=== PATIENT | female | born 1940 | race Caucasian/White ===

== ENCOUNTER 2016-07-12 10:31 | Inpatient (IN) | payer OTHER ==
[~2016-07-12] VITALS: Ht 162.6 cm; Wt 54.3 kg
[~2016-07-12 10:31] MED LIST: FSM70 PO
[2016-07-12] MEDS ORDERED: OXYB10TA13 PO (11:02)
[2016-07-12] MEDS ORDERED: PRED10TA PO (11:02)
--- NOTE | 2016-07-12 11:03 | EMERGENCY ROOM VISIT NOTE ---
History Report prepared by [place]: Brunilda Bush Under the Supervision of: Dr. Ace Barrera M.D. First contact with patient: 10:47 Chief Complaint: RESPIRATORY PROBLEMS Stated Complaint: CAN'T BREATHE, CONGESTION, PRESSURE IN HEAD Nursing Triage Summary: pt reports congestion and increased sob X 1 week, finished zpak 1 day ago cont on prednisone denies mucus production, reports pain under L rib History of Present Illness The patient is a 75 year old female who presents to the Emergency Room with complaints of persistent shortness of breath starting about 9 days ago. She reports severe cough and left lower chest pain. She has worsening symptoms with ambulation. She reports urinary incontinence with coughing but denies any other urinary symptoms. She has been taking Oxybutynin for urinary incontinence. She has a history of COPD. She has been using Spiriva and ProAir without relief. She was also prescribed Prednisone without relief. She does not wear oxygen at home. She quit smoking about 2 years ago. Previously, she had been smoking intermittently since high school. She denies any fevers, chills, pain/swelling in lower extremities, or any other complaints. She denies any blood thinners. Source of History: patient Onset: about 9 days ago Position: other (global) Quality: other (shortness of breath) Timing: other (persistent) Modifying Factors (Worsening): other (ambulation) Modifying Factors (Relieving): other (Spiriva and ProAir without relief; Prednisone without relief) Associated Symptoms: No chills, No fevers Review of Systems All systems have been listed, reviewed, and are negative other than those previously mentioned. Please see Additional Medical History Sheet. Past Medical & Surgical Surgical Problems: (1) Hx of cholecystectomy Family History Patient reports no known family medical history. Social History Smoking Status: Former Smoker Marital Status: Occupation Status: retired Current/Historical Medications Scheduled Oxybutynin Chloride Er (Ditropan Xl), 10 MG PO DAILY Prednisone (Prednisone), 10 MG PO UD Tiotropium [place] (Spiriva Handihaler), 1 CAP INH DAILY Allergies Coded Allergies: Cat Dander (Unverified Allergy, Intermediate, ., 07/12/16) Dog Dander (Unverified Allergy, Intermediate, ., 07/12/16) Grass (Unverified Allergy, Intermediate, ., 07/12/16) Molds & Smuts (Unverified Allergy, Intermediate, ., 07/12/16) Penicillins (Verified Allergy, Intermediate, HIVES, 07/12/16) Physical Exam Vital Signs Date Time Temp Pulse Resp B/P Pulse Ox O2 Delivery O2 Flow Rate FiO2 07/12/16 16:20 36.9 116 18 116/56 94 Nasal Cannula 3.0 07/12/16 16:19 110 18 132/64 98 3.0 07/12/16 14:38 107 22 128/66 92 Nasal Cannula 3.0 07/12/16 13:34 78 16 92 Nasal Cannula 3.0 07/12/16 12:40 78 16 107/65 93 Nasal Cannula 2.5 07/12/16 11:21 89 Room Air 07/12/16 11:06 96 07/12/16 11:05 94 Nasal Cannula 4.0 07/12/16 11:05 94 Room Air 07/12/16 10:36 36.9 110 20 117/72 89 Room Air Physical Exam GENERAL: Patient appears frail. SKIN: No erythema, pallor, cyanosis or rash HEENT: Normal head, pupils equal, reactive to light and accommodation. Ears normal. Oral cavity and posterior pharynx appear normal. Neck: Without adenopathy, no neck vein distention. LUNGS: Clear to auscultation. No wheezes, no rales, no rhonchi. HEART: No murmurs. No gallops. No rubs ABDOMEN: Soft, nontender. No masses, no rebound, no hepatomegaly or splenomegaly. EXTREMITIES: No signs of trauma. No pedal or pretibial edema. No calf or thigh tenderness. NEUROLOGIC: Cranial nerves II-XII within normal limits. No gross motor sensory function deficits. Medical Decision & Procedures ER Provider Diagnostic Interpretation: X ray results are stated below per my interpretation and the radiologist's interpretation. CHEST 2 VIEWS ROUTINE CLINICAL HISTORY: Shortness of breath. COMPARISON STUDY: No previous studies for comparison. FINDINGS: There is an old fracture of the left sixth rib. Lung volumes are normal. There is no pneumothorax or pleural effusion. No consolidation is identified. Cardiac size is normal. Mediastinal contours are normal. There may be emphysema. IMPRESSION: No acute cardiopulmonary findings. Electronically signed by: Alban Gonsalves M.D. 07/12/2016 12:47 PM Dictated Date/Time: 07/12/2016 12:46 PM Laboratory Results 07/12/16 11:37 Red Blood Count 5.03, Mean Corpuscular Volume 93.0, Mean Corpuscular Hemoglobin 31.2, Mean Corpuscular Hemoglobin Concent 33.5, Mean Platelet Volume 10.3, Neutrophils (%) (Auto) 79.3, Lymphocytes (%) (Auto) 14.4, Monocytes (%) (Auto) 6.1, Eosinophils (%) (Auto) 0.0, Basophils (%) (Auto) 0.1, Neutrophils # (Auto) 7.07, Lymphocytes # (Auto) 1.28, Monocytes # (Auto) 0.54, Eosinophils # (Auto) 0.00, Basophils # (Auto) 0.01 07/12/16 11:37 Test 07/12/16 11:37 07/12/16 12:00 White Blood Count 8.91 K/uL (4.8-10.8) Red Blood Count 5.03 M/uL (4.2-5.4) Hemoglobin 15.7 g/dL (12.0-16.0) Hematocrit 46.8 % (37-47) Mean Corpuscular Volume 93.0 fL (80-100) Mean Corpuscular Hemoglobin 31.2 pg (25-34) Mean Corpuscular Hemoglobin Concent 33.5 g/dl (32-36) Platelet Count 254 K/uL (130-400) Mean Platelet Volume 10.3 fL (7.4-10.4) Neutrophils (%) (Auto) 79.3 % Lymphocytes (%) (Auto) 14.4 % Monocytes (%) (Auto) 6.1 % Eosinophils (%) (Auto) 0.0 % Basophils (%) (Auto) 0.1 % Neutrophils # (Auto) 7.07 K/uL (1.4-6.5) Lymphocytes # (Auto) 1.28 K/uL (1.2-3.4) Monocytes # (Auto) 0.54 K/uL (0.11-0.59) Eosinophils # (Auto) 0.00 K/uL (0-0.5) Basophils # (Auto) 0.01 K/uL (0-0.2) RDW Standard Deviation 44.6 fL (36.4-46.3) RDW Coefficient of Variation 13.2 % (11.5-14.5) Immature Granulocyte % (Auto) 0.1 % Immature Granulocyte # (Auto) 0.01 K/uL (0.00-0.02) Prothrombin Time 10.6 SECONDS (9.0-12.0) Prothromb Time International Ratio 1.0 (0.9-1.1) Anion Gap 11.0 mmol/L (3-11) Est Creatinine Clear Calc Drug Dose 57.3 ml/min Estimated GFR () 91.7 Estimated GFR (Non- 79.1 BUN/Creatinine Ratio 28.9 (10-20) Calcium Level 9.3 mg/dl (8.5-10.1) Total Bilirubin 0.5 mg/dl (0.2-1) Aspartate Amino Transf (AST/SGOT) 24 U/L (15-37) Alanine Aminotransferase (ALT/SGPT) 30 U/L (12-78) Alkaline Phosphatase 68 U/L (45-117) Troponin I < 0.015 ng/ml (0-0.045) Total Protein 7.4 gm/dl (6.4-8.2) Albumin 3.8 gm/dl (3.4-5.0) Globulin 3.6 gm/dl (2.5-4.0) Albumin/Globulin Ratio 1.1 (0.9-2) Urine Color YELLOW Urine Appearance CLEAR (CLEAR) Urine pH 7.0 (4.5-7.5) Urine Specific [place] 1.016 (1.000-1.030) Urine Protein NEG (NEG) Urine Glucose (UA) NEG (NEG) Urine Ketones NEG (NEG) Urine Occult Blood NEG (NEG) Urine Nitrite NEG (NEG) Urine Bilirubin NEG (NEG) Urine Urobilinogen NEG (NEG) Urine Leukocyte Esterase NEG (NEG) Laboratory results as stated above per my review. Medications Administered Medications (Trade) Dose Ordered Sig/Bala Route Start Time Stop Time Status Last Admin Dose Admin Albuterol/ Ipratropium (Duoneb) 12 ml ONE ONCE INH 07/12/16 13:30 07/12/16 13:31 DC 07/12/16 13:34 12 ML Methylprednisolone Sodium Succinate (Solu-Medrol IV) 80 mg NOW STAT IV 07/12/16 14:17 07/12/16 14:18 DC 07/12/16 14:35 80 MG ECG Indication: SOB/dyspnea Rate (beats per minute): 95 Rhythm: normal sinus Findings: no acute ischemic change, no ectopy ED Course 1047: Past medical records reviewed. The patient was evaluated in room B05. A complete history and physical examination was performed. 1330: DuoNeb 12 ml INH 1339: I discussed the patient's case with son. 1417: Solu-Medrol IV 80 mg IV 1435: Upon reevaluation, the patient is resting comfortably. She is currently receiving breathing treatment. She does not have wheezing. I discussed today's findings with her. She verbalized agreement of the treatment plan. I spoke with Dr. Amador of the [facility] to evaluate the patient for further management. Medical Decision Differential diagnosis includes but is not limited to COPD with acute exacerbation, pneumonia, PE, acute cardiac decompensation. The patient is a long history of COPD. She does not have oxygen at home. The patient arrives here hypoxic and very short of breath. She has been extremely dyspneic with any exertion. Initial exam reveals decreased air movement but no significant wheezes. The patient was treated with IV Solu-Medrol and albuterol nebulizer. Chest x-ray does not reveal an acute infiltrate. The due to the hypoxemia and significant shortness of breath I believe the patient requires further evaluation and treatment in the hospital. I discussed care with the patient, her son and the hospitalist. Consults Time Called: 1430 Consulting Physician[facility] Returned Call: [address] Amador of the [facility] to evaluate the patient for further management. Impression Primary Impression: COPD with acute exacerbation Additional Impression: Hypoxemia Scribe Attestation The scribe's documentation has been prepared under my direction and personally reviewed by me in its entirety. I confirm that the note above accurately reflects all work, treatment, procedures, and medical decision making performed by me. Departure Information Dispostion Being Evaluated By Hospitalist Referrals Kieran Upton M.D. (PCP) Patient Instructions My [facility] Problem Qualifiers
[2016-07-12 11:52] LABS: BASO % 0.1 %; BASO ABS # 0.01 K/uL (0-0.2); COMPLETE YES; HEMATOCRIT 46.8 % (37-47); IG% 0.1 %; LYMPH % 14.4 %; LYMPH ABS # 1.28 K/uL (1.2-3.4); MEAN CORPUSCULAR HEMOGLOBIN 31.2 pg (25-34); MEAN CORPUSCULAR HGB CONC 33.5 g/dl (32-36); MEAN PLATELET VOLUME 10.3 fL (7.4-10.4); MONO % 6.1 %; NEUT % 79.3 %; PLATELET COUNT 254 K/uL (130-400); RED BLOOD COUNT 5.03 M/uL (4.2-5.4); WHITE BLOOD COUNT 8.91 K/uL (4.8-10.8)
[2016-07-12 12:06] LABS: PROTHROMBIN TIME (PATIENT) 10.6 SECONDS (9.0-12.0)
[2016-07-12 12:14] LABS: ALT/SGPT 30 U/L (12-78); BLOOD UREA NITROGEN 22 mg/dl (7-18); BUN/CREATININE RATIO 28.9 (10-20); CALCIUM 9.3 mg/dl (8.5-10.1); CARBON DIOXIDE 28 mmol/L (21-32); CHLORIDE 103 mmol/L (98-107); CREATININE 0.75 mg/dl (0.60-1.20); GLUCOSE 100 mg/dl (70-99); POTASSIUM 3.9 mmol/L (3.5-5.1); SODIUM 142 mmol/L (136-145)
[2016-07-12 12:19] LABS: ALB/GLOB RATIO 1.1 (0.9-2); ALKALINE PHOSPHATASE 68 U/L (45-117); AST/SGOT 24 U/L (15-37)
--- NOTE | 2016-07-12 12:48 | DIAGNOSTIC IMAGING REPORT ---
CHEST 2 VIEWS ROUTINE CLINICAL HISTORY: Shortness of breath. COMPARISON STUDY: No previous studies for comparison. FINDINGS: There is an old fracture of the left sixth rib. Lung volumes are normal. There is no pneumothorax or pleural effusion. No consolidation is identified. Cardiac size is normal. Mediastinal contours are normal. There may be emphysema. IMPRESSION: No acute cardiopulmonary findings. Electronically signed by: Alban Gonsalves M.D. 07/12/2016 12:47 PM Dictated Date/Time: 07/12/2016 12:46 PM
[2016-07-12] MEDS ORDERED: ALBUT/IPRATROP 3MG/0.5MG NEB 3 ML VIAL INH ONE (13:30)
[2016-07-12 13:34] VITALS: PULSE 78; O2SAT 92
[2016-07-12 14:16] LABS: URINE APPEARANCE CLEAR (CLEAR); URINE BILIRUBIN NEG (NEG); URINE COLOR YELLOW; URINE NITRITE NEG (NEG); URINE SPECIFIC GRAVITY 1.016 (1.000-1.030); UROBILINOGEN NEG (NEG); ZZUR CULT IF INDIC CLEAN CATCH NO
[2016-07-12] MEDS ORDERED: METHYLPREDNISOLONE 125 MG VIAL IV STA (14:17)
[2016-07-12 14:26] LABS: MANUAL MICROSCOPIC REQUIRED? NO; REVIEW REQ? NO
[2016-07-12] MEDS ORDERED: ONDANSETRON INJ 2 MG/ML 2 ML VIAL IV PRN (15:45)
[2016-07-12] MEDS ORDERED: ACETAMINOPHEN 325 MG TAB PO PRN (15:45)
[2016-07-12] MEDS ORDERED: MAGNESIUM HYDROXIDE SUSP 30 ML UDC PO PRN (15:45)
[2016-07-12] MEDS ORDERED: ALUMINUM/MAGNESIUM/SIMETH (MAALOX MAX) 30 ML UDC PO PRN (15:45)
[2016-07-12] MEDS ORDERED: SPRIN/30 INH (15:56)
[2016-07-12] MEDS: IPRATROPIUM BROMIDE NEB SOLN 0.02% 2.5 ML VIAL INH SCH ×2 (16:00→19:04)
[2016-07-12] MEDS ORDERED: LEVALBUTEROL 1.25MG/3ML NEB INH PRN (16:00)
[2016-07-12] MEDS ORDERED: IPRATROPIUM BROMIDE NEB SOLN 0.02% 2.5 ML VIAL INH PRN (16:00)
--- NOTE | 2016-07-12 16:12 | History and Physical ---
History & Physical Date & Time of Service: Jul 12, 2016 at 16:02 Chief Complaint: Can't Breathe, Congestion, Pressure In Head Primary Care Physician: Kieran Upton M.D. History of Present Illness Source: patient Ms. White is a 75 y/o female with PMHx of COPD who presents to the ED c/o SOB and Sinus Pressure x 9 days. She is a former smoker (quit 2 years ago) when she was diagnosed with COPD by a rehab nursing tech in [place], [place]. She states she does have a chronic cough that normally produces clear sputum. Approx. 9 days ago she began with developing sinus congestion and the feeling of water behind the ears. She noticed that she progressively developed SOB to the point that her cough became non-productive and her chest felt tight. She reports associated post-nasal drip. She does not recall having symptoms this severe before. She does not believe she has had any prior COPD exacerbations. She was seen by her PCP when this started and was given a Zpak and 6 day Prednisone taper without relief. She has also uses Spiriva for maintenance and ProAir without relief of symptoms. She reports she just recently received a nebulizer machine but was not given an Rx for medication for it. She does not utilize oxygen at home and reports she normally sats in mid-90s at doctor appointments. She does report frequent allergies to pets, grass, dust, and molds that triggers sinusitis. Denies current cigarette use or exposure to second-hand smoke. She does have incontinence that has been exacerbated due to coughing and takes Oxybutynin for. She denies fever/chills, N/V, abdominal pain, dysuria, constipation/ diarrhea. In the ED, she was given a Duoneb and Solu-Medrol 80 mg IV and reports that she feels that her chest is loosening up. She has intermittent hypoxic episodes in the high 80s that have improved with NC. She is afebrile without leukocytosis. CXR is negative for consolidation or infectious cause but reveals some emphysematous changes and an old L 6th rib fx. She will be admitted to Med/Surg with continuous pulse oximetry for COPD exacerbation. Past Medical/Surgical History PMHx: 1. COPD Surgical History 1. S/P Cholecystectomy 2. S/P Hysterectomy 3. S/P L Adrenal Cortical Adenoma Excision Family History Breast Cancer MOTHER Social History Smoking Status: Former Smoker Smokeless Tobacco Use: No Alcohol Use: none Drug Use: none Marital Status: Occupational Status: retired Immunizations History of Influenza Vaccine: Yes Influenza Vaccine Date: Mar 08, 2011 History of Tetanus Vaccine?: Unknown History of Pneumococcal: Yes Pneumococcal Date: Oct 29, 2008 History of Hepatitis B Vaccine: No Allergies Coded Allergies: Cat Dander (Unverified Allergy, Intermediate, ., 07/12/16) Dog Dander (Unverified Allergy, Intermediate, ., 07/12/16) Grass (Unverified Allergy, Intermediate, ., 07/12/16) Molds & Smuts (Unverified Allergy, Intermediate, ., 07/12/16) Penicillins (Verified Allergy, Intermediate, HIVES, 07/12/16) Home Medications Scheduled Oxybutynin Chloride Er (Ditropan Xl), 10 MG PO DAILY Prednisone (Prednisone), 10 MG PO UD Tiotropium [place] (Spiriva Handihaler), 1 CAP INH DAILY Review of Systems Constitutional: No chills, No fever Eyes: No worsening of vision ENT: + nasal symptoms, No sore throat Respiratory: + cough, + dyspnea on exertion, + shortness of breath, + wheezing , No sputum Cardiovascular: + chest pain (L rib pain) Abdomen: No constipation, No diarrhea, No nausea, No pain, No vomiting Musculoskeletal: No calf pain, No swelling Genitourinary - Female: + urinary incontinence (stress incontinence), No dysuria Neurologic: No weakness Endocrine: + fatigue Hematologic / Lymphatic: No abnormal bleeding/bruising, No clotting problems Integumentary: No rash Allergic / Immunologic: + environmental allergies, + food allergies, + pet sensitivities, + seasonal allergies Physical Exam Vital Signs Date Time Temp Pulse Resp B/P Pulse Ox O2 Delivery O2 Flow Rate FiO2 07/12/16 14:38 107 22 128/66 92 Nasal Cannula 3.0 07/12/16 13:34 78 16 92 Nasal Cannula 3.0 07/12/16 12:40 78 16 107/65 93 Nasal Cannula 2.5 07/12/16 11:21 89 Room Air 07/12/16 11:06 96 07/12/16 11:05 94 Nasal Cannula 4.0 07/12/16 11:05 94 Room Air 07/12/16 10:36 36.9 110 20 117/72 89 Room Air General Appearance: no apparent distress, + thin Head: normocephalic, atraumatic Eyes: sclerae normal ENT: hearing grossly normal, TMs normal, + nasal drainage, + pertinent finding (oral membranes dry) Neck: supple, no adenopathy, no JVD, trachea midline Respiratory/Chest: no respiratory distress, no accessory muscle use, + pertinent finding (poor airflow; prolonged expiration with wheeze) Cardiovascular: regular rate, rhythm, no gallop, no murmur Abdomen/GI: normal bowel sounds, non tender, soft Back: normal inspection, no CVA tenderness Extremities/Musculoskelatal: no calf tenderness, no pedal edema Neurologic/Psych: alert, oriented x 3 Skin: normal color, warm/dry Diagnostics Laboratory Results Results Past 24 Hours Test 07/12/16 11:37 07/12/16 12:00 Range/Units White Blood Count 8.91 4.8-10.8 K/uL Red Blood Count 5.03 4.2-5.4 M/uL Hemoglobin 15.7 12.0-16.0 g/dL Hematocrit 46.8 37-47 % Mean Corpuscular Volume 93.0 80-100 fL Mean Corpuscular Hemoglobin 31.2 25-34 pg Mean Corpuscular Hemoglobin Concent 33.5 32-36 g/dl Platelet Count 254 130-400 K/uL Mean Platelet Volume 10.3 7.4-10.4 fL Neutrophils (%) (Auto) 79.3 % Lymphocytes (%) (Auto) 14.4 % Monocytes (%) (Auto) 6.1 % Eosinophils (%) (Auto) 0.0 % Basophils (%) (Auto) 0.1 % Neutrophils # (Auto) 7.07 1.4-6.5 K/uL Lymphocytes # (Auto) 1.28 1.2-3.4 K/uL Monocytes # (Auto) 0.54 0.11-0.59 K/uL Eosinophils # (Auto) 0.00 0-0.5 K/uL Basophils # (Auto) 0.01 0-0.2 K/uL RDW Standard Deviation 44.6 36.4-46.3 fL RDW Coefficient of Variation 13.2 11.5-14.5 % Immature Granulocyte % (Auto) 0.1 % Immature Granulocyte # (Auto) 0.01 0.00-0.02 K/uL Prothrombin Time 10.6 9.0-12.0 SECONDS Prothromb Time International Ratio 1.0 0.9-1.1 Sodium Level 142 136-145 mmol/L Potassium Level 3.9 3.5-5.1 mmol/L Chloride Level 103 98-107 mmol/L Carbon Dioxide Level 28 21-32 mmol/L Anion Gap 11.0 3-11 mmol/L Blood Urea Nitrogen 22 7-18 mg/dl Creatinine 0.75 0.60-1.20 mg/dl Est Creatinine Clear Calc Drug Dose 57.3 ml/min Estimated GFR () 91.7 Estimated GFR (Non- 79.1 BUN/Creatinine Ratio 28.9 10-20 Random Glucose 100 70-99 mg/dl Calcium Level 9.3 8.5-10.1 mg/dl Total Bilirubin 0.5 0.2-1 mg/dl Aspartate Amino Transf (AST/SGOT) 24 15-37 U/L Alanine Aminotransferase (ALT/SGPT) 30 12-78 U/L Alkaline Phosphatase 68 45-117 U/L Troponin I < 0.015 0-0.045 ng/ml Total Protein 7.4 6.4-8.2 gm/dl Albumin 3.8 3.4-5.0 gm/dl Globulin 3.6 2.5-4.0 gm/dl Albumin/Globulin Ratio 1.1 0.9-2 Urine Color YELLOW Urine Appearance CLEAR CLEAR Urine pH 7.0 4.5-7.5 Urine Specific [place] 1.016 1.000-1.030 Urine Protein NEG NEG Urine Glucose (UA) NEG NEG Urine Ketones NEG NEG Urine Occult Blood NEG NEG Urine Nitrite NEG NEG Urine Bilirubin NEG NEG Urine Urobilinogen NEG NEG Urine Leukocyte Esterase NEG NEG Diagnostic Radiology CHEST 2 VIEWS ROUTINE CLINICAL HISTORY: Shortness of breath. COMPARISON STUDY: No previous studies for comparison. FINDINGS: There is an old fracture of the left sixth rib. Lung volumes are normal. There is no pneumothorax or pleural effusion. No consolidation is identified. Cardiac size is normal. Mediastinal contours are normal. There may be emphysema. IMPRESSION: No acute cardiopulmonary findings. EKG Normal sinus rhythm Possible Left atrial enlargement Right bundle branch block Abnormal ECG No previous ECGs available Impression Assessment and Plan Ms. White is a 75 y/o female with PMHx of COPD who presents to the ED c/o SOB and Sinus Pressure x 9 days. She will be admitted to Med/Surg with continuous pulse oximetry for COPD exacerbation. 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 Y/N: Yes Risk Level: Moderate Given or contraindicated: Enoxaparin (Lovenox)SQ Assessment and Plan Attending Addendum: I have physically seen and examined this patient, have directed their medical care, have supervised the PA's activity, and agree with the H&P as noted above, with the following changes: NONE. The patient is awake, well-developed and adequately nourished, alert and oriented 3, normocephalic and atraumatic, lying in bed and in no acute distress. HEENT--PERRL, EOMI, mucous membranes and oropharynx dry. Neck--supple, no JVD or bruits, thyroid normal, trachea midline, no adenopathy. Heart--normal S1 and S2, no extra beats, no murmurs, rubs or gallops. Lungs--long expiratory wheezes bilaterally with scattered rhonchi , no respiratory distress, no accessory muscle use. Abdomen--normal bowel sounds and soft, nontender and nondistended, no hernias or masses, no organomegaly. Extremities--no cyanosis, clubbing or edema. There are good distal pulses b/l. Dermatologic--normal skin turgor, normal color, warm and dry, no abnormal lymph nodes, no rash. Neurologic--cranial nerves II through XII grossly intact, motor and sensory examination normal. Rheumatologic--normal range of motion, nontender, muscles and joints. Psychiatric--normal affect. Assessment and Plan: COPD exacerbation --admitted to medical floor. Place on Solu-Medrol 40 mg IV every 6 hours, ceftriaxone 1 g IV daily, levofloxacin 5 mg IV every 24 hours, guaifenesin extended release 600 mg by mouth twice a day, Xopenex nebulizer to use every 6 hours while awake and every 2 hours when necessary.
[2016-07-12 16:20] VITALS: BP 116/56; PULSE 116; TEMP 36.9; O2SAT 94; Ht 162.6 cm; Wt 54.3 kg
[2016-07-12 17:58] VITALS: BP 104/69; PULSE 123; TEMP 36.9; O2SAT 90
[2016-07-12] MEDS ORDERED: POLYETHYLENE (MIRALAX) 17 GM PACK PO PRN (18:00)
[2016-07-12] MEDS ORDERED: LEVOFLOXACIN / D5W 750 MG in PREMIXED IN D5W 150 ML IV SCH (18:00)
[2016-07-12] MEDS: SODIUM CHLORIDE 0.9% 1000ML 1,000 ML IV SCH (18:34)
[2016-07-12] MEDS: LEVALBUTEROL 1.25MG/3ML NEB INH SCH (19:04)
[2016-07-12 19:05] VITALS: PULSE 109; O2SAT 91
[2016-07-12] MEDS ORDERED: CEFTRIAXONE SOD INJ 1 GM in DEXTROSE 5% ADD-VANTAGE 50ML 50 ML IV SCH (20:30)
[2016-07-12] MEDS: METHYLPREDNISOLONE IV 40 MG in SYRINGE 0 ML IV SCH (20:49)
[2016-07-12 23:48] VITALS: BP 103/68; PULSE 102; TEMP 36.7; O2SAT 90
[2016-07-13] VITALS: O2SAT 91
[2016-07-13 02:23] VITALS: PULSE 102; O2SAT 90
[2016-07-13] MEDS: LEVALBUTEROL 1.25MG/3ML NEB INH SCH (02:23)
[2016-07-13] MEDS: SODIUM CHLORIDE 0.9% 1000ML 1,000 ML IV SCH (04:53)
[2016-07-13] MEDS: METHYLPREDNISOLONE IV 40 MG in SYRINGE 0 ML IV SCH ×3 (06:09→21:02)
[2016-07-13 07:42] VITALS: BP 107/69; PULSE 91; TEMP 36.4; O2SAT 89
[2016-07-13 07:50] VITALS: O2SAT 90
[2016-07-13] MEDS: GUAIFENESIN 600 MG TABCR PO SCH ×2 (08:29→21:04)
[2016-07-13] MEDS: ENOXAPARIN 40 MG/0.4 ML SYR SQ SCH (08:30)
--- NOTE | 2016-07-13 10:51 | Progress Note ---
Subjective Date of Service: Jul 13, 2016. Subjective Pt evaluation today including: conversation w/ patient, physical exam, chart review, lab review, review of studies, review of inpatient medication list Still has sob but able to ambulate and tolerated is relatively well. No chest pain, no abd pain, no urinary symptoms. ROS as above, rest of ROS negative. Problem List Medical Problems: (1) COPD with acute exacerbation Status: Acute (2) Hypoxemia Status: Acute Review of Systems All Other Systems: Reviewed and Negative Medications Medications (Trade) Dose Ordered Sig/Bala Route Start Time Stop Time Status Last Admin Dose Admin Albuterol/ Ipratropium (Duoneb) 12 ml ONE ONCE INH 07/12/16 13:30 07/12/16 13:31 DC 07/12/16 13:34 12 ML Methylprednisolone Sodium Succinate 80 mg 80 mg NOW STAT IV 07/12/16 14:17 07/12/16 14:18 DC 07/12/16 14:35 80 MG Levofloxacin/Prmx (Levaquin / D5W/ Premixed D5W) 150 ml @ 100 mls/hr DAILY@1800 IV 07/12/16 18:00 07/19/16 17:59 07/12/16 18:33 100 MLS/HR Ipratropium [place] (Atrovent 0.02% 0.5MG/2.5ML Neb) 0.5 mg Q8R INH 07/12/16 16:00 07/13/16 08:27 DC 07/12/16 19:04 0.5 MG Levalbuterol (Xopenex 1.25MG/ 3ML Neb) 1.25 mg Q6R INH 07/12/16 21:00 07/13/16 08:28 DC 07/13/16 02:23 1.25 MG Ipratropium [place] 0.5 mg 0.5 mg Q2H PRN INH 07/12/16 16:00 07/13/16 08:28 DC 07/13/16 02:23 0.5 MG Sodium Chloride 1,000 ml @ 100 mls/hr Q10H IV 07/12/16 18:00 08/11/16 17:59 07/13/16 04:53 100 MLS/HR Methylprednisolone Sodium Succinate 40 mg/Syringe 0.64 ml @ 1.5 mls/min Q8@0600,1400,2200 IV 07/12/16 22:00 08/11/16 21:59 07/13/16 06:09 1.5 MLS/MIN Ceftriaxone Sodium/Dextrose (Rocephin Inj/ Dextrose Add-[place] 50ML) 50 ml @ 100 mls/hr DAILY@1999 IV 07/12/16 20:30 07/19/16 20:29 07/12/16 20:49 100 MLS/HR Guaifenesin (Mucinex Contr Rel Tab) 600 mg Q12 PO 07/13/16 09:00 08/12/16 08:59 07/13/16 08:29 600 MG Objective Vital Signs Date Time Temp Pulse Resp B/P Pulse Ox O2 Delivery O2 Flow Rate FiO2 07/13/16 07:50 90 Nasal Cannula 4.5 07/13/16 07:42 36.4 91 22 107/69 89 Nasal Cannula 4.0 07/13/16 02:23 102 16 90 Nasal Cannula 4.0 07/13/16 00:00 91 Nasal Cannula 4.0 07/12/16 23:48 36.7 102 22 103/68 90 Nasal Cannula 4.0 07/12/16 19:05 109 16 91 Nasal Cannula 4.0 07/12/16 17:58 36.9 123 22 104/69 90 Nasal Cannula 4.0 07/12/16 16:20 36.9 116 18 116/56 94 Nasal Cannula 3.0 07/12/16 16:19 110 18 132/64 98 3.0 07/12/16 14:38 107 22 128/66 92 Nasal Cannula 3.0 07/12/16 13:34 78 16 92 Nasal Cannula 3.0 07/12/16 12:40 78 16 107/65 93 Nasal Cannula 2.5 07/12/16 11:21 89 Room Air 07/12/16 11:06 96 07/12/16 11:05 94 Nasal Cannula 4.0 07/12/16 11:05 94 Room Air Physical Exam Comments: NAD, AOx3 thin female eomi, perrl, anicteric sclerae S1 S2 RRR, no murmurs appreciated decreased breath sounds diffusely, no wheezing appreciated abd soft,nt/nd +BS no cva tenderness no LE edema CN 2-12 grossly intact without any facial drooping Laboratory Results Last 24 Hours Test 07/12/16 11:37 07/12/16 12:00 White Blood Count 8.91 K/uL Red Blood Count 5.03 M/uL Hemoglobin 15.7 g/dL Hematocrit 46.8 % Mean Corpuscular Volume 93.0 fL Mean Corpuscular Hemoglobin 31.2 pg Mean Corpuscular Hemoglobin Concent 33.5 g/dl Platelet Count 254 K/uL Mean Platelet Volume 10.3 fL Neutrophils (%) (Auto) 79.3 % Lymphocytes (%) (Auto) 14.4 % Monocytes (%) (Auto) 6.1 % Eosinophils (%) (Auto) 0.0 % Basophils (%) (Auto) 0.1 % Neutrophils # (Auto) 7.07 K/uL Lymphocytes # (Auto) 1.28 K/uL Monocytes # (Auto) 0.54 K/uL Eosinophils # (Auto) 0.00 K/uL Basophils # (Auto) 0.01 K/uL RDW Standard Deviation 44.6 fL RDW Coefficient of Variation 13.2 % Immature Granulocyte % (Auto) 0.1 % Immature Granulocyte # (Auto) 0.01 K/uL Prothrombin Time 10.6 SECONDS Prothromb Time International Ratio 1.0 Sodium Level 142 mmol/L Potassium Level 3.9 mmol/L Chloride Level 103 mmol/L Carbon Dioxide Level 28 mmol/L Anion Gap 11.0 mmol/L Blood Urea Nitrogen 22 mg/dl Creatinine 0.75 mg/dl Est Creatinine Clear Calc Drug Dose 57.3 ml/min Estimated GFR () 91.7 Estimated GFR (Non- 79.1 BUN/Creatinine Ratio 28.9 Random Glucose 100 mg/dl Calcium Level 9.3 mg/dl Total Bilirubin 0.5 mg/dl Aspartate Amino Transf (AST/SGOT) 24 U/L Alanine Aminotransferase (ALT/SGPT) 30 U/L Alkaline Phosphatase 68 U/L Troponin I < 0.015 ng/ml Total Protein 7.4 gm/dl Albumin 3.8 gm/dl Globulin 3.6 gm/dl Albumin/Globulin Ratio 1.1 Urine Color YELLOW Urine Appearance CLEAR Urine pH 7.0 Urine Specific [place] 1.016 Urine Protein NEG Urine Glucose (UA) NEG Urine Ketones NEG Urine Occult Blood NEG Urine Nitrite NEG Urine Bilirubin NEG Urine Urobilinogen NEG Urine Leukocyte Esterase NEG Assessment and Plan 1. Acute COPD exacerbation -slightly improved -cont O2 supplementation - cont nebs - cont solumedrol - reviewed cxr: no infiltrate - will stop levo/rocephin and start azithromycin 2. h/o urinary incontinence - will stop IVF as patient now tolerating po intake well - appear euvolemic - hold off oxybutynin for now and should resume on discharge 3. dvt ppx with hsq
[2016-07-13] MEDS: LEValbuterol HFA 15GM INHALER INH SCH ×2 (12:30→21:03)
[2016-07-13] MEDS: IPRATROPIUM BROMIDE HFA INHALER INH SCH ×2 (12:30→21:03)
[2016-07-13 15:11] VITALS: BP 109/60; PULSE 98; TEMP 36.6; O2SAT 92
[2016-07-13 16:20] VITALS: O2SAT 92
[2016-07-14] VITALS (9 sets, daily range): BP systolic 99–124; BP diastolic 64–72; PULSE 88–96; TEMP 36.4–36.9; O2SAT 91–96
[2016-07-14] MEDS: LEValbuterol HFA 15GM INHALER INH SCH ×4 (05:42→17:50)
[2016-07-14] MEDS: IPRATROPIUM BROMIDE HFA INHALER INH SCH ×4 (05:42→17:49)
[2016-07-14] MEDS: METHYLPREDNISOLONE IV 40 MG in SYRINGE 0 ML IV SCH ×2 (05:43→21:10)
[2016-07-14] MEDS: ENOXAPARIN 40 MG/0.4 ML SYR SQ SCH (08:00)
[2016-07-14] MEDS: GUAIFENESIN 600 MG TABCR PO SCH ×2 (08:45→20:30)
--- NOTE | 2016-07-14 13:40 | Progress Note ---
Subjective Date of Service: Jul 14, 2016. Subjective Pt evaluation today including: conversation w/ patient, conversation w/ family (spoke with son Dr. Adam White), physical exam, review of inpatient medication list Breathing improved from yesterday. No chest pain. Remains on oxygen supplementation. WOuld like to avoid being on oxygen. Ambulating to/fro bathroom without much dyspnea but with oxygen on. Problem List Medical Problems: (1) COPD with acute exacerbation Status: Acute (2) Hypoxemia Status: Acute Review of Systems All Other Systems: Reviewed and Negative Medications Acetaminophen (Tylenol Tab) 650 mg Q4H PRN PO; Start 07/12/16 at 15:45; Stop 08/11/16 at 15:44 Al Hydrox/Mg Hydrox/Simethicone (Maalox Max Susp) 15 ml Q4H PRN PO; Start 07/12 at 15:45; Stop 08/11/16 at 15:44 Enoxaparin Sodium 40 mg 40 mg QAM SQ; Start 07/13/16 at 08:00; Stop 08/12/16 at 08:59 Guaifenesin (Mucinex Contr Rel Tab) 600 mg Q12 PO Last administered on 08:45; Admin Dose 600 MG; Start 07/13/16 at 09:00; Stop 08/12/16 at 08:59 Ipratropium [place] (Atrovent Hfa Inhaler) 2 puffs Q6 INH Last administered on 11:41; Admin Dose 2 PUFFS; Start 07/13/16 at 12:00; Stop 08/12/16 at 11 :59 Levalbuterol (Xopenex Hfa Inhaler) 2 puffs Q6 INH Last administered on 11:41; Admin Dose 2 PUFFS; Start 07/13/16 at 12:00; Stop 08/12/16 at 11:59 Magnesium Hydroxide (Milk Of Magnesia Susp) 30 ml Q6H PRN PO; Start 07/12/16 at 15:45; Stop 08/11/16 at 15:44 Methylprednisolone Sodium Succinate/ Syringe (Solu-Medrol IV/ Syringe) 0.64 ml @ 1.5 mls/min Q8@0600,1400,2200 IV Last administered on 07/14/16 05:43; Admin Dose 1.5 MLS/MIN; Start 07/12/16 at 22:00; Stop 08/11/16 at 21:59 Ondansetron HCl (Zofran Inj) 4 mg Q6H PRN IV; Start 07/12/16 at 15:45; Stop at 15:44 Polyethylene (Miralax Powder Packet) 17 gm DAILY PRN PO; Start 07/12/16 at 18: 00; Stop 08/11/16 at 17:59 Objective Vital Signs Date Time Temp Pulse Resp B/P Pulse Ox O2 Delivery O2 Flow Rate FiO2 07/14/16 09:21 92 Nasal Cannula 4.0 07/14/16 07:33 36.6 96 22 114/70 92 Nasal Cannula 4.0 07/14/16 00:37 36.4 88 18 124/72 93 4.0 07/14/16 00:30 Nasal Cannula 07/13/16 16:20 92 Nasal Cannula 4.0 07/13/16 15:11 36.6 98 18 109/60 92 Nasal Cannula 4.0 Physical Exam Comments: nad, aox3, coherent and fluent speech eomi, perrl, anicteric s1 s2 rrr, no m/r/g diminshed breath sounds diffusely without wheezing, rales, rhonchi abd soft,nt/nd +BS no cva tend no LE edema cn 2-12 grossly intact without focal deficits Assessment and Plan 1. Acute COPD exacerbation - taper off steroids to q12 and switch to oral by tomorrow if remains stable - improving without abx, will hold off and monitor for now - oxygenation improving but still requiring O2 nasal cannula - will monitor one more day to see if her oxygenation will improve and avoid sending her home on oxygen which is her preference 2. h/o urinary incontinence - will stop IVF as patient now tolerating po intake well - appear euvolemic - hold off oxybutynin for now and should resume on discharge 3. dvt ppx with hsq
[2016-07-15 00:01] VITALS: O2SAT 92
[2016-07-15] MEDS: IPRATROPIUM BROMIDE HFA INHALER INH SCH ×3 (00:01→11:47)
[2016-07-15] MEDS: LEValbuterol HFA 15GM INHALER INH SCH ×3 (00:01→11:47)
[2016-07-15 07:48] LABS: HEMATOCRIT 41.6 % (37-47); MEAN CELL VOLUME 93.3 fL (80-100); MEAN CORPUSCULAR HEMOGLOBIN 32.1 pg (25-34); MEAN CORPUSCULAR HGB CONC 34.4 g/dl (32-36); MEAN PLATELET VOLUME 10.1 fL (7.4-10.4); PLATELET COUNT 291 K/uL (130-400); RED BLOOD COUNT 4.46 M/uL (4.2-5.4); WHITE BLOOD COUNT 11.53 K/uL (4.8-10.8)
[2016-07-15] MEDS: GUAIFENESIN 600 MG TABCR PO SCH (07:53)
[2016-07-15] MEDS: ENOXAPARIN 40 MG/0.4 ML SYR SQ SCH (07:53)
[2016-07-15] MEDS: METHYLPREDNISOLONE IV 40 MG in SYRINGE 0 ML IV SCH (08:02)
[2016-07-15 08:18] VITALS: BP 113/71; PULSE 95; TEMP 36.7; O2SAT 90
[2016-07-15 08:30] VITALS: O2SAT 87
[2016-07-15 08:31] VITALS: O2SAT 94
[2016-07-15 08:37] LABS: CREATININE 0.62 mg/dl (0.60-1.20)
[2016-07-15] MEDS ORDERED: SODIUM CHLORIDE 0.65% NA SOLN 45 ML (OCEAN) ONE (10:39)
[2016-07-15] MEDS ORDERED: NURSING DECISION MEDICATION ORDER SCH (11:00)
[2016-07-15] MEDS ORDERED: SODIUM CHLORIDE 0.65% NA SOLN 45 ML (OCEAN) PRN (11:00)
[2016-07-15] MEDS ORDERED: ATRIN INH (13:16)
[2016-07-15] MEDS ORDERED: PRD20 PO (13:16)
--- NOTE | 2016-07-15 13:21 | Discharge Instructions ---
Discharge Instructions Admission Reason for Admission: Copd With Acute Exacerbation Discharge Discharge Diagnosis / Problem: Acute COPD Discharge Goals Goal(s): Decrease discomfort, Improve function, Increase independence Activity Recommendations Activity Limitations: resume your previous activity Use the atrovent inhaler every 6 hours while you are awake, even if you feel fine for the next 7 days. After that time, you can take it only if you need it. You should continue to use oxygen until you see your primary care doctor. You may need further testing to determine if you can stop using the oxygen at rest or with activity. Dr. Upton early next week. . Current Hospital Diet Patient's current hospital diet: Regular Diet Discharge Diet Recommended Diet: Regular Diet Pending Studies Studies pending at discharge: no Medical Emergencies . Who to Call and When: Medical Emergencies: If at any time you feel your situation is an emergency, please call 911 immediately. . Non-Emergent Contact Non-Emergency issues call your: Primary Care Provider . . "Provider Documentation" section prepared by Blanca Jesus. VTE Core Measure Inpt VTE Proph given/why not?: Enoxaparin (Lovenox)SQ
--- NOTE | 2016-07-15 13:23 | Discharge Summary ---
Discharge Summary Admission Date: Jul 12, 2016 at 15:50 Discharge Date: Jul 15, 2016 Discharge Disposition: Home Principal Diagnosis: COPD exacerbation Problems/Secondary Diagnoses: COPD Urinary incontinence Old L 6th rib fracture Immunizations: Have You Had Influenza Vaccine: Yes Influenza Vaccine Date: Mar 08, 2011 History of Tetanus Vaccine?: Unknown History of Pneumococcal: Yes Pneumococcal Date: Oct 29, 2008 History of Hepatitis B Vaccine: No Medication Reconciliation New Medications: Prednisone (Prednisone) 20 Mg Tab 40 MG PO DIRECTED for 6 Days, #9 Take 2 tabs QD x2 days, then 1 tab x2 days, then 1/2 tab x2 days Ipratropium [place] (Atrovent Hfa) 200 Puffs/3400 Mcg Aers 2 PUFFS INH Q6 for 30 Days, #1 INHALER Continued Medications: Oxybutynin Chloride Er (Ditropan Xl) 10 Mg Tab 10 MG PO DAILY, TAB Tiotropium [place] (Spiriva Handihaler) 30 Puff/540 Mcg Aerp 1 CAP INH DAILY, INHALER Discontinued Medications: Prednisone (Prednisone) 10 Mg Tab 10 MG PO UD, TAB Discharge Exam Pt is feeling much improved. Still SOB with ambulation. Feels fine at rest, but desats quickly without O2. Taking good PO. Pt denies fever, chest pain, abd pain, n/v/c/d, LE pain or swelling. ROS as noted above, otherwise neg. Physical Exam: General Appearance: no apparent distress, + thin Respiratory/Chest: no respiratory distress, + pertinent finding (moving good air volumes, scant wheeze at peak inspiration that is minimal) Cardiovascular: regular rate, rhythm, no edema Abdomen / GI: non tender, soft Extremities: no calf tenderness, no pedal edema Neurologic/Psychiatric: alert, oriented x 3 Skin: normal color, warm/dry Hospital Course 75 y/o F who was admitted on 07/12 with acute COPD exacerbation 1. Acute COPD exacerbation with hypoxia - continue steroid taper as outpt -continue atrovent inhaler Q6hrs x1 week - oxygenation improving but still requiring O2 nasal cannula for desats 2step revealed desats with ambulation and at rest, requires 2L at rest and 3L with ambulation Discussed with pt and she is willing to d/c home with O2, but is hoping this will be short term as no prior hx of home O2 Advised to see PCP prior to d/c of home O2 Will need PFTs as outpt once recovered from COPD exacerbation 2. h/o urinary incontinence - resume oxybutoin Total Time Spent: Greater than 30 minutes This includes examination of the patient, discharge planning, medication reconciliation, and communication with other providers. Discharge Instructions Please refer to the electronic Patient Visit Report (Discharge Instructions) for additional information. Follow-Up Dr. Upton early next week. . Additional Copies To Kieran Upton M.D.
[2016-07-15 14:35] VITALS: BP 113/71; PULSE 95; TEMP 36.7; O2SAT 94
== END 2016-07-15 15:14 | disposition home or self-care (01) | DRG 192 ==
LOC: ENRESERVTM → ENRESERVDT → C.EDB 10:35 → C.MS4W 15:50
PROVIDERS: ADMIT Hospitalist; ATTEND Family Medicine
DX: J44.1 Chronic obstructive pulmonary disease with (acute) exacerbation (principal); R32 Unspecified urinary incontinence; Z87.891 Personal history of nicotine dependence; Z79.52 Long term (current) use of systemic steroids; Z79.899 Other long term (current) drug therapy

== ENCOUNTER → 2016-08-16 | Outpatient (CLI) | payer OTHER ==
[~2016-08-16] MED LIST changes: +ATRIN INH; -FSM70 PO; +OXYB10TA13 PO; +PRD20 PO; +SPRIN/30 INH
[2016-08-16 13:35] LABS: CHOLESTEROL/HDL RATIO 2.9; THYROID STIMULATING HORMONE 2.34 uIu/ml (0.300-4.500)
== END | disposition home or self-care (01) ==
LOC: C.LABPBG 08:44
PROVIDERS: ATTEND Neuromusculoskeletal Medicine & OMM
DX: Z00.00 Encounter for general adult medical examination without abnormal findings (principal)

== ENCOUNTER → 2016-08-19 | Outpatient (CLI) | payer OTHER ==
--- NOTE | 2016-08-19 12:06 | DIAGNOSTIC IMAGING REPORT ---
ABDOMINAL AORTIC ULTRASOUND CLINICAL HISTORY: I71.4 Aneurysm of abdominal [id number] COMPARISON STUDY: Outside hospital abdomen and pelvis CT 02/25/2011. FINDINGS: Normal caliber abdominal aorta measuring up to 2.6 cm proximally. The common iliac arteries are also normal in caliber. Mild to moderate calcified plaque. IMPRESSION: No evidence for abdominal aortic aneurysm. Electronically signed by: Marcel Mcqueen M.D. 08/19/2016 12:05 PM Dictated Date/Time: 08/19/2016 12:03 PM
== END | disposition home or self-care (01) ==
LOC: C.ULTR 11:23
PROVIDERS: ATTEND Neuromusculoskeletal Medicine & OMM
DX: I71.4 Abdominal aortic aneurysm, without rupture (principal)

== ENCOUNTER → 2018-01-16 | Outpatient (CLI) | payer OTHER ==
[~2018-01-16] MED LIST changes: +ATRINS NEB; +CHOL1000 PO; +CLARITIN D PO; +FLUT0.15 INTNAS; -PRD20 PO
== END | disposition home or self-care (01) ==
LOC: C.MAMM 13:36
PROVIDERS: ATTEND Family Medicine
DX: M81.0 Age-related osteoporosis without current pathological fracture (principal)

== ENCOUNTER 2019-07-31 09:26 | Inpatient (IN) ==
[2019-07-31] MEDS ORDERED: methylPREDNISolone 125 MG/2 ML VIAL IV STA ×2 (10:11)
[2019-07-31] MEDS ORDERED: MAGNESIUM SULFATE / D5W 1 GM/100 ML BAG IV ONE (10:13)
[2019-07-31 10:26] LABS: Basophils # (auto) 0.01 K/uL (0-0.2); Basophils % (auto) 0.2 %; Hematocrit (blood only) 43.6 % (37-47); Hemoglobin 14.4 g/dL (12.0-16.0); Immature Granulocytes # (auto) 0.01 K/uL (0.00-0.02); Immature Granulocytes % (auto) 0.2 %; Lymphocytes # (auto) 0.71 K/uL (1.2-3.4); Lymphocytes % (auto) 10.8 %; Mean Corpuscular Hemoglobin 30.8 pg (25-34); Mean Corpuscular Volume 93.4 fL (80-100); Mean Platelet Volume 10.6 fL (7.4-10.4); Monocytes # (auto) 0.23 K/uL (0.11-0.59); Monocytes % (auto) 3.5 %; Neutrophils # (auto) 5.62 K/uL (1.4-6.5); Neutrophils % (auto) 85.3 %; Platelet Count 226 K/uL (130-400); RDW Coefficient of Variation 13.4 % (11.5-14.5); RDW Standard Deviation 46.1 fL (36.4-46.3); Red Blood Count 4.67 M/uL (4.2-5.4); White Blood Count 6.58 K/uL (4.8-10.8)
[2019-07-31 10:29] LABS: Alanine Aminotransferase 19 U/L (12-78); Aspartate Aminotransferase 18 U/L (15-37); BUN Creatinine Ratio 24.7 (10-20); Blood Urea Nitrogen 20 mg/dl (7-18); Calcium 9.5 mg/dl (8.5-10.1); Carbon Dioxide 28 mmol/L (21-32); Chloride 99 mmol/L (98-107); Creatinine Clr Calc Pharmacy 47.7 ml/min; Est GFR (African American) 79.4; Est GFR (Non-African American) 68.5; Glucose 129 mg/dl (70-99); Magnesium 1.8 mg/dl (1.8-2.4); Potassium 4.2 mmol/L (3.5-5.1); Sodium 134 mmol/L (136-145)
--- NOTE | 2019-07-31 10:30 | Emergency Department Note ---
Entered by Cony Florence acting as a scribe for Enid Howard MD History of Present Illness General Chief complaint: Shortness of Breath/Dyspnea Source: patient Mode of arrival: EMS History of Present Illness Onset (ago): day(s) 6 Location: left (lung) and right (lung) Severity: similar to prior episodes Pain Consistency: + other (worsening ) Maximum Pain Intensity: 1 Quality: + other (shortness of breath) Relieved By: not by other (Prednisone, Albuterol inhaler) Associated symptoms: + cough and + shortness of breath (wheezing); no chest pain Treatments prior to arrival: other (Duoneb) The patient is a 78 year old male presenting to the Emergency Department via EMS complaining of worsening shortness of breath starting 6 days ago. The patient reports that she is short of breath and is normally short of breath but that today is worse. She explains that she has a cough. She states that she often wheezes but that is not new. She explains that she has experienced these symptoms before as she has COPD and asthma. She notes that she has been taking her rescue Prednisone (40 mg) and has been using her Albuterol inhaler, neither of which have been improving her shortness of breath. She adds that she received 2 Duonebs [employer] from EMS. The patient denies difficulty swallowing, chest pain and recently smoking cigarettes. Home Medications Home Medications Medication Instructions Recorded Confirmed Type cholecalciferol (vitamin D3) 125 5,000 unit PO DAILY #30 tab 12/01/18 07/31/19 Rx mcg (5,000 unit) tablet tamsulosin 0.4 mg capsule 0.4 mg PO HS #30 cap 12/01/18 07/31/19 Rx albuterol sulfate 90 mcg/actuation 1 - 2 puff INHALATION Q4H PRN #18 12/20/18 07/31/19 Rx aerosol inhaler gm azelastine 137 mcg (0.1 %) nasal 2 spray INTRANASAL BID #30 ml 01/19/19 07/31/19 Rx spray aerosol mometasone 50 mcg/actuation nasal 2 sprays INTNAS DAILY #17 gm 06/05/19 07/31/19 Rx spray fexofenadine 60 mg-pseudoephedrine 1 tab PO Q12H PRN 06/07/19 07/31/19 History ER 120 mg tablet,ext.release,12 hr fluticasone fur. 100 mcg-umeclid 1 puffs INH DAILY #60 ea 06/07/19 07/31/19 Rx 62.5 mcg-vilant 25 mcg inhalat.powder oxybutynin chloride 15 mg 15 mg PO DAILY #90 tab 07/24/19 07/31/19 Rx tablet,extended release 24 hr azithromycin 250 mg PO MOWEFR 07/31/19 07/31/19 History ipratropium-albuterol 3 ml INHALATION Q4 PRN 07/31/19 07/31/19 History omeprazole 20 mg PO DAILY PRN 07/31/19 07/31/19 History prednisone 40 mg PO DAILY PRN 07/31/19 07/31/19 History Allergies Allergy/AdvReac Type Severity Reaction Status Date / Time cat dander Allergy Intermediate NASAL Verified 07/31/19 11:15 CONGESTION dog dander Allergy Intermediate NASAL Verified 07/31/19 11:15 CONGESTION grass pollen-perennial rye, Allergy Intermediate NASAL Verified 07/31/19 11:15 standar CONGESTION house dust Allergy Intermediate NASAL Verified 07/31/19 11:15 CONGESTION mold Allergy Intermediate NASAL Verified 07/31/19 11:15 CONGESTION Penicillins Allergy Intermediate HIVES Verified 07/31/19 11:15 Past Med/Surg History Medical History Chronic ischemic heart disease (Chronic) Chronic nasal congestion (Chronic) Constipation (Chronic) COPD (chronic obstructive pulmonary disease) (Chronic) Extrinsic asthma (Chronic) GERD (gastroesophageal reflux disease) (Chronic) History of ankle fracture (Resolved) Hypercholesterolemia (Chronic) Hyponatremia (Resolved) Hypoxia (Resolved) Non-allergic rhinitis Osteoporosis (Chronic) Sinus tachycardia (Inactive) Unspecified osteoarthritis, unspecified site (Chronic) Urge and stress incontinence (Chronic) Vitamin D deficiency (Chronic) Surgical History H/O: hysterectomy History of laparoscopic cholecystectomy History of rhinoplasty History of tonsillectomy Family History Aunt Alzheimer disease Coronary heart disease Cardiac disorder Mother Breast cancer Myocardial infarction Social History Preferred Language: [place] Communication Ability: Effective Visual Impairment: No Limitations Hearing Ability: Normal Caustic Liquor Maker Required: No Beliefs That Will Affect Care: None marital status: / Current Living Situation: Alone current occupational status: retired Feels Safe at Home: Yes Smoking Status: Former smoker Tobacco Type: cigarettes ; packs per day: 1 ; Hx Alcohol Use: Yes Alcohol type: hard liquor Alcohol Intake Frequency: Rarely Hx Substance Use: No Childhood Exposure to Second-Hand Smoke: No caffeine: Yes (coffee) during the past year weight has: remained stable Dental Care, Regularly: Yes Physical Activity Frequency: 1-2 Times per Week Seatbelt Use: always Sunscreen Use: No Review of Systems See HPI for pertinent positives & negatives. and A total of 10 systems reviewed and were otherwise negative Physical Exam Vital Signs Vital Signs - 24 hr 07/31/19 09:39 07/31/19 09:45 07/31/19 10:12 Temperature 37 C Temperature Source Oral Pulse Rate 119 H Pulse Rate [Left Finger] 120 H Respiratory Rate 26 H 22 Blood Pressure 126/68 Blood Pressure [Right Arm] 102/77 Blood Pressure Mean 87 Blood Pressure Mean [Right Arm] 85 Pulse Oximetry 96 96 88 L Oxygen Delivery Method Nebulizer Nebulizer Room Air Oxygen Flow Rate 7 3 Sepsis Recent Fever Within 48 Hours No Sepsis New/Unexplained Change in Mental Status No Sepsis Action Taken by Nursing No Action Required Oxygen Flow Rate - Titration 3 Pulse Oximetry Post Tiitration 96 07/31/19 11:11 07/31/19 12:48 Temperature Temperature Source Pulse Rate Pulse Rate [Left Finger] 120 H 126 H Respiratory Rate 24 28 H Blood Pressure Blood Pressure [Right Arm] 115/64 120/93 Blood Pressure Mean Blood Pressure Mean [Right Arm] 81 102 Pulse Oximetry 93 90 Oxygen Delivery Method Oxymask Oxymask Oxygen Flow Rate 3 3 Sepsis Recent Fever Within 48 Hours Sepsis New/Unexplained Change in Mental Status Sepsis Action Taken by Nursing Oxygen Flow Rate - Titration Pulse Oximetry Post Tiitration Vital signs reviewed. General: Chronically ill-appearing 78 year old female, in no significant distress. HEENT: No scleral icterus, PERRLA, neck supple. Atraumatic. Cardiovascular: Tachycardic rate and regular rhythm. Distant heart tones. Pulmonary: Respiratory discomfort. Tachypneic. Wearing oxygen mask. Distant breath sounds bilaterally. Abdomen: Soft, nontender, nondistended, positive bowel sounds. Musculoskeletal: Atraumatic, no peripheral edema. Neurologic: Patient awake alert and oriented x 3 Skin: Warm, dry, no rash Course Course 1007: The patient was evaluated in room B7, and a complete history and physical examination were performed. 1159: I reevaluated the patient at this time. 1236: I discussed the patient's case with Dr. Aaron Russell [facility] [place] hospitalist. She will evaluate the patient for further management. Administered Medications Azithromycin (Zithromax) 250 mg PO MoWeFr@0900 [facility] Stop: 08/31/19 08:59 Last Admin: 08/03/19 08:46 Dose: 250 mg Documented by: [id number] Admin: 08/01/19 08:32 Dose: 250 mg Documented by: [id number] Fluticasone Furoate (Arnuity Ellipta 100mcg) 1 puffs INH DAILY [facility] Stop: 08/31/19 08:59 Last Admin: 08/03/19 08:43 Dose: 1 puffs Documented by: [id number] Admin: 08/02/19 08:45 Dose: 1 puffs Documented by: [id number] Admin: 08/01/19 08:35 Dose: 1 puffs Documented by: [id number] Fluticasone Propionate (Flonase) 2 sprays NA DAILY [facility]; Protocol Stop: 08/31/19 08:59 Last Admin: 08/03/19 08:44 Dose: 2 sprays Documented by: [id number] Admin: 08/02/19 08:47 Dose: 2 sprays Documented by: [id number] Admin: 08/01/19 08:32 Dose: 2 sprays Documented by: [id number] Heparin Sodium (Porcine) (Heparin Sodium (Porcine)) 5,000 units SQ Q12 [facility] Stop: 08/30/19 20:59 Last Admin: 08/03/19 08:45 Dose: 5,000 units Documented by: [id number] Cosigned by: [id number] Admin: 08/02/19 20:11 Dose: 5,000 units Documented by: [id number] Cosigned by: [id number] Admin: 08/02/19 08:46 Dose: 5,000 units Documented by: [id number] Cosigned by: [id number] Admin: 08/01/19 20:51 Dose: 5,000 units Documented by: [id number] Cosigned by: [id number] Admin: 08/01/19 08:32 Dose: 5,000 units Documented by: [id number] Cosigned by: [id number] Admin: 07/31/19 20:21 Dose: 5,000 units Documented by: [id number] Cosigned by: [id number] Ceftriaxone Sodium 2,000 mg/ (Dextrose) 70 mls @ 100 mls/hr IV Q24H [facility]; Protocol Stop: 08/07/19 15:59 Last Infusion: 08/02/19 17:44 Dose: 0 mls/hr Documented by: [id number] Admin: 08/02/19 15:52 Dose: 100 mls/hr Documented by: [id number] Cosigned by: [id number] Infusion: 08/01/19 17:30 Dose: 0 mls/hr Documented by: [id number] Admin: 08/01/19 16:48 Dose: 100 mls/hr Documented by: [id number] Infusion: 07/31/19 17:08 Dose: 0 mls/hr Documented by: [id number] Admin: 07/31/19 16:26 Dose: 100 mls/hr Documented by: [id number] Ioversol (Optiray 320 125ml) 120 ml IV ONCE PRN PRN Reason: Interaction Checking Stop: 08/07/19 13:14 Last Admin: 08/03/19 13:17 Dose: 120 ml Documented by: [id number] Ipratropium [place] (Atrovent 0.02% 0.5mg/2.5ml) 0.5 mg INH Q6R [facility] Stop: 08/30/19 15:59 Last Admin: 08/03/19 13:16 Dose: Not Given Documented by: [id number] Admin: 08/03/19 06:55 Dose: 0.5 mg Documented by: [id number] Admin: 08/03/19 00:28 Dose: 0.5 mg Documented by: [id number] Admin: 08/02/19 18:52 Dose: 0.5 mg Documented by: [id number] Admin: 08/02/19 14:20 Dose: 0.5 mg Documented by: [id number] Admin: 08/02/19 07:15 Dose: 0.5 mg Documented by: [id number] Admin: 08/02/19 00:40 Dose: 0.5 mg Documented by: [id number] Admin: 08/01/19 19:30 Dose: 0.5 mg Documented by: [id number] Admin: 08/01/19 14:07 Dose: 0.5 mg Documented by: [id number] Admin: 08/01/19 07:32 Dose: 0.5 mg Documented by: [id number] Admin: 08/01/19 01:03 Dose: 0.5 mg Documented by: [id number] Admin: 07/31/19 19:26 Dose: 0.5 mg Documented by: [id number] Admin: 07/31/19 16:28 Dose: 0.5 mg Documented by: [id number] Levalbuterol HCl (Xopenex 0.63 Mg/3 Ml Neb) 0.63 mg NEB Q6R [facility] Stop: 08/30/19 15:59 Last Admin: 08/03/19 13:16 Dose: Not Given Documented by: [id number] Admin: 08/03/19 06:55 Dose: 0.63 mg Documented by: [id number] Admin: 08/03/19 00:28 Dose: 0.63 mg Documented by: [id number] Admin: 08/02/19 18:52 Dose: 0.63 mg Documented by: [id number] Admin: 08/02/19 14:20 Dose: 0.63 mg Documented by: [id number] Admin: 08/02/19 07:15 Dose: 0.63 mg Documented by: [id number] Admin: 08/02/19 00:40 Dose: 0.63 mg Documented by: [id number] Admin: 08/01/19 19:31 Dose: 0.63 mg Documented by: [id number] Admin: 08/01/19 14:07 Dose: 0.63 mg Documented by: [id number] Admin: 08/01/19 07:32 Dose: 0.63 mg Documented by: [id number] Admin: 08/01/19 01:03 Dose: 0.63 mg Documented by: [id number] Admin: 07/31/19 19:27 Dose: 0.63 mg Documented by: [id number] Admin: 07/31/19 16:28 Dose: 0.63 mg Documented by: [id number] Miscellaneous (Order Awaiting Action) 1 ea N/A QS [facility] Stop: 08/30/19 15:59 Last Admin: 08/03/19 08:47 Dose: Not Given Documented by: [id number] Admin: 08/03/19 01:16 Dose: Not Given Documented by: [id number] Admin: 08/02/19 17:43 Dose: Not Given Documented by: [id number] Admin: 08/02/19 07:31 Dose: Not Given Documented by: [id number] Admin: 08/02/19 00:00 Dose: Not Given Documented by: [id number] Admin: 08/01/19 16:48 Dose: Not Given Documented by: [id number] Admin: 08/01/19 08:28 Dose: Not Given Documented by: [id number] Admin: 07/31/19 23:16 Dose: Not Given Documented by: [id number] Admin: 07/31/19 16:30 Dose: Not Given Documented by: [id number] Miscellaneous (Remove Nicoderm Patch) 1 ea N/A DAILY@0859 [facility] Stop: 08/31/19 08:58 Last Admin: 08/03/19 08:47 Dose: Not Given Documented by: [id number] Admin: 08/02/19 08:49 Dose: Not Given Documented by: [id number] Admin: 08/01/19 08:28 Dose: Not Given Documented by: [id number] Nicotine (Nicoderm Cq) 14 mg TD QAM [facility] Stop: 08/30/19 15:59 Last Admin: 08/03/19 08:47 Dose: Not Given Documented by: [id number] Admin: 08/02/19 08:49 Dose: Not Given Documented by: [id number] Admin: 08/01/19 08:28 Dose: Not Given Documented by: [id number] Admin: 07/31/19 16:30 Dose: Not Given Documented by: [id number] Oxybutynin Chloride (Ditropan Xl) 15 mg PO DAILY [facility] Stop: 08/30/19 15:59 Last Admin: 08/03/19 08:45 Dose: 15 mg Documented by: [id number] Admin: 08/02/19 08:46 Dose: 15 mg Documented by: [id number] Admin: 08/01/19 08:32 Dose: 15 mg Documented by: [id number] Admin: 07/31/19 16:29 Dose: 15 mg Documented by: [id number] Polyethylene Glycol (Miralax Powder Packet) 17 gm PO DAILY [facility] Stop: 09/01/19 15:14 Last Admin: 08/03/19 08:46 Dose: 17 gm Documented by: [id number] Admin: 08/02/19 15:51 Dose: 17 gm Documented by: [id number] Cosigned by: [id number] Prednisone (Prednisone) 60 mg PO QAM [facility] Stop: 09/01/19 08:59 Last Admin: 08/03/19 08:44 Dose: 60 mg Documented by: [id number] Admin: 08/02/19 08:47 Dose: 60 mg Documented by: [id number] Tamsulosin HCl (Flomax) 0.4 mg PO HS [facility] Stop: 08/30/19 20:59 Last Admin: 08/02/19 20:11 Dose: 0.4 mg Documented by: [id number] Admin: 08/01/19 20:53 Dose: 0.4 mg Documented by: [id number] Admin: 07/31/19 20:21 Dose: 0.4 mg Documented by: [id number] Umeclidinium/Vilanterol (Anoro Ellipta 62.5/25 Mcg Inh) 1 puffs INH DAILY [facility] Stop: 08/31/19 08:59 Last Admin: 08/03/19 08:44 Dose: 1 puffs Documented by: [id number] Admin: 08/02/19 08:46 Dose: 1 puffs Documented by: [id number] Admin: 08/01/19 08:35 Dose: 1 puffs Documented by: [id number] Vitamin D (Vitamin D3) 5,000 units PO DAILY [facility] Stop: 08/31/19 08:59 Last Admin: 08/03/19 08:45 Dose: 5,000 units Documented by: [id number] Admin: 08/02/19 08:46 Dose: 5,000 units Documented by: [id number] Admin: 08/01/19 08:32 Dose: 5,000 units Documented by: [id number] Discontinued Medications Magnesium Sulfate/Dextrose (Magnesium Sulfate / D5w) 1 gm in 100 mls @ 100 mls/hr IV ONE ONE Stop: 07/31/19 11:12 Last Infusion: 07/31/19 11:31 Dose: 0 mls/hr Documented by: [id number] Admin: 07/31/19 10:26 Dose: 100 mls/hr Documented by: [id number] Sodium Chloride (Nss 1000ml) 1,000 mls @ 80 mls/hr IV .[id number] [facility] Stop: 08/01/19 03:59 Last Infusion: 08/01/19 04:38 Dose: 0 mls/hr Documented by: [id number] Admin: 07/31/19 16:27 Dose: 80 mls/hr Documented by: [id number] Methylprednisolone (Solumedrol) 125 mg IV NOW STA Stop: 07/31/19 10:12 Last Admin: 07/31/19 10:29 Dose: Not Given Documented by: [id number] Methylprednisolone (Solumedrol) 60 mg IV NOW STA Stop: 07/31/19 10:12 Last Admin: 07/31/19 10:27 Dose: 60 mg Documented by: [id number] Prednisone (Prednisone) 40 mg PO DAILY [facility] Stop: 08/04/19 09:01 Last Admin: 08/01/19 08:32 Dose: 40 mg Documented by: [id number] Admin: 07/31/19 16:29 Dose: 40 mg Documented by: [id number] Prednisone (Prednisone) 20 mg PO ONE ONE Stop: 08/01/19 10:16 Last Admin: 08/01/19 10:24 Dose: 20 mg Documented by: [id number] Medical Decision Making Differential Diagnosis Differential diagnoses includes but is not limited to pneumonia, bronchitis, COPD/Asthma exacerbation, pneumothorax, pulmonary embolism, congestive heart failure, acute coronary syndrome. Medical Records Attestation: I reviewed the patient's medical records. Home Medications Current Medication List: was personally reviewed by me Laboratory Data Attestation: I reviewed the patient's lab results. Result diagrams: 08/03/19 07:55 08/03/19 07:55 Lab Results 07/31/19 07/31/19 07/31/19 Range/Units 09:58 09:58 09:58 WBC 6.58 (4.8-10.8) K/uL RBC 4.67 (4.2-5.4) M/uL Hgb 14.4 (12.0-16.0) g/dL Hct 43.6 (37-47) % MCV 93.4 (80-100) fL MCH 30.8 (25-34) pg MCHC 33.0 (32-36) g/dL RDW Std Deviation 46.1 (36.4-46.3) fL RDW Coeff of Geri 13.4 (11.5-14.5) % Plt Count 226 (130-400) K/uL MPV 10.6 H (7.4-10.4) fL Immature Gran % (Auto) 0.2 % Neut % (Auto) 85.3 % Lymph % (Auto) 10.8 % [place] % (Auto) 3.5 % Eos % (Auto) 0.0 % Baso % (Auto) 0.2 % Immature Gran # (Auto) 0.01 (0.00-0.02) K/uL Neut # (Auto) 5.62 (1.4-6.5) K/uL Lymph # (Auto) 0.71 L (1.2-3.4) K/uL [place] # (Auto) 0.23 (0.11-0.59) K/uL Eos # (Auto) 0.00 (0-0.5) K/uL Baso # (Auto) 0.01 (0-0.2) K/uL PT Cancelled INR Cancelled APTT Cancelled PTT Ratio Cancelled Sodium 134 L (136-145) mmol/L Potassium 4.2 (3.5-5.1) mmol/L Chloride 99 (98-107) mmol/L Carbon Dioxide 28 (21-32) mmol/L Anion Gap 7.0 (3-11) BUN 20 H (7-18) mg/dl Creatinine 0.83 (0.6-1.2) mg/dl Est Cr Clr Drug Dosing 47.7 ml/min Est GFR ( Amer) 79.4 Est GFR (Non-Af Amer) 68.5 BUN/Creatinine Ratio 24.7 H (10-20) Glucose 129 H (70-99) mg/dl Calcium 9.5 (8.5-10.1) mg/dl Magnesium 1.8 (1.8-2.4) mg/dl Total Bilirubin 0.6 (0.2-1) mg/dl AST 18 (15-37) U/L ALT 19 (12-78) U/L Alkaline Phosphatase 77 (45-117) U/L Troponin I < 0.015 (0-0.045) ng/ml Total Protein 8.0 (6.4-8.2) gm/dl Albumin 4.0 (3.4-5.0) gm/dl Globulin 4.0 (2.5-4.0) gm/dl Albumin/Globulin Ratio 1.0 (0.9-2) Urine Color Urine Appearance (Clear) Urine pH (4.5-7.5) Ur Specific [place] (1.000-1.030) Urine Protein (Negative) Urine Glucose (UA) (Negative) Urine Ketones (Negative) Urine Blood (Negative) Urine Nitrite (Negative) Urine Bilirubin (Negative) Urine Urobilinogen (Negative) Ur Leukocyte Esterase (Negative) 07/31/19 Range/Units 10:30 WBC (4.8-10.8) K/uL RBC (4.2-5.4) M/uL Hgb (12.0-16.0) g/dL Hct (37-47) % MCV (80-100) fL MCH (25-34) pg MCHC (32-36) g/dL RDW Std Deviation (36.4-46.3) fL RDW Coeff of Geri (11.5-14.5) % Plt Count (130-400) K/uL MPV (7.4-10.4) fL Immature Gran % (Auto) % Neut % (Auto) % Lymph % (Auto) % [place] % (Auto) % Eos % (Auto) % Baso % (Auto) % Immature Gran # (Auto) (0.00-0.02) K/uL Neut # (Auto) (1.4-6.5) K/uL Lymph # (Auto) (1.2-3.4) K/uL [place] # (Auto) (0.11-0.59) K/uL Eos # (Auto) (0-0.5) K/uL Baso # (Auto) (0-0.2) K/uL PT INR APTT PTT Ratio Sodium (136-145) mmol/L Potassium (3.5-5.1) mmol/L Chloride (98-107) mmol/L Carbon Dioxide (21-32) mmol/L Anion Gap (3-11) BUN (7-18) mg/dl Creatinine (0.6-1.2) mg/dl Est Cr Clr Drug Dosing ml/min Est GFR ( Amer) Est GFR (Non-Af Amer) BUN/Creatinine Ratio (10-20) Glucose (70-99) mg/dl Calcium (8.5-10.1) mg/dl Magnesium (1.8-2.4) mg/dl Total Bilirubin (0.2-1) mg/dl AST (15-37) U/L ALT (12-78) U/L Alkaline Phosphatase (45-117) U/L Troponin I (0-0.045) ng/ml Total Protein (6.4-8.2) gm/dl Albumin (3.4-5.0) gm/dl Globulin (2.5-4.0) gm/dl Albumin/Globulin Ratio (0.9-2) Urine Color Yellow Urine Appearance Clear (Clear) Urine pH 5.0 (4.5-7.5) Ur Specific [place] 1.015 (1.000-1.030) Urine Protein Negative (Negative) Urine Glucose (UA) Negative (Negative) Urine Ketones Negative (Negative) Urine Blood Negative (Negative) Urine Nitrite Negative (Negative) Urine Bilirubin Negative (Negative) Urine Urobilinogen Negative (Negative) Ur Leukocyte Esterase Negative (Negative) Imaging Data Radiologist's Impression: Radiology results as stated below per my review and t he radiologist's interpretation: SINGLE VIEW CHEST CLINICAL HISTORY: Dyspnea. FINDINGS: An AP, portable, upright chest radiograph is compared to study dated 02/07/2019 and correlated with abdominal CT dated 10/31/2018. The examination is degraded by portable technique and apical lordotic positioning. The cardiomediastinal silhouette is unremarkable noting atherosclerotic calcification of the thoracic aorta. Advanced emphysema and chronic interstitial thickening is similar to previous. Scarring/atelectasis is noted at the lung bases. No pneumothorax is seen. The skeletal structures are osteopenic. There are healed left-sided rib fractures. IMPRESSION: Advanced emphysematous change with no acute cardiopulmonary abnormality. ACT 112: Negative or not required by law. Electronically signed by: Jesus Walker M.D. 07/31/2019 11:07 AM ECG Data Attestation: I personally reviewed and interpreted this ECG as follows: Indication: + SOB/dyspnea Rate (beats per minute): 120 Rhythm: + sinus tachycardia ECG Intervals/blocks: + Right Bundle branch block and + Prolonged QT ECG Findings: + Other (Non-specific ST changes. Previous inferior infarct. ); no PACs and no PVCs Blood Pressure Blood Pressure Findings: Elevated blood pressure Blood Pressure Disposition: further management by hospitalist AARON Narrative Cardiac Monitoring: An order was placed for continuous cardiac monitoring. The monitor shows a rate of 119 with sinus rhythm. This patient was evaluated and appeared to be in no significant distress. IV access was obtained and laboratory work was drawn. Patient was given 60 mg of IV Solu-Medrol as she had taken 40 mg of prednisone earlier today. She was given a DuoNeb treatment and was maintained on oxygen mask. Chest x-ray was performed and reveals advanced emphysema without evidence of acute abnormality. EKG reveals sinus tachycardia with a right bundle branch block, no PVCs no PACs no acute ischemic change. Patient became fairly hypoxic when maintained on room air or when ambulating to the restroom. Case was discussed with the hospitalist service who will evaluate the patient for admission and further management. Impression & Plan COPD exacerbation, Hypoxia Discharge Plan Visit Data *Final* Discharge Date/Time: 07/31/19 15:05 Chief Complaint: Shortness of Breath/Dyspnea ED Provider: Enid Howard Discharge Problem: COPD exacerbation, Hypoxia Patient Disposition: Admitted As Inpatient Discharge Instructions Interventions: ED Discharge Assessment Last Done: 07/31/19 15:05 The scribe's documentation has been prepared under my direction and personally reviewed by me in its entirety. I confirm that the note above accurately reflects all work, treatment, procedures, and medical decision making performed by me.
[2019-07-31 10:32] LABS: Alkaline Phosphatase 77 U/L (45-117); Bilirubin,Total 0.6 mg/dl (0.2-1); Troponin I < 0.015 ng/ml (0-0.045)
[2019-07-31 10:42] LABS: Appearance Urine Clear (Clear); Bilirubin Urine Negative (Negative); Blood Urine Negative (Negative); Color Urine Yellow; Glucose Urine UA Negative (Negative); Ketones Urine Negative (Negative); Leukocyte Esterase Urine Negative (Negative); Nitrite Urine Negative (Negative); Protein Urine Negative (Negative); Specific Gravity Urine 1.015 (1.000-1.030); Urobilinogen Urine Negative (Negative)
--- NOTE | 2019-07-31 11:08 | XRay Report ---
SINGLE VIEW CHEST CLINICAL HISTORY: Dyspnea. FINDINGS: An AP, portable, upright chest radiograph is compared to study dated 02/07/2019 and correlat ed with abdominal CT dated 10/31/2018. The examination is degraded by portable technique and apical jennifer dotic positioning. The cardiomediastinal silhouette is unremarkable noting atherosclerotic calcificat ion of the thoracic aorta. Advanced emphysema and chronic interstitial thickening is similar to previ ous. Scarring/atelectasis is noted at the lung bases. No pneumothorax is seen. The skeletal structure s are osteopenic. There are healed left-sided rib fractures. IMPRESSION: Advanced emphysematous change with no acute cardiopulmonary abnormality. ACT 112: Negative or not required by law. Electronically signed by: Jesus Walker M.D. 07/31/2019 11:07 AM
--- NOTE | 2019-07-31 11:10 | Electrocardiogram Report ---
Test Reason : Blood Pressure : / mmHG Vent. Rate : 120 BPM Atrial Rate : 120 BPM P-R Int : 156 ms QRS Dur : 132 ms QT Int : 342 ms P-R-T Axes : 082 251 060 degrees QTc Int : 483 ms Poor data quality, interpretation may be adversely affected Sinus tachycardia Right bundle branch block Inferior infarct , age undetermined Abnormal ECG When compared with ECG of 24-NOV-2018 12:15, No significant change was found Confirmed by Talib Lopez ([id number]) on 07/31/2019 11:10:38 AM Referred By: Confirmed By:Talib Lopez
--- NOTE | 2019-07-31 14:20 | History & Physical Report ---
Date of Service July 31, 2019 Assessment & Plan (1) Acute and chronic respiratory failure: Admit to PCU on telemetry for observation, Vital signs every 4 hours, Started ipratropium/Xopenex every 6 hours as needed and schedule per RT, Robitussin 10 mils every 6 hours as needed for cough, Continue supplemental oxygen to keep oxygenation above 92%-94%, Continue home inhalers albuterol sulfate 90 MCG's 2 puffs every 4 hours as needed, azelastine 137 MCG's nasal spray 2 sprays intranasal twice daily, azithromycin 250 mg p.o. daily for 5 days, fexofenadine 60 mg/pseudoephedrine ER 121 tablet p.o. every 12 as needed, fluticasone 100 MCG'smedically at 62.5 MCG's then will and 25 MCG's 1 puff inhalation daily, mometasone 50 MCG's 2 sprays intranasally. Procalcitonin pending. Possible pneumonia not seen on the chest x-rays. Will start empirically ceftriaxone 2 g IV daily. Blood cultures and sputum cultures pending. Prednisone 40 mg p.o. daily will need longer taper for 10 days. DVT prophylaxis Heparin 5000 units every 12 hours. Full code Present on Admission?: Yes (2) COPD exacerbation: As discussed above Present on Admission?: Yes (3) GERD (gastroesophageal reflux disease): Stable, continue omeprazole 20 mg p.o. daily as needed or equivalent. Present on Admission?: Yes (4) Extrinsic asthma: As discussed above continue home medicine Present on Admission?: Yes (5) Urge and stress incontinence: Stable, continue oxybutynin 15 mg p.o. daily and tamsulosin 0.4 mg p.o. nightly Present on Admission?: Yes History of Present Illness Chief Complaint: Shortness of breath Primary Care Provider: Camila Beth DO The patient is a 78 years old female with past medical history of emphysema, asthma, COPD, chronic ischemic heart disease ,GERD, hypercholesterolemia, unspecific osteoarthritis and osteoporosis, nicotine dependent who presents to the emergency room with worsening shortness of breath started 6 days ago. The patient reports that she is short of breath while at rest which was not the case before. Patient reports occasionally using oxygen at home but now she is in situation she has to use it 24/. Patient reports that she is wheezing and coughing. Patient reports that her cough is nonproductive. Patient is a chronic suppressive therapy with azithromycin and takes prednisone as needed for exacerbation. She also uses albuterol inhaler and neither of that helped her. Patient received 2 normal duo nebs by EMS. Patient denies fever, chills, hemoptysis, abdominal pain, frequency, urgency. The labs are reviewed: Sodium 134, potassium 4.2, chloride 99, carbon dioxide 28, anion gap 7, BUN 20, creatinine 0.83, GFR 68.5, BUN 24.7, glucose 129, calcium 9.5, magnesium 1.8, total bilirubin 0.6, AST 18, ALT 19, alkaline phosphatase 77, troponin 0.015, total protein 8, albumin 4, globulin 4. TSH, BNP, procalcitonin pending. Urine all negative. Influenza A and B pending. Chest x-ray: Shows advanced emphysematous changes with no acute cardiopulmonary abnormality. Decision was made to admit patient to [facility] on telemetry for observation of acute CHF exacerbation. Allergies Allergy/AdvReac Type Severity Reaction Status Date / Time cat dander Allergy Intermediate NASAL Verified 07/31/19 11:15 CONGESTION dog dander Allergy Intermediate NASAL Verified 07/31/19 11:15 CONGESTION grass pollen-perennial rye, Allergy Intermediate NASAL Verified 07/31/19 11:15 standar CONGESTION house dust Allergy Intermediate NASAL Verified 07/31/19 11:15 CONGESTION mold Allergy Intermediate NASAL Verified 07/31/19 11:15 CONGESTION Penicillins Allergy Intermediate HIVES Verified 07/31/19 11:15 Home Medications Home Medications Medication Instructions Recorded Confirmed Type cholecalciferol (vitamin D3) 125 5,000 unit PO DAILY #30 tab 12/01/18 07/31/19 Rx mcg (5,000 unit) tablet tamsulosin 0.4 mg capsule 0.4 mg PO HS #30 cap 12/01/18 07/31/19 Rx albuterol sulfate 90 mcg/actuation 1 - 2 puff INHALATION Q4H PRN #18 12/20/18 07/31/19 Rx aerosol inhaler gm azelastine 137 mcg (0.1 %) nasal 2 spray INTRANASAL BID #30 ml 01/19/19 07/31/19 Rx spray aerosol mometasone 50 mcg/actuation nasal 2 sprays INTNAS DAILY #17 gm 06/05/19 07/31/19 Rx spray fexofenadine 60 mg-pseudoephedrine 1 tab PO Q12H PRN 06/07/19 07/31/19 History ER 120 mg tablet,ext.release,12 hr fluticasone fur. 100 mcg-umeclid 1 puffs INH DAILY #60 ea 06/07/19 07/31/19 Rx 62.5 mcg-vilant 25 mcg inhalat.powder oxybutynin chloride 15 mg 15 mg PO DAILY #90 tab 07/24/19 07/31/19 Rx tablet,extended release 24 hr azithromycin 250 mg PO MOWEFR 07/31/19 07/31/19 History ipratropium-albuterol 3 ml INHALATION Q4 PRN 07/31/19 07/31/19 History omeprazole 20 mg PO DAILY PRN 07/31/19 07/31/19 History prednisone 40 mg PO DAILY PRN 07/31/19 07/31/19 History Past Med/Surg History Medical History Chronic ischemic heart disease (Chronic) Chronic nasal congestion (Chronic) Constipation (Chronic) COPD (chronic obstructive pulmonary disease) (Chronic) Extrinsic asthma (Chronic) GERD (gastroesophageal reflux disease) (Chronic) History of ankle fracture (Resolved) Hypercholesterolemia (Chronic) Hyponatremia (Resolved) Hypoxia (Resolved) Non-allergic rhinitis Osteoporosis (Chronic) Sinus tachycardia (Inactive) Unspecified osteoarthritis, unspecified site (Chronic) Urge and stress incontinence (Chronic) Vitamin D deficiency (Chronic) Surgical History H/O: hysterectomy History of laparoscopic cholecystectomy History of rhinoplasty History of tonsillectomy Family History Aunt Alzheimer disease Coronary heart disease Cardiac disorder Mother Breast cancer Myocardial infarction Social History Preferred Language: Beninese Communication Ability: Effective Visual Impairment: No Limitations Hearing Ability: Normal Cost Control Specialist Required: No Beliefs That Will Affect Care: None marital status: / Current Living Situation: Alone current occupational status: retired Feels Safe at Home: Yes Smoking Status: Former smoker Tobacco Type: cigarettes ; packs per day: 1 ; Hx Alcohol Use: Yes Alcohol type: hard liquor Alcohol Intake Frequency: Rarely Hx Substance Use: No Childhood Exposure to Second-Hand Smoke: No caffeine: Yes (coffee) during the past year weight has: remained stable Dental Care, Regularly: Yes Physical Activity Frequency: 1-2 Times per Week Seatbelt Use: always Sunscreen Use: No Review of Systems Review of Systems: All systems reviewed & are unremarkable except as noted in HPI & below Physical Exam Constitutional: WD/WN, vitals as above well developed and + ill appearing Eyes: PERRL ENMT: external ear and nose normal, oropharynx normal Neck: trachea midline, no thyromegaly Respiratory: + respiratory distress, + labored breathing and + uses accessory muscles Auscultation: + crackles and + wheezes Patient now requires 4 L of oxygen to be above 92%. Cardiovascular: Rate/Rhythm: regular rhythm and + tachycardic Heart Sounds: normal S1 and normal S2 Vessels: + JVD and dorsalis pedis pulses present Gastrointestinal (Abdomen): normal bowel sounds, soft, nontender, no hepatosplenomegaly Musculoskeletal: no cyanosis or clubbing, extremities motor strength 5/5 Skin: no rashes, warm and dry Neurologic: patellar DTR's 2+ bilat, sensation intact Psychiatric: A+Ox3, euthymic affect Lymphatic: no cervical or axillary lymphadenopathy Results & Data Vital Signs (Past 12 Hours) Vital Signs Temp Pulse Pulse Resp BP BP Pulse Ox 07/31/19 12:48 126 H 28 H 120/93 90 07/31/19 11:11 120 H 24 115/64 93 07/31/19 10:12 120 H 22 102/77 88 L 07/31/19 09:45 96 07/31/19 09:39 37 C 119 H 26 H 126/68 96 Code Status & VTE Plan Code Status Full code VTE Prophylaxis Plan VTE Prophylaxis will be ordered: Yes PG Care Time/CCT Total # of Minutes Spent Total Time Spent with Patient: Total time spent is greater than 50% in coordination of care (as documented) at patient's floor/unit and/or counseling patient: Coding Level of Care Code 68078 Initial Inpt Care Lvl 3 Diagnoses Acute and chronic respiratory failure J96.20 COPD exacerbation J44.1 GERD (gastroesophageal reflux disease) K21.9 Extrinsic asthma J45.909 Urge and stress incontinence N39.46
[2019-07-31] MEDS ORDERED: POLYETHYLENE (MIRALAX) 17 GM PACK PO PRN (15:30)
[2019-07-31] MEDS ORDERED: FEXOFENADINE 60MG/PSEUDOEPHEDRINE 120MG TAB PO PRN (15:30)
[2019-07-31] MEDS ORDERED: ACETAMINOPHEN 325 MG TAB PO PRN (15:30)
[2019-07-31] MEDS ORDERED: ALUMINUM/MAGNESIUM SUSP 30 ML UDC PO PRN (15:30)
[2019-07-31] MEDS ORDERED: ALBUT/IPRATROP 3MG/0.5MG NEB 3 ML VIAL INH PRN (15:30)
[2019-07-31] MEDS ORDERED: MAGNESIUM HYDROXIDE SUSP 30 ML UDC PO PRN (15:30)
[2019-07-31] MEDS ORDERED: ALBUTEROL HFA 8 GM INHALER INH PRN (15:30)
[2019-07-31] MEDS ORDERED: SODIUM CHLORIDE 0.9% 1000ML 1,000 ML IV SCH (15:30)
[2019-07-31] MEDS ORDERED: ONDANSETRON INJ 2 MG/ML 2 ML VIAL IV PRN (15:30)
[2019-07-31] MEDS ORDERED: GUAIFENESIN/CODEINE 200MG/20MG 10ML UDC PO PRN (15:30)
[2019-07-31] MEDS ORDERED: PANTOprazole 40 MG TAB PO PRN (15:36)
[2019-07-31] MEDS: cefTRIAXone SODIUM 2,000 MG in DEXTROSE 5% 50 ML IV SCH (16:26)
[2019-07-31] MEDS: IPRATROPIUM BROMIDE NEB SOLN 0.02% 2.5 ML VIAL INH SCH ×2 (16:28→19:26)
[2019-07-31] MEDS: LEVALBUTEROL HCL 0.63 MG/3 ML NEB NEB SCH ×2 (16:28→19:27)
[2019-07-31] MEDS: predniSONE 20 MG TAB PO SCH (16:29)
[2019-07-31] MEDS: OXYBUTYNIN CHLORIDE XL 5 MG TABCR PO SCH (16:29)
[2019-07-31] MEDS: NICOTINE 14 MG/24 HR PATCH TD SCH (16:30)
[2019-07-31 16:54] LABS: Thyroid Stimulating Hormone 0.526 uIu/ml (0.300-4.500)
[2019-07-31 18:33] LABS: Appearance Urine Clear (Clear); Bilirubin Urine Negative (Negative); Blood Urine Negative (Negative); Color Urine Yellow; Glucose Urine UA Negative (Negative); Ketones Urine Negative (Negative); Leukocyte Esterase Urine Negative (Negative); Nitrite Urine Negative (Negative); Protein Urine Negative (Negative); Specific Gravity Urine 1.014 (1.000-1.030); Urobilinogen Urine Negative (Negative)
[2019-07-31] MEDS ORDERED: XOPENEX/ATROVENT 0.63mg/0.5MG NEB COMBO NEB SCH (19:00)
[2019-07-31] MEDS: HEPARIN SOD 5,000 UNIT/0.5 ML VIAL SQ SCH (20:21)
[2019-07-31] MEDS: TAMSULOSIN HCL 0.4 MG CAP PO SCH (20:21)
[2019-08-01] MEDS: IPRATROPIUM BROMIDE NEB SOLN 0.02% 2.5 ML VIAL INH SCH ×4 (01:03→19:30)
[2019-08-01] MEDS: LEVALBUTEROL HCL 0.63 MG/3 ML NEB NEB SCH ×4 (01:03→19:31)
[2019-08-01 07:00] LABS: Basophils # (auto) 0.01 K/uL (0-0.2); Basophils % (auto) 0.1 %; Hematocrit (blood only) 40.7 % (37-47); Hemoglobin 13.3 g/dL (12.0-16.0); Immature Granulocytes # (auto) 0.02 K/uL (0.00-0.02); Immature Granulocytes % (auto) 0.2 %; Lymphocytes # (auto) 1.73 K/uL (1.2-3.4); Lymphocytes % (auto) 18.8 %; Mean Corpuscular Hemoglobin 31.1 pg (25-34); Mean Corpuscular Hgb Conc 32.7 g/dL (32-36); Mean Corpuscular Volume 95.1 fL (80-100); Mean Platelet Volume 10.1 fL (7.4-10.4); Monocytes # (auto) 1.11 K/uL (0.11-0.59); Monocytes % (auto) 12.1 %; Neutrophils # (auto) 6.32 K/uL (1.4-6.5); Neutrophils % (auto) 68.8 %; Platelet Count 216 K/uL (130-400); RDW Coefficient of Variation 13.7 % (11.5-14.5); RDW Standard Deviation 47.1 fL (36.4-46.3); Red Blood Count 4.28 M/uL (4.2-5.4); White Blood Count 9.19 K/uL (4.8-10.8)
[2019-08-01 07:42] LABS: Albumin Level 3.7 gm/dl (3.4-5.0); BUN Creatinine Ratio 22.1 (10-20); Creatinine Clr Calc Pharmacy 50.8 ml/min; Est GFR (African American) 85.6; Est GFR (Non-African American) 73.8; Potassium 4.3 mmol/L (3.5-5.1)
[2019-08-01 07:45] LABS: Bilirubin,Total 0.6 mg/dl (0.2-1); Globulin 3.8 gm/dl (2.5-4.0); Total Protein 7.5 gm/dl (6.4-8.2)
[2019-08-01] MEDS: NICOTINE 14 MG/24 HR PATCH TD SCH (08:28)
[2019-08-01] MEDS: CHOLECALCIFEROL 1,000 UNITS 25 MCG TAB PO SCH (08:32)
[2019-08-01] MEDS: FLUTICASONE PROPIONATE NA SPR 16 GM BTL SCH (08:32)
[2019-08-01] MEDS: OXYBUTYNIN CHLORIDE XL 5 MG TABCR PO SCH (08:32)
[2019-08-01] MEDS: HEPARIN SOD 5,000 UNIT/0.5 ML VIAL SQ SCH ×2 (08:32→20:51)
[2019-08-01] MEDS: AZITHROMYCIN 250 MG TAB PO SCH (08:32)
[2019-08-01] MEDS: predniSONE 20 MG TAB PO SCH (08:32)
[2019-08-01] MEDS: UMECLIDINIUM/VILANTEROL 62.5/25MCG 7 PUFFS/INHALER INH SCH (08:35)
[2019-08-01] MEDS: FLUTICASONE FUROATE 100MCG 14 PUFFS/INHALER INH SCH (08:35)
[2019-08-01] MEDS ORDERED: predniSONE 20 MG TAB PO ONE (10:15)
--- NOTE | 2019-08-01 15:01 | Hospitalist Progress Note ---
Date of Service August 01, 2019 Assessment & Plan (1) Acute and chronic respiratory failure: change to full admission as she will be here a few days due to COPD exacerbation continues to have tachypnea, dyspnea, labored breathing at rest will increase Prednisone to 60mg daily (no improvement on 40mg daily) continue nebulizers continue Rocephin and Zithromax Robitussin as needed continue home regimen referral placed to COPD clinic on 4L [place], saturation goal is 90% may need a two step prior to d/c as she tells me she normally only uses the oxygen PRN (2) COPD exacerbation: as above increase Prednisone to 60mg daily continue Rocephin as she has productive cough that is unusual for her continue nebulizers, home inhalers if she does not improve tomorrow then consider pulmonary consultation (3) GERD (gastroesophageal reflux disease): Stable, continue omeprazole 20 mg p.o. daily as needed or equivalent. no symptoms today (4) Extrinsic asthma: As discussed above continue home medicine (5) Urge and stress incontinence: Stable, continue oxybutynin 15 mg p.o. daily and tamsulosin 0.4 mg p.o. nightly Admission and Anticipated Discharge Date Admission Date: July 31, 2019 Anticipated date of discharge: 08/03/19 Subjective patient says she feels slightly better but not much coughing up some clear/white and frothy phlegm but not constantly says that she was on Prednisone, took 40mg for two days prior to admission she also takes Zithromax 250mg MWF per Dr. Marinelli she says she does not wear oxygen every day but she has it PRN, she has been wearing it for past 4 days due to dyspnea her appetite is a little decreased she denies chest pain/pressure, denies nausea, denies constipation reviewed her chart reviewed labs, WBC is 9k, Hb stable, BMP normal, procalcitonin was < 0.05 discussed with Elina Daniels with COPD clinic, placed referral for outpatient follow up Review of Systems Review of Systems: All systems reviewed & are unremarkable except as noted in HPI & below Constitutional: + fatigue and + weakness; no fever and no sweats Respiratory: + cough, + dyspnea, + dyspnea on exertion, + sputum production (white, clear) and + wheezing Cardiovascular: no chest pain and no edema Gastrointestinal: no abdominal pain, no nausea, no vomiting, no constipation and no diarrhea/loose stools Physical Exam Constitutional: well developed, + thin and + frail appearing; no acute distress Eyes: PERRL, conjunctivae normal, anicteric sclerae ENMT: external ear and nose normal, oropharynx normal Neck: trachea midline, no thyromegaly Respiratory: + labored breathing, + uses accessory muscles, + cough and + tachypneic Auscultation: + diminished lung sounds; no rhonchi and no wheezes Cardiovascular: Rate/Rhythm: regular rhythm and + tachycardic Heart Sounds: normal S1 and normal S2; no murmur Extremities: normal capillary refill; no edema Gastrointestinal (Abdomen): normal bowel sounds, soft, nontender, no hepatosplenomegaly Musculoskeletal: no cyanosis or clubbing, extremities motor strength 5/5 Skin: no rashes, warm and dry Neurologic: patellar DTR's 2+ bilat, sensation intact and PERRL, EOMI, accommodation nl, no face palsy, no dysarthria Psychiatric: A+Ox3, euthymic affect Lymphatic: no cervical or axillary lymphadenopathy Results & Data ([facility]) Vital Signs (Past 12 Hours) Vital Signs Temp Pulse Resp BP Pulse Ox 08/01/19 14:07 106 H 16 92 08/01/19 11:45 36.8 C 111 H 20 128/66 92 08/01/19 07:59 36.8 C 116 H 18 110/64 08/01/19 07:32 110 H 20 97 08/01/19 03:50 36.6 C 129 H 24 128/74 93 Laboratory Results Laboratory Results - last 24 hr 07/31/19 07/31/19 07/31/19 15:42 15:42 18:15 WBC RBC Hgb Hct MCV MCH MCHC RDW Std Deviation RDW Coeff of Geri Plt Count MPV Immature Gran % (Auto) Neut % (Auto) Lymph % (Auto) [place] % (Auto) Eos % (Auto) Baso % (Auto) Immature Gran # (Auto) Neut # (Auto) Lymph # (Auto) [place] # (Auto) Eos # (Auto) Baso # (Auto) Sodium Potassium Chloride Carbon Dioxide Anion Gap BUN Creatinine Est Cr Clr Drug Dosing Est GFR ( Amer) Est GFR (Non-Af Amer) BUN/Creatinine Ratio Glucose Calcium Total Bilirubin AST ALT Alkaline Phosphatase NT-Pro-B Natriuret Pep 167 Total Protein Albumin Globulin Albumin/Globulin Ratio Procalcitonin < 0.05 TSH 0.526 Urine Color Yellow Urine Appearance Clear Urine pH 6.0 Ur Specific [place] 1.014 Urine Protein Negative Urine Glucose (UA) Negative Urine Ketones Negative Urine Blood Negative Urine Nitrite Negative Urine Bilirubin Negative Urine Urobilinogen Negative Ur Leukocyte Esterase Negative 08/01/19 08/01/19 06:36 06:36 WBC 9.19 RBC 4.28 Hgb 13.3 Hct 40.7 MCV 95.1 MCH 31.1 MCHC 32.7 RDW Std Deviation 47.1 H RDW Coeff of Geri 13.7 Plt Count 216 MPV 10.1 Immature Gran % (Auto) 0.2 Neut % (Auto) 68.8 Lymph % (Auto) 18.8 [place] % (Auto) 12.1 Eos % (Auto) 0.0 Baso % (Auto) 0.1 Immature Gran # (Auto) 0.02 Neut # (Auto) 6.32 Lymph # (Auto) 1.73 [place] # (Auto) 1.11 H Eos # (Auto) 0.00 Baso # (Auto) 0.01 Sodium 139 Potassium 4.3 Chloride 106 Carbon Dioxide 30 Anion Gap 3.0 BUN 17 Creatinine 0.78 Est Cr Clr Drug Dosing 50.8 Est GFR ( Amer) 85.6 Est GFR (Non-Af Amer) 73.8 BUN/Creatinine Ratio 22.1 H Glucose 87 Calcium 9.0 Total Bilirubin 0.6 AST 30 ALT 21 Alkaline Phosphatase 68 NT-Pro-B Natriuret Pep Total Protein 7.5 Albumin 3.7 Globulin 3.8 Albumin/Globulin Ratio 1.0 Procalcitonin TSH Urine Color Urine Appearance Urine pH Ur Specific [place] Urine Protein Urine Glucose (UA) Urine Ketones Urine Blood Urine Nitrite Urine Bilirubin Urine Urobilinogen Ur Leukocyte Esterase Medications Administered Current Inpatient Medications Acetaminophen (Tylenol) 650 mg PO Q4H PRN PRN Reason: Pain or Fever Stop: 08/30/19 15:29 Al Hydrox/Mg Hydrox/Simethicone (Maalox) 15 ml PO Q4H PRN PRN Reason: Dyspepsia Stop: 08/30/19 15:29 Albuterol (Ventolin Hfa) 1 - 2 puffs INH Q4H PRN PRN Reason: shortness of breath Stop: 08/30/19 15:29 Albuterol (Duoneb) 3 ml INH Q4R PRN PRN Reason: Shortness Of Breath Or Wheezing Stop: 08/30/19 15:29 Azithromycin (Zithromax) 250 mg PO MoWeFr@0900 NANI Stop: 08/31/19 08:59 Last Admin: 08/01/19 08:32 Dose: 250 mg Documented by: Fexofenadine HCl/Pseudoephedrine (Imelda-D 12 Hr) 1 tab PO Q12H PRN PRN Reason: Allergy Symptoms Stop: 08/30/19 15:29 Fluticasone Furoate (Arnuity Ellipta 100mcg) 1 puffs INH DAILY NANI Stop: 08/31/19 08:59 Last Admin: 08/01/19 08:35 Dose: 1 puffs Documented by: Fluticasone Propionate (Flonase) 2 sprays NA DAILY [facility]; Protocol Stop: 08/31/19 08:59 Last Admin: 08/01/19 08:32 Dose: 2 sprays Documented by: Guaifenesin/Codeine Phosphate (Robitussin-Ac Sugar Free) 10 ml PO Q6H PRN PRN Reason: Cough Stop: 08/30/19 15:29 Heparin Sodium (Porcine) (Heparin Sodium (Porcine)) 5,000 units SQ Q12 NANI Stop: 08/30/19 20:59 Last Admin: 08/01/19 08:32 Dose: 5,000 units Documented by: Ceftriaxone Sodium 2,000 mg/ (Dextrose) 70 mls @ 100 mls/hr IV Q24H NANI; Protocol Stop: 08/07/19 15:59 Last Infusion: 07/31/19 17:08 Dose: Infused Documented by: Ipratropium [place] (Atrovent 0.02% 0.5mg/2.5ml) 0.5 mg INH Q6R NANI Stop: 08/30/19 15:59 Last Admin: 08/01/19 14:07 Dose: 0.5 mg Documented by: Levalbuterol HCl (Xopenex 0.63 Mg/3 Ml Neb) 0.63 mg NEB Q6R NANI Stop: 08/30/19 15:59 Last Admin: 08/01/19 14:07 Dose: 0.63 mg Documented by: Magnesium Hydroxide (Milk Of Magnesia) 30 ml PO Q12H PRN PRN Reason: Constipation Stop: 08/30/19 15:29 Miscellaneous (Order Awaiting Action) 1 ea N/A QS [facility] Stop: 08/30/19 15:59 Last Admin: 08/01/19 08:28 Dose: Not Given Documented by: Miscellaneous (Remove Nicoderm Patch) 1 ea N/A DAILY@0859 [facility] Stop: 08/31/19 08:58 Last Admin: 08/01/19 08:28 Dose: Not Given Documented by: Nicotine (Nicoderm Cq) 14 mg TD QAM [facility] Stop: 08/30/19 15:59 Last Admin: 08/01/19 08:28 Dose: Not Given Documented by: Ondansetron HCl (Zofran) 4 mg IV Q6H PRN PRN Reason: Nausea Stop: 08/30/19 15:29 Oxybutynin Chloride (Ditropan Xl) 15 mg PO DAILY [facility] Stop: 08/30/19 15:59 Last Admin: 08/01/19 08:32 Dose: 15 mg Documented by: Pantoprazole Sodium (Protonix) 40 mg PO DAILY PRN PRN Reason: Heartburn Stop: 08/30/19 15:35 Polyethylene Glycol (Miralax Powder Packet) 17 gm PO DAILY PRN PRN Reason: Constipation Stop: 08/30/19 15:29 Prednisone (Prednisone) 60 mg PO QAM [facility] Stop: 09/01/19 08:59 Tamsulosin HCl (Flomax) 0.4 mg PO HS [facility] Stop: 08/30/19 20:59 Last Admin: 07/31/19 20:21 Dose: 0.4 mg Documented by: Umeclidinium/Vilanterol (Anoro Ellipta 62.5/25 Mcg Inh) 1 puffs INH DAILY [facility] Stop: 08/31/19 08:59 Last Admin: 08/01/19 08:35 Dose: 1 puffs Documented by: Vitamin D (Vitamin D3) 5,000 units PO DAILY [facility] Stop: 08/31/19 08:59 Last Admin: 08/01/19 08:32 Dose: 5,000 units Documented by: PG Care Time/CCT Total # of Minutes Spent Total Time Spent: 38 Total Time Spent with Patient: Total time spent is greater than 50% in coordination of care (as documented) at patient's floor/unit and/or counseling patient: Coding Level of Care Code 74595 Subseq Hosp Care Lvl 3 Diagnoses Acute and chronic respiratory failure J96.20 COPD exacerbation J44.1 GERD (gastroesophageal reflux disease) K21.9 Extrinsic asthma J45.909 Urge and stress incontinence N39.46
[2019-08-01] MEDS: cefTRIAXone SODIUM 2,000 MG in DEXTROSE 5% 50 ML IV SCH (16:48)
[2019-08-01] MEDS: TAMSULOSIN HCL 0.4 MG CAP PO SCH (20:53)
[2019-08-02] MEDS: LEVALBUTEROL HCL 0.63 MG/3 ML NEB NEB SCH ×4 (00:40→18:52)
[2019-08-02] MEDS: IPRATROPIUM BROMIDE NEB SOLN 0.02% 2.5 ML VIAL INH SCH ×4 (00:40→18:52)
[2019-08-02] MEDS: FLUTICASONE FUROATE 100MCG 14 PUFFS/INHALER INH SCH (08:45)
[2019-08-02] MEDS: OXYBUTYNIN CHLORIDE XL 5 MG TABCR PO SCH (08:46)
[2019-08-02] MEDS: CHOLECALCIFEROL 1,000 UNITS 25 MCG TAB PO SCH (08:46)
[2019-08-02] MEDS: HEPARIN SOD 5,000 UNIT/0.5 ML VIAL SQ SCH ×2 (08:46→20:11)
[2019-08-02] MEDS: UMECLIDINIUM/VILANTEROL 62.5/25MCG 7 PUFFS/INHALER INH SCH (08:46)
[2019-08-02] MEDS: predniSONE 20 MG TAB PO SCH (08:47)
[2019-08-02] MEDS: FLUTICASONE PROPIONATE NA SPR 16 GM BTL SCH (08:47)
[2019-08-02] MEDS: NICOTINE 14 MG/24 HR PATCH TD SCH (08:49)
[2019-08-02] MEDS: POLYETHYLENE (MIRALAX) 17 GM PACK PO SCH (15:51)
[2019-08-02] MEDS: cefTRIAXone SODIUM 2,000 MG in DEXTROSE 5% 50 ML IV SCH (15:52)
--- NOTE | 2019-08-02 16:29 | Hospitalist Progress Note ---
Date of Service August 02, 2019 Assessment & Plan (1) Acute and chronic respiratory failure: due to COPD exacerbation breathing appears to be slightly less labored, able to talk in more complete sentences today less accessory muscle use will continue Prednisone 60mg daily (no improvement on 40mg daily at home prior to admission) continue nebulizers continue Rocephin and Zithromax for 5-7 day course Robitussin as needed continue home regimen of inhalers referral placed to COPD clinic on 4L NC, saturation goal is 90% may need a two step prior to d/c as she tells me she normally only uses the oxygen PRN will consult pulmonary to see tomorrow since she is slow to recover this is not unexpected given her severe disease (2) COPD exacerbation: as above increased Prednisone to 60mg daily on 08/01 continue Rocephin as she has productive cough that is unusual for her continue nebulizers, home inhalers consult pulmonary, she has severe disease, follows with Dr. Marinelli in clinic (3) GERD (gastroesophageal reflux disease): Stable, continue omeprazole 20 mg p.o. daily as needed or equivalent. no symptoms today (4) Extrinsic asthma: As discussed above continue home medicine (5) Urge and stress incontinence: Stable, continue oxybutynin 15 mg p.o. daily and tamsulosin 0.4 mg p.o. nightly (6) Constipation: add Miralax daily starting today, will stop once she has a BM Admission and Anticipated Discharge Date Admission Date: July 31, 2019 Anticipated date of discharge: 08/05/19 Subjective patient feels about the same as yesterday, little improvement still feels tight in her chest, difficult time taking a deep breath cough is non-productive, no fever/chills eating okay, per she and her son she is eating as much as she eats at home not drinking enough no labs today as they were stable yesterday will get pulmonary involved tomorrow since she is slow to improve and will need clinic follow up updated her son at the bedside today still with tachycardia on the monitor, likely driven by albuterol Review of Systems Review of Systems: All systems reviewed & are unremarkable except as noted in HPI & below Constitutional: no fever, no chills, no sweats, no fatigue and no weakness Respiratory: + cough, + dyspnea, + dyspnea on exertion and + problem reported (tightness, difficult time getting a deep breath); no pain with cough and no sputum production Cardiovascular: no chest pain, no palpitations and no edema Gastrointestinal: + constipation; no abdominal pain, no nausea, no vomiting and no diarrhea/loose stools Physical Exam Constitutional: well developed, + thin and + frail appearing; no acute distress Eyes: PERRL, conjunctivae normal, anicteric sclerae ENMT: external ear and nose normal, oropharynx normal Neck: trachea midline, no thyromegaly Respiratory: + labored breathing (slight, less than yesterday) and + cough Auscultation: + diminished lung sounds; no rhonchi and no wheezes Cardiovascular: Rate/Rhythm: regular rhythm and + tachycardic Heart Sounds: normal S1 and normal S2; no murmur Extremities: normal capillary refill; no edema Gastrointestinal (Abdomen): normal bowel sounds, soft, nontender, no hepatosplenomegaly Musculoskeletal: no cyanosis or clubbing, extremities motor strength 5/5 Skin: no rashes, warm and dry Neurologic: patellar DTR's 2+ bilat, sensation intact and PERRL, EOMI, accommodation nl, no face palsy, no dysarthria Psychiatric: A+Ox3, euthymic affect Lymphatic: no cervical or axillary lymphadenopathy Results & Data ([facility]) Vital Signs (Past 12 Hours) Vital Signs Temp Pulse Pulse Pulse Resp BP Pulse Ox 08/02/19 15:17 114 H 23 94/74 L 93 08/02/19 14:59 103 H 08/02/19 14:23 60 20 98 08/02/19 11:34 36.8 C 96 H 16 129/64 97 08/02/19 08:01 36.8 C 97 H 18 115/68 96 08/02/19 07:36 90 08/02/19 07:17 101 H 20 94 08/02/19 04:34 36.8 C 106 H 18 112/70 97 Medications Administered Current Inpatient Medications Acetaminophen (Tylenol) 650 mg PO Q4H PRN PRN Reason: Pain or Fever Stop: 08/30/19 15:29 Al Hydrox/Mg Hydrox/Simethicone (Maalox) 15 ml PO Q4H PRN PRN Reason: Dyspepsia Stop: 08/30/19 15:29 Albuterol (Ventolin Hfa) 1 - 2 puffs INH Q4H PRN PRN Reason: shortness of breath Stop: 08/30/19 15:29 Albuterol (Duoneb) 3 ml INH Q4R PRN PRN Reason: Shortness Of Breath Or Wheezing Stop: 08/30/19 15:29 Azithromycin (Zithromax) 250 mg PO MoWeFr@0900 NANI Stop: 08/31/19 08:59 Last Admin: 08/01/19 08:32 Dose: 250 mg Documented by: Fexofenadine HCl/Pseudoephedrine (Imelda-D 12 Hr) 1 tab PO Q12H PRN PRN Reason: Allergy Symptoms Stop: 08/30/19 15:29 Fluticasone Furoate (Arnuity Ellipta 100mcg) 1 puffs INH DAILY [facility] Stop: 08/31/19 08:59 Last Admin: 08/02/19 08:45 Dose: 1 puffs Documented by: Fluticasone Propionate (Flonase) 2 sprays NA DAILY [facility]; Protocol Stop: 08/31/19 08:59 Last Admin: 08/02/19 08:47 Dose: 2 sprays Documented by: Guaifenesin/Codeine Phosphate (Robitussin-Ac Sugar Free) 10 ml PO Q6H PRN PRN Reason: Cough Stop: 08/30/19 15:29 Heparin Sodium (Porcine) (Heparin Sodium (Porcine)) 5,000 units SQ Q12 NANI Stop: 08/30/19 20:59 Last Admin: 08/02/19 08:46 Dose: 5,000 units Documented by: Ceftriaxone Sodium 2,000 mg/ (Dextrose) 70 mls @ 100 mls/hr IV Q24H NANI; Protocol Stop: 08/07/19 15:59 Last Admin: 08/02/19 15:52 Dose: 100 mls/hr Documented by: Ipratropium [place] (Atrovent 0.02% 0.5mg/2.5ml) 0.5 mg INH Q6R NANI Stop: 08/30/19 15:59 Last Admin: 08/02/19 14:20 Dose: 0.5 mg Documented by: Levalbuterol HCl (Xopenex 0.63 Mg/3 Ml Neb) 0.63 mg NEB Q6R NANI Stop: 08/30/19 15:59 Last Admin: 08/02/19 14:20 Dose: 0.63 mg Documented by: Magnesium Hydroxide (Milk Of Magnesia) 30 ml PO Q12H PRN PRN Reason: Constipation Stop: 08/30/19 15:29 Miscellaneous (Order Awaiting Action) 1 ea N/A QS [facility] Stop: 08/30/19 15:59 Last Admin: 08/02/19 07:31 Dose: Not Given Documented by: Miscellaneous (Remove Nicoderm Patch) 1 ea N/A DAILY@0859 [facility] Stop: 08/31/19 08:58 Last Admin: 08/02/19 08:49 Dose: Not Given Documented by: Nicotine (Nicoderm Cq) [facility] Stop: 08/30/19 15:59 Last Admin: 08/02/19 08:49 Dose: Not Given Documented by: Ondansetron HCl (Zofran) 4 mg IV Q6H PRN PRN Reason: Nausea Stop: 08/30/19 15:29 Oxybutynin Chloride (Ditropan Xl) 15 mg PO DAILY [facility] Stop: 08/30/19 15:59 Last Admin: 08/02/19 08:46 Dose: 15 mg Documented by: Pantoprazole Sodium (Protonix) 40 mg PO DAILY PRN PRN Reason: Heartburn Stop: 08/30/19 15:35 Polyethylene Glycol (Miralax Powder Packet) 17 gm PO DAILY PRN PRN Reason: Constipation Stop: 08/30/19 15:29 Polyethylene Glycol (Miralax Powder Packet) 17 gm PO DAILY [facility] Stop: 09/01/19 15:14 Last Admin: 08/02/19 15:51 Dose: 17 gm Documented by: Prednisone (Prednisone) 60 mg PO QAM [facility] Stop: 09/01/19 08:59 Last Admin: 08/02/19 08:47 Dose: 60 mg Documented by: Tamsulosin HCl (Flomax) 0.4 mg PO HS [facility] Stop: 08/30/19 20:59 Last Admin: 08/01/19 20:53 Dose: 0.4 mg Documented by: Umeclidinium/Vilanterol (Anoro Ellipta 62.5/25 Mcg Inh) 1 puffs INH DAILY [facility] Stop: 08/31/19 08:59 Last Admin: 08/02/19 08:46 Dose: 1 puffs Documented by: Vitamin D (Vitamin D3) 5,000 units PO DAILY [facility] Stop: 08/31/19 08:59 Last Admin: 08/02/19 08:46 Dose: 5,000 units Documented by: PG Care Time/CCT Total # of Minutes Spent Total Time Spent with Patient: Total time spent is greater than 50% in coordination of care (as documented) at patient's floor/unit and/or counseling patient: Coding Level of Care Code 52964 Subseq Hosp Care Lvl 3 Diagnoses Acute and chronic respiratory failure J96.20 COPD exacerbation J44.1 GERD (gastroesophageal reflux disease) K21.9 Extrinsic asthma J45.909 Urge and stress incontinence N39.46 Constipation K59.00
--- NOTE | 2019-08-02 17:40 | Electrocardiogram Report ---
Test Reason : Blood Pressure : / mmHG Vent. Rate : 116 BPM Atrial Rate : 116 BPM P-R Int : 152 ms QRS Dur : 130 ms QT Int : 354 ms P-R-T Axes : 081 261 055 degrees QTc Int : 492 ms Poor data quality, interpretation may be adversely affected Sinus tachycardia Possible Left atrial enlargement Right bundle branch block Inferior infarct (cited on or before 31-JUL-2019) Abnormal ECG When compared with ECG of 31-JUL-2019 10:07, No significant change Confirmed by Major Diaz ([id number] on 08/02/2019 5:39:56 PM Referred By: REFERRED SELF Confirmed By:Major Diaz
[2019-08-02] MEDS: TAMSULOSIN HCL 0.4 MG CAP PO SCH (20:11)
[2019-08-03] MEDS: LEVALBUTEROL HCL 0.63 MG/3 ML NEB NEB SCH ×4 (00:28→19:14)
[2019-08-03] MEDS: IPRATROPIUM BROMIDE NEB SOLN 0.02% 2.5 ML VIAL INH SCH ×4 (00:28→19:15)
[2019-08-03 08:11] LABS: Hematocrit (blood only) 42.1 % (37-47); Hemoglobin 13.7 g/dL (12.0-16.0); Mean Corpuscular Hemoglobin 30.9 pg (25-34); Mean Corpuscular Hgb Conc 32.5 g/dL (32-36); Mean Platelet Volume 9.8 fL (7.4-10.4); Platelet Count 239 K/uL (130-400); RDW Coefficient of Variation 13.3 % (11.5-14.5); RDW Standard Deviation 46.2 fL (36.4-46.3); Red Blood Count 4.43 M/uL (4.2-5.4); White Blood Count 8.41 K/uL (4.8-10.8)
[2019-08-03 08:39] LABS: BUN Creatinine Ratio 21.9 (10-20); Calcium 9.5 mg/dl (8.5-10.1); Creatinine Clr Calc Pharmacy 57.2 ml/min; Est GFR (Non-African American) 84.6
[2019-08-03] MEDS: FLUTICASONE FUROATE 100MCG 14 PUFFS/INHALER INH SCH (08:43)
[2019-08-03] MEDS: FLUTICASONE PROPIONATE NA SPR 16 GM BTL SCH (08:44)
[2019-08-03] MEDS: UMECLIDINIUM/VILANTEROL 62.5/25MCG 7 PUFFS/INHALER INH SCH (08:44)
[2019-08-03] MEDS: predniSONE 20 MG TAB PO SCH (08:44)
[2019-08-03] MEDS: CHOLECALCIFEROL 1,000 UNITS 25 MCG TAB PO SCH (08:45)
[2019-08-03] MEDS: OXYBUTYNIN CHLORIDE XL 5 MG TABCR PO SCH (08:45)
[2019-08-03] MEDS: HEPARIN SOD 5,000 UNIT/0.5 ML VIAL SQ SCH ×2 (08:45→20:26)
[2019-08-03] MEDS: POLYETHYLENE (MIRALAX) 17 GM PACK PO SCH (08:46)
[2019-08-03] MEDS: AZITHROMYCIN 250 MG TAB PO SCH (08:46)
[2019-08-03] MEDS: NICOTINE 14 MG/24 HR PATCH TD SCH (08:47)
[2019-08-03 10:04] LABS: Base Excess ABG 7.3 mEq/L (-9-1.8); HCO3 ABG 33 mmol/L (19-24); Oxygen Saturation ABG 93.5 % (90-95); PCO2 ABG 52 mmHg (35-46); PO2 ABG 64 mmHg (80-95); pH ABG 7.43 (7.35-7.45)
[2019-08-03 10:05] LABS: Allen Test Pos (Pos)
[2019-08-03] MEDS ORDERED: OPTIRAY 320 125ml IV PRN (13:15)
--- NOTE | 2019-08-03 13:39 | CT Scan Report ---
CT ANGIOGRAPHY OF THE CHEST, PULMONARY EMBOLUS PROTOCOL CLINICAL HISTORY: Shortness of breath. Evaluate for pulmonary embolus. COMPARISON STUDY: Chest radiograph July 31, 2019. TECHNIQUE: Following IV administration of 120 mL of Optiray-320, helical axial images of the chest we re obtained utilizing the pulmonary embolus protocol. Maximal intensity projections and sagittal and coronal reformats were viewed on an independent 3D workstation. IV contrast was administered withou t complication. Automated exposure control was utilized for the study. A dose lowering technique wa s utilized adhering to the principles of ALARA. CT DOSE: 264.85 mGy.cm FINDINGS: No pulmonary emboli are present. There is no thoracic aortic dissection. The size of the h eart is normal. No pericardial effusion is noted. No enlarged axillary, mediastinal or hilar lymph no yesenia are present. There are severe emphysema. A few irregular subpleural left upper lobe opacities silvia sure up to 1.2 cm. This is shown on image 240 of 318. There is mild volume loss. There are secretions within the right mainstem bronchus and right lower lobe segmental bronchi. There is no pneumothorax or pleural effusion. Bony thorax is unremarkable. Gallbladder is surgically absent. A 7 mm lateral se gment hepatic cyst is unchanged. IMPRESSION: 1. No pulmonary emboli identified. 2. Severe emphysema. 3. A few small irregular subpleural left upper lobe opacities with mild volume loss. This favors scar ring or a mild infectious process. A neoplastic process is considered much less likely however a foll ow-up chest CT in 3 months is recommended. 4. Secretions within the right lower lobe segmental bronchi. ACT 112: Negative or not required by law. Electronically signed by: Alban Gonsalves M.D. 08/03/2019 1:38 PM
--- NOTE | 2019-08-03 13:47 | Hospitalist Progress Note ---
Date of Service August 03, 2019 Assessment & Plan (1) Acute and chronic respiratory failure: due to COPD exacerbation breathing a little better today, but progress is very slow less accessory muscle use will continue Prednisone 60mg daily (no improvement on 40mg daily at home prior to admission) continue nebulizers continue Rocephin and Zithromax for 5-7 day course Robitussin as needed continue home regimen of inhalers referral placed to COPD clinic weaned down to 2L with saturations 90% may need a two step prior to d/c as she tells me she normally only uses the oxygen PRN discussed with pulmonary today, recommend ABG pH 7.43, CO2 52 CTA chest negative for PE on 08/02, only showed emphysema changes, no pneumonia or edema (2) COPD exacerbation: as above continue Prednisone 60mg daily, will need prolonged taper continue Rocephin as she has productive cough that is unusual for her continue nebulizers, home inhalers per last PFT in July 2018, has moderate/severe disease (3) GERD (gastroesophageal reflux disease): Stable, continue omeprazole 20 mg p.o. daily as needed or equivalent. no symptoms today (4) Extrinsic asthma: As discussed above continue home medicine (5) Urge and stress incontinence: Stable, continue oxybutynin 15 mg p.o. daily and tamsulosin 0.4 mg p.o. nightly (6) Constipation: add Miralax daily starting today, will stop once she has a BM (7) Sinus tachycardia: tachycardia on monitor since admission sinus tach on EKG with RBBB, no ischemia CTA chest negative for PE as the cause using Levalbuterol not drinking much, will give one liter at 125cc/hr, look for HR improvement Admission and Anticipated Discharge Date Admission Date: July 31, 2019 Anticipated date of discharge: 08/05/19 Subjective patient seen this morning, she admitted to feeling only slightly better still breathing much more heavily than normal titrated down to 2L NC with saturations at 90% minimal cough still with sinus tachycardia on the monitor, rates in the 110's but with coughing rates up to 130's no chest pain but admitted to chest heaviness checked ABG, pH is 7.43 and CO2 elevated at 52, given the pH > 7.4 despite elevated CO2 and hyperventilation, concern for PE CTA chest negative for PE EKG with sinus tach and RBBB, no ischemic changes she is eating okay but little water intake, will give IV fluids discussed with pulmonary, she is on appropriate treatment at this time reviewed outpatient records, last two visits with Dr Marinelli last PFT were in July 2018, showed moderate to severe COPD with little response to bronchodilators extensively updated both of her sons, both in person and over the phone Review of Systems Review of Systems: All systems reviewed & are unremarkable except as noted in HPI & below Constitutional: + fatigue and + weakness; no fever, no chills and no sweats Respiratory: + cough, + dyspnea and + dyspnea on exertion (severe, just standing up and walking to toilet); no pain with cough, no sputum production and no wheezing Cardiovascular: no chest pain and no edema Gastrointestinal: + constipation; no abdominal pain, no nausea, no vomiting and no diarrhea/loose stools Genitourinary: no dysuria Physical Exam Constitutional: well developed, + thin and + frail appearing; no acute distress Eyes: PERRL, conjunctivae normal, anicteric sclerae ENMT: external ear and nose normal, oropharynx normal Neck: trachea midline, no thyromegaly Respiratory: + labored breathing (less) and + cough Auscultation: + diminished lung sounds; no rhonchi and no wheezes Cardiovascular: Rate/Rhythm: regular rhythm and + tachycardic Heart Sounds: normal S1 and normal S2; no murmur Extremities: normal capillary refill; no edema Gastrointestinal (Abdomen): normal bowel sounds, soft, nontender, no hepatosplenomegaly Musculoskeletal: no cyanosis or clubbing, extremities motor strength 5/5 Skin: no rashes, warm and dry Neurologic: patellar DTR's 2+ bilat, sensation intact and PERRL, EOMI, accommodation nl, no face palsy, no dysarthria Psychiatric: A+Ox3, euthymic affect Lymphatic: no cervical or axillary lymphadenopathy Results & Data ([facility]) Vital Signs (Past 12 Hours) Vital Signs Temp Pulse Pulse Pulse Resp BP Pulse Ox 08/03/19 10:58 36.8 C 113 H 18 108/75 91 08/03/19 07:35 104 H 08/03/19 07:02 36.7 C 99 H 19 103/64 95 08/03/19 06:56 103 H 16 97 08/03/19 04:47 36.5 C 103 H 20 100/68 96 Laboratory Results Laboratory Results - last 24 hr 08/03/19 08/03/19 08/03/19 07:55 07:55 09:52 WBC 8.41 RBC 4.43 Hgb 13.7 Hct 42.1 MCV 95.0 MCH 30.9 MCHC 32.5 RDW Std Deviation 46.2 RDW Coeff of Geri 13.3 Plt Count 239 MPV 9.8 ABG pH 7.43 ABG pCO2 52 H ABG pO2 64 L ABG HCO3 33 H ABG O2 Saturation 93.5 ABG Base Excess 7.3 H Christian Test Pos Barometric Pressure 728.3 Oxygen Given 3L Sodium 137 Potassium 4.0 Chloride 100 Carbon Dioxide 35 H Anion Gap 2.0 L BUN 15 Creatinine 0.69 Est Cr Clr Drug Dosing 57.2 Est GFR ( Amer) 98.0 Est GFR (Non-Af Amer) 84.6 BUN/Creatinine Ratio 21.9 H Glucose 87 Calcium 9.5 Diagnostic Findings CTA chest, PE protocol IMPRESSION: 1. No pulmonary emboli identified. 2. Severe emphysema. 3. A few small irregular subpleural left upper lobe opacities with mild volume loss. This favors scarring or a mild infectious process. A neoplastic process is considered much less likely however a follow-up chest CT in 3 months is recommended. 4. Secretions within the right lower lobe segmental bronchi. Medications Administered Current Inpatient Medications Acetaminophen (Tylenol) 650 mg PO Q4H PRN PRN Reason: Pain or Fever Stop: 08/30/19 15:29 Al Hydrox/Mg Hydrox/Simethicone (Maalox) 15 ml PO Q4H PRN PRN Reason: Dyspepsia Stop: 08/30/19 15:29 Albuterol (Ventolin Hfa) 1 - 2 puffs INH Q4H PRN PRN Reason: shortness of breath Stop: 08/30/19 15:29 Albuterol (Duoneb) 3 ml INH Q4R PRN PRN Reason: Shortness Of Breath Or Wheezing Stop: 08/30/19 15:29 Azithromycin (Zithromax) 250 mg PO MoWeFr@0900 NANI Stop: 08/31/19 08:59 Last Admin: 08/03/19 08:46 Dose: 250 mg Documented by: Fexofenadine HCl/Pseudoephedrine (Imelda-D 12 Hr) 1 tab PO Q12H PRN PRN Reason: Allergy Symptoms Stop: 08/30/19 15:29 Fluticasone Furoate (Arnuity Ellipta 100mcg) 1 puffs INH DAILY [facility] Stop: 08/31/19 08:59 Last Admin: 08/03/19 08:43 Dose: 1 puffs Documented by: Fluticasone Propionate (Flonase) [address] [facility]; Protocol Stop: 08/31/19 08:59 Last Admin: 08/03/19 08:44 Dose: 2 sprays Documented by: Guaifenesin/Codeine Phosphate (Robitussin-Ac Sugar Free) 10 ml PO Q6H PRN PRN Reason: Cough Stop: 08/30/19 15:29 Heparin Sodium (Porcine) (Heparin Sodium (Porcine)) 5,000 units SQ Q12 [facility] Stop: 08/30/19 20:59 Last Admin: 08/03/19 08:45 Dose: 5,000 units Documented by: Ceftriaxone Sodium 2,000 mg/ (Dextrose) 70 mls @ 100 mls/hr IV Q24H NANI; Protocol Stop: 08/07/19 15:59 Last Infusion: 08/02/19 17:44 Dose: Infused Documented by: Ioversol (Optiray 320 125ml) 120 ml IV ONCE PRN PRN Reason: Interaction Checking Stop: 08/07/19 13:14 Last Admin: 08/03/19 13:17 Dose: 120 ml Documented by: Ipratropium [place] (Atrovent 0.02% 0.5mg/2.5ml) 0.5 mg INH Q6R NANI Stop: 08/30/19 15:59 Last Admin: 08/03/19 13:16 Dose: Not Given Documented by: Levalbuterol HCl (Xopenex 0.63 Mg/3 Ml Neb) 0.63 mg NEB Q6R NANI Stop: 08/30/19 15:59 Last Admin: 08/03/19 13:16 Dose: Not Given Documented by: Magnesium Hydroxide (Milk Of Magnesia) 30 ml PO Q12H PRN PRN Reason: Constipation Stop: 08/30/19 15:29 Miscellaneous (Order Awaiting Action) 1 ea N/A QS [facility] Stop: 08/30/19 15:59 Last Admin: 08/03/19 08:47 Dose: Not Given Documented by: Miscellaneous (Remove Nicoderm Patch) 1 ea N/A DAILY@0859 [facility] Stop: 08/31/19 08:58 Last Admin: 08/03/19 08:47 Dose: Not Given Documented by: Nicotine (Nicoderm Cq) [address] [facility] Stop: 08/30/19 15:59 Last Admin: 08/03/19 08:47 Dose: Not Given Documented by: Ondansetron HCl (Zofran) 4 mg IV Q6H PRN PRN Reason: Nausea Stop: 08/30/19 15:29 Oxybutynin Chloride (Ditropan Xl) [address] [facility] Stop: 08/30/19 15:59 Last Admin: 08/03/19 08:45 Dose: 15 mg Documented by: Pantoprazole Sodium (Protonix) 40 mg PO DAILY PRN PRN Reason: Heartburn Stop: 08/30/19 15:35 Polyethylene Glycol (Miralax Powder Packet) 17 gm PO DAILY PRN PRN Reason: Constipation Stop: 08/30/19 15:29 Polyethylene Glycol (Miralax Powder Packet) [address] [facility] Stop: 09/01/19 15:14 Last Admin: 08/03/19 08:46 Dose: 17 gm Documented by: Prednisone (Pred[facility]one) [facility] Stop: 09/01/19 08:59 Last Admin: 08/03/19 08:44 Dose: 60 mg Documented by: Tamsulosin HCl (Flomax) 0.[address] [facility] Stop: 08/30/19 20:59 Last Admin: 08/02/19 20:11 Dose: 0.4 mg Documented by: Umeclidinium/Vilanterol (Anoro Ellipta 62.5/25 Mcg Inh) [address] [facility] Stop: 08/31/19 08:59 Last Admin: 08/03/19 08:44 Dose: 1 puffs Documented by: Vitamin D (Vitamin D3) 5,[address] [facility] Stop: 08/31/19 08:59 Last Admin: 08/03/19 08:45 Dose: 5,000 units Documented by: PG Care Time/CCT Total # of Minutes Spent Total Time Spent with Patient: Total time spent is greater than 50% in coordination of care (as documented) at patient's floor/unit and/or counseling patient: Coding Level of Care Code 88511 Subseq Hosp Care Lvl 3 Diagnoses Acute and chronic respiratory failure J96.20 COPD exacerbation J44.1 GERD (gastroesophageal reflux disease) K21.9 Extrinsic asthma J45.909 Urge and stress incontinence N39.46 Constipation K59.00 Sinus tachycardia R00.0
[2019-08-03] MEDS ORDERED: SODIUM CHLORIDE 0.9% 1000ML 1,000 ML IV SCH (14:30)
--- NOTE | 2019-08-03 16:05 | Electrocardiogram Report ---
Test Reason : Blood Pressure : / mmHG Vent. Rate : 114 BPM Atrial Rate : 114 BPM P-R Int : 150 ms QRS Dur : 122 ms QT Int : 340 ms P-R-T Axes : 084 257 065 degrees QTc Int : 468 ms Sinus tachycardia Right atrial enlargement Right bundle branch block Inferior infarct (cited on or before 31-JUL-2019) Abnormal ECG When compared with ECG of 01-AUG-2019 20:14, No significant change was found Confirmed by Talib Lopez ([id number]) on 08/03/2019 4:05:12 PM Referred By: REFERRED SELF Confirmed By:Talib Lopez
[2019-08-03] MEDS: cefTRIAXone SODIUM 2,000 MG in DEXTROSE 5% 50 ML IV SCH (16:27)
[2019-08-03] MEDS: TAMSULOSIN HCL 0.4 MG CAP PO SCH (20:26)
[2019-08-04] MEDS: LEVALBUTEROL HCL 0.63 MG/3 ML NEB NEB SCH ×4 (00:36→19:09)
[2019-08-04] MEDS: IPRATROPIUM BROMIDE NEB SOLN 0.02% 2.5 ML VIAL INH SCH ×4 (00:36→19:09)
[2019-08-04] MEDS: FLUTICASONE FUROATE 100MCG 14 PUFFS/INHALER INH SCH (09:35)
[2019-08-04] MEDS: UMECLIDINIUM/VILANTEROL 62.5/25MCG 7 PUFFS/INHALER INH SCH (09:36)
[2019-08-04] MEDS: FLUTICASONE PROPIONATE NA SPR 16 GM BTL SCH (09:36)
[2019-08-04] MEDS: predniSONE 20 MG TAB PO SCH (09:37)
[2019-08-04] MEDS: OXYBUTYNIN CHLORIDE XL 5 MG TABCR PO SCH (09:37)
[2019-08-04] MEDS: CHOLECALCIFEROL 1,000 UNITS 25 MCG TAB PO SCH (09:38)
[2019-08-04] MEDS: NICOTINE 14 MG/24 HR PATCH TD SCH (09:38)
[2019-08-04] MEDS: HEPARIN SOD 5,000 UNIT/0.5 ML VIAL SQ SCH ×2 (09:39→20:55)
[2019-08-04] MEDS: POLYETHYLENE (MIRALAX) 17 GM PACK PO SCH (09:49)
--- NOTE | 2019-08-04 12:00 | Pulmonary Consultation ---
Date of Consultation August 04, 2019 Assessment & Plan (1) COPD exacerbation: Impression: 78-year-old female with moderate obstructive lung disease admitted with exacerbation and concomitant sinus congestion and headache. Recommendations: 1. Acute exacerbation of COPD. Continue inhalers, steroids, and azithromycin. Increase azithromycin to daily. Stop rocephin, Add hypertonic saline and Mucinex to see if we can help with mucus lysis. 2. Acute on chronic sinus complaints: Recommend scheudled decongestant and antihistamine. 3. Hypoxemic respiratory failure, acute on chronic: Continue oxygen titrated to keep saturations at or above 88%. We will continue to follow with you. Feel free to contact us with questions or concerns. (2) Chronic sinusitis: (3) Cough: History of Present Illness Attending Physician: Ayden Hogan DO Allergies Allergy/AdvReac Type Severity Reaction Status Date / Time cat dander Allergy Intermediate NASAL Verified 07/31/19 11:15 CONGESTION dog dander Allergy Intermediate NASAL Verified 07/31/19 11:15 CONGESTION grass pollen-perennial rye, Allergy Intermediate NASAL Verified 07/31/19 11:15 standar CONGESTION house dust Allergy Intermediate NASAL Verified 07/31/19 11:15 CONGESTION mold Allergy Intermediate NASAL Verified 07/31/19 11:15 CONGESTION Penicillins Allergy Intermediate HIVES Verified 07/31/19 11:15 Home Medications Home Medications Medication Instructions Recorded Confirmed Type cholecalciferol (vitamin D3) 125 5,000 unit PO DAILY #30 tab 12/01/18 07/31/19 Rx mcg (5,000 unit) tablet tamsulosin 0.4 mg capsule 0.4 mg PO HS #30 cap 12/01/18 07/31/19 Rx albuterol sulfate 90 mcg/actuation 1 - 2 puff INHALATION Q4H PRN #18 12/20/18 07/31/19 Rx aerosol inhaler gm azelastine 137 mcg (0.1 %) nasal 2 spray INTRANASAL BID #30 ml 01/19/19 07/31/19 Rx spray aerosol mometasone 50 mcg/actuation nasal 2 sprays INTNAS DAILY #17 gm 06/05/19 07/31/19 Rx spray fexofenadine 60 mg-pseudoephedrine 1 tab PO Q12H PRN 06/07/19 07/31/19 History ER 120 mg tablet,ext.release,12 hr fluticasone fur. 100 mcg-umeclid 1 puffs INH DAILY #60 ea 06/07/19 07/31/19 Rx 62.5 mcg-vilant 25 mcg inhalat.powder oxybutynin chloride 15 mg 15 mg PO DAILY #90 tab 07/24/19 07/31/19 Rx tablet,extended release 24 hr azithromycin 250 mg PO MOWEFR 07/31/19 07/31/19 History ipratropium-albuterol 3 ml INHALATION Q4 PRN 07/31/19 07/31/19 History omeprazole 20 mg PO DAILY PRN 07/31/19 07/31/19 History prednisone 40 mg PO DAILY PRN 07/31/19 07/31/19 History Patient History Medical History Chronic ischemic heart disease (Chronic) Chronic nasal congestion (Chronic) Constipation (Chronic) COPD (chronic obstructive pulmonary disease) (Chronic) Extrinsic asthma (Chronic) GERD (gastroesophageal reflux disease) (Chronic) History of ankle fracture (Resolved) Hypercholesterolemia (Chronic) Hyponatremia (Resolved) Hypoxia (Resolved) Non-allergic rhinitis Osteoporosis (Chronic) Sinus tachycardia (Inactive) Unspecified osteoarthritis, unspecified site (Chronic) Urge and stress incontinence (Chronic) Vitamin D deficiency (Chronic) Surgical History H/O: hysterectomy History of laparoscopic cholecystectomy History of rhinoplasty History of tonsillectomy Family History Aunt Alzheimer disease Coronary heart disease Cardiac disorder Mother Breast cancer Myocardial infarction Social History Preferred Language: Greenlandic Communication Ability: Effective Visual Impairment: No Limitations Hearing Ability: Normal 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 Beliefs That Will Affect Care: None marital status: / Current Living Situation: Alone current occupational status: retired Feels Safe at Home: Yes Smoking Status: Former smoker Tobacco Type: cigarettes ; packs per day: 1 ; Hx Alcohol Use: Yes Alcohol type: hard liquor Alcohol Intake Frequency: Rarely Hx Substance Use: No Childhood Exposure to Second-Hand Smoke: No caffeine: Yes (coffee) during the past year weight has: remained stable Dental Care, Regularly: Yes Physical Activity Frequency: 1-2 Times per Week Seatbelt Use: always Sunscreen Use: No Results & Data ([facility]) Vital Signs (Past 12 Hours) Vital Signs Temp Pulse Pulse Pulse Resp BP Pulse Ox 08/04/19 11:10 36.7 C 99 H 26 H 116/65 94 08/04/19 07:27 106 H 08/04/19 07:07 96 H 16 93 08/04/19 07:02 36.6 C 98 H 15 117/71 93 08/04/19 04:22 36.8 C 120 H 24 101/73 91 08/04/19 00:37 100 H 22 95 08/04/19 00:25 36.5 C 84 19 94/60 L 95 08/04/19 00:00 97 H Laboratory Results 08/03/19 07:55 08/03/19 07:[address] of the chest independently reviewed. CT ANGIOGRAPHY OF THE CHEST, PULMONARY EMBOLUS PROTOCOL CLINICAL HISTORY: Shortness of breath. Evaluate for pulmonary embolus. COMPARISON STUDY: Chest radiograph July 31, 2019. TECHNIQUE: Following IV administration of 120 mL of Optiray-320, helical axial images of the chest were obtained utilizing the pulmonary embolus protocol. Maximal intensity projections and sagittal and coronal reformats were viewed on an independent 3D workstation. IV contrast was administered without complication. Automated exposure control was utilized for the study. A dose lowering technique was utilized adhering to the principles of ALARA. CT DOSE: 264.85 mGy.cm FINDINGS: No pulmonary emboli are present. There is no thoracic aortic dissection. The size of the heart is normal. No pericardial effusion is noted. No enlarged axillary, mediastinal or hilar lymph nodes are present. There are severe emphysema. A few irregular subpleural left upper lobe opacities measure up to 1.2 cm. This is shown on image 240 of 318. There is mild volume loss. There are secretions within the right mainstem bronchus and right lower lobe segmental bronchi. There is no pneumothorax or pleural effusion. Bony thorax is unremarkable. Gallbladder is surgically absent. A 7 mm lateral segment hepatic cyst is unchanged. IMPRESSION: 1. No pulmonary emboli identified. 2. Severe emphysema. 3. A few small irregular subpleural left upper lobe opacities with mild volume loss. This favors scarring or a mild infectious process. A neoplastic process is considered much less likely however a follow-up chest CT in 3 months is recommended. 4. Secretions within the right lower lobe segmental bronchi. PG Care Time/CCT Total # of Minutes Spent Total Time Spent with Patient: Total time spent is greater than 50% in coordination of care (as documented) at patient's floor/unit and/or counseling patient: Coding Level of Care Code 13024 Initial Inpt Care Lvl 2 Diagnoses COPD exacerbation J44.1 Chronic sinusitis J32.9 Cough R05 Time Spent (min) 40
[2019-08-04] MEDS: AZITHROMYCIN 250 MG TAB PO SCH (12:34)
--- NOTE | 2019-08-04 12:50 | Hospitalist Progress Note ---
Date of Service August 04, 2019 Assessment & Plan (1) Acute and chronic respiratory failure: due to COPD exacerbation breathing a little better each day, but progress is very slow less accessory muscle use today, hardly at all will continue Prednisone 60mg daily continue nebulizers stop Rocephin, change Zithromax to daily Robitussin as needed hypertonic saline nebulizer to loosen mucous appreciate recommendations from Dr. Marinelli referral placed to COPD clinic weaned down to 2L with saturations 90% may need a two step prior to d/c as she tells me she normally only uses the oxygen PRN ABG on 08/02 pH 7.43, CO2 52 CTA chest negative for PE on 08/02, only showed emphysema changes, no pneumonia or edema (2) COPD exacerbation: as above continue Prednisone 60mg daily, will need prolonged taper continue Zithromax continue nebulizers, add hypertonic saline nebulizers per last PFT in July 2018, has moderate/severe disease (3) GERD (gastroesophageal reflux disease): Stable, continue omeprazole 20 mg p.o. daily as needed or equivalent. no symptoms today (4) Extrinsic asthma: As discussed above continue home medicine (5) Urge and stress incontinence: Stable, continue oxybutynin 15 mg p.o. daily and tamsulosin 0.4 mg p.o. nightly (6) Constipation: resolved with Miralax (7) Sinus tachycardia: tachycardia on monitor since admission sinus tach on EKG with RBBB, no ischemia CTA chest negative for PE as the cause using Levalbuterol not drinking much, gave her one liter of saline on 08/02 HR improved today, 90-100 resting Admission and Anticipated Discharge Date Admission Date: July 31, 2019 Anticipated date of discharge: 08/05/19 Subjective patient feeling a little better, breathing just a little easier still, any activity increases her dyspnea and HR resting HR is better today, in the high 90's to low 100's discussed with Dr. Marinelli, appreciate his input no labs today as they were normal yesterday continue to work with PT/OT, patient says she is weak, she is motivated to get stronger eating fairly well, moved her bowels, urinating well no chest pain or pressure, no fever/chills Review of Systems Review of Systems: All systems reviewed & are unremarkable except as noted in HPI & below Ear, Nose, Mouth, Throat: + nasal congestion and + sinus pain/pressure Respiratory: + cough, + dyspnea and + dyspnea on exertion; no sputum production Cardiovascular: no chest pain, no palpitations and no edema Gastrointestinal: no abdominal pain, no nausea, no vomiting, no constipation and no diarrhea/loose stools Physical Exam Constitutional: well developed, + thin and + frail appearing; no acute distress Eyes: PERRL, conjunctivae normal, anicteric sclerae ENMT: external ear and nose normal, oropharynx normal Neck: trachea midline, no thyromegaly Respiratory: + cough; no respiratory distress and no labored breathing Auscultation: + diminished lung sounds; no rhonchi and no wheezes Cardiovascular: Rate/Rhythm: regular rhythm and + tachycardic Heart Sounds: normal S1 and normal S2; no murmur Extremities: normal capillary refill; no edema Gastrointestinal (Abdomen): normal bowel sounds, soft, nontender, no hepatosplenomegaly Musculoskeletal: no cyanosis or clubbing, extremities motor strength 5/5 Skin: no rashes, warm and dry Neurologic: patellar DTR's 2+ bilat, sensation intact and PERRL, EOMI, accommodation nl, no face palsy, no dysarthria Psychiatric: A+Ox3, euthymic affect Lymphatic: no cervical or axillary lymphadenopathy Results & Data ([facility]) Vital Signs (Past 12 Hours) Vital Signs Temp Pulse Pulse Pulse Resp BP Pulse Ox 08/04/19 11:10 36.7 C 99 H 26 H 116/65 94 08/04/19 07:27 106 H 08/04/19 07:07 96 H 16 93 08/04/19 07:02 36.6 C 98 H 15 117/71 93 08/04/19 04:22 36.8 C 120 H 24 101/73 91 Medications Administered Current Inpatient Medications Acetaminophen (Tylenol) 650 mg PO Q4H PRN PRN Reason: Pain or Fever Stop: 08/30/19 15:29 Al Hydrox/Mg Hydrox/Simethicone (Maalox) 15 ml PO Q4H PRN PRN Reason: Dyspepsia Stop: 08/30/19 15:29 Albuterol (Ventolin Hfa) 1 - 2 puffs INH Q4H PRN PRN Reason: shortness of breath Stop: 08/30/19 15:29 Albuterol (Duoneb) 3 ml INH Q4R PRN PRN Reason: Shortness Of Breath Or Wheezing Stop: 08/30/19 15:29 Azithromycin (Zithromax) 250 mg PO DAILY [facility] Stop: 09/03/19 11:59 Last Admin: 08/04/19 12:34 Dose: 250 mg Documented by: Fexofenadine HCl/Pseudoephedrine (Imelda-D 12 Hr) 1 tab PO Q12 [facility] Stop: 09/03/19 11:59 Fluticasone Furoate (Arnuity Ellipta 100mcg) 1 puffs INH DAILY [facility] Stop: 08/31/19 08:59 Last Admin: 08/04/19 09:35 Dose: 1 puffs Documented by: Fluticasone Propionate (Flonase) 2 sprays NA DAILY [facility]; Protocol Stop: 08/31/19 08:59 Last Admin: 08/04/19 09:36 Dose: 2 sprays Documented by: Guaifenesin (Mucinex) 1,200 mg PO Q12 [facility] Stop: 09/03/19 20:59 Guaifenesin/Codeine Phosphate (Robitussin-Ac Sugar Free) 10 ml PO Q6H PRN PRN Reason: Cough Stop: 08/30/19 15:29 Heparin Sodium (Porcine) (Heparin Sodium (Porcine)) 5,000 units SQ Q12 [facility] Stop: 08/30/19 20:59 Last Admin: 08/04/19 09:39 Dose: 5,000 units Documented by: Ioversol (Optiray 320 125ml) 120 ml IV ONCE PRN PRN Reason: Interaction Checking Stop: 08/07/19 13:14 Last Admin: 08/03/19 13:17 Dose: 120 ml Documented by: Ipratropium [place] (Atrovent 0.02% 0.5mg/2.5ml) 0.5 mg INH Q6R [facility] Stop: 08/30/19 15:59 Last Admin: 08/04/19 07:06 Dose: 0.5 mg Documented by: Levalbuterol HCl (Xopenex 0.63 Mg/3 Ml Neb) 0.63 mg NEB Q6R [facility] Stop: 08/30/19 15:59 Last Admin: 08/04/19 07:07 Dose: 0.63 mg Documented by: Magnesium Hydroxide (Milk Of Magnesia) 30 ml PO Q12H PRN PRN Reason: Constipation Stop: 08/30/19 15:29 Miscellaneous (Order Awaiting Action) 1 ea N/A QS [facility] Stop: 08/30/19 15:59 Last Admin: 08/04/19 09:35 Dose: Not Given Documented by: Miscellaneous (Remove Nicoderm Patch) 1 ea N/A DAILY@0859 [facility] Stop: 08/31/19 08:58 Last Admin: 08/04/19 09:35 Dose: Not Given Documented by: Nicotine (Nicoderm Cq) 14 mg TD QAM [facility] Stop: 08/30/19 15:59 Last Admin: 08/04/19 09:38 Dose: Not Given Documented by: Oxybutynin Chloride (Ditropan Xl) 15 mg PO DAILY [facility] Stop: 08/30/19 15:59 Last Admin: 08/04/19 09:37 Dose: 15 mg Documented by: Pantoprazole Sodium (Protonix) 40 mg PO DAILY PRN PRN Reason: Heartburn Stop: 08/30/19 15:35 Polyethylene Glycol (Miralax Powder Packet) 17 gm PO DAILY PRN PRN Reason: Constipation Stop: 08/30/19 15:29 Prednisone (Prednisone) 60 mg PO QAM [facility] Stop: 09/01/19 08:59 Last Admin: 08/04/19 09:37 Dose: 60 mg Documented by: Sodium Chloride (Sodium Chlor 7% Neb Solution) 4 ml NEB BIDR [facility] Stop: 09/03/19 18:59 Tamsulosin HCl (Flomax) 0.4 mg PO HS [facility] Stop: 08/30/19 20:59 Last Admin: 08/03/19 20:26 Dose: 0.4 mg Documented by: Umeclidinium/Vilanterol (Anoro Ellipta 62.5/25 Mcg Inh) 1 puffs INH DAILY [facility] Stop: 08/31/19 08:59 Last Admin: 08/04/19 09:36 Dose: 1 puffs Documented by: Vitamin D (Vitamin D3) 5,000 units PO DAILY [facility] Stop: 08/31/19 08:59 Last Admin: 08/04/19 09:38 Dose: 5,000 units Documented by: PG Care Time/CCT Total # of Minutes Spent Total Time Spent: 40 Total Time Spent with Patient: Total time spent is greater than 50% in coordination of care (as documented) at patient's floor/unit and/or counseling patient: Coding Level of Care Code 86761 Subseq Hosp Care Lvl 3 Diagnoses Acute and chronic respiratory failure J96.20 COPD exacerbation J44.1 GERD (gastroesophageal reflux disease) K21.9 Extrinsic asthma J45.909 Urge and stress incontinence N39.46 Constipation K59.00 Sinus tachycardia R00.0
[2019-08-04] MEDS: FEXOFENADINE 60MG/PSEUDOEPHEDRINE 120MG TAB PO SCH ×2 (13:03→20:55)
[2019-08-04] MEDS: SODIUM CHLOR 7% 4 ML NEB NEB SCH (19:09)
[2019-08-04] MEDS: guaiFENesin 600 MG TABCR PO SCH (20:55)
[2019-08-04] MEDS: TAMSULOSIN HCL 0.4 MG CAP PO SCH (20:55)
[2019-08-05] MEDS: IPRATROPIUM BROMIDE NEB SOLN 0.02% 2.5 ML VIAL INH SCH ×4 (00:53→19:06)
[2019-08-05] MEDS: LEVALBUTEROL HCL 0.63 MG/3 ML NEB NEB SCH ×4 (00:53→19:06)
[2019-08-05] MEDS: SODIUM CHLOR 7% 4 ML NEB NEB SCH (07:03)
[2019-08-05] MEDS ORDERED: SODIUM CHLORIDE 0.9% 500 ML IV SCH (08:00)
[2019-08-05] MEDS: NICOTINE 14 MG/24 HR PATCH TD SCH (08:05)
[2019-08-05] MEDS: CHOLECALCIFEROL 1,000 UNITS 25 MCG TAB PO SCH (08:06)
[2019-08-05] MEDS: predniSONE 20 MG TAB PO SCH (08:06)
[2019-08-05] MEDS: OXYBUTYNIN CHLORIDE XL 5 MG TABCR PO SCH (08:06)
[2019-08-05] MEDS: FEXOFENADINE 60MG/PSEUDOEPHEDRINE 120MG TAB PO SCH ×2 (08:06→21:14)
[2019-08-05] MEDS: AZITHROMYCIN 250 MG TAB PO SCH (08:06)
[2019-08-05] MEDS: FLUTICASONE PROPIONATE NA SPR 16 GM BTL SCH (08:07)
[2019-08-05] MEDS: guaiFENesin 600 MG TABCR PO SCH ×2 (08:07→21:16)
[2019-08-05] MEDS: UMECLIDINIUM/VILANTEROL 62.5/25MCG 7 PUFFS/INHALER INH SCH (08:07)
[2019-08-05] MEDS: FLUTICASONE FUROATE 100MCG 14 PUFFS/INHALER INH SCH (08:08)
[2019-08-05] MEDS: HEPARIN SOD 5,000 UNIT/0.5 ML VIAL SQ SCH ×2 (08:13→21:16)
--- NOTE | 2019-08-05 09:53 | Hospitalist Progress Note ---
Date of Service August 05, 2019 Assessment & Plan (1) Acute and chronic respiratory failure: due to COPD exacerbation breathing a little better each day, but progress is very, very slow less accessory muscle use today, hardly at all will continue Prednisone 60mg daily until pulmonary feels we can decrease more wheezing today triggered by hypertonic saline per patient, she felt a lot worse afterwards continue nebulizers stop Rocephin, change Zithromax to daily Robitussin as needed hypertonic saline nebulizer to loosen mucous - WILL HOLD as she was worse appreciate recommendations from Dr. Marinelli referral placed to COPD clinic weaned down to 2L with saturations 90% may need a two step prior to d/c as she tells me she normally only uses the oxygen PRN ABG on 08/02 pH 7.43, CO2 52 CTA chest negative for PE on 08/02, only showed emphysema changes, no pneumonia or edema unsure of discharge at this point as she is slow to progress hopeful that she will start to improve more over the next 2-3 days (2) COPD exacerbation: as above continue Prednisone 60mg daily, will need prolonged taper continue Zithromax continue nebulizers per last PFT in July 2018, has moderate/severe disease (3) GERD (gastroesophageal reflux disease): Stable, continue omeprazole 20 mg p.o. daily as needed or equivalent. no symptoms today (4) Extrinsic asthma: As discussed above continue home medicine (5) Urge and stress incontinence: Stable, continue oxybutynin 15 mg p.o. daily and tamsulosin 0.4 mg p.o. nightly (6) Constipation: resolved with Miralax (7) Sinus tachycardia: tachycardia on monitor since admission sinus tach on EKG with RBBB, no ischemia CTA chest negative for PE as the cause using Levalbuterol not drinking much, gave her one liter of saline on 08/02 HR improved but back up in 120's this morning will give 500cc of NSS this morning Admission and Anticipated Discharge Date Admission Date: July 31, 2019 Anticipated date of discharge: 08/08/19 Subjective patient said that the hypertonic saline nebulizer made her cough, wheeze, breathing got worse she refused it this morning, told her I would place on hold for now she slept okay this morning she feels about the same, cough is non-productive she is eating well, she is trying to drink more, got down 250mL of water thus fa r no labs today she did OT yesterday, said she could go home once medically stable PT did not work with her due to her resting tachycardia and hypoxia her oxygen levels are stable on 2L discussed with her that she will be here a few more days, still too frail, breathing needs to improve more she understands Review of Systems Review of Systems: All systems reviewed & are unremarkable except as noted in HPI & below Constitutional: + fatigue and + weakness; no fever and no chills Respiratory: + cough, + dyspnea, + dyspnea on exertion and + wheezing; no sputum production Cardiovascular: no chest pain, no palpitations and no edema Gastrointestinal: no abdominal pain, no nausea, no vomiting, no constipation and no diarrhea/loose stools Physical Exam Constitutional: well developed, + thin and + frail appearing; no acute distress Eyes: PERRL, conjunctivae normal, anicteric sclerae ENMT: external ear and nose normal, oropharynx normal Neck: trachea midline, no thyromegaly Respiratory: + cough; no respiratory distress and no labored breathing Auscultation: + diminished lung sounds and + wheezes (Bilateral, end expiratory ); no rhonchi Cardiovascular: Rate/Rhythm: regular rhythm and + tachycardic Heart Sounds: normal S1 and normal S2; no murmur Extremities: normal capillary refill; no edema Gastrointestinal (Abdomen): normal bowel sounds, soft, nontender, no hepatosplenomegaly Musculoskeletal: no cyanosis or clubbing, extremities motor strength 5/5 Skin: no rashes, warm and dry Neurologic: patellar DTR's 2+ bilat, sensation intact and PERRL, EOMI, accommodation nl, no face palsy, no dysarthria Psychiatric: A+Ox3, euthymic affect Lymphatic: no cervical or axillary lymphadenopathy Results & Data ([facility]) Vital Signs (Past 12 Hours) Vital Signs Temp Pulse Pulse Pulse Resp BP Pulse Ox 08/05/19 07:42 36.6 C 116 H 15 99/59 L 90 08/05/19 07:05 118 H 22 94 08/05/19 03:53 36.5 C 115 H 24 122/81 96 08/05/19 01:18 117 H 08/05/19 00:53 99 H 16 95 08/05/19 00:08 36.6 C 99 H 22 111/75 94 Medications Administered Current Inpatient Medications Acetaminophen (Tylenol) 650 mg PO Q4H PRN PRN Reason: Pain or Fever Stop: 08/30/19 15:29 Al Hydrox/Mg Hydrox/Simethicone (Maalox) 15 ml PO Q4H PRN PRN Reason: Dyspepsia Stop: 08/30/19 15:29 Albuterol (Ventolin Hfa) 1 - 2 puffs INH Q4H PRN PRN Reason: shortness of breath Stop: 08/30/19 15:29 Albuterol (Duoneb) 3 ml INH Q4R PRN PRN Reason: Shortness Of Breath Or Wheezing Stop: 08/30/19 15:29 Azithromycin (Zithromax) 250 mg PO DAILY [facility] Stop: 09/03/19 11:59 Last Admin: 08/05/19 08:06 Dose: 250 mg Documented by: Fexofenadine HCl/Pseudoephedrine (Imelda-D 12 Hr) 1 tab PO Q12 [facility] Stop: 09/03/19 11:59 Last Admin: 08/05/19 08:06 Dose: 1 tab Documented by: Fluticasone Furoate (Arnuity Ellipta 100mcg) 1 puffs INH DAILY [facility] Stop: 08/31/19 08:59 Last Admin: 08/05/19 08:08 Dose: 1 puffs Documented by: Fluticasone Propionate (Flonase) 2 sprays NA DAILY [facility]; Protocol Stop: 08/31/19 08:59 Last Admin: 08/05/19 08:07 Dose: 2 sprays Documented by: Guaifenesin (Mucinex) 1,200 mg PO Q12 [facility] Stop: 09/03/19 20:59 Last Admin: 08/05/19 08:07 Dose: 1,200 mg Documented by: Guaifenesin/Codeine Phosphate (Robitussin-Ac Sugar Free) 10 ml PO Q6H PRN PRN Reason: Cough Stop: 08/30/19 15:29 Heparin Sodium (Porcine) (Heparin Sodium (Porcine)) 5,000 units SQ Q12 [facility] Stop: 08/30/19 20:59 Last Admin: 08/05/19 08:13 Dose: 5,000 units Documented by: Sodium Chloride (Nss) 500 mls @ 125 mls/hr IV .Q4H [facility] Stop: 08/05/19 11:59 Last Admin: 08/05/19 09:36 Dose: 125 mls/hr Documented by: Ioversol (Optiray 320 125ml) 120 ml IV ONCE PRN PRN Reason: Interaction Checking Stop: 08/07/19 13:14 Last Admin: 08/03/19 13:17 Dose: 120 ml Documented by: Ipratropium [place] (Atrovent 0.02% 0.5mg/2.5ml) 0.5 mg INH Q6R [facility] Stop: 08/30/19 15:59 Last Admin: 08/05/19 07:03 Dose: 0.5 mg Documented by: Levalbuterol HCl (Xopenex 0.63 Mg/3 Ml Neb) 0.63 mg NEB Q6R [facility] Stop: 08/30/19 15:59 Last Admin: 08/05/19 07:03 Dose: 0.63 mg Documented by: Magnesium Hydroxide (Milk Of Magnesia) 30 ml PO Q12H PRN PRN Reason: Constipation Stop: 08/30/19 15:29 Miscellaneous (Order Awaiting Action) 1 ea N/A QS [facility] Stop: 08/30/19 15:59 Last Admin: 08/05/19 08:04 Dose: Not Given Documented by: Miscellaneous (Remove Nicoderm Patch) 1 ea N/A DAILY@0859 [facility] Stop: 08/31/19 08:58 Last Admin: 08/05/19 08:04 Dose: Not Given Documented by: Nicotine (Nicoderm Cq) 14 mg TD QAM [facility] Stop: 08/30/19 15:59 Last Admin: 08/05/19 08:05 Dose: Not Given Documented by: Oxybutynin Chloride (Ditropan Xl) 15 mg PO DAILY [facility] Stop: 08/30/19 15:59 Last Admin: 08/05/19 08:06 Dose: 15 mg Documented by: Pantoprazole Sodium (Protonix) 40 mg PO DAILY PRN PRN Reason: Heartburn Stop: 08/30/19 15:35 Polyethylene Glycol (Miralax Powder Packet) 17 gm PO DAILY PRN PRN Reason: Constipation Stop: 08/30/19 15:29 Prednisone (Prednisone) 60 mg PO QAM [facility] Stop: 09/01/19 08:59 Last Admin: 08/05/19 08:06 Dose: 60 mg Documented by: Sodium Chloride (Sodium Chlor 7% Neb Solution) 4 ml NEB BIDR [facility] Stop: 09/03/19 18:59 Last Admin: 08/05/19 07:03 Dose: Not Given Documented by: Tamsulosin HCl (Flomax) 0.4 mg PO HS [facility] Stop: 08/30/19 20:59 Last Admin: 08/04/19 20:55 Dose: 0.4 mg Documented by: Umeclidinium/Vilanterol (Anoro Ellipta 62.5/25 Mcg Inh) 1 puffs INH DAILY [facility] Stop: 08/31/19 08:59 Last Admin: 08/05/19 08:07 Dose: 1 puffs Documented by: Vitamin D (Vitamin D3) 5,000 units PO DAILY [facility] Stop: 08/31/19 08:59 Last Admin: 08/05/19 08:06 Dose: 5,000 units Documented by: PG Care Time/CCT Total # of Minutes Spent Total Time Spent with Patient: Total time spent is greater than 50% in coordination of care (as documented) at patient's floor/unit and/or counseling patient: Coding Level of Care Code 37065 Subseq Hosp Care Lvl 3 Diagnoses Acute and chronic respiratory failure J96.20 COPD exacerbation J44.1 GERD (gastroesophageal reflux disease) K21.9 Extrinsic asthma J45.909 Urge and stress incontinence N39.46 Constipation K59.00 Sinus tachycardia R00.0
--- NOTE | 2019-08-05 11:09 | Pulmonology Progress Note ---
Date of Service August 05, 2019 Assessment & Plan (1) COPD exacerbation: Impression: 78-year-old female with moderate obstructive lung disease admitted with exacerbation and concomitant sinus congestion and headache. Recommendations: 1. Acute exacerbation of COPD. Continue inhalers, steroids, and azithromycin. Continue hypertonic saline and Mucinex to see if we can help with mucus lysis, although if this is problematic with making her breathing worse these can be discontinued. Increase activity level and ambulate patient on a daily basis. 2. Acute on chronic sinus complaints: Continue decongestant and antihistamine. 3. Hypoxemic respiratory failure, acute on chronic: Continue oxygen titrated to keep saturations at or above 88%. We will continue to follow with you. Feel free to contact us with questions or concerns. (2) Chronic sinusitis: (3) Cough: Subjective Patient seen and examined. EMR reviewed. The patient states that she is feeling about the same. On further questioning she does feel that her sinus pressure and ear fullness are better. She notes the breathing treatments made her breathing somewhat cough and expectorate phlegm but is having difficulty clearing it completely. She would like to be more ambulatory. Review of Systems Review of Systems: Unchanged from prior Physical Exam Constitutional: well developed, + thin and + frail appearing; no acute distress Eyes: PERRL, conjunctivae normal, anicteric sclerae ENMT: external ear and nose normal, oropharynx normal Neck: trachea midline, no thyromegaly Respiratory: + cough; no respiratory distress and no labored breathing Auscultation: + diminished lung sounds and + wheezes (Bilateral, end expiratory ); no rhonchi Cardiovascular: Rate/Rhythm: regular rhythm and + tachycardic Heart Sounds: normal S1 and normal S2; no murmur Extremities: normal capillary refill; no edema Gastrointestinal (Abdomen): normal bowel sounds, soft, nontender, no hepatosplenomegaly Musculoskeletal: no cyanosis or clubbing, extremities motor strength 5/5 Skin: no rashes, warm and dry Neurologic: patellar DTR's 2+ bilat, sensation intact and PERRL, EOMI, accommodation nl, no face palsy, no dysarthria Psychiatric: A+Ox3, euthymic affect Lymphatic: no cervical or axillary lymphadenopathy Results & Data ([facility]) Vital Signs (Past 12 Hours) Vital Signs Temp Pulse Pulse Pulse Pulse Resp BP 08/05/19 10:40 36.7 C 107 H 13 108/61 08/05/19 07:42 36.6 C 116 H 15 99/59 L 08/05/19 07:05 118 H 22 08/05/19 03:53 36.5 C 115 H 24 122/81 08/05/19 01:18 117 H 08/05/19 00:53 99 H 16 08/05/19 00:08 36.6 C 99 H 22 111/75 Pulse Ox 08/05/19 10:40 90 08/05/19 07:42 90 08/05/19 07:05 94 08/05/19 03:53 96 08/05/19 01:18 08/05/19 00:53 95 08/05/19 00:08 94 Laboratory Results 08/03/19 07:55 08/03/19 07:55 Diagnostic Findings No new films PG Care Time/CCT Total # of Minutes Spent Total Time Spent with Patient: Total time spent is greater than 50% in coordination of care (as documented) at patient's floor/unit and/or counseling patient: Coding Level of Care Code 72710 Subseq Hosp Care Lvl 2 Diagnoses COPD exacerbation J44.1 Chronic sinusitis J32.9 Cough R05
[2019-08-05] MEDS: TAMSULOSIN HCL 0.4 MG CAP PO SCH (21:15)
[2019-08-06] MEDS: LEVALBUTEROL HCL 0.63 MG/3 ML NEB NEB SCH ×4 (00:36→19:45)
[2019-08-06] MEDS: IPRATROPIUM BROMIDE NEB SOLN 0.02% 2.5 ML VIAL INH SCH ×4 (00:36→19:45)
[2019-08-06] MEDS: HEPARIN SOD 5,000 UNIT/0.5 ML VIAL SQ SCH ×2 (07:41→20:44)
[2019-08-06] MEDS: UMECLIDINIUM/VILANTEROL 62.5/25MCG 7 PUFFS/INHALER INH SCH (07:41)
[2019-08-06] MEDS: FLUTICASONE FUROATE 100MCG 14 PUFFS/INHALER INH SCH (07:41)
[2019-08-06] MEDS: CHOLECALCIFEROL 1,000 UNITS 25 MCG TAB PO SCH (07:41)
[2019-08-06] MEDS: guaiFENesin 600 MG TABCR PO SCH ×2 (07:42→20:44)
[2019-08-06] MEDS: FEXOFENADINE 60MG/PSEUDOEPHEDRINE 120MG TAB PO SCH (07:42)
[2019-08-06] MEDS: NICOTINE 14 MG/24 HR PATCH TD SCH (07:42)
[2019-08-06] MEDS: predniSONE 20 MG TAB PO SCH (07:43)
[2019-08-06] MEDS: OXYBUTYNIN CHLORIDE XL 5 MG TABCR PO SCH (07:43)
[2019-08-06] MEDS: FLUTICASONE PROPIONATE NA SPR 16 GM BTL SCH (07:43)
[2019-08-06] MEDS: AZITHROMYCIN 250 MG TAB PO SCH (07:43)
[2019-08-06] MEDS: NYSTATIN SUSP 500,000 U/5 ML UDC PO SCH ×3 (12:37→20:45)
--- NOTE | 2019-08-06 13:21 | Pulmonology Progress Note ---
Date of Service August 06, 2019 Assessment & Plan (1) COPD exacerbation: Impression: 78-year-old female with moderate obstructive lung disease admitted with exacerbation and concomitant sinus congestion and headache. Recommendations: 1. Acute exacerbation of COPD with acute on chronic hypercapnic respiratory failure: Continue inhalers, steroids, and azithromycin. I would recommend discontinuing the HyperSal saline and Mucomyst. Would recommend outpatient pulmonary rehab and consideration of noninvasive ventilation at night such as a trilogy ventilator. Would not do longer than 7 days of steroids. Increase activity level and ambulate patient on a daily basis. 2. Acute on chronic sinus complaints: Continue decongestant and antihistamine. 3. Hypoxemic respiratory failure, acute on chronic: Continue oxygen titrated to keep saturations at or above 88%. We will continue to follow with you. Feel free to contact us with questions or concerns. (2) Chronic sinusitis: (3) Cough: Subjective Patient endorses severe dyspnea at baseline. She is standing up with a nasal cannula in place and having a very hard time. She is breathing shallow and rapidly. Tachycardic to a rate of 140 while standing. Denies any chest pain. Son at bedside. Physical Exam Constitutional: well developed, + thin and + frail appearing; no acute distress Eyes: PERRL, conjunctivae normal, anicteric sclerae ENMT: external ear and nose normal, oropharynx normal Neck: trachea midline, no thyromegaly Respiratory: + cough; no respiratory distress and no labored breathing Auscultation: + diminished lung sounds and + wheezes (Bilateral, end expiratory ); no rhonchi Cardiovascular: Rate/Rhythm: regular rhythm and + tachycardic Heart Sounds: normal S1 and normal S2; no murmur Extremities: normal capillary refill; no edema Gastrointestinal (Abdomen): normal bowel sounds, soft, nontender, no hepatosplenomegaly Musculoskeletal: no cyanosis or clubbing, extremities motor strength 5/5 Skin: no rashes, warm and dry Neurologic: patellar DTR's 2+ bilat, sensation intact and PERRL, EOMI, accommodation nl, no face palsy, no dysarthria Psychiatric: A+Ox3, euthymic affect Lymphatic: no cervical or axillary lymphadenopathy Results & Data ([facility]) Vital Signs (Past 12 Hours) Vital Signs Temp Pulse Pulse Pulse Pulse Resp BP 08/06/19 12:42 113 H 18 08/06/19 11:41 97.9 F 109 H 18 115/69 08/06/19 10:12 98 H 08/06/19 08:00 98.6 F 106 H 16 105/74 08/06/19 07:11 107 H 20 08/06/19 04:27 98.2 F 99 H 19 114/72 Pulse Ox 08/06/19 12:42 90 08/06/19 11:41 90 08/06/19 10:12 08/06/19 08:00 96 08/06/19 07:11 95 08/06/19 04:27 97 PG Care Time/CCT Total # of Minutes Spent Total Time Spent with Patient: Total time spent is greater than 50% in coordination of care (as documented) at patient's floor/unit and/or counseling patient: Coding Level of Care Code 85087 Subseq Hosp Care Lvl 3 Diagnoses COPD exacerbation J44.1 Chronic sinusitis J32.9 Cough R05
--- NOTE | 2019-08-06 18:27 | Hospitalist Progress Note ---
Date of Service August 06, 2019 Assessment & Plan (1) Acute respiratory failure with hypoxia: 2nd to severe COPD exacerbation. Slowly resolving but still requiring O2. Suspect she will need O2 at d/c. Appreciate pulmonary recommendations. (2) COPD exacerbation: as above continue Prednisone 60mg daily - no wean today continue Zithromax M/W/F (has received 5+ doses since admission thus revert to her chronic dose of M/W/F) continue nebulizers and inhalers (Fluticasone furoate, umeclidinium/vilanterol) last PFTs - July 2018 - moderate/severe obstruction 2-step O2 test at d/c spoke with Dr Cage - Trilogy machine for HS use recommended in jb of such while inpatient - BiPAP trial tonight (3) GERD (gastroesophageal reflux disease): had symptoms overnight SCHEDULE the PPI daily (4) Urge and stress incontinence: continue oxybutynin 15 mg p.o. daily and tamsulosin 0.4 mg p.o. nightly (5) Constipation: cont Miralax prn (6) Sinus tachycardia: likely reflective of increased cardiac output in the setting of severe COPD/hypoxia nebs may be contributing as well follow (7) Chronic kidney disease, stage 3a: Cr stable last few days repeat BMP am (8) DVT prophylaxis: heparin 5000 BID (9) Candidiasis of mouth and esophagus: thrush nystatin ted - 5cc swish & swallow son extensively updated at bedside cleared by PT/OT for home d/c tomorrow on ? Admission and Anticipated Discharge Date Admission Date: July 31, 2019 Anticipated date of discharge: 08/07/19 Subjective patient feels 50-75% of baseline today still coughing but no mucous production again confirmed today that mucomyst "made me worse" (it was discontinued by Dr Hogan yesterday) tele with sinus tach only no dyspnea at rest but has ODOM with minimal activity son at bedside with numerous questions Review of Systems Constitutional: no fever Respiratory: + cough, + dyspnea on exertion and + wheezing; no hemoptysis Cardiovascular: no chest pain and no dyspnea at rest Gastrointestinal: + belching and + heartburn Physical Exam Constitutional: + ill appearing and + frail appearing; no acute distress and no altered mental status ENMT: Mouth: + oral mucosal abnormality (thrush plaquest buccal mucosa ) Respiratory: + prolonged expiratory phase; no respiratory distress Auscultation: + wheezes (extensive all lung segments); no crackles Cardiovascular: Rate/Rhythm: regular rhythm and + tachycardic Heart Sounds: normal S1 and normal S2; no murmur Vessels: posterior tibial pulses present and dorsalis pedis pulses present; no JVD Extremities: no edema Gastrointestinal (Abdomen): normal bowel sounds, soft, nontender, no hepatosplenomegaly Psychiatric: Orientation: alert, oriented to person and oriented to place Results & Data ([facility]) Vital Signs (Past 12 Hours) Vital Signs Temp Pulse Pulse Pulse Resp BP Pulse Ox 08/06/19 16:09 36.6 C 113 H 17 114/69 96 08/06/19 16:00 122 H 24 94 08/06/19 12:42 113 H 18 90 08/06/19 11:41 36.6 C 109 H 18 115/69 90 08/06/19 10:12 98 H 08/06/19 08:00 37 C 106 H 16 105/74 96 08/06/19 07:11 107 H 20 95 PG Care Time/CCT Total # of Minutes Spent Total Time Spent with Patient: Total time spent is greater than 50% in coordination of care (as documented) at patient's floor/unit and/or counseling patient: Coding Level of Care Code 79021 Subseq Hosp Care Lvl 3 Diagnoses Acute respiratory failure with hypoxia J96.01 COPD exacerbation J44.1 GERD (gastroesophageal reflux disease) K21.9 Urge and stress incontinence N39.46 Constipation K59.00 Sinus tachycardia R00.0 Chronic kidney disease, stage 3a N18.3 DVT prophylaxis Z29.9 Candidiasis of mouth and esophagus B37.81; B37.0
[2019-08-06] MEDS: PANTOprazole 40 MG TAB PO SCH (20:43)
[2019-08-06] MEDS: TAMSULOSIN HCL 0.4 MG CAP PO SCH (20:45)
[2019-08-07] MEDS: IPRATROPIUM BROMIDE NEB SOLN 0.02% 2.5 ML VIAL INH SCH ×4 (01:03→19:32)
[2019-08-07] MEDS: LEVALBUTEROL HCL 0.63 MG/3 ML NEB NEB SCH ×4 (01:03→19:32)
[2019-08-07 07:56] LABS: BUN Creatinine Ratio 26.4 (10-20); Calcium 9.5 mg/dl (8.5-10.1); Creatinine Clr Calc Pharmacy 53.5 ml/min; Est GFR (African American) 91.2; Est GFR (Non-African American) 78.7; Potassium 3.9 mmol/L (3.5-5.1)
[2019-08-07] MEDS: UMECLIDINIUM/VILANTEROL 62.5/25MCG 7 PUFFS/INHALER INH SCH (08:26)
[2019-08-07] MEDS: FLUTICASONE PROPIONATE NA SPR 16 GM BTL SCH (08:26)
[2019-08-07] MEDS: FLUTICASONE FUROATE 100MCG 14 PUFFS/INHALER INH SCH (08:26)
[2019-08-07] MEDS: OXYBUTYNIN CHLORIDE XL 5 MG TABCR PO SCH (08:27)
[2019-08-07] MEDS: guaiFENesin 600 MG TABCR PO SCH ×2 (08:27→20:22)
[2019-08-07] MEDS: PANTOprazole 40 MG TAB PO SCH (08:27)
[2019-08-07] MEDS: CHOLECALCIFEROL 1,000 UNITS 25 MCG TAB PO SCH (08:27)
[2019-08-07] MEDS: predniSONE 20 MG TAB PO SCH (08:27)
[2019-08-07] MEDS: NYSTATIN SUSP 500,000 U/5 ML UDC PO SCH ×4 (08:27→20:25)
[2019-08-07] MEDS: NICOTINE 14 MG/24 HR PATCH TD SCH (08:30)
[2019-08-07] MEDS: HEPARIN SOD 5,000 UNIT/0.5 ML VIAL SQ SCH ×2 (08:30→20:24)
[2019-08-07] MEDS ORDERED: SODIUM CHLORIDE 0.65% NA SOLN 45 ML (OCEAN) ONE (13:21)
--- NOTE | 2019-08-07 14:54 | XRay Report ---
XR chest 2V PA/lateral CLINICAL HISTORY: COPD, worsening hypoxia COMPARISON STUDY: 07/31/2019 FINDINGS: There is radiographic evidence of emphysema. The heart is normal in size. There is no failu re. There is no focal pulmonary consolidation. There are no pleural effusions. There is no pneumothor ax.[There is left upper lobe parenchymal scarring. There are old left-sided rib fractures. IMPRESSION: Pulmonary emphysema. No acute findings. ACT 112: Negative or not required by law. Electronically signed by: Mahad Lazaro M.D. 08/07/2019 2:52 PM
[2019-08-07] MEDS: methylPREDNISolone 40 MG in SYRINGE 0 ML IV SCH (16:07)
--- NOTE | 2019-08-07 19:58 | Pulmonology Progress Note ---
Date of Service August 07, 2019 Assessment & Plan (1) COPD exacerbation: Patient with COPD with emphysema. Continue inhalers, steroids, azithromycin. Patient with no significant sputum production or chest congestion on imaging. Discontinue hyperSAL saline and Mucomyst We will stop steroids after a total of 7 days Titrate supplemental O2 between 88 and 92%. Continue supportive care (2) Acute on chronic respiratory failure with hypercapnia: Patient with supplemental O2 use at home at night and with exertion. * Patient will need to step before discharge Patient also presented with a ABG with PCO2 of 52 * Patient will need nocturnal pulse oximetry * Patient will need repeat ABG first thing in the morning Patient may benefit from trilogy noninvasive ventilator. Will await results from nocturnal pulse oximetry and repeat ABG (3) Chronic nasal congestion: Patient chronically takes Imelda-D This is been discontinued secondary to tachycardia Continue BiPAP with warm humidified air Continue to follow Thank you for including us in the care of this patient. We will continue to follow along with you. Subjective Attending: Dr. Cage Is a 78-year-old female admitted for COPD exacerbation with hypercapnia. ABG on admission showed a PCO2 of 52. Patient has been started on BiPAP therapy throughout this hospitalization seems to show some improvement. Patient has not had nocturnal pulse oximetry or repeat ABG. Patient states that she continues to feel short of breath and anxious. She is tolerating the BiPAP moderately and is irritated by the high flow. Her ultimate goal is to get back home and she is willing to use a CPAP/BiPAP/trilogy noninvasive ventilator as needed. Patient states that she is a former smoker and quit smoking 8 or 9 years ago. She continues to have some shortness of breath and requires oxygen. She has some difficulty with BiPAP mask and wore for 1 hour last night she then took a break and then wore for 3 hours and then took it off for the remainder of the night. Patient is having difficulty sleeping. She denies any fever chills. She has no specific chest pain or tightness. Review of Systems Review of Systems: All systems reviewed & are unremarkable except as noted in HPI & below Physical Exam Physical Exam: GENERAL : No acute distress. Patient seems somewhat cachectic. EYES: No icterus, gaze conjugate NOSE: No evidence of epistaxis MOUTH: No lesions or candidiasis NECK: Supple LUNGS: Patient does have scattered wheezes. She has some crackles at the bases. No rhonchi appreciated. HEART: Regular, rate controlled ABDOMEN: Soft, NT, ND, BS Present EXTREMITIES: No LE edema, pedal pulses intact NEURO: A&OX3 Results & Data ([facility]) Vital Signs (Past 12 Hours) Vital Signs Temp Pulse Pulse Pulse Pulse Resp BP 08/07/19 19:32 109 H 18 08/07/19 19:24 36.6 C 117 H 12 116/73 08/07/19 16:00 123 H 08/07/19 15:19 36.8 C 124 H 25 H 123/66 08/07/19 11:01 36.4 C L 111 H 22 130/88 08/07/19 08:00 65 Pulse Ox 08/07/19 19:32 93 08/07/19 19:24 92 08/07/19 16:00 08/07/19 15:19 83 L 08/07/19 11:01 91 08/07/19 08:00 Laboratory Results 08/03/19 07:55 08/07/19 06:22 Diagnostic Findings XR chest 2V PA/lateral CLINICAL HISTORY: COPD, worsening hypoxia COMPARISON STUDY: 07/31/2019 FINDINGS: There is radiographic evidence of emphysema. The heart is normal in size. There is no failure. There is no focal pulmonary consolidation. There are no pleural effusions. There is no pneumothorax.[There is left upper lobe parenchymal scarring. There are old left-sided rib fractures. IMPRESSION: Pulmonary emphysema. No acute findings. ACT 112: Negative or not required by law. Electronically signed by: Mahad Lazaro M.D. 08/07/2019 2:52 PM PG Care Time/CCT Total # of Minutes Spent Total Time Spent with Patient: Total time spent is greater than 50% in coordination of care (as documented) at patient's floor/unit and/or counseling patient: 40 minutes including discussion with patient and son, Dr. Zamudio, Dr. Cage, case management, and chart review. Coding Level of Care Code 76156 Subseq Hosp Care Lvl 3 Diagnoses COPD exacerbation J44.1 Acute on chronic respiratory failure with hypercapnia J96.22 Chronic nasal congestion R09.81
[2019-08-07] MEDS: TAMSULOSIN HCL 0.4 MG CAP PO SCH (20:22)
--- NOTE | 2019-08-07 20:46 | Hospitalist Progress Note ---
Date of Service August 07, 2019 Assessment & Plan (1) Acute respiratory failure with hypoxia: 2nd to severe COPD exacerbation. Worse today. O2 requirement is more than yesterday. Will repeat 2-view cxr - r/o pneumonia, edema, etc. Hold prednisone; change to solumedrol IV. Cont nebs. Add back brennen-D for nasal symptoms (only takes PRN at home). Appreciate pulmonary recommendations. (2) COPD exacerbation: worse today. HOLD prednisone - change to solumedrol 40mg IV q12h. continue Zithromax M/W/F (had received 5+ doses since admission thus revert to her chronic dose of M/W/F) continue nebulizers and inhalers (Fluticasone furoate, umeclidinium/vilanterol) brennen-D for nasal symptoms. flutter valve ordered. repeat cxr today to exclude complications (pneumonia, etc). treat anxiety. last PFTs - July 2018 - moderate/severe obstruction 2-step O2 test at d/c spoke with Dr Cage - Trilogy machine for HS use recommended overnight oximetry study tonight and ABG in am to try & qualify her for Trilogy (3) GERD (gastroesophageal reflux disease): cont PPI daily (4) Urge and stress incontinence: continue oxybutynin 15 mg p.o. daily and tamsulosin 0.4 mg p.o. nightly (5) Constipation: cont Miralax prn (6) Sinus tachycardia: likely reflective of increased cardiac output in the setting of severe COPD/hypoxia nebs may be contributing as well check CBC in am, r/o anemia TSH previously was normal leave on tele (7) Chronic kidney disease, stage 3a: Cr remains stable (8) Candidiasis of mouth and esophagus: thrush improved nystatin ted - 5cc swish & swallow (9) Anxiety: likely contributes to dyspnea buspar 5mg q8h prn (10) DVT prophylaxis: heparin 5000 BID patient is not ready for d/c son updated at bedside Admission and Anticipated Discharge Date Admission Date: July 31, 2019 Anticipated date of discharge: 08/07/19 Subjective patient states she feels worse today. she is congested in her nose and sinuses. she finds it difficult to breath through her nose because of this. this, in turn, is causing more chest tightness and wheezing. O2 was increased overnight due to lower O2 sats. cough is the same. does feel anxious today -admits to such. son at bedside - questions answered. patient with ongoing sinus tach - patient states "I'm always like this" (fast HR). BIPAP - wore for 1 hour during the day yesterday, and about 3 hours at night- time. Doesn't like the mask. Review of Systems Constitutional: no fever and no chills Ear, Nose, Mouth, Throat: + nasal congestion Respiratory: + cough, + chest congestion, + dyspnea, + dyspnea on exertion and + wheezing Cardiovascular: as per Subjective / HPI; no paroxysmal nocturnal dyspnea Gastrointestinal: no abdominal pain, no nausea and no vomiting Physical Exam Constitutional: + ill appearing and + frail appearing; no acute distress and no altered mental status (very anxious) ENMT: Nose: + septum abnormality (deviated to the right ), + nasal discharge and + dry nasal mucous membranes Mouth: + oral mucosal abnormality (thrush plaques improved today) Respiratory: + prolonged expiratory phase; no respiratory distress Auscultation: + wheezes (extensive all lung segments); no crackles Cardiovascular: Rate/Rhythm: regular rhythm and + tachycardic Heart Sounds: normal S1 and normal S2; no murmur Vessels: posterior tibial pulses present and dorsalis pedis pulses present; no JVD Extremities: no edema Gastrointestinal (Abdomen): normal bowel sounds, soft, nontender, no hepatosplenomegaly Psychiatric: Orientation: alert, oriented to person, oriented to place and oriented to time Mood: + anxious mood Results & Data ([facility]) Vital Signs (Past 12 Hours) Vital Signs Temp Pulse Pulse Pulse Pulse Resp BP 08/07/19 19:32 109 H 18 08/07/19 19:24 36.6 C 117 H 12 116/73 08/07/19 16:00 123 H 08/07/19 15:19 36.8 C 124 H 25 H 123/66 08/07/19 11:01 36.4 C L 111 H 22 130/88 Pulse Ox 08/07/19 19:32 93 08/07/19 19:24 92 08/07/19 16:00 08/07/19 15:19 83 L 08/07/19 11:01 91 Laboratory Results Laboratory Results - last 24 hr 08/07/19 06:22 Sodium 139 Potassium 3.9 Chloride 101 Carbon Dioxide 34 H Anion Gap 3.0 BUN 20 H Creatinine 0.74 Est Cr Clr Drug Dosing 53.5 Est GFR ( Amer) 91.2 Est GFR (Non-Af Amer) 78.7 BUN/Creatinine Ratio 26.4 H Glucose 87 Calcium 9.5 PG Care Time/CCT Total # of Minutes Spent Total Time Spent with Patient: Total time spent is greater than 50% in coordination of care (as documented) at patient's floor/unit and/or counseling patient: Coding Level of Care Code 39041 Subseq Hosp Care Lvl 3 Diagnoses Acute respiratory failure with hypoxia J96.01 COPD exacerbation J44.1 GERD (gastroesophageal reflux disease) K21.9 Urge and stress incontinence N39.46 Constipation K59.00 Sinus tachycardia R00.0 Chronic kidney disease, stage 3a N18.3 Candidiasis of mouth and esophagus B37.81; B37.0 Anxiety F41.9 DVT prophylaxis Z29.9
[2019-08-07] MEDS ORDERED: FEXOFENADINE 60MG/PSEUDOEPHEDRINE 120MG TAB PO PRN (21:00)
[2019-08-08] MEDS: IPRATROPIUM BROMIDE NEB SOLN 0.02% 2.5 ML VIAL INH SCH ×3 (02:16→13:25)
[2019-08-08] MEDS: LEVALBUTEROL HCL 0.63 MG/3 ML NEB NEB SCH ×3 (02:16→13:25)
[2019-08-08] MEDS: methylPREDNISolone 40 MG in SYRINGE 0 ML IV SCH ×2 (03:14→14:12)
[2019-08-08 07:03] LABS: Hemoglobin 14.1 g/dL (12.0-16.0); Mean Corpuscular Hemoglobin 31.4 pg (25-34); Mean Corpuscular Hgb Conc 33.6 g/dL (32-36); Mean Corpuscular Volume 93.5 fL (80-100); Mean Platelet Volume 9.9 fL (7.4-10.4); Platelet Count 290 K/uL (130-400); RDW Coefficient of Variation 13.3 % (11.5-14.5); RDW Standard Deviation 45.9 fL (36.4-46.3); Red Blood Count 4.49 M/uL (4.2-5.4); White Blood Count 10.62 K/uL (4.8-10.8)
[2019-08-08 07:06] LABS: Base Excess ABG 6.1 mEq/L (-9-1.8); HCO3 ABG 31 mmol/L (19-24); Oxygen Saturation ABG 88.5 % (90-95); PCO2 ABG 43 mmHg (35-46); PO2 ABG 54 mmHg (80-95); pH ABG 7.47 (7.35-7.45)
[2019-08-08] MEDS: FLUTICASONE PROPIONATE NA SPR 16 GM BTL SCH (07:43)
[2019-08-08] MEDS: NICOTINE 14 MG/24 HR PATCH TD SCH (07:43)
[2019-08-08] MEDS: UMECLIDINIUM/VILANTEROL 62.5/25MCG 7 PUFFS/INHALER INH SCH (07:44)
[2019-08-08] MEDS: PANTOprazole 40 MG TAB PO SCH (07:44)
[2019-08-08] MEDS: FLUTICASONE FUROATE 100MCG 14 PUFFS/INHALER INH SCH (07:44)
[2019-08-08] MEDS: CHOLECALCIFEROL 1,000 UNITS 25 MCG TAB PO SCH (07:45)
[2019-08-08] MEDS: OXYBUTYNIN CHLORIDE XL 5 MG TABCR PO SCH (07:45)
[2019-08-08] MEDS: NYSTATIN SUSP 500,000 U/5 ML UDC PO SCH ×2 (07:45→14:12)
[2019-08-08] MEDS: guaiFENesin 600 MG TABCR PO SCH (07:46)
[2019-08-08] MEDS: HEPARIN SOD 5,000 UNIT/0.5 ML VIAL SQ SCH (07:46)
[2019-08-08 08:07] LABS: Allen Test Pos (Pos)
[2019-08-08] MEDS ORDERED: AZITHROMYCIN 250 MG TAB PO SCH (09:00)
--- NOTE | 2019-08-08 14:41 | Pulmonology Progress Note ---
Date of Service August 08, 2019 Assessment & Plan (1) COPD exacerbation: Patient with COPD with emphysema. Continue inhalers, steroids, azithromycin. Patient with no significant sputum production or chest congestion on imaging. Discontinue hyperSAL saline and Mucomyst We will stop steroids after a total of 7 days Titrate supplemental O2 between 88 and 92%. Due to chronic respiratory failure consequent to COPD, patient now requires a noninvasive home ventilator. Bilevel therapy with and without a rate would be ineffective as patient requires a volume targeted mode. Ventilation is required to decrease work of breathing and improve pulmonary status. Interruption of ventilator support would lead to decline of health status. NIMV settings should be AVAPS-AE; Breath rate: auto; Inspiratory time:auto; Sigh: off; PS min: 5; PS max 15; EPAP min: 5; EPAP max: 10; AVAPS rate: 12 During sleep and as needed (2) Acute on chronic respiratory failure with hypercapnia: Patient with supplemental O2 use at home at night and with exertion. * Patient will need to step before discharge Patient also presented with a ABG with PCO2 of 52 * Nocturnal respiratory failure as listed above * ABG this morning showed correction of PCO2 with BiPAP at bedtime overnight Patient may benefit from trilogy noninvasive ventilator. Will place order. Patient uses [facility] from [facility] to provide the trilogy (3) Chronic nasal congestion: Patient chronically takes Imelda-D This is been discontinued secondary to tachycardia Continue BiPAP with warm humidified air Continue to follow Thank you for including us in the care of this patient. Patient to follow-up in pulmonary clinic. Subjective Attending: Dr. Cage Patient feels much better today. Her breathing is easier. She continues to desaturate but does not have distress like she had yesterday. She has less coug h with deep inspiration. She is coughing up some white sputum and very very small amounts. She denies any fever or chills. She feels as though she is ready for discharge home. Review of Systems Review of Systems: All systems reviewed & are unremarkable except as noted in HPI & below Physical Exam Physical Exam: GENERAL : No acute distress EYES: No icterus, gaze conjugate NOSE: No evidence of epistaxis MOUTH: No lesions or candidiasis NECK: Supple LUNGS: Breath sounds are distant but are not labored today. There is no use of accessory muscles today. Patient does have some very faint expiratory wheezes in the bases. No rhonchi or overt bronchospasm. Good inspiratory effort. HEART: Regular, rate controlled ABDOMEN: Soft, NT, ND, BS Present EXTREMITIES: No LE edema, pedal pulses intact NEURO: A&OX3 Results & Data ([facility]) Vital Signs (Past 12 Hours) Vital Signs Temp Pulse Pulse Pulse Pulse Pulse Pulse 08/08/19 13:46 107 H 114 H 129 H 121 H 08/08/19 13:27 119 H 08/08/19 11:31 36.6 C 08/08/19 08:12 36.6 C 08/08/19 08:00 120 H 08/08/19 07:09 107 H 08/08/19 04:52 36.5 C 08/08/19 03:39 99 H Pulse Pulse Resp Resp Resp Resp Resp 08/08/19 13:46 123 H 20 22 22 20 08/08/19 13:27 18 08/08/19 11:31 115 H 18 08/08/19 08:12 113 H 20 08/08/19 08:00 08/08/19 07:09 22 08/08/19 04:52 103 H 22 08/08/19 03:39 Resp BP Pulse Ox Pulse Ox Pulse Ox Pulse Ox Pulse Ox 08/08/19 13:46 20 91 91 87 L 89 L 08/08/19 13:27 97 08/08/19 11:31 116/61 94 08/08/19 08:12 110/67 91 08/08/19 08:00 08/08/19 07:09 90 08/08/19 04:52 120/77 94 08/08/19 03:39 92 Pulse Ox 08/08/19 13:46 84 L 08/08/19 13:27 08/08/19 11:31 08/08/19 08:12 08/08/19 08:00 08/08/19 07:09 08/08/19 04:52 08/08/19 03:39 Laboratory Results 08/08/19 06:50 08/07/19 06:22 Diagnostic Findings Nocturnal pulse oximetry exam last night resulting in hypoxia as low as 74% on 2 L/min via nasal cannula. Aggregate desaturation below 88% was 25 minutes 18 seconds. There were 21 total desaturation events. PG Care Time/CCT Total # of Minutes Spent Total Time Spent with Patient: Total time spent is greater than 50% in coordination of care (as documented) at patient's floor/unit and/or counseling patient: 40 minutes including coordination of trilogy, discussion with DME qual research manager, and leather case finisher. Coding Level of Care Code 52699 Subseq Hosp Care Lvl 3 Diagnoses COPD exacerbation J44.1 Acute on chronic respiratory failure with hypercapnia J96.22 Chronic nasal congestion R09.81
--- NOTE | 2019-08-08 16:20 | Discharge Summary ---
Date of Service date of admission - July 31, 2019 date of discharge - August 08, 2019 Admission HPI Per Admitting Provider The patient is a 78 year old female with past medical history of COPD, chronic ischemic heart disease, GERD, hypercholesterolemia, osteoarthritis and osteoporosis, nicotine dependent who presents to the emergency room with worsening shortness of breath started 6 days ago. The patient reports that she is short of breath while at rest which was not the case before. Patient reports occasionally using oxygen at home but now she is in situation she has to use it 24/. Patient reports that she is wheezing and coughing. Patient reports that her cough is nonproductive. Patient is a chronic suppressive therapy with azithromycin and takes prednisone as needed for exacerbation. She also uses albuterol inhaler and neither of that helped her. Patient received 2 normal duo nebs by EMS. Patient denies fever, chills, hemoptysis, abdominal pain, frequency, urgency. The labs are reviewed: Sodium 134, potassium 4.2, chloride 99, carbon dioxide 28, anion gap 7, BUN 20, creatinine 0.83, GFR 68.5, BUN 24.7, glucose 129, calcium 9.5, magnesium 1.8, total bilirubin 0.6, AST 18, ALT 19, alkaline phosphatase 77, troponin 0.015, total protein 8, albumin 4, globulin 4. TSH, BNP, procalcitonin pending. Urine all negative. Influenza A and B pending. Chest x-ray: Shows advanced emphysematous changes with no acute cardiopulmonary abnormality. Principal Diagnosis acute hypercarbic/hypoxic respiratory failure 2nd to COPD exacerbation Discharge Exam Constitutional + ill appearing and + frail appearing; no acute distress and no altered mental status (very anxious) ENAK Nose: + septum abnormality (deviated to the right ), + nasal discharge and + dry nasal mucous membranes Mouth: + oral mucosal abnormality (thrush plaques improved today) Respiratory + prolonged expiratory phase; no respiratory distress Auscultation: + wheezes (b/l); no crackles Cardiovascular Rate/Rhythm: regular rhythm and + tachycardic Heart Sounds: normal S1 and normal S2; no murmur Vessels: posterior tibial pulses present and dorsalis pedis pulses present; no JVD Extremities: no edema Gastrointestinal (Abdomen) normal bowel sounds, soft, nontender, no hepatosplenomegaly Psychiatric Orientation: alert, oriented to person, oriented to place and oriented to time Mood: + anxious mood Discharge Data Allergies Allergy/AdvReac Type Severity Reaction Status Date / Time cat dander Allergy Intermediate NASAL Verified 08/13/19 15:02 CONGESTION dog dander Allergy Intermediate NASAL Verified 08/13/19 15:02 CONGESTION grass pollen-perennial rye, Allergy Intermediate NASAL Verified 08/13/19 15:02 standar CONGESTION house dust Allergy Intermediate NASAL Verified 08/13/19 15:02 CONGESTION mold Allergy Intermediate NASAL Verified 08/13/19 15:02 CONGESTION Penicillins Allergy Intermediate HIVES Verified 08/13/19 15:02 Consultations [facility] COPD/Pnx Program Referral [facility] Pulmonology PT, OT Ordered Studies CT angio chest PE protocol - IMPRESSION: 1. No pulmonary emboli identified. 2. Severe emphysema. 3. A few small irregular subpleural left upper lobe opacities with mild volume loss. This favors scarring or a mild infectious process. A neoplastic process is considered much less likely however a follow-up chest CT in 3 months is recommended. 4. Secretions within the right lower lobe segmental bronchi. overnight oximetry study Hospital Course (1) Acute respiratory failure with hypoxia: Acute resp failure with hypoxia and hypercarbia -- 2nd to severe COPD exacerbation. Imaging throughout her stay never showed complicating pneumonia. Treated with IV/PO steroids, antibiotics, nebs, cough meds, pulmonary toilet, etc. [facility] Pulmonary provided bales recommendations during her care. Made slow, gradual improvement over her lengthy stay. Overnight oximetry study was performed with AM ABG to qualify her for Trilogy. Also had 2-step oxygen testing prior to discharge showing need for 2 liters of NC O2 at rest/sleep and 3 liters with activity. (2) COPD exacerbation: See "acute resp failure above". Gradually improved with measures below. Again treated with IV/PO steroids and antibiotics (initially zithromax x 5 days, then will resume zithromax M/W/F as prophylaxis). Will continue nebulizers and inhalers (Fluticasone furoate, umeclidinium/vilanterol). Imelda-D for nasal symptoms. Last PFTs - July 2018 - moderate/severe obstruction. 2-step O2 test at d/c showed need for 2 L NC at rest and 3 L NC with activity. Trilogy machine for HS use recommended by pulmonary. Overnight oximetry study and AM ABG were performed to qualify her for Trilogy. She will follow-up with the [facility] COPD clinic within 1 week of discharge. Counseled extensively about preventive measures against Coronavirus Infection, staying indoors as much as possible, etc. (3) GERD (gastroesophageal reflux disease): cont PPI daily (4) Urge and stress incontinence: continue oxybutynin 15 mg p.o. daily and tamsulosin 0.4 mg p.o. nightly (5) Constipation: cont Miralax prn (6) Sinus tachycardia: likely reflective of increased cardiac output in the setting of severe COPD/hypoxia nebs may be contributing as well TSH previously was normal CBC w/o anemia (7) Chronic kidney disease, stage 3a: Cr remained stable during the stay (8) Candidiasis of mouth and esophagus: thrush improved with nystatin ted - 5cc swish & swallow will complete a course of such post-discharge (9) Anxiety: likely contributes to dyspnea buspar 5mg q8h prn prescription given for such at discharge Total Time Total Time Spent Total Time Spent (In Minutes): 60 Total Time Includes: Examination of the Patient, Discharge Planning, Medication Reconciliation and Communication With Other Providers Discharge Plan Discharge Items Patient Disposition: Home - Self-Care Reason For Visit: COPD EXACERBATION Discharge Diagnosis: 1. COPD exacerbation - slowly improving 2. yeast infection (thrush) of mouth - improved Activity: As commented below Activity Comment: please gradually increase activities over next 1-2 weeks Non-emergency contact: Primary Care Provider and Cardiology Physician Assistant Call non-emergency contact if: you have any medication questions, your symptoms worsen and you have a fever Follow-up/Referrals: Camila Beth DO [Primary Care Provider] - (see Dr Beth in 1-2 weeks) Elina Daniels CRNP [Nurse Practitioner] - 08/13/19 3:00 pm (Please, follow up at [facility] Pulmon[facility] Office with Elina CHAPMAN on TuesdayAugust 12 at 3:00 pm. *The office is located in [address] of [facility], next to this [facility]. If you need to change this appointment, call the office at [phone].) Diet: Heart Healthy Addtl Attending Provider Instructions: You were treated for a severe COPD exacerbation. Most COPD exacerbations are caused by respiratory viruses; a smaller amount are caused by bacterial infections. You made slow improvement in your lung symptoms over the course of your stay with steroids, antibiotics, nebulizer treatments, and time. You were seen by the lung specialists (audiovisual technician) and they are recommending a "Trilogy" machine. This should be used at night-time while you sleep. Your oxygen levels were low the entire stay due to your COPD and you need continuous oxygen at all times. You will need to use 2 liters of oxygen at rest / with sleep and 3 liters with activity. Be sure to bring your oxygen with you when you leave your home for doctor appointments, etc. Recommendations - 1. Take prednisone taper per the bottle instructions (starts with 6 tabs each on days 1 and 2, then tapers down ultimately to 10mg on the last day). Start the prednisone TOMORROW on 08/09/19. Take with food. 2. Nystatin swish/swallow - 5ml before meals and at bedtime. Take for 7 days. 3. Take pantoprazole 40mg once daily for heartburn. In a month or so try coming off of this. If you continue with heartburn after stopping the medication please speak to Dr Beth about ongoing use of the medication. 4. Take buspar 5mg every 8 hours as needed for anxiety. 5. Coronavirus precautions - AT LEAST for the next 3-4 weeks I would strongly advise against unnecessary travel, attending large events (family gatherings, mosque, etc), etc. Wear a mask when going to the doctor's office. Wash your hands regularly with soap/water for 20 seconds or use alcohol-based hand support group manager. If someone is ill - especially someone with a cough and fever - have them avoid visiting you at your home. Please keep up with the latest recommendations for seniors on the CDC website. 6. use your ipratropium-albuterol nebs 4 times a day scheduled for another week, then try going to as needed. Follow-up - see separate section Return to [facility] if - * if you have fever over 100.5 degrees * you have worsening shortness of breath * if you find yourself increasing your oxygen on your oxygen tank due to worsening respiratory symptoms * if you check your oxygen level on your finger at home and it is less than 88% consistently (oxygen levels of 88 to 92% are very acceptable for you) * any other concerns Pending Studies at Discharge: No Stand-Alone Forms: My [facility], Smoking Cessation Medications and DC Order Prescriptions: New buspirone 5 mg Tablet 5 mg PO TID PRN (Reason: Anxiety) Qty: 30 RF: 0 nystatin 100,000 unit/mL Suspension 5 ml PO QID 7 Days Qty: 150 RF: 0 pantoprazole 40 mg Tablet,Delayed Release (Dr/Ec) 40 mg PO QAM Qty: 30 RF: 1 prednisone 10 mg tablet 10 mg PO DIRECTED Qty: 42 RF: 0 Continued albuterol sulfate 90 mcg/actuation HFA aerosol inhaler 1 - 2 puff inhalation Q4H PRN (Reason: shortness of breath) Qty: 18 RF: 5 mometasone [Nasonex] 50 mcg/actuation spray,non-aerosol 2 sprays INTNAS DAILY Qty: 17 RF: 5 oxybutynin chloride 15 mg tablet extended release 24hr 15 mg PO DAILY Qty: 90 RF: 1 cholecalciferol (vitamin D3) [Vitamin D3] 5,000 unit tablet 5,000 unit PO DAILY Qty: 30 RF: 5 tamsulosin 0.4 mg capsule 0.4 mg PO HS Qty: 30 RF: 5 fexofenadine-pseudoephedrine [Imelda-D 12 Hour] 60-120 mg tablet extended release 12 hr 1 tab PO Q12H PRN (Reason: Allergy Symptoms) RF: 0 Trelegy Ellipta 100-62.5-25 mcg blister with device 1 puffs INH DAILY Qty: 60 RF: 2 azelastine 137 mcg (0.1 %) aerosol,spray 2 spray intranasal BID Qty: 30 RF: 5 ipratropium-albuterol 0.5 mg-3 mg(2.5 mg base)/3 mL solution for nebulization 3 ml inhalation Q4 PRN (Reason: Shortness Of Breath Or Wheezing) RF: 0 azithromycin 250 mg tablet 250 mg PO MOWEFR RF: 0 Discontinued omeprazole 20 mg capsule,delayed release(DR/EC) 20 mg PO DAILY PRN (Reason: Heartburn) RF: 0 No Action (DME) Oxygen Home Liters Per Minute See Rx Instructions .ROUTE .MEDSUPPLY Qty: 1 RF: 0 (DME) CPAP Supplies Misc See Rx Instructions .ROUTE .MEDSUPPLY Qty: 1 RF: 0 Discharge Orders: Discharge Order (Routine); Ordered 08/08/19 Ordered By: Compa Zamudio Admission Data Admit Date/Time: 07/31/19 14:16 Attending Provider: Compa Zamudio Admit Provider: Wang Walker Primary Care Provider: Camila Beth Other Providers: Wang Walker ; Elina Daniels ; Agustin Marinelli Other Interventions: Discharge Summary Assessment (RN) Last Done: 08/08/19 16:37 DC Date/Time DO NOT enter until pt leaves facility: 08/08/19 17:47 Coding Level of Care Code D/C Day Management >30 mins Diagnoses Acute respiratory failure with hypoxia J96.01 COPD exacerbation J44.1 GERD (gastroesophageal reflux disease) K21.9 Urge and stress incontinence N39.46 Constipation K59.00 Sinus tachycardia R00.0 Chronic kidney disease, stage 3a N18.3 Candidiasis of mouth and esophagus B37.81; B37.0 Anxiety F41.9
== END 2019-08-08 17:47 | disposition home or self-care (01) | DRG 190 ==
LOC: ED 09:26 → SUATTDRO 14:16 → 2E 14:16

== ENCOUNTER 2020-08-18 12:16 | Inpatient (IN) ==
[2020-08-18] MEDS ORDERED: ALBUT/IPRATROP 3MG/0.5MG NEB 3 ML VIAL INH STA (12:35)
[2020-08-18 13:06] LABS: Basophils # (auto) 0.02 K/uL (0-0.2); Basophils % (auto) 0.1 %; Eosinophils # (auto) 0.09 K/uL (0-0.5); Eosinophils % (auto) 0.5 %; Hematocrit (blood only) 42.7 % (37-47); Hemoglobin 14.1 g/dL (12.0-16.0); Immature Granulocytes # (auto) 0.08 K/uL (0.00-0.02); Immature Granulocytes % (auto) 0.5 %; Lymphocytes # (auto) 4.51 K/uL (1.2-3.4); Lymphocytes % (auto) 25.5 %; Mean Corpuscular Hemoglobin 31.2 pg (25-34); Mean Corpuscular Volume 94.5 fL (80-100); Mean Platelet Volume 9.2 fL (7.4-10.4); Monocytes # (auto) 2.09 K/uL (0.11-0.59); Monocytes % (auto) 11.8 %; Neutrophils # (auto) 10.89 K/uL (1.4-6.5); Neutrophils % (auto) 61.6 %; Platelet Count 340 K/uL (130-400); RDW Coefficient of Variation 13.5 % (11.5-14.5); RDW Standard Deviation 46.8 fL (36.4-46.3); Red Blood Count 4.52 M/uL (4.2-5.4); White Blood Count 17.68 K/uL (4.8-10.8)
--- NOTE | 2020-08-18 13:17 | XRay Report ---
XR chest 1V portable CLINICAL HISTORY: Shortness of breath COMPARISON STUDY: 08/07/2019 FINDINGS: The cardiac and mediastinal contours are normal. There is no evidence of focal pulmonary co nsolidation. There is no evidence of failure. No pleural effusions are visualized.[The patient remain s hyperinflated. There are minor left basilar atelectatic changes. IMPRESSION: Emphysema. No acute findings. ACT 112: Negative or not required by law. Electronically signed by: Mahad Lazaro M.D. 08/18/2020 1:16 PM
[2020-08-18 13:18] LABS: Partial Thromboplastin Ratio 0.8; Partial Thromboplastin Time 20.5 Seconds (21.0-31.0)
[2020-08-18 13:28] LABS: Alanine Aminotransferase 26 U/L (12-78); Albumin Level 3.8 gm/dl (3.4-5.0); Aspartate Aminotransferase 11 U/L (15-37); BUN Creatinine Ratio 14.4 (10-20); Blood Urea Nitrogen 14 mg/dl (7-18); Calcium 9.4 mg/dl (8.5-10.1); Carbon Dioxide 31 mmol/L (21-32); Chloride 106 mmol/L (98-107); Est GFR (Non-African American) 57.8; Glucose 79 mg/dl (70-99); Magnesium 2.1 mg/dl (1.8-2.4); Potassium 3.4 mmol/L (3.5-5.1); Sodium 141 mmol/L (136-145)
[2020-08-18 13:33] LABS: Albumin Globulin Ratio 1.1 (0.9-2); Alkaline Phosphatase 72 U/L (45-117); Bilirubin,Total 0.7 mg/dl (0.2-1); Globulin 3.6 gm/dl (2.5-4.0); Total Protein 7.4 gm/dl (6.4-8.2); Troponin I < 0.015 ng/ml (0-0.045)
[2020-08-18] MEDS ORDERED: ALBUTEROL 0.083% NEBU SOLN 3 ML VIAL NEB STA (13:39)
--- NOTE | 2020-08-18 13:39 | Emergency Department Note ---
Impression & Plan COPD (chronic obstructive pulmonary disease), Breath shortness ED Provider Note NAME: AMY DIALLO AGE: 79 SEX: F : 1940 ARRIVES VIA: Walk-In INFORMANT: Patient ED PROVIDER(S): Nima Willis DO CHIEF COMPLAINT: Shortness of breath HPI: Patient is a 79-year-old female who presents the ER for shortness of breath. She has a history of COPD, chronic hypercapnia and ischemic heart disease who presents the ER for shortness of breath which has been present since the . She notes she has been having off-and-on wheezing. She has been on steroids and doxycycline without improvement. She followed up with her vegetable vendor who placed her on another 20 mg of steroids twice daily with no improvement. Denies any fevers. No belly pain, nausea, vomiting, or diarrhea. No dysuria, urgency, or frequency. No other exacerbating or remitting factors. No swelling of the cast. No recent trips or travel. No coughing up blood or history of blood clots. ROS: See above HPI for pertinent positives & negatives. A total of 10 systems reviewed and were otherwise negative. PAST MEDICAL HISTORY:See Below PAST SURGICAL HISTORY:See Below FAMILY HISTORY:See Below SOCIAL HISTORY:See Below HOME MEDICATIONS:See Below ALLERGIES:See Below VITALS:See Below PHYSICAL EXAMINATION: GENERAL: Sitting up in bed, alert, chronically ill-appearing, disheveled, nontoxic EYE EXAM: normal conjunctiva. OROPHARYNX: no exudate, no erythema, lips, buccal mucosa, and tongue normal and mucous membranes are moist NECK: supple, no nuchal rigidity, no adenopathy, non-tender LUNGS: Poor air movement with diffuse wheezing. Normal chest wall mechanics HEART: no murmurs, S1 normal and S2 normal ABDOMEN: abdomen soft, non-tender, normo-active bowel sounds, no masses, no rebound or guarding. BACK: Back is symmetrical on inspection and there is no deformity, no midline tenderness, no CVA tenderness. SKIN: no rashes and no bruising UPPER EXTREMITIES: upper extremities are grossly normal. LOWER EXTREMITIES: No pitting edema. Calves are equal bilateral NEURO EXAM: Normal sensorium, cranial nerves II-XII grossly intact, normal speech, no gross weakness of arms, no gross weakness of legs. MEDICAL DECISION MAKING: Patient is a 79-year-old female who presents ER for shortness of breath. This been getting worse. She is followed up with pulmonology referred in. IV was established blood work was [place]. [place] [address]. No significant anemia. D-dimer was mildly elevated at 500. BMP shows mild hypokalemia. LFTs bilirubin and magnesium was on remarkable. Covid was negative. Patient ambulated and pulse ox dropped to 84%. She was given steroids. She given neb treatments. She was discussed with hospitalist. CT angio of the chest was unremarkable. He was admitted for further work-up. Triage Nursing notes reviewed. Limited review of prior medical records performed Vital Signs: reviewed and remarkable for tachy Differential diagnosis: Differential diagnoses includes but is not limited to pneumonia, bronchitis, COPD/Asthma exacerbation, pneumothorax, pulmonary embolism, congestive heart failure, acute coronary syndrome ER treatment provided: See below Diagnostics interpreted by me: ECG: Sinus tachycardia rate of 115 Left axis Right bundle branch block Nonspecific ST wave changes QTC 470 Cardiac Monitoring: An order was placed for continuous cardiac monitoring. The monitor shows a rate of 90 with sinus rhythm. Laboratory studies: As stated above and show below. Imaging studies: CT angio of the chest was unremarkable Consultation(s): Discussed with Dr. Leandro Vazquez for further evaluation Procedures: none Critical Care: None Past Med/Surg History Medical History (Updated 08/18/20 @ 18:15 by ARI Fu) Anxiety Chronic ischemic heart disease Chronic nasal congestion Chronic respiratory failure with hypoxia and hypercapnia Constipation COPD (chronic obstructive pulmonary disease) GERD (gastroesophageal reflux disease) History of ankle fracture Hypercholesterolemia Non-allergic rhinitis Osteoporosis Sinus tachycardia Unspecified osteoarthritis, unspecified site Urge and stress incontinence Vitamin D deficiency Surgical History H/O: hysterectomy History of laparoscopic cholecystectomy History of rhinoplasty History of surgery excision of intra abdominal mass - 2010 History of tonsillectomy Hx of excision of mass excision of intra abdominal mass Family History Mother Breast cancer Sister Heart disease Pacemaker Other No family history of adverse response to anesthesia No family history of bleeding disorder Denies family history of Ovarian cancer Prostate cancer Colorectal cancer Social History Smoking Status: Former smoker Tobacco Type: Cigarettes Age Quit Using Tobacco: 73; packs per day: 1; Years Smoked: 50; Second Hand Exposure: No; Hx Alcohol Use: No Hx Substance Use: No Preferred Language: [place] Communication Ability: Effective Visual Impairment: No Limitations Hearing Ability: Normal Metal Fitter Required: No Beliefs That Will Affect Care: None marital status: / Current Living Situation: Alone current occupational status: retired Feels Safe at Home: Yes Childhood Exposure to Second-Hand Smoke: Yes (Father smoked, pt doesn't know if father smoked in the house or not. ) caffeine: Yes (coffee) during the past year weight has: remained stable Dental Care, Regularly: Yes Physical Activity Frequency: 3-4 Times per Week Seatbelt Use: always Sunscreen Use: No Assistive Devices: Glasses and Oxygen - Continuous Allergies Allergies Allergy/AdvReac Type Severity Reaction Status Date / Time cat dander Allergy Intermediate NASAL Verified 08/08/20 11:06 CONGESTION dog dander Allergy Intermediate NASAL Verified 08/08/20 11:06 CONGESTION grass pollen-perennial rye, Allergy Intermediate NASAL Verified 08/08/20 11:06 standar CONGESTION house dust Allergy Intermediate NASAL Verified 08/08/20 11:06 CONGESTION mold Allergy Intermediate NASAL Verified 08/08/20 11:06 CONGESTION Penicillins Allergy Intermediate HIVES Verified 08/08/20 11:06 Milk Containing Products AdvReac Mild Gastrointestinal Unverified 08/18/20 14:08 Upset Home Meds Home Medications Medication Instructions Recorded Confirmed loratadine-pseudoephedrine ER 10 1 tab PO DAILY PRN 07/01/20 08/18/20 mg-240 mg tablet,extended [id number] Previous Rx's Medication Instructions Recorded azelastine 137 mcg (0.1 %) nasal 2 spray INTRANASAL BID #30 ml 01/19/19 spray aerosol mometasone 50 mcg/actuation nasal 2 sprays INTNAS DAILY #17 gm 06/05/19 spray miscellaneous medical supply #1 ea 08/13/19 Shower Chair #1 ea 08/15/19 azithromycin 250 mg tablet 250 mg PO MOWEFR #36 tab 01/17/20 nebulizer accessories #1 ea 02/21/20 fluticasone fur. 100 mcg-umeclid 1 inh INH DAILY 90 Days #60 ea 02/28/20 62.5 mcg-vilant 25 mcg inhalat.powder cholecalciferol (vitamin D3) 125 5,000 unit PO DAILY #90 tab 04/09/20 mcg (5,000 unit) tablet oxybutynin chloride 15 mg 15 mg PO DAILY #90 tab 07/07/20 tablet,extended release 24 hr albuterol sulfate 90 mcg/actuation 1 - 2 puff INHALATION Q4H PRN #18 07/24/20 aerosol inhaler gm ipratropium 0.5 mg-albuterol 3 mg 3 ml INHALATION Q4 PRN #180 ml 08/15/20 (2.5 mg base)/3 mL nebulization soln tamsulosin 0.4 mg capsule 0.4 mg PO HS #90 cap 08/18/20 Results & Data (ED) Vital Signs Vital Signs - 24 hr 08/18/20 12:31 08/18/20 13:17 08/18/20 13:18 Temperature 36.6 C Temperature Source Skin Pulse Rate 130 H 117 H Pulse Rate [Apical] Pulse Rate [Exercises] Pulse Rate from SpO2 Sensor 117 H Respiratory Rate 24 20 Respiratory Rate [Exercises] Respiratory Effort / Characteristics Non-Labored Non-Labored Respiratory Depth Normal Respiratory Pattern Regular Blood Pressure 123/67 120/77 Blood Pressure Mean 85 91 Pulse Oximetry 94 96 95 Pulse Oximetry [Exercises] Oxygen Delivery Method Room Air Room Air Oxygen Flow Rate Sepsis Recent Fever Within 48 Hours No Sepsis New/Unexplained Change in Mental Status N/A Sepsis Action Taken by Nursing No Action Required 08/18/20 13:30 08/18/20 13:54 08/18/20 14:00 Temperature Temperature Source Pulse Rate 107 H 98 H Pulse Rate [Apical] 110 H Pulse Rate [Exercises] Pulse Rate from SpO2 Sensor 108 H 99 H Respiratory Rate 19 23 16 Respiratory Rate [Exercises] Respiratory Effort / Characteristics Non-Labored Spontaneous Respiratory Depth Respiratory Pattern Blood Pressure 102/64 120/78 Blood Pressure Mean 76 92 Pulse Oximetry 96 95 100 Pulse Oximetry [Exercises] Oxygen Delivery Method Room Air Oxygen Flow Rate Sepsis Recent Fever Within 48 Hours Sepsis New/Unexplained Change in Mental Status Sepsis Action Taken by Nursing 08/18/20 14:30 08/18/20 15:07 08/18/20 15:30 Temperature Temperature Source Pulse Rate 108 H 109 H 105 H Pulse Rate [Apical] Pulse Rate [Exercises] Pulse Rate from SpO2 Sensor 110 H 109 H 106 H Respiratory Rate 20 20 20 Respiratory Rate [Exercises] Respiratory Effort / Characteristics Respiratory Depth Respiratory Pattern Blood Pressure 107/67 103/68 110/64 Blood Pressure Mean 80 79 79 Pulse Oximetry 96 88 L 93 Pulse Oximetry [Exercises] Oxygen Delivery Method Oxygen Flow Rate Sepsis Recent Fever Within 48 Hours Sepsis New/Unexplained Change in Mental Status Sepsis Action Taken by Nursing 08/18/20 16:00 08/18/20 16:30 08/18/20 16:54 Temperature Temperature Source Pulse Rate 116 H 96 H Pulse Rate [Apical] Pulse Rate [Exercises] 130 H Pulse Rate from SpO2 Sensor 114 H 98 H Respiratory Rate 19 16 Respiratory Rate [Exercises] 24 Respiratory Effort / Characteristics Respiratory Depth Respiratory Pattern Blood Pressure 112/67 103/65 Blood Pressure Mean 82 77 Pulse Oximetry 89 L 99 Pulse Oximetry [Exercises] 84 L Oxygen Delivery Method Nasal Cannula Oxygen Flow Rate 2 Sepsis Recent Fever Within 48 Hours Sepsis New/Unexplained Change in Mental Status Sepsis Action Taken by Nursing 08/18/20 17:30 08/18/20 18:00 Temperature Temperature Source Pulse Rate 97 H 95 H Pulse Rate [Apical] Pulse Rate [Exercises] Pulse Rate from SpO2 Sensor 95 H 95 H Respiratory Rate 17 21 Respiratory Rate [Exercises] Respiratory Effort / Characteristics Respiratory Depth Respiratory Pattern Blood Pressure 114/71 109/69 Blood Pressure Mean 85 82 Pulse Oximetry 96 96 Pulse Oximetry [Exercises] Oxygen Delivery Method Nasal Cannula Oxygen Flow Rate 2 Sepsis Recent Fever Within 48 Hours Sepsis New/Unexplained Change in Mental Status Sepsis Action Taken by Nursing Laboratory Data Result diagrams: 08/18/20 12:54 08/18/20 12:54 Lab Results 08/18/20 08/18/20 08/18/20 Range/Units 12:54 12:54 12:54 WBC 17.68 H (4.8-10.8) K/uL RBC 4.52 (4.2-5.4) M/uL Hgb 14.1 (12.0-16.0) g/dL Hct 42.7 (37-47) % MCV 94.5 (80-100) fL MCH 31.2 (25-34) pg MCHC 33.0 (32-36) g/dL RDW Std Deviation 46.8 H (36.4-46.3) fL RDW Coeff of Geri 13.5 (11.5-14.5) % Plt Count 340 (130-400) K/uL MPV 9.2 (7.4-10.4) fL Immature Gran % (Auto) 0.5 % Neut % (Auto) 61.6 % Lymph % (Auto) 25.5 % [place] % (Auto) 11.8 % Eos % (Auto) 0.5 % Baso % (Auto) 0.1 % Neut # (Auto) 10.89 H (1.4-6.5) K/uL Lymph # (Auto) 4.51 H (1.2-3.4) K/uL [place] # (Auto) 2.09 H (0.11-0.59) K/uL Eos # (Auto) 0.09 (0-0.5) K/uL Baso # (Auto) 0.02 (0-0.2) K/uL Immature Gran # (Auto) 0.08 H (0.00-0.02) K/uL PT 10.0 (9.0-12.0) Seconds INR 1.0 (0.9-1.1) APTT 20.5 L (21.0-31.0) Seconds PTT Ratio 0.8 D-Dimer (0-500) ug/L FEU Sodium 141 (136-145) mmol/L Potassium 3.4 L (3.5-5.1) mmol/L Chloride 106 (98-107) mmol/L Carbon Dioxide 31 (21-32) mmol/L Anion Gap 4.0 (3-11) BUN 14 (7-18) mg/dl Creatinine 0.95 (0.6-1.2) mg/dl Est Cr Clr Drug Dosing 41.0 ml/min Est GFR ( Amer) 67.0 Est GFR (Non-Af Amer) 57.8 BUN/Creatinine Ratio 14.4 (10-20) Glucose 79 (70-99) mg/dl Calcium 9.4 (8.5-10.1) mg/dl Magnesium 2.1 (1.8-2.4) mg/dl Total Bilirubin 0.7 (0.2-1) mg/dl AST 11 L (15-37) U/L ALT 26 (12-78) U/L Alkaline Phosphatase 72 (45-117) U/L Troponin I < 0.015 (0-0.045) ng/ml Total Protein 7.4 (6.4-8.2) gm/dl Albumin 3.8 (3.4-5.0) gm/dl Globulin 3.6 (2.5-4.0) gm/dl Albumin/Globulin Ratio 1.1 (0.9-2) COVID-19 Eval Order SARS-CoV-2 (PCR) (Negative) Influenza Type A (PCR) (Neg) Influenza Type B (PCR) (Neg) RSV (RT-PCR) (Neg) 08/18/20 08/18/20 08/18/20 Range/Units 12:54 13:51 13:51 WBC (4.8-10.8) K/uL RBC (4.2-5.4) M/uL Hgb (12.0-16.0) g/dL Hct (37-47) % MCV (80-100) fL MCH (25-34) pg MCHC (32-36) g/dL RDW Std Deviation (36.4-46.3) fL RDW Coeff of Geri (11.5-14.5) % Plt Count (130-400) K/uL MPV (7.4-10.4) fL Immature Gran % (Auto) % Neut % (Auto) % Lymph % (Auto) % [place] % (Auto) % Eos % (Auto) % Baso % (Auto) % Neut # (Auto) (1.4-6.5) K/uL Lymph # (Auto) (1.2-3.4) K/uL [place] # (Auto) (0.11-0.59) K/uL Eos # (Auto) (0-0.5) K/uL Baso # (Auto) (0-0.2) K/uL Immature Gran # (Auto) (0.00-0.02) K/uL PT (9.0-12.0) Seconds INR (0.9-1.1) APTT (21.0-31.0) Seconds PTT Ratio D-Dimer 540 H* (0-500) ug/L FEU Sodium (136-145) mmol/L Potassium (3.5-5.1) mmol/L Chloride (98-107) mmol/L Carbon Dioxide (21-32) mmol/L Anion Gap (3-11) BUN (7-18) mg/dl Creatinine (0.6-1.2) mg/dl Est Cr Clr Drug Dosing ml/min Est GFR ( Amer) Est GFR (Non-Af Amer) BUN/Creatinine Ratio (10-20) Glucose (70-99) mg/dl Calcium (8.5-10.1) mg/dl Magnesium (1.8-2.4) mg/dl Total Bilirubin (0.2-1) mg/dl AST (15-37) U/L ALT (12-78) U/L Alkaline Phosphatase (45-117) U/L Troponin I (0-0.045) ng/ml Total Protein (6.4-8.2) gm/dl Albumin (3.4-5.0) gm/dl Globulin (2.5-4.0) gm/dl Albumin/Globulin Ratio (0.9-2) COVID-19 Eval Order CovFluRsv at [facility] SARS-CoV-2 (PCR) NEGATIVE (Negative) Influenza Type A (PCR) Negative (Neg) Influenza Type B (PCR) Negative (Neg) RSV (RT-PCR) Negative (Neg) Administered Medications Discontinued Medications Albuterol (Albut/Ipratrop 3mg/0.5mg Neb 3 Ml Vial) 3 ml INH NOW STA Stop: 08/18/20 12:36 Last Admin: 08/18/20 13:59 Dose: Not Given Documented by: [id number] Albuterol (Albuterol 0.083% Nebu Soln 3 Ml Vial) 5 mg NEB NOW STA Stop: 08/18/20 13:40 Last Admin: 08/18/20 13:54 Dose: 5 mg Documented by: [id number] Ioversol (Optiray 320 125ml) 120 ml IV ONCE ONE Stop: 08/18/20 15:05 Last Admin: 08/18/20 15:04 Dose: 120 ml Documented by: [id number] Methylprednisolone (Methylprednisolone 125 Mg/2 Ml Vial) 60 mg IV NOW STA Stop: 08/18/20 16:56 Last Admin: 08/18/20 17:20 Dose: 60 mg Documented by: [id number] Discharge Plan Visit Data Chief Complaint: Respiratory Problems Stated Complaint: WHEEZING AND SOB ED Provider: Nima Willis Discharge Problem: COPD (chronic obstructive pulmonary disease), Breath shortness Forms Stand Alone Forms: [facility] Prescriptions Prescriptions: No Action mometasone [Nasonex] 50 mcg/actuation spray,non-aerosol 2 sprays INTNAS DAILY Qty: 17 RF: 5 azithromycin 250 mg tablet 250 mg PO MOWEFR Qty: 36 RF: 3 (DME) nebulizer accessories Misc See Rx Instructions .ROUTE .MEDSUPPLY Qty: 1 RF: 0 cholecalciferol (vitamin D3) [Vitamin D3] 125 mcg (5,000 unit) tablet 5,000 unit PO DAILY Qty: 90 RF: 1 oxybutynin chloride 15 mg tablet extended release 24 hr 15 mg PO DAILY Qty: 90 RF: 1 albuterol sulfate 90 mcg/actuation HFA aerosol inhaler 1 - 2 puff inhalation Q4H PRN (Reason: shortness of breath) Qty: 18 RF: 5 ipratropium-albuterol 0.5 mg-3 mg(2.5 mg base)/3 mL solution for nebulization 3 ml inhalation Q4 PRN (Reason: Shortness Of Breath Or Wheezing) Qty: 180 RF: 1 tamsulosin 0.4 mg capsule 0.4 mg PO HS Qty: 90 RF: 1 (DME) CPAP Supplies Misc See Rx Instructions .ROUTE .MEDSUPPLY Qty: 1 RF: 0 loratadine-pseudoephedrine [Claritin-D 24 Hour] 10-240 mg tablet extended release 24 hr 1 tab PO DAILY PRN (Reason: Allergy Symptoms) RF: 0 (DME) Shower Chair Misc See Rx Instructions .ROUTE .MEDSUPPLY Qty: 1 RF: 0 azelastine 137 mcg (0.1 %) aerosol,spray 2 spray intranasal BID Qty: 30 RF: 5 Trelegy Ellipta 100-62.5-25 mcg blister with device 1 inh INH DAILY 90 Days Qty: 60 RF: 3
[2020-08-18 14:27] LABS: D Dimer 540 ug/L FEU (0-500)
[2020-08-18 14:51] LABS: Influenza A virus by PCR Negative (Neg); Influenza B virus by PCR Negative (Neg); RSV by PCR Negative (Neg); SARS CoV2 RNA(COVID-19) InHosp NEGATIVE (Negative)
[2020-08-18] MEDS ORDERED: OPTIRAY 320 125ml IV ONE (15:04)
--- NOTE | 2020-08-18 15:23 | CT Scan Report ---
CT ANGIOGRAM OF THE CHEST CLINICAL HISTORY: Difficulty breathing COMPARISON STUDY: Noncontrast chest CT dated October 29, 2019 TECHNIQUE: Following the IV administration of 120 mL of Optiray-320, CT angiogram of the thorax was p erformed from the thoracic inlet to the lung bases utilizing the pulmonary embolus protocol. Images a re reviewed in the axial, sagittal, and coronal planes. IV contrast was administered without complica tion. MIP imaging was performed. A dose lowering technique was utilized adhering to the principles o f ALARA. CT DOSE: 247.10 mGycm FINDINGS: There is a stable 8 mm hypodensity within the left lobe the liver possibly representing a cyst No pathologically enlarged axillary mediastinal or hilar lymph nodes were visualized. There was no evidence of thoracic aortic dilatation. There were no pulmonary artery filling defects to indicate acute pulmonary embolism. No pleural effusions are visualized. There is pulmonary emphysema. There is no focal pulmonary consolidation. There is stable left apical scarring IMPRESSION: 1. No acute intrathoracic findings 2. No evidence of acute pulmonary embolism 3. No evidence of acute parenchymal consolidation 4. Pulmonary emphysema ACT 112: Negative or not required by law. Electronically signed by: Mahad Lazaro M.D. 08/18/2020 3:22 PM
--- NOTE | 2020-08-18 16:19 | Electrocardiogram Report ---
Test Reason : Blood Pressure : / mmHG Vent. 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
[2020-08-18] MEDS ORDERED: methylPREDNISolone 125 MG/2 ML VIAL IV STA (16:55)
--- NOTE | 2020-08-18 17:58 | History & Physical Report ---
Date of Service August 18, 2020 Assessment & Plan (1) COPD (chronic obstructive pulmonary disease): Patient with increased dyspnea/wheezing, no sputum production, cough at baseline, increase oxygen delivery, elevated WBC in the setting of steroid use. - CT scan and CXR negative for acute process - Symptoms more consistent with seasonal allergic response - With her increase in oxygen and symptoms will add on Azithro daily for 5-7 days, and continue methlypred IV at 40mg. - Continue her home inhaler therapy and nebulizers - Overnight respiratory support with BIPAP - Consult pulmonary for continuity and assistance with symptom control. - Thrush appears to be improved from last weeks ENT visit- states she completed her fluconazole Appreciate pulmonary assistance. (2) Nasal septal deviation: History of rhinoplasty with no acute needs, continue with saline rinses as she needs - with chronic nasal congestion- follwed by ENT that feels this is functional in nature - Supportive care (3) Chronic nasal congestion: As above - saline rinse - Patient follows Dr. Wiseman with triggers as temperature changes and pollen - Continue intranasal steroid, and loratadine - Consider intranasal antihistamine trial as outpatient if not already trialed. (4) Rhinitis: As above History of Present Illness Primary Care Provider: Camila Beth, DO 79 YOF with significant history of emphysema, asthma, allergic rhinitis, COPD, ischemic heart disease, GERD, HLD, ostarthritis, home oxygen use, and nighttime Trilogy use with back up rate. The patient comes to the emergency room today for increased dyspnea and wheezing. The patient feels that since last week she has been unable to get her symptoms under control and since "awakening on Tuesday have felt more wheezy". The patient reports that her she is still able to get around her house and up and down her 13 steps without taking a rest but feels more out of breath doing so. 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 The patient is followed by multiple specialist with Pulmonology, ENT, for her COPD and rhinitis with nasal washings, inhalers, and antihistamines. She is not conversantly dyspneic and oxygenation in the ER is >95%, but reportedly decreased to 84% when ambulating, she has a very similar episode last year at this time. Patient will be brought into the hospital for observation to get her symptoms under control. Allergies Allergy/AdvReac Type Severity Reaction Status Date / Time cat dander Allergy Intermediate NASAL Verified 08/08/20 11:06 CONGESTION dog dander Allergy Intermediate NASAL Verified 08/08/20 11:06 CONGESTION grass pollen-perennial rye, Allergy Intermediate NASAL Verified 08/08/20 11:06 standar CONGESTION house dust Allergy Intermediate NASAL Verified 08/08/20 11:06 CONGESTION mold Allergy Intermediate NASAL Verified 08/08/20 11:06 CONGESTION Penicillins Allergy Intermediate HIVES Verified 08/08/20 11:06 Milk Containing Products AdvReac Mild Gastrointestinal Unverified 08/18/20 14:08 Upset Home Medications Medication Instructions Recorded Confirmed Type azelastine 137 mcg (0.1 %) nasal 2 spray INTRANASAL BID #30 ml 01/19/19 08/18/20 Rx spray aerosol mometasone 50 mcg/actuation nasal 2 sprays INTNAS DAILY #17 gm 06/05/19 08/18/20 Rx spray miscellaneous medical supply #1 ea 08/13/19 08/08/20 Rx Shower Chair #1 ea 08/15/19 08/08/20 Rx azithromycin 250 mg tablet 250 mg PO MOWEFR #36 tab 01/17/20 08/18/20 Rx nebulizer accessories #1 ea 02/21/20 08/08/20 Rx fluticasone fur. 100 mcg-umeclid 1 inh INH DAILY 90 Days #60 ea 02/28/20 08/18/20 Rx 62.5 mcg-vilant 25 mcg inhalat.powder cholecalciferol (vitamin D3) 125 5,000 unit PO DAILY #90 tab 04/09/20 08/18/20 Rx mcg (5,000 unit) tablet loratadine-pseudoephedrine ER 10 1 tab PO DAILY PRN 07/01/20 08/18/20 History mg-240 mg tablet,extended [id number] oxybutynin chloride 15 mg 15 mg PO DAILY #90 tab 07/07/20 08/18/20 Rx tablet,extended release 24 hr albuterol sulfate 90 mcg/actuation 1 - 2 puff INHALATION Q4H PRN #18 07/24/20 08/18/20 Rx aerosol inhaler gm ipratropium 0.5 mg-albuterol 3 mg 3 ml INHALATION Q4 PRN #180 ml 08/15/20 08/18/20 Rx (2.5 mg base)/3 mL nebulization soln tamsulosin 0.4 mg capsule 0.4 mg PO HS #90 cap 08/18/20 08/18/20 Rx Past Med/Surg History Medical History (Updated 08/18/20 @ 18:15 by ARI Fu) Anxiety Chronic ischemic heart disease Chronic nasal congestion Chronic respiratory failure with hypoxia and hypercapnia Constipation COPD (chronic obstructive pulmonary disease) GERD (gastroesophageal reflux disease) History of ankle fracture Hypercholesterolemia Non-allergic rhinitis Osteoporosis Sinus tachycardia Unspecified osteoarthritis, unspecified site Urge and stress incontinence Vitamin D deficiency Surgical History H/O: hysterectomy History of laparoscopic cholecystectomy History of rhinoplasty History of surgery excision of intra abdominal mass - 2010 History of tonsillectomy Hx of excision of mass excision of intra abdominal mass Family History Mother Breast cancer Sister Heart disease Pacemaker Other No family history of adverse response to anesthesia No family history of bleeding disorder Denies family history of Ovarian cancer Prostate cancer Colorectal cancer Social History Smoking Status: Former smoker Tobacco Type: Cigarettes Age Quit Using Tobacco: 73; packs per day: 1; Years Smoked: 50; Second Hand Exposure: No; Hx Alcohol Use: No Hx Substance Use: No Preferred Language: Algerian Communication Ability: Effective Visual Impairment: No Limitations Hearing Ability: Normal 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 ) caffeine: Yes (coffee) during the past year weight has: remained stable Dental Care, Regularly: Yes Physical Activity Frequency: 3-4 Times per Week Seatbelt Use: always Sunscreen Use: No Assistive Devices: BiPap, Glasses and Oxygen - at Night Review of Systems Review of Systems: REVIEW OF SYSTEMS: Constitutional: No fever, sweats or chills Eyes: No diplopia, no worsening or blurred vision ENT: (+) head congestion, normal hearing, no trouble swallowing Respiratory: (+)wheeze, dyspnea, (-) increase in cough, sputum, no dyspnea at rest Cardiovascular: No chest pain, tightness or palpitations Abdomen: No pain, nausea, vomiting, diarrhea or constipation Musculoskeletal: No joint pain, calf pain, swelling Neurologic: No weakness, numbness/tingling, or balance problems Psychiatric: No anxiety or depression Skin: No rash or itch Physical Exam Physical Exam: PHYSICAL EXAM: General: awake, alert, no apparent distress Head: Normocephalic, atraumatic ENT: PERRL, EOMI, no pharyngeal exudate, mucous membranes moist Neuro: AAO x 3, speech clear and appropriate, strength intact bilaterally 5/5, sensation intact and equal all extremities and dermatomes, no pronator drift Chest: equal rise and fall of the chest, no accessory muscle use, no heaves or thrills, decreased in bases, scattered expiratory wheeze auscultation, on 2lNC, Cardiac: Regular rate and rhythm, telemetry reviewed, skin warm dry, cap refill <3 seconds, peripheral pules, +2 no JVD, no murmur, no JVD, no edema GI: NABS x 4 quadrants, soft, nontender to palpation, no rebound, guarding or tenderness : Spontaneously voiding, no pain, no CVA tenderness, Extremities: Normal inspection, no peripheral edema or erythema, calfs nontender to palpation Psych: Normal mood and affect Skin: no rash or erythema Results & Data Results & Data ([facility]) Vital Signs (Past 12 Hours) Vital Signs Temp Pulse Pulse Pulse Resp Resp BP 08/18/20 17:30 97 H 17 114/71 08/18/20 16:54 130 H 24 08/18/20 16:30 96 H 16 103/65 08/18/20 16:00 116 H 19 112/67 08/18/20 15:30 105 H 20 110/64 08/18/20 15:07 109 H 20 103/68 08/18/20 14:30 108 H 20 107/67 08/18/20 14:00 98 H 16 120/78 08/18/20 13:54 110 H 23 08/18/20 13:30 107 H 19 102/64 08/18/20 13:18 08/18/20 13:17 117 H 20 120/77 08/18/20 12:31 36.6 C 130 H 24 123/67 Pulse Ox Pulse Ox 08/18/20 17:30 96 08/18/20 16:54 84 L 08/18/20 16:30 99 08/18/20 16:00 89 L 08/18/20 15:30 93 08/18/20 15:07 88 L 08/18/20 14:30 96 08/18/20 14:00 100 08/18/20 13:54 95 08/18/20 13:30 96 08/18/20 13:18 95 08/18/20 13:17 96 08/18/20 12:31 94 Laboratory Results Abnormal lab results 08/18/20 08/18/20 08/18/20 Range/Units 12:54 12:54 12:54 WBC 17.68 H (4.8-10.8) K/uL RDW Std Deviation 46.8 H (36.4-46.3) fL Neut # (Auto) 10.89 H (1.4-6.5) K/uL Lymph # (Auto) 4.51 H (1.2-3.4) K/uL [place] # (Auto) 2.09 H (0.11-0.59) K/uL Immature Gran # (Auto) 0.08 H (0.00-0.02) K/uL APTT 20.5 L (21.0-31.0) Seconds D-Dimer (0-500) ug/L FEU Potassium 3.4 L (3.5-5.1) mmol/L AST 11 L (15-37) U/L 08/18/20 Range/Units 12:54 WBC (4.8-10.8) K/uL RDW Std Deviation (36.4-46.3) fL Neut # (Auto) (1.4-6.5) K/uL Lymph # (Auto) (1.2-3.4) K/uL [place] # (Auto) (0.11-0.59) K/uL Immature Gran # (Auto) (0.00-0.02) K/uL APTT (21.0-31.0) Seconds D-Dimer 540 H* (0-500) ug/L FEU Potassium (3.5-5.1) mmol/L AST (15-37) U/L Diagnostic Findings XR chest 1V portable CLINICAL HISTORY: Shortness of breath COMPARISON STUDY: 08/07/2019 FINDINGS: The cardiac and mediastinal contours are normal. There is no evidence of focal pulmonary consolidation. There is no evidence of failure. No pleural effusions are visualized.[The patient remains hyperinflated. There are minor left basilar atelectatic changes. IMPRESSION: Emphysema. No acute findings. [facility], [id number] CT Scan Report Patient: AMY DIALLO CAdmit Date: 08/18/20#: [id number]: [address] [place] [address] ID:[id number]: Date: 1940[facility] Zip: [place], [place] [address]Hmm: [id number]: EDSex: FRoom/Bed:Att Phy:Diagnosis: WHEEZING AND SOBPri Phy: Camila Beth, DOService Date: 08/18/20Fam Phy:Interpreting Phy: Mahad Lazaro MDAdmit Phy: Ordering Phy: Nima Willis, DO CT ANGIOGRAM OF THE CHEST CLINICAL HISTORY: Difficulty breathing COMPARISON STUDY: Noncontrast chest CT dated October 29, 2019 TECHNIQUE: Following the IV administration of 120 mL of Optiray-320, CT angiogram of the thorax was performed from the thoracic inlet to the lung bases utilizing the pulmonary embolus protocol. Images are reviewed in the axial, sagittal, and coronal planes. IV contrast was administered without complication. MIP imaging was performed. A dose lowering technique was utilized adhering to the principles of ALARA. CT DOSE: 247.10 mGycm FINDINGS: There is a stable 8 mm hypodensity within the left lobe the liver possibly representing a cyst No pathologically enlarged axillary mediastinal or hilar lymph nodes were visualized. There was no evidence of thoracic aortic dilatation. There were no pulmonary artery filling defects to indicate acute pulmonary embolism. No pleural effusions are visualized. There is pulmonary emphysema. There is no focal pulmonary consolidation. There is stable left apical scarring IMPRESSION: 1. No acute intrathoracic findings 2. No evidence of acute pulmonary embolism 3. No evidence of acute parenchymal consolidation 4. Pulmonary emphysema Medications Administered Discontinued Medications Albuterol (Albut/Ipratrop 3mg/0.5mg Neb 3 Ml Vial) 3 ml INH NOW STA Stop: 08/18/20 12:36 Last Admin: 08/18/20 13:59 Dose: Not Given Documented by: [id number] Albuterol (Albuterol 0.083% Nebu Soln 3 Ml Vial) 5 mg NEB NOW STA Stop: 08/18/20 13:40 Last Admin: 08/18/20 13:54 Dose: 5 mg Documented by: [id number] Ioversol (Optiray 320 125ml) 120 ml IV ONCE ONE Stop: 08/18/20 15:05 Last Admin: 08/18/20 15:04 Dose: 120 ml Documented by: [id number] Methylprednisolone (Methylprednisolone 125 Mg/2 Ml Vial) 60 mg IV NOW STA Stop: 08/18/20 16:56 Last Admin: 08/18/20 17:20 Dose: 60 mg Documented by: [id number] Home Medications azelastine 137 mcg (0.1 %) nasal spray aerosol 2 spray INTRANASAL BID #30 ml [Rx Confirmed 08/18/20] mometasone 50 mcg/actuation nasal spray 2 sprays INTNAS DAILY #17 gm 06/05/19 [Rx Confirmed 08/18/20] miscellaneous medical supply #1 ea 08/13/19 [Rx Confirmed 08/08/20] Shower Chair #1 ea 08/15/19 [Rx Confirmed 08/08/20] azithromycin 250 mg tablet 250 mg PO MOWEFR #36 tab 01/17/20 [Rx Confirmed 08/18/20] nebulizer accessories #1 ea 02/21/20 [Rx Confirmed 08/08/20] fluticasone fur. 100 mcg-umeclid 62.5 mcg-vilant 25 mcg inhalat.powder 1 inh INH DAILY 90 Days #60 ea 02/28/20 [Rx Confirmed 08/18/20] cholecalciferol (vitamin D3) 125 mcg (5,000 unit) tablet 5,000 unit PO DAILY #90 tab 04/09/20 [Rx Confirmed 08/18/20] loratadine-pseudoephedrine ER 10 mg-240 mg tablet,extended [id number] 1 tab PO DAILY PRN 07/01/20 [History Confirmed 08/18/20] oxybutynin chloride 15 mg tablet,extended release 24 hr 15 mg PO DAILY #90 tab 07/07/20 [Rx Confirmed 08/18/20] albuterol sulfate 90 mcg/actuation aerosol inhaler 1 - 2 puff INHALATION Q4H PRN #18 gm 07/24/20 [Rx Confirmed 08/18/20] ipratropium 0.5 mg-albuterol 3 mg (2.5 mg base)/3 mL nebulization soln 3 ml INHALATION Q4 PRN #180 ml 08/15/20 [Rx Confirmed 08/18/20] tamsulosin 0.4 mg capsule 0.4 mg PO HS #90 cap 08/18/20 [Rx Confirmed 08/18/20] ECG Additional Comments: Sinus tachycardia Possible Left atrial enlargement Right bundle branch block no changes from previous Code Status & VTE Plan Code Status CODE: FULL VTE: SCD's/ Lovenox 40 SQ QD Supervising Physician Co-Signing Physician Notes Patient was seen and examined independently I discussed the case with Keegan CHAPMAN I reviewed pertinent past medical social family history and also the plan of care and agree with the plan of care. Patient feels symptomatically worsen despite attempts at outpatient treatment mostly concerned with allergic component to her symptom exacerbation agree with observation overnight transfer approved for subjective sense of her disease and continued toward against persistent hypoxia Lung exam have reasonable air movement prolonged expiratory phase no overt loss of breath sounds or wheezes. Use of azithromycin continued inhaled bronchodilators and methylprednisolone Any exceptions will be noted below PG Care Time/CCT Total # of Minutes Spent Total Time Spent with Patient: Total time spent is greater than 50% in coordination of care (as documented) at patient's floor/unit and/or counseling patient: Coding Level of Care Code 66785 OBS Care - Level 3 Diagnoses COPD (chronic obstructive pulmonary disease) J43.9 COPD type: emphysema Emphysema type: unspecified Nasal septal deviation J34.2 Chronic nasal congestion R09.81 Rhinitis J31.0 Rhinitis type: other (1) Rhinitis Rhinitis type: other Qualified Code(s): J31.0 - Chronic rhinitis (2) COPD (chronic obstructive pulmonary disease) COPD type: emphysema Emphysema type: unspecified Qualified Code(s): J43.9 - Emphysema, unspecified
[2020-08-18 18:26] LABS: Base Excess ABG 3.3 mEq/L (-9-1.8); HCO3 ABG 28 mmol/L (19-24); Oxygen Saturation ABG 96.9 % (90-95); PCO2 ABG 41 mmHg (35-46); PO2 ABG 86 mmHg (80-95); pH ABG 7.44 (7.35-7.45)
[2020-08-18 18:27] LABS: Allen Test POS (Pos)
[2020-08-18] MEDS ORDERED: LORATADINE/PSEUDOEPHEDRINE 1 TABCR PO PRN (20:07)
[2020-08-18] MEDS ORDERED: ACETAMINOPHEN 325 MG TAB PO PRN (20:07)
[2020-08-18] MEDS ORDERED: ONDANSETRON INJ 2 MG/ML 2 ML VIAL IV PRN (20:07)
[2020-08-18] MEDS ORDERED: AZITHROMYCIN 250 MG TAB PO ONE (20:07)
[2020-08-18] MEDS ORDERED: ALBUT/IPRATROP 3MG/0.5MG NEB 3 ML VIAL INH PRN (20:07)
[2020-08-18] MEDS ORDERED: ALBUTEROL HFA 8 GM INHALER INH PRN (20:07)
[2020-08-18] MEDS: ENOXAPARIN INJ 40 MG/0.4 ML SYR SQ SCH (21:38)
[2020-08-18] MEDS: TAMSULOSIN HCL 0.4 MG CAP PO SCH (21:38)
[2020-08-19] MEDS: methylPREDNISolone 40 MG in SYRINGE 0 ML IV SCH ×4 (00:02→20:48)
[2020-08-19 07:12] LABS: Hematocrit (blood only) 40.4 % (37-47); Hemoglobin 13.3 g/dL (12.0-16.0); Immature Granulocytes # (auto) 0.04 K/uL (0.00-0.02); Immature Granulocytes % (auto) 0.4 %; Lymphocytes # (auto) 1.56 K/uL (1.2-3.4); Lymphocytes % (auto) 14.4 %; Mean Corpuscular Hgb Conc 32.9 g/dL (32-36); Mean Corpuscular Volume 94.2 fL (80-100); Mean Platelet Volume 9.7 fL (7.4-10.4); Monocytes # (auto) 0.28 K/uL (0.11-0.59); Monocytes % (auto) 2.6 %; Neutrophils # (auto) 8.93 K/uL (1.4-6.5); Neutrophils % (auto) 82.6 %; Platelet Count 316 K/uL (130-400); RDW Coefficient of Variation 13.5 % (11.5-14.5); RDW Standard Deviation 46.6 fL (36.4-46.3); Red Blood Count 4.29 M/uL (4.2-5.4); White Blood Count 10.81 K/uL (4.8-10.8)
[2020-08-19 07:51] LABS: BUN Creatinine Ratio 26.4 (10-20); Calcium 9.1 mg/dl (8.5-10.1); Creatinine Clr Calc Pharmacy 48.7 ml/min; Est GFR (African American) 82.4; Est GFR (Non-African American) 71.1
[2020-08-19] MEDS: FLUTICASONE FUROATE 100MCG 14 PUFFS/INHALER INH SCH (08:07)
[2020-08-19] MEDS: OXYBUTYNIN CHLORIDE XL 5 MG TABCR PO SCH (08:07)
[2020-08-19] MEDS: UMECLIDINIUM/VILANTEROL 62.5/25MCG 7 PUFFS/INHALER INH SCH (08:07)
[2020-08-19] MEDS: FLUTICASONE PROPIONATE NA SPR 16 GM BTL NAE SCH (08:07)
[2020-08-19] MEDS ORDERED: AZITHROMYCIN 250 MG TAB PO SCH (09:00)
--- NOTE | 2020-08-19 12:58 | Pulmonary Consultation ---
Date of Consultation August 19, 2020 Assessment & Plan (1) COPD (chronic obstructive pulmonary disease): CT chest 08/18/2020 personally reviewed: Centrilobular and paraseptal emphysema appreciated bilaterally, no mediastinal lymphadenopathy. No clear lung infiltrate appreciated. --Acute on chronic hypercapnic hypoxic respiratory failure Likely secondary to COPD exacerbation Patient is supposed to be on Trelegy inhaler at home along with AVAPS machine She is also taking azithromycin 250 mg Tuesday Continue with inhaled bronchodilators nebulized, continue with Solu-Medrol Continue with Anoro while the patient is getting IV Solu-Medrol. On discharge would recommend Trelegy to be used Add Roflumilast on discharge Pulmonary rehab as an outpatient Treat 08/10/2018 showed FEV1 of 57% predicted. Representing severe COPD --Severe COPD with emphysema Plan as above Plan: Give azithromycin 500 mg daily for 5 days then go back to the home regimen up to 250mg Tuesday Continue with Solu-Medrol. I am going to decrease the dose to 40 mg every 12 Guaifenesin with flutter valve for chest congestion which is complaining of Patient's feeling of heaviness I do not think is related to her pulmonary symptoms Add Roflumilast prior to discharge Patient will benefit from pulmonary rehab as an outpatient. Please note the above document was generated using voice recognition software. It may contain grammatical, syntax or spelling errors.Any formal questions or concerns about the content, text or information contained within the body of this dictation should be directly addressed to the provider for clarification. COPD type: emphysema Emphysema type: unspecified Qualified Code(s): J43.9 - Emphysema, unspecified (2) Chronic respiratory failure with hypoxia and hypercapnia: History of Present Illness Attending Physician: Noam Lambert MD History of Present Illness 79-year-old female with past medical history of severe COPD on home O2 2 L at rest and 3 L on exertion, GERD, ischemic heart disease, chronic allergic rhinitis presented to the hospital with complaints of chest tightness and congestion which has been going on since last 2 weeks. Patient was given prednisone and doxycycline on 08/11/2019. She called her primary care that she is still not where she is supposed to be normally. And she was asked to go to ER. At the time of examination patient states that she has this feeling of chest tightness and unable to bring up phlegm. The phlegm is usually darling in color. Denies any hemoptysis. She was able to talk in full sentences. He was not gasping for air. She was not using any accessory muscles. Patient has been using Trelegy inhaler on a daily basis. She is also using azithromycin 250 MG Tuesday. Her chief complaint was heaviness that she wakes up with early in the morning. She has been using her BiPAP at night denies any dry eyes or dry mouth when she wakes up. Denies any significant leak. Since April 2020 she has had total of 3 exacerbations of COPD requiring prednisone. Social history: Quit smoking approximately 8 years ago I did review Dr. Marinelli's note from 05/02/2020. Allergies Allergy/AdvReac Type Severity Reaction Status Date / Time cat dander Allergy Intermediate NASAL Verified 08/08/20 11:06 CONGESTION dog dander Allergy Intermediate NASAL Verified 08/08/20 11:06 CONGESTION grass pollen-perennial rye, Allergy Intermediate NASAL Verified 08/08/20 11:06 standar CONGESTION house dust Allergy Intermediate NASAL Verified 08/08/20 11:06 CONGESTION mold Allergy Intermediate NASAL Verified 08/08/20 11:06 CONGESTION Penicillins Allergy Intermediate HIVES Verified 08/08/20 11:06 Milk Containing Products AdvReac Mild Gastrointestinal Unverified 08/18/20 14:08 Upset Home Medications Medication Instructions Recorded Confirmed Type azelastine 137 mcg (0.1 %) nasal 2 spray INTRANASAL BID #30 ml 01/19/19 08/18/20 Rx spray aerosol mometasone 50 mcg/actuation nasal 2 sprays INTNAS DAILY #17 gm 06/05/19 08/18/20 Rx spray miscellaneous medical supply #1 ea 08/13/19 08/08/20 Rx Shower Chair #1 ea 08/15/19 08/08/20 Rx azithromycin 250 mg tablet 250 mg PO MOWEFR #36 tab 01/17/20 08/18/20 Rx nebulizer accessories #1 ea 02/21/20 08/08/20 Rx fluticasone fur. 100 mcg-umeclid 1 inh INH DAILY 90 Days #60 ea 02/28/20 08/18/20 Rx 62.5 mcg-vilant 25 mcg inhalat.powder cholecalciferol (vitamin D3) 125 5,000 unit PO DAILY #90 tab 04/09/20 08/18/20 Rx mcg (5,000 unit) tablet loratadine-pseudoephedrine ER 10 1 tab PO DAILY PRN 07/01/20 08/18/20 History mg-240 mg tablet,extended [id number] oxybutynin chloride 15 mg 15 mg PO DAILY #90 tab 07/07/20 08/18/20 Rx tablet,extended release 24 hr albuterol sulfate 90 mcg/actuation 1 - 2 puff INHALATION Q4H PRN #18 07/24/20 08/18/20 Rx aerosol inhaler gm ipratropium 0.5 mg-albuterol 3 mg 3 ml INHALATION Q4 PRN #180 ml 08/15/20 08/18/20 Rx (2.5 mg base)/3 mL nebulization soln tamsulosin 0.4 mg capsule 0.4 mg PO HS #90 cap 08/18/20 08/18/20 Rx Patient History Medical History (Updated 08/18/20 @ 18:15 by ARI Fu) Anxiety Chronic ischemic heart disease Chronic nasal congestion Chronic respiratory failure with hypoxia and hypercapnia Constipation COPD (chronic obstructive pulmonary disease) GERD (gastroesophageal reflux disease) History of ankle fracture Hypercholesterolemia Non-allergic rhinitis Osteoporosis Sinus tachycardia Unspecified osteoarthritis, unspecified site Urge and stress incontinence Vitamin D deficiency Surgical History H/O: hysterectomy History of laparoscopic cholecystectomy History of rhinoplasty History of surgery excision of intra abdominal mass - 2010 History of tonsillectomy Hx of excision of mass excision of intra abdominal mass Family History Mother Breast cancer Sister Heart disease Pacemaker Other No family history of adverse response to anesthesia No family history of bleeding disorder Denies family history of Ovarian cancer Prostate cancer Colorectal cancer Social History Smoking Status: Former smoker Tobacco Type: Cigarettes Age Quit Using Tobacco: 73; packs per day: 1; Years Smoked: 50; Second Hand Exposure: No; Hx Alcohol Use: No Hx Substance Use: No Preferred Language: Japanese Communication Ability: Effective Visual Impairment: No Limitations 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 ) caffeine: Yes (coffee) during the past year weight has: remained stable Dental Care, Regularly: Yes Physical Activity Frequency: 3-4 Times per Week Seatbelt Use: always Sunscreen Use: No Assistive Devices: BiPap, Glasses and Oxygen - at Night Review of Systems Review of Systems: All systems reviewed & are unremarkable except as noted in HPI & below Physical Exam Physical Exam: Constitutional: No acute distress, frail-appearing HEENT: EOMI, PERRLA, no stridor Respiratory system: Decreased air entry bilaterally, no rhonchi, no crackles, patient does have upper airway wheezing but none audible posteriorly or anteriorly CVS: S1-S2 positive, no murmurs or gallops Abdomen: Soft, nontender, nondistended, positive bowel sounds x4 Extremities: +2 pulses bilaterally radialis/ dorsalis pedis, no cyanosis, no edema, no clubbing Neuro: Awake alert oriented x3 Psych: Normal mood and affect G/U: No Ferguson Skin: no rashes, warm and dry Lymphatic: no cervical or axillary lymphadenopathy Results & Data Results & Data ([facility]) Vital Signs (Past 12 Hours) Vital Signs Temp Pulse Resp BP Pulse Ox 08/19/20 07:37 36.6 C 100 H 16 108/68 94 08/19/20 06:36 08/19/20 06:36 PG Care Time/CCT Total # of Minutes Spent Total Time Spent with Patient: Total time spent is greater than 50% in coordination of care (as documented) at patient's floor/unit and/or counseling patient: Coding Level of Care Code 06686 Initial Inpt Care Lvl 3 Diagnoses COPD (chronic obstructive pulmonary disease) J43.9 COPD type: emphysema Emphysema type: unspecified Chronic respiratory failure with hypoxia and hypercapnia J96.11; J96.12
--- NOTE | 2020-08-19 16:02 | Hospitalist Progress Note ---
Date of Service August 19, 2020 Assessment & Plan (1) COPD (chronic obstructive pulmonary disease): Patient with increased dyspnea/wheezing, no sputum production, cough at baseline, increase oxygen delivery, & elevated WBC in the setting of steroid use. - CT scan and CXR negative for acute process. - Symptoms more consistent with seasonal allergic response. - With her increase in oxygen and symptoms will add on azithromycin daily for 5- 7 days. - Continue methlypred 40mg IV daily - Continue her home inhaler therapy and nebulizers - Overnight respiratory support with BIPAP - Consulted pulmonary -> Appreciate recs - Will add roflumilast prior to discharge. (2) Nasal septal deviation: History of rhinoplasty with no acute needs, continue with saline rinses as she needs. - With chronic nasal congestion - followed by ENT that feels this is functional in nature. - Supportive care (3) Chronic nasal congestion: As above. Patient follows Dr. Wiseman with triggers as temperature changes and pollen. - Saline rinse - Continue intranasal steroid and loratadine - Consider intranasal antihistamine trial as outpatient if not already trialed. (4) Rhinitis: As above (5) DVT prophylaxis: Lovenox 40 mg SQ daily Admission and Anticipated Discharge Date Admission Date: August 18, 2020 Subjective Very tearful today about her sinus congestion. She feels it is no better than a year go. Still with some shortness of breath. Reports no fevers/chills, chest pain, abdominal pain, nausea, or vomiting. Physical Exam Constitutional: WD/WN, vitals as above Eyes: EOM intact bilaterally; no conjunctival abnormality ENMT: external ear and nose normal, oropharynx normal Neck: trachea midline, no thyromegaly normal visual inspection Respiratory: no respiratory distress and no labored breathing Auscultation: + wheezes (Mild; mostly upper airway sounds.); no crackles and no rales Cardiovascular: RRR, no murmur, no edema Gastrointestinal (Abdomen): Inspection/Auscultation: abdomen normal to inspection; abdomen not distended Musculoskeletal: no cyanosis or clubbing, extremities motor strength 5/5 Skin: no rashes, warm and dry Neurologic: moves all extremities and awake Psychiatric: Orientation: alert, oriented to person and cooperative Affect: + tearful affect Results & Data Results & Data ([facility]) Vital Signs (Past 12 Hours) Vital Signs Temp Pulse Resp BP Pulse Ox 08/19/20 15:27 36.6 C 111 H 16 103/68 95 08/19/20 07:37 36.6 C 100 H 16 108/68 94 PG Care Time/CCT Total # of Minutes Spent Total Time Spent with Patient: Total time spent is greater than 50% in coordination of care (as documented) at patient's floor/unit and/or counseling patient: Coding Level of Care Code 68772 Subseq Hosp Care Lvl 3 Diagnoses COPD (chronic obstructive pulmonary disease) 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
[2020-08-19] MEDS: guaiFENesin 600 MG TABCR PO SCH (20:47)
[2020-08-19] MEDS: TAMSULOSIN HCL 0.4 MG CAP PO SCH (20:47)
[2020-08-19] MEDS: ENOXAPARIN INJ 40 MG/0.4 ML SYR SQ SCH (20:48)
[2020-08-19] MEDS: POLYETHYLENE (MIRALAX) 17 GM PACK PO PRN (20:58)
[2020-08-20 07:41] LABS: Hematocrit (blood only) 38.5 % (37-47); Hemoglobin 13.1 g/dL (12.0-16.0); Immature Granulocytes # (auto) 0.04 K/uL (0.00-0.02); Immature Granulocytes % (auto) 0.2 %; Lymphocytes # (auto) 1.86 K/uL (1.2-3.4); Lymphocytes % (auto) 11.6 %; Mean Corpuscular Hemoglobin 31.1 pg (25-34); Mean Corpuscular Volume 91.4 fL (80-100); Mean Platelet Volume 9.3 fL (7.4-10.4); Monocytes % (auto) 7.5 %; Neutrophils # (auto) 12.91 K/uL (1.4-6.5); Neutrophils % (auto) 80.7 %; Platelet Count 347 K/uL (130-400); RDW Coefficient of Variation 13.4 % (11.5-14.5); RDW Standard Deviation 44.7 fL (36.4-46.3); Red Blood Count 4.21 M/uL (4.2-5.4); White Blood Count 16.01 K/uL (4.8-10.8)
[2020-08-20] MEDS: guaiFENesin 600 MG TABCR PO SCH ×2 (08:10→20:18)
[2020-08-20] MEDS: OXYBUTYNIN CHLORIDE XL 5 MG TABCR PO SCH (08:11)
[2020-08-20] MEDS: methylPREDNISolone 40 MG in SYRINGE 0 ML IV SCH (08:12)
[2020-08-20] MEDS: FLUTICASONE PROPIONATE NA SPR 16 GM BTL NAE SCH (08:12)
[2020-08-20] MEDS: UMECLIDINIUM/VILANTEROL 62.5/25MCG 7 PUFFS/INHALER INH SCH (08:12)
[2020-08-20] MEDS: FLUTICASONE FUROATE 100MCG 14 PUFFS/INHALER INH SCH (08:12)
[2020-08-20 08:15] LABS: BUN Creatinine Ratio 33.3 (10-20); Calcium 9.4 mg/dl (8.5-10.1); Creatinine Clr Calc Pharmacy 49.3 ml/min; Est GFR (African American) 83.7; Est GFR (Non-African American) 72.2; Magnesium 2.2 mg/dl (1.8-2.4); Potassium 4.3 mmol/L (3.5-5.1)
[2020-08-20] MEDS: AZITHROMYCIN 500 MG in DEXTROSE 5% 250 ML IV SCH (09:34)
[2020-08-20] MEDS: POLYETHYLENE (MIRALAX) 17 GM PACK PO PRN (12:25)
--- NOTE | 2020-08-20 12:29 | Hospitalist Progress Note ---
Date of Service August 20, 2020 Assessment & Plan (1) COPD (chronic obstructive pulmonary disease): Patient with increased dyspnea/wheezing, no sputum production, cough at baseline, increase oxygen delivery, & elevated WBC in the setting of steroid use. - CT scan and CXR negative for acute process. - Symptoms more consistent with seasonal allergic response. - With her increase in oxygen and symptoms will add on azithromycin 500 mg IV daily for 5 days. - Continue methlypred 40mg IV Q12h - Continue her home inhaler therapy and nebulizers - Overnight respiratory support with BIPAP - Consulted pulmonary -> Appreciate recs - Will add roflumilast prior to discharge. - Will also add montelukast for her allergy symptoms (2) Nasal septal deviation: History of rhinoplasty with no acute needs, continue with saline rinses as she needs. - With chronic nasal congestion - followed by ENT that feels this is functional in nature. - Supportive care (3) Chronic nasal congestion: As above. Patient follows Dr. Wiseman with triggers as temperature changes and pollen. - Saline rinse - Continue intranasal steroid and loratadine - Consider intranasal antihistamine trial as outpatient if not already trialed. - Will stop tamsulosin as 15% of patients have nasal congestion as side effect of alpha-blockade (4) Rhinitis: As above (5) DVT prophylaxis: Lovenox 40 mg SQ daily Admission and Anticipated Discharge Date Admission Date: August 18, 2020 Subjective Feels no better than yesterday. Still feels she is wheezing on exhalation. Notes continued swelling sensation on her upper lip which comes and goes and sometimes involves the lower lip as well. Reports dry mouth. Reports no fevers/chills, chest pain, abdominal pain, nausea, or vomiting. Physical Exam Constitutional: WD/WN, vitals as above Eyes: EOM intact bilaterally; no conjunctival abnormality ENMT: external ear and nose normal, oropharynx normal Neck: trachea midline, no thyromegaly normal visual inspection Respiratory: no respiratory distress and no labored breathing Auscultation: + wheezes (Upper airway sounds.); no crackles and no rales Cardiovascular: RRR, no murmur, no edema Gastrointestinal (Abdomen): Inspection/Auscultation: abdomen normal to inspection; abdomen not distended Musculoskeletal: no cyanosis or clubbing, extremities motor strength 5/5 Skin: no rashes, warm and dry Neurologic: moves all extremities and awake Psychiatric: Orientation: alert, oriented to person and cooperative Affect: + tearful affect Results & Data Results & Data ([facility]) Vital Signs (Past 12 Hours) Vital Signs Temp Pulse Resp BP Pulse Ox 08/20/20 07:48 36.8 C 94 H 16 108/69 98 08/20/20 05:56 96 08/20/20 01:42 94 PG Care Time/CCT Total # of Minutes Spent Total Time Spent with Patient: Total time spent is greater than 50% in coordination of care (as documented) at patient's floor/unit and/or counseling patient: Coding Level of Care Code 05302 Subseq Hosp Care Lvl 3 Diagnoses COPD (chronic obstructive pulmonary disease) 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
--- NOTE | 2020-08-20 12:52 | Electrocardiogram Report ---
Test Reason : Blood Pressure : / mmHG Vent. Rate : 099 BPM Atrial Rate : 099 BPM P-R Int : 136 ms QRS Dur : 122 ms QT Int : 362 ms P-R-T Axes : 085 263 061 degrees QTc Int : 464 ms Poor data quality, interpretation may be adversely affected Normal sinus rhythm Right bundle branch block Abnormal ECG When compared with ECG of 18-AUG-2020 12:49, No significant change was found Confirmed by Cabrera Weaver ([id number]) on 08/20/2020 12:52:29 PM Referred By: REFERRED SELF Confirmed By:Christiano Weaver
[2020-08-20] MEDS: CETIRIZINE HCL 10 MG TABLET PO SCH (14:05)
--- NOTE | 2020-08-20 14:50 | Pulmonology Progress Note ---
Date of Service August 20, 2020 Assessment & Plan (1) COPD (chronic obstructive pulmonary disease): CT chest 08/18/2020 personally reviewed: Centrilobular and paraseptal emphysema appreciated bilaterally, no mediastinal lymphadenopathy. No clear lung infiltrate appreciated. --Acute on chronic hypercapnic hypoxic respiratory failure Likely secondary to COPD exacerbation Patient is supposed to be on Trelegy inhaler at home along with AVAPS machine She is also taking azithromycin 250 mg Tuesday Continue with inhaled bronchodilators nebulized, continue with Solu-Medrol Continue with Anoro while the patient is getting IV Solu-Medrol. On discharge would recommend Trelegy to be used Add Roflumilast on discharge Pulmonary rehab as an outpatient Treat 08/10/2018 showed FEV1 of 57% predicted. Representing severe COPD --Severe COPD with emphysema Plan as above Plan: Continue azithromycin 500 mg daily for 4 days then go back to the home regimen up to 250mg Tuesday Start tapering Solu-Medrol to prednisone tomorrow, 40 mg for 4 days followed by 20 mg for 5 days and then stop. Add Roflumilast prior to discharge Patient will benefit from pulmonary rehab as an outpatient. Please note the above document was generated using voice recognition software. It may contain grammatical, syntax or spelling errors.Any formal questions or concerns about the content, text or information contained within the body of this dictation should be directly addressed to the provider for clarification. COPD type: emphysema Emphysema type: unspecified Qualified Code(s): J43.9 - Emphysema, unspecified (2) Chronic respiratory failure with hypoxia and hypercapnia: Admission and Anticipated Discharge Date Admission Date: August 20, 2020 Subjective Patient seen and examined at bedside. No acute distress, no adverse events overnight. Patient has been using flutter valve. She is able to bring up phlegm now. Does complain of weight feeling that she is not able to take deep breath in. Yesterday she had the feeling that she is not able to breathe out. Denies any headache. No chest pain. No hemoptysis. No dysuria or diarrhea. Review of Systems Review of Systems: All systems reviewed & are unremarkable except as noted in Subjective Physical Exam Physical Exam: Constitutional: No acute distress, frail-appearing HEENT: EOMI, PERRLA, no stridor Respiratory system: Decreased air entry bilaterally, no rhonchi, no crackles, patient does have upper airway wheezing but none audible posteriorly or anteriorly CVS: S1-S2 positive, no murmurs or gallops Abdomen: Soft, nontender, nondistended, positive bowel sounds x4 Extremities: +2 pulses bilaterally radialis/ dorsalis pedis, no cyanosis, no edema, no clubbing Neuro: Awake alert oriented x3 Psych: Normal mood and affect G/U: No Ferguson Skin: no rashes, warm and dry Lymphatic: no cervical or axillary lymphadenopathy Results & Data Results & Data ([facility]) Vital Signs (Past 12 Hours) Vital Signs Temp Pulse Resp BP Pulse Ox 08/20/20 07:48 36.8 C 94 H 16 108/69 98 08/20/20 05:56 96 08/20/20 07:23 08/20/20 07:23 PG Care Time/CCT Total # of Minutes Spent Total Time Spent with Patient: Total time spent is greater than 50% in coordination of care (as documented) at patient's floor/unit and/or counseling patient: Coding Level of Care Code 13747 Subseq Hosp Care Lvl 3 Diagnoses COPD (chronic obstructive pulmonary disease) J43.9 COPD type: emphysema Emphysema type: unspecified Chronic respiratory failure with hypoxia and hypercapnia J96.11; J96.12
[2020-08-20] MEDS: ENOXAPARIN INJ 40 MG/0.4 ML SYR SQ SCH (20:18)
[2020-08-20] MEDS ORDERED: MONTELUKAST SODIUM 10 MG TABLET PO SCH (21:00)
[2020-08-21] MEDS: POLYETHYLENE (MIRALAX) 17 GM PACK PO PRN (07:47)
[2020-08-21 07:49] LABS: Basophils # (auto) 0.01 K/uL (0-0.2); Basophils % (auto) 0.1 %; Eosinophils # (auto) 0.06 K/uL (0-0.5); Eosinophils % (auto) 0.5 %; Hematocrit (blood only) 44.6 % (37-47); Immature Granulocytes # (auto) 0.05 K/uL (0.00-0.02); Immature Granulocytes % (auto) 0.4 %; Lymphocytes # (auto) 4.79 K/uL (1.2-3.4); Lymphocytes % (auto) 37.1 %; Mean Corpuscular Hemoglobin 31.3 pg (25-34); Mean Corpuscular Hgb Conc 33.6 g/dL (32-36); Mean Corpuscular Volume 92.9 fL (80-100); Mean Platelet Volume 9.7 fL (7.4-10.4); Monocytes % (auto) 11.6 %; Neutrophils # (auto) 6.49 K/uL (1.4-6.5); Neutrophils % (auto) 50.3 %; Platelet Count 380 K/uL (130-400); RDW Coefficient of Variation 13.4 % (11.5-14.5)
[2020-08-21 08:27] LABS: BUN Creatinine Ratio 25.2 (10-20); Calcium 9.5 mg/dl (8.5-10.1); Creatinine Clr Calc Pharmacy 41.5 ml/min; Est GFR (African American) 67.8; Est GFR (Non-African American) 58.5; Magnesium 2.3 mg/dl (1.8-2.4); Potassium 3.9 mmol/L (3.5-5.1)
[2020-08-21] MEDS: UMECLIDINIUM/VILANTEROL 62.5/25MCG 7 PUFFS/INHALER INH SCH (08:35)
[2020-08-21] MEDS: OXYBUTYNIN CHLORIDE XL 5 MG TABCR PO SCH (08:35)
[2020-08-21] MEDS: CETIRIZINE HCL 10 MG TABLET PO SCH (08:35)
[2020-08-21] MEDS: FLUTICASONE PROPIONATE NA SPR 16 GM BTL NAE SCH (08:35)
[2020-08-21] MEDS: FLUTICASONE FUROATE 100MCG 14 PUFFS/INHALER INH SCH (08:35)
[2020-08-21] MEDS: AZITHROMYCIN 500 MG in DEXTROSE 5% 250 ML IV SCH (08:36)
[2020-08-21] MEDS ORDERED: methylPREDNISolone 40 MG in SYRINGE 0 ML IV SCH (09:00)
[2020-08-21] MEDS: guaiFENesin 600 MG TABCR PO SCH (10:35)
--- NOTE | 2020-08-21 14:02 | Pulmonology Progress Note ---
Date of Service August 21, 2020 Assessment & Plan (1) COPD (chronic obstructive pulmonary disease): CT chest 08/18/2020 with centrilobular and paraseptal emphysema appreciated bilaterally, no mediastinal lymphadenopathy. No clear lung infiltrate appreciated. 1. Acute on chronic hypercapnic hypoxic respiratory failure: Likely secondary to COPD exacerbation Continue Trelegy inhaler at home along with AVAPS machine. Discussed importance of compliance with patient. Resume prophylactic azithromycin 250 mg Tuesday Discharge on 7-day prednisone taper Follow-up with Dr. Marinelli in the outpatient clinic Add Roflumilast on discharge Consider pulmonary rehab as an outpatient. 2. Severe COPD with emphysema: Continue as above Continue prophylactic azithromycin 250 mg Tuesday 7-day steroid taper and stop Follow-up with Dr. Marinelli in 3 weeks Continue with compliance discussed with patient prior to discharge 3. COVID-19 vaccination: Patient was scheduled for her second vaccination of [employer] for COVID-19 tomorrow at 8 AM. Canceled that appointment and rescheduled for 09/11/2020 Appointment card given to patient Discussed delay and second vaccination with Dr. Lambert prior to discharging. Case discussed with Dr. Napoles prior to discharge. Also discussed with Dr. Lambert of the hospitalist team. The pulmonary team will sign off at this time. Please feel free to reconsult as needed. Patient will be followed with Dr. Marinelli in the outpatient clinic in 3 weeks. Discussed this with the office staff. They will contact the patient with appointment time. COPD type: emphysema Emphysema type: unspecified Qualified Code(s): J43.9 - Emphysema, unspecified (2) Chronic respiratory failure with hypoxia and hypercapnia: Admission and Anticipated Discharge Date Admission Date: August 20, 2020 Supervising Physician Co-Signing Physician Notes I discussed the patient with Jesus alvarez, and agree with findings and plan as documented in the note. I personally discuss patient's case and plan of care going forward with Jesus. I did not personally see the patient today. Patient is to be discharged with tapering dose of steroids over 10 days. Continue with Trelegy inhaler, continue with AVAPS at night. Albuterol as needed Add Roflumilast. Follow-up with air breaker operator as an outpatient Please note the above document was generated using voice recognition software. It may contain grammatical, syntax or spelling errors.Any formal questions or concerns about the content, text or information contained within the body of this dictation should be directly addressed to the provider for clarification. Subjective Attending: Dr. Napoles Patient seen and examined at bedside. She feels as though she is back at baseline. She is still on steroids but not have any adverse effects. She denies any wheezes today. She does have some feelings of shortness of breath wi th increased activity. She does have an occasional cough with whitish/clear sputum production. She denies any fever or chills. She has no acute complaints. Review of Systems Review of Systems: All systems reviewed & are unremarkable except as noted in Subjective Physical Exam Physical Exam: GENERAL : No acute distress. Pleasant. Talkative EYES: No icterus, gaze conjugate NOSE: No evidence of epistaxis MOUTH: No lesions or candidiasis NECK: Supple LUNGS: CTA B/L, no wheezes, rales or rhonchi. Good inspirational effort. No induced cough. HEART: Regular, rate controlled ABDOMEN: Soft, NT, ND, BS Present EXTREMITIES: No LE edema, pedal pulses intact. NEURO: A&OX3 Results & Data Results & Data ([facility]) Vital Signs (Past 12 Hours) Vital Signs Temp Pulse Resp BP Pulse Ox 08/21/20 06:10 36.9 C 88 16 122/76 94 Laboratory Results 08/21/20 07:18 08/21/20 07:18 08/18/20 18:12 ABG pH 7.44 ABG pCO2 41 ABG pO2 86 ABG HCO3 28 H ABG O2 Saturation 96.9 H ABG Base Excess 3.3 H PG Care Time/CCT Total # of Minutes Spent Total Time Spent with Patient: Total time spent is greater than 50% in coordination of care (as documented) at patient's floor/unit and/or counseling patient: 40 minutes including arrangement of outpatient Covid vaccination as well as outpatient pulmonary visit. 3 visits to the patient with updates. Coding Level of Care Code 12066 Subseq Hosp Care Lvl 2 Diagnoses COPD (chronic obstructive pulmonary disease) J43.9 COPD type: emphysema Emphysema type: unspecified Chronic respiratory failure with hypoxia and hypercapnia J96.11; J96.12 Time Spent (min) 40
--- NOTE | 2020-08-21 14:52 | Discharge Summary ---
Date of Service August 21, 2020 Admission HPI Per Admitting Provider 79 YOF with significant history of emphysema, asthma, allergic rhinitis, COPD, ischemic heart disease, GERD, HLD, ostarthritis, home oxygen use, and nighttime Trilogy use with back up rate. The patient comes to the emergency room today for increased dyspnea and wheezing. The patient feels that since last week she has been unable to get her symptoms under control and since "awakening on Tuesday have felt more wheezy". The patient reports that her she is still able to get around her house and up and down her 13 steps without taking a rest but feels more out of breath doing so. She reports over the past 2 weeks going to urgent care and getting oral steroids and doxycycline and also just completing an oral prednisone taper from her relief mate that is to finish tomorrow. The patient is followed by multiple specialist with Pulmonology, ENT, for her COPD and rhinitis with nasal washings, inhalers, and antihistamines. She is not conversantly dyspneic and oxygenation in the ER is >95%, but reportedly de creased to 84% when ambulating, she has a very similar episode last year at this time. Patient will be brought into the hospital for observation to get her symptoms under control. Principal Diagnosis COPD exacerbation Rhinitis Discharge Exam Constitutional WD/WN, vitals as above Eyes EOM intact bilaterally; no conjunctival abnormality ENMT external ear and nose normal, oropharynx normal Neck trachea midline, no thyromegaly normal visual inspection Respiratory no respiratory distress and no labored breathing Auscultation: + wheezes (Upper airway sounds.); no crackles and no rales Cardiovascular RRR, no murmur, no edema Gastrointestinal (Abdomen) Inspection/Auscultation: abdomen normal to inspection; abdomen not distended Musculoskeletal no cyanosis or clubbing, extremities motor strength 5/5 Skin no rashes, warm and dry Neurologic moves all extremities and awake Psychiatric Orientation: alert, oriented to person and cooperative Affect: + tearful affect Discharge Data Allergies Allergy/AdvReac Type Severity Reaction Status Date / Time cat dander Allergy Intermediate NASAL Verified 08/08/20 11:06 CONGESTION dog dander Allergy Intermediate NASAL Verified 08/08/20 11:06 CONGESTION grass pollen-perennial rye, Allergy Intermediate NASAL Verified 08/08/20 11:06 standar CONGESTION house dust Allergy Intermediate NASAL Verified 08/08/20 11:06 CONGESTION mold Allergy Intermediate NASAL Verified 08/08/20 11:06 CONGESTION Penicillins Allergy Intermediate HIVES Verified 08/08/20 11:06 Milk Containing Products AdvReac Mild Gastrointestinal Unverified 08/18/20 14:08 Upset Consultations 08/18/20 16:58 ED Decision to Admit Stat 08/18/20 20:07 Consult Pulmonology Routine Ordered Studies 08/18/20 14:35 CT angio chest PE protocol Stat Hospital Course (1) COPD (chronic obstructive pulmonary disease): Patient with increased dyspnea/wheezing, no sputum production, cough at baseline, increase oxygen delivery, & elevated WBC in the setting of steroid use. - CT scan and CXR negative for acute process. - Symptoms more consistent with seasonal allergic response. - With her increase in oxygen and symptoms will add on azithromycin 500 mg IV daily for 5 days. - Continued methlypred 40mg IV Q12h while inpatient. - Continue her home inhaler therapy and nebulizers - Overnight respiratory support with BIPAP - Consulted pulmonary -> Appreciate recs - Will also add montelukast for her allergy symptoms - On discharge, she was near baseline per the patient. Given the majority of her symptoms stem (per her report) from nasal congestion, I did a few changes: 1) Started her on montelukast for rhinitis. 2) Switched loratadine to cetirizine for better allergy coverage 3) Stopped tamsulosin which can cause nasal congestion/rhinitis in ~15% of patients. She does have lots of urinary symptoms, but this seems more like urge incontinence. She will follow up with Dr. Marinelli in 3 weeks and see how this is all working for her. (2) Nasal septal deviation: History of rhinoplasty with no acute needs, continue with saline rinses as she needs. - With chronic nasal congestion - followed by ENT that feels this is functional in nature. - Supportive care -> As above. Encouraged continued saline rinses of her nose. (3) Chronic nasal congestion: As above. Patient follows Dr. Wiseman with triggers as temperature changes and pollen. - Saline rinses - Continue intranasal steroid - Will stop tamsulosin as 15% of patients have nasal congestion as side effect of alpha-blockade (4) Rhinitis: As above (5) DVT prophylaxis: Lovenox 40 mg SQ daily Total Time Total Time Spent Total Time Spent (In Minutes): 35 Discharge Plan Discharge Items Patient Disposition: Home - Home Health Services Reason For Visit: COPD EXACERBATION Discharge Diagnosis: COPD exacerbation Activity: Resume your previous activity Non-emergency contact: Primary Care Provider and Aircraft Seat Upholsterer Call non-emergency contact if: your symptoms worsen Follow-up/Referrals: Camila Beth DO [Primary Care Provider] - 09/01/20 9:20 am Agustin Marinelli MD [Physician] - 09/04/20 11:15 am (See Pulmonogolist in 2 weeks) Diet: Regular Addtl Attending Provider Instructions: Ms. White, You were admitted to the hospital for a COPD exacerbation. We have tried to adjust your medication regimen to improve your breathing as best as possible. Please take the steroids for 3 more days, then you are finished with the course. To help with your nasal congestion, we have done a few things: 1) Added Zyrtec which is a bit better than the usual Claritin you were using. 2) Added Singulair which can help with breathing and also with allergies. 3) Stopped tamsulosin (Flomax) as a side effect of this can be nasal congestion. I hope that you are able to get more relief for your nasal congestion and allergy issues. Please follow up with your schedule maker and pulmonary doctor in the next few weeks. Pending Studies at Discharge: No Stand-Alone Forms: My [facility] [place], Smoking Cessation Medications and DC Order Prescriptions: New cetirizine 10 mg Tablet 10 mg PO QAM Qty: 30 RF: 0 montelukast [Singulair] 10 mg Tablet 10 mg PO HS Qty: 30 RF: 0 prednisone 20 mg tablet 40 mg PO DAILY Qty: 8 RF: 0 Continued mometasone [Nasonex] 50 mcg/actuation spray,non-aerosol 2 sprays INTNAS DAILY Qty: 17 RF: 5 azithromycin 250 mg tablet 250 mg PO MOWEFR Qty: 36 RF: 3 (DME) nebulizer accessories Misc See Rx Instructions .ROUTE .MEDSUPPLY Qty: 1 RF: 0 cholecalciferol (vitamin D3) [Vitamin D3] 125 mcg (5,000 unit) tablet 5,000 unit PO DAILY Qty: 90 RF: 1 oxybutynin chloride 15 mg tablet extended release 24 hr 15 mg PO DAILY Qty: 90 RF: 1 albuterol sulfate 90 mcg/actuation HFA aerosol inhaler 1 - 2 puff inhalation Q4H PRN (Reason: shortness of breath) Qty: 18 RF: 5 ipratropium-albuterol 0.5 mg-3 mg(2.5 mg base)/3 mL solution for nebulization 3 ml inhalation Q4 PRN (Reason: Shortness Of Breath Or Wheezing) Qty: 180 RF: 1 (DME) CPAP Supplies Misc See Rx Instructions .ROUTE .MEDSUPPLY Qty: 1 RF: 0 (DME) Shower Chair Misc See Rx Instructions .ROUTE .MEDSUPPLY Qty: 1 RF: 0 azelastine 137 mcg (0.1 %) aerosol,spray 2 spray intranasal BID Qty: 30 RF: 5 Trelegy Ellipta 100-62.5-25 mcg blister with device 1 inh INH DAILY 90 Days Qty: 60 RF: 3 Discontinued tamsulosin 0.4 mg capsule 0.4 mg PO HS Qty: 90 RF: 1 loratadine-pseudoephedrine [Claritin-D 24 Hour] 10-240 mg tablet extended release 24 hr 1 tab PO DAILY PRN (Reason: Allergy Symptoms) RF: 0 Discharge Orders: Discharge Order (Routine); Ordered 08/21/20 Ordered By: Noam Torres/Other Patient Handouts: COPD: Coping with Mucus, COPD: Wheezing and Chest Tightness Admission Data Admit Date/Time: 08/20/20 12:29 Attending Provider: Noam Lambert Admit Provider: Edison Hickman Primary Care Provider: Camila Beth Other Providers: Bennett Napoles ; Noam Lambert Other Interventions: Discharge Summary Assessment (RN) Last Done: 08/21/20 11:16 Coding Level of Care Code D/C Day Management >30 mins Diagnoses COPD (chronic obstructive pulmonary disease) 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
== END 2020-08-21 13:02 | disposition home or self-care (01) | DRG 189 ==
LOC: 3N 12:16 → ED 12:16 → SUATTDRO 18:13 → 3N 19:20

== ENCOUNTER 2021-12-09 17:28 | Inpatient (IN) ==
--- NOTE | 2021-12-09 17:36 | ED Triage Note ---
Date of Service December 09, 2021 History of Present Illness This patient was briefly evaluated while in triage. An abbreviated physical exam was performed. This patient is a 81-year-old Female with past medical history of COPD who presents to the ED for evaluation of shortness of breath. Normally on 2L NC but now on 5L NC. Respiratory therapist eval today and increased o2. No chest pain. Cough noted. Physical Exam GENERAL: 81 year old female. In no acute distress. Nasal canula o2 in place, on 2L normally but on 5L now. SKIN: No lesions or rashes. HEART: Regular rate and rhythm. LUNGS: Mild decreased breath sounds. Otherwise CTA. NEURO: Alert and oriented. No deficits. MUSCULOSKELETAL: No deformities to inspection of the extremities. PSYCH: Patient is pleasant and answers all questions appropriately. Initial orders for labs and / or imaging were placed and patient was placed in the waiting area until a bed is available. Please see further documentation for the full ED course.
[2021-12-09 18:09] LABS: Basophils # (auto) 0.06 K/uL (0-0.2); Basophils % (auto) 0.8 %; Eosinophils # (auto) 0.07 K/uL (0-0.50); Eosinophils % (auto) 0.9 %; Hematocrit (blood only) 41.7 % (34.1-44.9); Hemoglobin 13.4 g/dl (12.0-16.0); Immature Granulocytes # (auto) 0.02 K/uL (0.00-0.02); Immature Granulocytes % (auto) 0.3 %; Lymphocytes # (auto) 2.01 K/uL (1.2-3.4); Mean Corpuscular Hemoglobin 29.5 pg (25.0-34.0); Mean Corpuscular Hgb Conc 32.1 g/dL (32.0-36.0); Mean Corpuscular Volume 91.9 fL (80.0-100.0); Mean Platelet Volume 9.9 fL (9.4-12.3); Monocytes # (auto) 0.82 K/uL (0.24-0.82); Monocytes % (auto) 10.6 %; Neutrophils # (auto) 4.74 K/uL (1.4-6.5); Neutrophils % (auto) 61.4 %; Platelet Count 265 K/uL (130-400); RDW Standard Deviation 47.3 fL (36.4-46.3); Red Blood Count 4.54 M/uL (3.93-5.22); White Blood Count 7.72 K/ul (4.8-10.8)
[2021-12-09 18:18] LABS: Partial Thromboplastin Ratio 0.9; Partial Thromboplastin Time 25.3 Seconds (21.0-31.0); Prothrombin Time 10.9 Seconds (9.0-12.0)
--- NOTE | 2021-12-09 18:43 | XRay Report ---
XR chest 1V portable HISTORY: Dyspnea COMPARISON: Chest 08/18/2020. FINDINGS: The lungs are hyperexpanded with apical predominant emphysematous changes. No pneumothorax. No pleural effusions. Mild chronic interstitial thickening again noted at the lung bases. The heart is normal in size. Mild S-shaped scoliosis of the thoracolumbar spine. Old, healed left-sided rib fra ctures. No new focal lung consolidations to suggest pneumonia. No evidence for pulmonary edema. IMPRESSION: No significant change compared to the prior study. No acute process. Emphysema again noted. ACT 112: Negative or not required by law. Electronically signed by: Marcel Mcqueen M.D. 12/09/2021 6:40 PM
[2021-12-09 18:44] LABS: Troponin I High Sensitivity 5.3 pg/ml (0-14)
[2021-12-09 18:48] LABS: Albumin Globulin Ratio 1.5 (0.9-2); Albumin Level 4.2 gm/dl (3.4-5.0); BUN Creatinine Ratio 20.5 (10-20); Bilirubin,Total 0.7 mg/dl (0.2-1.0); Calcium 9.7 mg/dl (8.5-10.1); Creatinine Clr Calc Pharmacy 51.7 ml/min; Est GFR (African American) 90.8 ml/min; Est GFR (Non-African American) 78.3 ml/min; Globulin 2.8 gm/dl (2.5-4.0); Magnesium 1.7 mg/dl (1.7-2.4); Potassium 4.2 mmol/L (3.5-5.1)
[2021-12-09] MEDS ORDERED: ALBUTEROL 0.083% NEBU SOLN 3 ML VIAL NEB STA (19:23)
--- NOTE | 2021-12-09 19:35 | Emergency Department Note ---
Impression & Plan Hypoxia, Breath shortness ED Provider Note NAME: AMY DIALLO AGE: 81 SEX: F : 1940 ARRIVES VIA: Walk-In INFORMANT: Patient ED PROVIDER(S): Nima Willis DO CHIEF COMPLAINT: Shortness of breath HPI: Patient is a 81-year-old female who presents to the ER with past medical history of sleep apnea, diabetes, GERD, COPD, chronic ischemic heart disease and osteoporosis for shortness of breath. She notes dyspnea getting worse for the past 2 weeks. No new cough or productive sputum. She denies any headache or change in vision. No chest pain. No belly pain, nausea, vomiting, or diarrhea. No dysuria, urgency, or frequency. No other exacerbating or remitting factors. She notes this normally happens once a year generally about a month or 2 prior to November and it feels very similar to her COPD exacerbations. She normally wears oxygen at night with her CPAP. She normally does not have to wear oxygen with the exception at night with her noninvasive she wears 2 L. ROS: See above HPI for pertinent positives & negatives. A total of 10 systems reviewed and were otherwise negative. PAST MEDICAL HISTORY:See Below PAST SURGICAL HISTORY:See Below FAMILY HISTORY:See Below SOCIAL HISTORY:See Below HOME MEDICATIONS:See Below ALLERGIES:See Below VITALS:See Below PHYSICAL EXAMINATION: GENERAL: Sitting up in bed, alert, cachectic, slightly ill-appearing, on 4 L nasal cannula EYE EXAM: normal conjunctiva. OROPHARYNX: no exudate, no erythema, lips, buccal mucosa, and tongue normal and mucous membranes are moist NECK: supple, no nuchal rigidity, no adenopathy, non-tender LUNGS: Mild wheezing bilaterally. Normal ch with poor air movementest wall mec hanics HEART: no murmurs, S1 normal and S2 normal ABDOMEN: abdomen soft, non-tender, normo-active bowel sounds, no masses, no rebound or guarding. UPPER EXTREMITIES: upper extremities are grossly normal. LOWER EXTREMITIES: No pitting edema. NEURO EXAM: Normal sensorium, cranial nerves II-XII grossly intact, normal speech, no gross weakness of arms, no gross weakness of legs. MEDICAL DECISION MAKING: Patient is a 81-year-old female who presents ER for above-stated complaint. IV was established blood work was obtained. Labs show no significant leukocytosis or anemia. D-dimer was slightly elevated at 530 age-adjusted is negative. BMP along with LFTs TSH and troponin were negative. COVID was negative. Chest x- ray was unremarkable. She was given neb treatments in combination with steroids. She denies any fevers. Do favor that this is primarily respiratory in her COPD with her poor air movement and wheezing on exam. She remained on nasal cannula throughout her stay in the ER. With it off for several minutes she dropped to 80. She was discussed with the hospitalist and admitted for further work-up. Triage Nursing notes reviewed. Limited review of prior medical records performed Vital Signs: reviewed and remarkable for tachy Differential diagnosis: Differential diagnoses includes but is not limited to pneumonia, bronchitis, COPD/Asthma exacerbation, pneumothorax, pulmonary embolism, congestive heart failure, acute coronary syndrome ER treatment provided: See below Diagnostics interpreted by me: ECG: Sinus tachycardia rate of 106 Left axis Right bundle branch block T wave inversions in septal leads QTC 478 No significant change from previous Cardiac Monitoring: An order was placed for continuous cardiac monitoring. The monitor shows a rate of 105 with sinus rhythm. Laboratory studies: As stated above and show below. Imaging studies: Portable AP upright 1 view chest unremarkable Consultation(s): Discussed with hospitalist for further evaluation Procedures: none Critical Care: I have personally spent 32 minutes of critical care time in the direct management of this patient. This includes bedside care, interpretation of diagnostic studies, and testing, discussion with consultants, patient, and family members, and other required patient management activities. This 32 minutes is in excess of all separately billable procedures. Past Med/Surg History Medical History Anxiety Chronic ischemic heart disease Chronic nasal congestion COPD (chronic obstructive pulmonary disease) GERD (gastroesophageal reflux disease) History of ankle fracture Hypercholesterolemia On home oxygen therapy Osteoporosis Prediabetes Sinus tachycardia Sleep apnea Urge and stress incontinence Vitamin D deficiency Surgical History History of colonoscopy History of laparoscopic cholecystectomy History of rhinoplasty History of right cataract surgery History of tonsillectomy Hx of excision of mass S/P HANNA (total abdominal hysterectomy) Family History Mother Breast cancer Sister Heart disease Pacemaker Other No family history of adverse response to anesthesia No family history of bleeding disorder Denies family history of Ovarian cancer Prostate cancer Colorectal cancer Social History Smoking Status: Unknown if ever smoked Tobacco Type: Cigarettes Age Quit Using Tobacco: 73; packs per day: 1; Years Smoked: 52; Second Hand Exposure: No; Hx Alcohol Use: No Hx Substance Use: No Preferred Language: Czech Communication Ability: Effective Visual Impairment: No Limitations Hearing Ability: Normal Booking Officer Required: No Beliefs That Will Affect Care: None marital status: / Current Living Situation: Alone current occupational status: retired Feels Safe at Home: Yes Childhood Exposure to Second-Hand Smoke: Yes (Father smoked, pt doesn't know if father smoked in the house or not. ) Diet Comment: regular caffeine: Yes (coffee) during the past year weight has: remained stable Dental Care, Regularly: Yes Physical Activity Frequency: 3-4 Times per Week Seatbelt Use: always Sunscreen Use: No Assistive Devices: Oxygen - Continuous Allergies Allergies Allergy/AdvReac Type Severity Reaction Status Date / Time Penicillins Allergy Intermediate HIVES Verified 12/09/21 22:12 Milk Containing Products AdvReac Mild Gastrointestinal Verified 12/09/21 22:12 Upset Home Meds Home Medications Medication Instructions Recorded Confirmed denosumab 60 mg/mL subcutaneous 60 mg subcut .every 6mos 11/23/21 12/09/21 syringe (Prolia) azithromycin 250 mg tablet 250 mg PO 3XWK COPD maintenance 12/09/21 12/09/21 Previous Rx's Medication Instructions Recorded CPAP Supplies #1 ea 08/13/19 nebulizer accessories #1 ea 02/21/20 fluticasone fur. 100 mcg-umeclid 1 inh inhalation QAM #60 ea 04/29/21 62.5 mcg-vilant 25 mcg inhalat.powder (Trelegy Ellipta) oxybutynin chloride 15 mg 15 mg PO QAM #90 tabs 06/12/21 tablet,extended release 24 hr CPAP Machine #1 ea 06/17/21 sertraline 25 mg tablet 25 mg PO QAM #90 tabs 08/10/21 albuterol sulfate 90 mcg/actuation 1 - 2 puff inhalation Q4H PRN 09/15/21 aerosol inhaler shortness of breath #18 grams cholecalciferol (vitamin D3) 125 5,000 unit PO QAM #90 tabs 09/15/21 mcg (5,000 unit) tablet (Vitamin D3) cetirizine 10 mg tablet 10 mg PO QAM #90 tabs 10/29/21 montelukast 10 mg tablet 10 mg PO HS #90 tabs 10/29/21 (Singulair) ipratropium 0.5 mg-albuterol 3 mg 3 ml inhalation Q4 PRN Shortness 12/09/21 (2.5 mg base)/3 mL nebulization Of Breath Or Wheezing #180 mL soln Results & Data (ED) Vital Signs Vital Signs - 24 hr 12/09/21 17:34 12/09/21 19:29 12/09/21 19:29 Temperature 36.9 C Temperature Source Temporal Artery Scan Pulse Rate 113 H Pulse Rate [Apical] 100 H Pulse Rhythm [Apical] Regular Respiratory Rate 22 24 Respiratory Effort / Characteristics Non-Labored Spontaneous Respiratory Depth Normal Respiratory Pattern Regular Blood Pressure 118/67 Blood Pressure [Right Arm] 113/67 Blood Pressure Mean 84 Blood Pressure Mean [Right Arm] 82 Pulse Oximetry 96 88 L 88 L Oxygen Delivery Method Nasal Cannula Room Air Oxygen Flow Rate 5 Sepsis Recent Fever Within 48 Hours No Sepsis New/Unexplained Change in Mental Status N/A Sepsis Action Taken by Nursing No Action Required 12/09/21 19:29 12/09/21 19:37 12/09/21 21:00 Temperature Temperature Source Pulse Rate 99 H Pulse Rate [Apical] 98 H Pulse Rhythm [Apical] Respiratory Rate 18 Respiratory Effort / Characteristics Labored Respiratory Depth Normal Respiratory Pattern Blood Pressure Blood Pressure [Right Arm] 120/67 Blood Pressure Mean Blood Pressure Mean [Right Arm] 84 Pulse Oximetry 88 L 88 L 95 Oxygen Delivery Method Room Air Room Air Nasal Cannula Oxygen Flow Rate 2 Sepsis Recent Fever Within 48 Hours Sepsis New/Unexplained Change in Mental Status Sepsis Action Taken by Nursing Laboratory Data Result diagrams: 12/09/21 17:48 12/09/21 17:48 Lab Results 12/09/21 12/09/21 12/09/21 Range/Units 17:43 17:48 17:48 WBC 7.72 (4.8-10.8) K/ul RBC 4.54 (3.93-5.22) M/uL Hgb 13.4 (12.0-16.0) g/dl Hct 41.7 (34.1-44.9) % MCV 91.9 (80.0-100.0) fL MCH 29.5 (25.0-34.0) pg MCHC 32.1 (32.0-36.0) g/dL RDW Std Deviation 47.3 H (36.4-46.3) fL RDW Coeff of Geri 14.0 (11.5-14.5) % Plt Count 265 (130-400) K/uL MPV 9.9 (9.4-12.3) fL Immature Gran % (Auto) 0.3 % Neut % (Auto) 61.4 % Lymph % (Auto) 26.0 % [place] % (Auto) 10.6 % Eos % (Auto) 0.9 % Baso % (Auto) 0.8 % Neut # (Auto) 4.74 (1.4-6.5) K/uL Lymph # (Auto) 2.01 (1.2-3.4) K/uL [place] # (Auto) 0.82 (0.24-0.82) K/uL Eos # (Auto) 0.07 (0-0.50) K/uL Baso # (Auto) 0.06 (0-0.2) K/uL Immature Gran # (Auto) 0.02 (0.00-0.02) K/uL PT 10.9 (9.0-12.0) Seconds INR 1.0 (0.9-1.1) APTT 25.3 (21.0-31.0) Seconds PTT Ratio 0.9 D-Dimer 530 H* (0-500) ug/L FEU Sodium (136-145) mmol/L Potassium (3.5-5.1) mmol/L Chloride (98-107) mmol/L Carbon Dioxide (21-32) mmol/L Anion Gap (3-11) BUN (6-23) mg/dl Creatinine (0.6-1.2) mg/dl Est Cr Clr Drug Dosing ml/min Est GFR ( Amer) ml/min Est GFR (Non-Af Amer) ml/min BUN/Creatinine Ratio (10-20) Glucose (70-99(Fasting)) mg/dl Calcium (8.5-10.1) mg/dl Magnesium (1.7-2.4) mg/dl Total Bilirubin (0.2-1.0) mg/dl AST (13-39) U/L ALT (7-52) U/L Alkaline Phosphatase (34-104) U/L Troponin I High Sens (0-14) pg/ml Total Protein (6.0-8.3) gm/dl Albumin (3.4-5.0) gm/dl Globulin (2.5-4.0) gm/dl Albumin/Globulin Ratio (0.9-2) TSH (0.300-4.500) uIu/ml SARS-CoV-2 (PCR) (Negative) 12/09/21 12/09/21 12/09/21 Range/Units 17:48 17:48 17:48 WBC (4.8-10.8) K/ul RBC (3.93-5.22) M/uL Hgb (12.0-16.0) g/dl Hct (34.1-44.9) % MCV (80.0-100.0) fL MCH (25.0-34.0) pg MCHC (32.0-36.0) g/dL RDW Std Deviation (36.4-46.3) fL RDW Coeff of Geri (11.5-14.5) % Plt Count (130-400) K/uL MPV (9.4-12.3) fL Immature Gran % (Auto) % Neut % (Auto) % Lymph % (Auto) % [place] % (Auto) % Eos % (Auto) % Baso % (Auto) % Neut # (Auto) (1.4-6.5) K/uL Lymph # (Auto) (1.2-3.4) K/uL [place] # (Auto) (0.24-0.82) K/uL Eos # (Auto) (0-0.50) K/uL Baso # (Auto) (0-0.2) K/uL Immature Gran # (Auto) (0.00-0.02) K/uL PT (9.0-12.0) Seconds INR (0.9-1.1) APTT (21.0-31.0) Seconds PTT Ratio D-Dimer (0-500) ug/L FEU Sodium 141 (136-145) mmol/L Potassium 4.2 (3.5-5.1) mmol/L Chloride 105 (98-107) mmol/L Carbon Dioxide 31 (21-32) mmol/L Anion Gap 5 (3-11) BUN 15 (6-23) mg/dl Creatinine 0.73 (0.6-1.2) mg/dl Est Cr Clr Drug Dosing 51.7 ml/min Est GFR ( Amer) 90.8 ml/min Est GFR (Non-Af Amer) 78.3 ml/min BUN/Creatinine Ratio 20.5 H (10-20) Glucose 88 (70-99(Fasting)) mg/dl Calcium 9.7 (8.5-10.1) mg/dl Magnesium 1.7 (1.7-2.4) mg/dl Total Bilirubin 0.7 (0.2-1.0) mg/dl AST 35 (13-39) U/L ALT 17 (7-52) U/L Alkaline Phosphatase 68 (34-104) U/L Troponin I High Sens 5.3 (0-14) pg/ml Total Protein 7.0 (6.0-8.3) gm/dl Albumin 4.2 (3.4-5.0) gm/dl Globulin 2.8 (2.5-4.0) gm/dl Albumin/Globulin Ratio 1.5 (0.9-2) TSH 1.402 (0.300-4.500) uIu/ml SARS-CoV-2 (PCR) NEGATIVE (Negative) Administered Medications Discontinued Medications Albuterol (Albuterol 0.083% Nebu Soln 3 Ml Vial) 5 mg NEB NOW STA; Protocol Stop: 12/09/21 19:24 Last Admin: 12/09/21 20:27 Dose: 5 mg Documented By: YANG Methylprednisolone (Methylprednisolone 40 Mg/Ml Vial) 40 mg IV NOW STA Stop: 12/09/21 19:25 Last Admin: 12/09/21 20:27 Dose: 40 mg Documented By: YANG Imaging Data Radiologist's Impression: Chest X-Ray 12/09/21 17:37 XR chest 1V portable HISTORY: Dyspnea COMPARISON: Chest 08/18/2020. FINDINGS: The lungs are hyperexpanded with apical predominant emphysematous changes. No pneumothorax. No pleural effusions. Mild chronic interstitial thickening again noted at the lung bases. The heart is normal in size. Mild S- shaped scoliosis of the thoracolumbar spine. Old, healed left-sided rib fractures. No new focal lung consolidations to suggest pneumonia. No evidence for pulmonary edema. IMPRESSION: No significant change compared to the prior study. No acute process. Emphysema again noted. ACT 112: Negative or not required by law. Electronically signed by: Marcel Mcqueen M.D. 12/09/2021 6:40 PM Discharge Plan Visit Data Chief Complaint: Shortness of Breath/Dyspnea Stated Complaint: SOB, COPD ED Provider: Nima Willis Discharge Problem: Hypoxia, Breath shortness Forms Stand Alone Forms: [facility] [employer] Prescriptions Prescriptions: No Action (DME) nebulizer accessories Misc See Rx Instructions .ROUTE .MEDSUPPLY Qty: 1 0RF Rx Instructions: Filters for nebulizer Trelegy Ellipta 100-62.5-25 mcg blister with device 1 inh INH QAM Qty: 60 5RF oxybutynin chloride 15 mg tablet extended release 24 hr 15 mg PO QAM Qty: 90 1RF sertraline 25 mg tablet 25 mg PO QAM Qty: 90 1RF albuterol sulfate 90 mcg/actuation HFA aerosol inhaler 1 - 2 puff inhalation Q4H PRN (Reason: shortness of breath) Qty: 18 5RF cholecalciferol (vitamin D3) [Vitamin D3] 125 mcg (5,000 unit) tablet 5,000 unit PO QAM Qty: 90 1RF cetirizine 10 mg tablet 10 mg PO QAM Qty: 90 1RF montelukast [Singulair] 10 mg tablet 10 mg PO HS Qty: 90 1RF ipratropium-albuterol 0.5 mg-3 mg(2.5 mg base)/3 mL solution for nebulization 3 ml inhalation Q4 PRN (Reason: Shortness Of Breath Or Wheezing) Qty: 180 1RF Rx Instructions: 1 VIAL VIA NEB EVERY FOUR HOURS NEEDED FOR WHEEZING. DX. J44.9; J96.11 (DME) CPAP Supplies Misc See Rx Instructions .ROUTE .MEDSUPPLY Qty: 1 0RF Rx Instructions: NIV mask fit and teaching regarding use and oxygen; DME=JOB SERVICE SPECIALIST Prolia 60 mg/mL syringe 60 mg subcut .every 6mos (DME) CPAP Machine Misc See Rx Instructions .MEDSUPPLY Qty: 1 0RF Rx Instructions: Please provide a humidifier for her CPAP. Lifetime need. azithromycin 250 mg tablet 250 mg PO 3XWK Rx Instructions: Take 1 tablet orally every Tuesday, Tuesday, and Tuesday Referrals Referrals: Camila Beth DO [Primary Care Provider] -
[2021-12-09 19:54] LABS: D Dimer 530 ug/L FEU (0-500)
--- NOTE | 2021-12-09 21:33 | History & Physical Report ---
Date of Service December 09, 2021 Assessment & Plan (1) COPD exacerbation: Plan: Solu-Medrol 40mg IV BID DuoNebs every 4 hourly + every 2 hourly as needed Guaifenesin 600 mg p.o. twice daily Switch her chronic azithromycin to doxycycline 100 mg p.o. twice daily for 7 days Continue Trelegy Ellipta or hospital formulary equivalent Recommend following up with pulmonology to discuss rescue pack for when she gets sick in the future to avoid hospitalization Incentive spirometer, flutter valve Sputum culture (2) COPD (chronic obstructive pulmonary disease): (3) Hypoxia: Plan: Aim O2 sats 88 - 92% BiPAP HS (4) Sleep apnea: Plan: BiPAP at bedtime (5) Urge and stress incontinence: Plan: Continue oxybutynin 15 mg p.o. daily (6) GERD (gastroesophageal reflux disease): Plan: Given steroid use and history of GERD, starts pantoprazole 40 mg p.o. daily (7) Anxiety: Plan: Continue sertraline 25 mg p.o. every morning Plan VTE prophylaxis - Lovenox 40 mg subcu daily Diet - regular Disposition - admit to [facility] Admission and Anticipated Discharge Date Admission Date: December 09, 2021 History of Present Illness Chief Complaint: Shortness of breath Primary Care Provider: DO Judie Marsh is a 81 year old female with COPD who presents to the ER with shortness of breath. She reports getting progressively getting worse for the last 3 weeks. Associated mild productive cough and tightness in chest. Despite having known COPD she did not call her plate gauger and is yet to take any steroids during this course of illness. In the ER she was hypoxic on room air with O2 sats 84%. She was therefore referred to medicine for admission and ongoing management of COPD exacerbation and hypoxia. Allergies Allergy/AdvReac Type Severity Reaction Status Date / Time Penicillins Allergy Intermediate HIVES Verified 12/09/21 22:12 Milk Containing Products AdvReac Mild Gastrointestinal Verified 12/09/21 22:12 Upset Home Medications Medication Instructions Recorded Confirmed Type CPAP Supplies #1 ea 08/13/19 11/23/21 Rx nebulizer accessories #1 ea 02/21/20 11/23/21 Rx fluticasone fur. 100 mcg-umeclid 1 inh inhalation QAM #60 ea 04/29/21 12/09/21 Rx 62.5 mcg-vilant 25 mcg inhalat.powder (Trelegy Ellipta) oxybutynin chloride 15 mg 15 mg PO QAM #90 tabs 06/12/21 12/09/21 Rx tablet,extended release 24 hr CPAP Machine #1 ea 06/17/21 11/23/21 Rx sertraline 25 mg tablet 25 mg PO QAM #90 tabs 08/10/21 12/09/21 Rx albuterol sulfate 90 mcg/actuation 1 - 2 puff inhalation Q4H PRN 09/15/21 12/09/21 Rx aerosol inhaler shortness of breath #18 grams cholecalciferol (vitamin D3) 125 5,000 unit PO QAM #90 tabs 09/15/21 12/09/21 Rx mcg (5,000 unit) tablet (Vitamin D3) cetirizine 10 mg tablet 10 mg PO QAM #90 tabs 10/29/21 12/09/21 Rx montelukast 10 mg tablet 10 mg PO HS #90 tabs 10/29/21 12/09/21 Rx (Singulair) denosumab 60 mg/mL subcutaneous 60 mg subcut .every 6mos 11/23/21 12/09/21 History syringe (Prolia) azithromycin 250 mg tablet 250 mg PO 3XWK COPD maintenance 12/09/21 12/09/21 History ipratropium 0.5 mg-albuterol 3 mg 3 ml inhalation Q4 PRN Shortness 12/09/21 12/09/21 Rx (2.5 mg base)/3 mL nebulization Of Breath Or Wheezing #180 mL soln Past Med/Surg History Medical History Anxiety Chronic ischemic heart disease Chronic nasal congestion COPD (chronic obstructive pulmonary disease) GERD (gastroesophageal reflux disease) History of ankle fracture Hypercholesterolemia On home oxygen therapy Osteoporosis Prediabetes Sinus tachycardia Sleep apnea Urge and stress incontinence Vitamin D deficiency Surgical History History of colonoscopy History of laparoscopic cholecystectomy History of rhinoplasty History of right cataract surgery History of tonsillectomy Hx of excision of mass S/P HANNA (total abdominal hysterectomy) Family History Mother Breast cancer Sister Heart disease Pacemaker Other No family history of adverse response to anesthesia No family history of bleeding disorder Denies family history of Ovarian cancer Prostate cancer Colorectal cancer Social History Smoking Status: Former smoker Tobacco Type: Cigarettes Age Quit Using Tobacco: 73; packs per day: 1; Years Smoked: 50; Smoking End Date: 8 yrs ago; Second Hand Exposure: No; Do You Dip or Chew Tobacco: No; Tobacco Cessation Education Requested by Patient: No Hx Alcohol Use: No Hx Substance Use: No Preferred Language: Bengali Communication Ability: Effective Visual Impairment: No Limitations Hearing Ability: Normal Urology Teacher Required: No Beliefs That Will Affect Care: None marital status: / Current Living Situation: Alone current occupational status: retired Other Information That Helps Us Care for You: No Feels Safe at Home: Yes Safety Concerns: Feels Safe At This Time Childhood Exposure to Second-Hand Smoke: Yes (Father smoked, pt doesn't know if father smoked in the house or not. ) Diet Comment: regular caffeine: Yes (coffee) during the past year weight has: remained stable Dental Care, Regularly: Yes Physical Activity Frequency: 3-4 Times per Week Seatbelt Use: always Sunscreen Use: No Assistive Devices: BiPap and Glasses Review of Systems Review of Systems: All systems reviewed & are unremarkable except as noted in HPI & below Results & Data Results & Data ([facility]) Vital Signs (Past 12 Hours) Vital Signs Temp Pulse Pulse Resp BP BP Pulse Ox 12/09/21 21:00 98 H 18 120/67 95 12/09/21 19:37 99 H 88 L 12/09/21 19:29 88 L 12/09/21 19:29 100 H 24 113/67 88 L 12/09/21 19:29 88 L 12/09/21 17:34 36.9 C 113 H 22 118/67 96 O2 Del Method O2 Flow Rate 12/09/21 21:00 Nasal Cannula 2 12/09/21 19:37 Room Air 12/09/21 19:29 Room Air 12/09/21 19:29 12/09/21 19:29 Room Air 12/09/21 17:34 Nasal Cannula 5 Laboratory Results Abnormal lab results 12/09/21 12/09/21 12/09/21 Range/Units 17:43 17:48 17:48 RDW Std Deviation 47.3 H (36.4-46.3) fL D-Dimer 530 H* (0-500) ug/L FEU BUN/Creatinine Ratio 20.5 H (10-20) Diagnostic Findings XR chest 1V portable HISTORY: Dyspnea COMPARISON: Chest 08/18/2020. FINDINGS: The lungs are hyperexpanded with apical predominant emphysematous changes. No pneumothorax. No pleural effusions. Mild chronic interstitial thickening again noted at the lung bases. The heart is normal in size. Mild S- shaped scoliosis of the thoracolumbar spine. Old, healed left-sided rib fractures. No new focal lung consolidations to suggest pneumonia. No evidence for pulmonary edema. IMPRESSION: No significant change compared to the prior study. No acute process. Emphysema again noted. Medications Administered ER medications given: DuoNeb 5 mg Solu-Medrol 40 mg IV ECG Indication: SOB/dyspnea Rate (beats per minute): 106 Rhythm: sinus tachycardia Findings: + RBBB; no acute ischemic change Comparison ECG Date: from (August 19, 2020) Change: no significant change Code Status & VTE Plan Code Status Full VTE Prophylaxis Plan VTE Prophylaxis will be ordered: Yes PG Care Time/CCT Total # of Minutes Spent Total Time Spent with Patient: Total time spent is greater than 50% in coordination of care (as documented) at patient's floor/unit and/or counseling patient: Coding Level of Care Code 91013 Initial Inpt Care Lvl 2 Diagnoses COPD exacerbation J44.1 COPD (chronic obstructive pulmonary disease) J43.9 COPD type: emphysema Emphysema type: unspecified Hypoxia R09.02 Sleep apnea G47.30 Urge and stress incontinence N39.46 GERD (gastroesophageal reflux disease) K21.9 Esophagitis presence: without esophagitis Anxiety F41.9 (1) COPD (chronic obstructive pulmonary disease) COPD type: emphysema Emphysema type: unspecified Qualified Code(s): J43.9 - Emphysema, unspecified (2) GERD (gastroesophageal reflux disease) Esophagitis presence: without esophagitis Qualified Code(s): K21.9 - Gastro-esophageal reflux disease without esophagitis
[2021-12-09] MEDS ORDERED: guaiFENesin 600 MG TABCR PO STA (21:46)
[2021-12-09] MEDS ORDERED: MONTELUKAST SODIUM 10 MG TABLET PO ONE (21:46)
[2021-12-09] MEDS: DOXYCYCLINE HYCLATE 100 MG CAP PO STA ×2 (22:23→22:24)
[2021-12-09] MEDS ORDERED: ACETAMINOPHEN 325 MG TAB PO PRN (23:46)
[2021-12-10] MEDS: ALBUT/IPRATROP 3MG/0.5MG NEB 3 ML VIAL NEB SCH ×7 (00:30→22:32)
[2021-12-10] MEDS ORDERED: LACTATED RINGER'S 500 ML IV ONE (04:41)
[2021-12-10] MEDS ORDERED: LACTATED RINGER'S 1,000 ML IV SCH (05:12)
[2021-12-10] MEDS: CETIRIZINE HCL 10 MG TABLET PO SCH (07:50)
[2021-12-10] MEDS: CHOLECALCIFEROL 5,000 UNITS 125 MCG TAB PO SCH (07:50)
[2021-12-10] MEDS: DOXYCYCLINE HYCLATE 100 MG CAP PO SCH ×2 (07:50→21:40)
[2021-12-10] MEDS: FLUTICASONE FUROATE 100MCG 14 PUFFS/INHALER INH SCH (07:51)
[2021-12-10] MEDS: guaiFENesin 600 MG TABCR PO SCH ×2 (07:51→21:40)
[2021-12-10] MEDS: ENOXAPARIN INJ 40 MG/0.4 ML SYR SQ SCH (07:52)
[2021-12-10] MEDS: PANTOprazole 40 MG TAB PO SCH (07:53)
[2021-12-10] MEDS: OXYBUTYNIN CHLORIDE XL 5 MG TABCR PO SCH (07:53)
[2021-12-10] MEDS: SERTRALINE HCL 50 MG TABLET PO SCH (07:54)
[2021-12-10] MEDS: methylPREDNISolone 40 MG in SYRINGE 0 ML IV SCH ×2 (07:54→21:40)
[2021-12-10] MEDS: UMECLIDINIUM/VILANTEROL 62.5/25MCG 7 PUFFS/INHALER INH SCH (07:55)
--- NOTE | 2021-12-10 08:15 | Hospitalist Progress Note ---
Date of Service December 10, 2021 Assessment & Plan (1) COPD exacerbation: Plan: x2-3 weeks shortness of breath, not responsive to nebulizers at home but didn't see pulmonary, found to have hypoxia to 84% on RA on admission. Improved with 4L NC, continued improvement and on 2L currently CXR without evidence for PNA * Of note, ddimer elevated but corrected for age negative. Less elevation earlier this year and had CT chest negative for PE Placed on solumedrol 40mg IV BID -- continue Continue duonebs Q4h scheduled, q2h prn Continue mucinex 600mg BID -- consider increasing dose if needed but rec continuing daily use at discharge Continue montelukast 10mg daily, cetirizine 10mg daily, trelegy/hospital equivalent Continue Doxycycline 100mg BID x 7 days (on chronic azithromycin MWF) Will need f/u pulm to discuss rescue pack when she gets sick Sputum cx -- prelim few wbc, few gram positive cocci, few epi --> monitor. Continue incentive spirometer, flutter valve Titrate O2 to maintain saturation ~88-90% 96% on 2L ?2 step at d/c as appears patient already with portable tank in room. CM to call company to see about rx as patient states "uses occasionally" (2) COPD (chronic obstructive pulmonary disease): Plan: as outlined above rec f/u pulm outpatient at discharge (3) Hypoxia: Plan: Acute respiratory failure with hypoxia Aim O2 sats 88 - 92% BiPAP HS (4) Sleep apnea: Plan: BiPAP at bedtime (5) Urge and stress incontinence: Plan: Continue oxybutynin XL 15 mg p.o. daily (6) GERD (gastroesophageal reflux disease): Plan: Given steroid use and history of GERD, start pantoprazole 40 mg p.o. daily (7) Anxiety: Plan: Continue sertraline 25 mg p.o. every morning TSH wnl 1.402 Plan VTE prophylaxis - Lovenox 40 mg subcu daily Continued inpatient stay, possible discharge tomorrow ?2step vs already arranged and could do ambulatory study to see if any increased needs will need f/u pulm Admission and Anticipated Discharge Date Admission Date: December 09, 2021 Supervising Physician Co-Signing Physician Notes PA Supervision Note: I did not personally see or examine the patient today, but I verified all bales points of ZELDA Tsai's assessment and plan with the following exceptions/additions: None Subjective Evaluated around 1030. Patient stated she is feeling better than when she came in. Still with some tightness/no wheezing. + cough. Didn't get much sleep but didn't get up from the ER until late. She states she had not been feeling well at home for 2-3 weeks. Episode of emesis x 2 during that period of time but denied any abdominal pain or nauseated feeling. No blood reported or further episodes. No nausea or emesis during inpatient stay. She notes she had not been coughing as much prior to coming in but also endorses taking deep breaths causes cough to be worse. She states she does not take mucinex at home but did discuss taking daily to help with thinning of secretions as she does endorse feeling like mucus stuck in the back of her throat at times. Has nebulizers and using every ~4 hours at home without much improvement. Discussed f/u pulmonary regarding rescue pack in the future. Not on O2 at home but uses with BiPAP at night -- of note does have portable take on window sill -- she states uses on occasion but is heavy.CM to follow No fever/chills, chest pain, lightheadedness, nausea, vomiting, Physical Exam Physical Exam: General: WD frail elderly female sitting up at side of bed, NAD HEENT: head normocephalic, atraumatic, mmm, trachea midline without deviation Resp: diminished throughout, no wheezing/rales, on 2L NC SpO2 98% CV: bradycardic, regular, no m/r/g, no calf edema, pulses palpable GI: +BS, soft, nontender : no east MSK/Neuro: moves all extremities, no focal deficits Psych: AOx3 , pleasant and cooperative Results & Data Results & Data ([facility]) Vital Signs (Past 12 Hours) Vital Signs Temp Pulse Pulse Pulse Resp BP Pulse Ox 12/10/21 07:38 12/10/21 07:28 36.5 C 56 L 18 98/57 L 96 12/10/21 03:40 104 H 18 94 12/10/21 00:32 99 H 21 98 12/10/21 00:31 101 H 20 96 12/09/21 23:20 12/09/21 23:20 36.5 C 97 H 18 102/64 96 12/09/21 21:00 98 H 18 120/67 95 O2 Del Method O2 Flow Rate 12/10/21 07:38 Nasal Cannula 2 12/10/21 07:28 Nasal Cannula 2 12/10/21 03:40 Nasal Cannula 2 12/10/21 00:32 3 12/10/21 00:31 Nasal Cannula 2 12/09/21 23:20 Nasal Cannula 4 12/09/21 23:20 Nasal Cannula 2 12/09/21 21:00 Nasal Cannula 2 Laboratory Results 12/09/21 12/09/21 12/09/21 Range/Units 17:48 17:48 17:48 WBC (4.8-10.8) K/ul RBC (3.93-5.22) M/uL Hgb (12.0-16.0) g/dl Hct (34.1-44.9) % MCV (80.0-100.0) fL MCH (25.0-34.0) pg MCHC (32.0-36.0) g/dL RDW Std Deviation (36.4-46.3) fL RDW Coeff of Geri (11.5-14.5) % Plt Count (130-400) K/uL MPV (9.4-12.3) fL Immature Gran % (Auto) % Neut % (Auto) % Lymph % (Auto) % [place] % (Auto) % Eos % (Auto) % Baso % (Auto) % Neut # (Auto) (1.4-6.5) K/uL Lymph # (Auto) (1.2-3.4) K/uL [place] # (Auto) (0.24-0.82) K/uL Eos # (Auto) (0-0.50) K/uL Baso # (Auto) (0-0.2) K/uL Immature Gran # (Auto) (0.00-0.02) K/uL PT (9.0-12.0) Seconds INR (0.9-1.1) APTT (21.0-31.0) Seconds PTT Ratio D-Dimer (0-500) ug/L FEU Sodium 141 (136-145) mmol/L Potassium 4.2 (3.5-5.1) mmol/L Chloride 105 (98-107) mmol/L Carbon Dioxide 31 (21-32) mmol/L Anion Gap 5 (3-11) BUN 15 (6-23) mg/dl Creatinine 0.73 (0.6-1.2) mg/dl Est Cr Clr Drug Dosing 51.7 ml/min Est GFR ( Amer) 90.8 ml/min Est GFR (Non-Af Amer) 78.3 ml/min BUN/Creatinine Ratio 20.5 H (10-20) Glucose 88 (70-99(Fasting)) mg/dl Calcium 9.7 (8.5-10.1) mg/dl Magnesium 1.7 (1.7-2.4) mg/dl Total Bilirubin 0.7 (0.2-1.0) mg/dl AST 35 (13-39) U/L ALT 17 (7-52) U/L Alkaline Phosphatase 68 (34-104) U/L Troponin I High Sens 5.3 (0-14) pg/ml Total Protein 7.0 (6.0-8.3) gm/dl Albumin 4.2 (3.4-5.0) gm/dl Globulin 2.8 (2.5-4.0) gm/dl Albumin/Globulin Ratio 1.5 (0.9-2) TSH 1.402 (0.300-4.500) uIu/ml SARS-CoV-2 (PCR) NEGATIVE (Negative) 12/09/21 12/09/21 12/09/21 Range/Units 17:48 17:48 17:43 WBC 7.72 (4.8-10.8) K/ul RBC 4.54 (3.93-5.22) M/uL Hgb 13.4 (12.0-16.0) g/dl Hct 41.7 (34.1-44.9) % MCV 91.9 (80.0-100.0) fL MCH 29.5 (25.0-34.0) pg MCHC 32.1 (32.0-36.0) g/dL RDW Std Deviation 47.3 H (36.4-46.3) fL RDW Coeff of Geri 14.0 (11.5-14.5) % Plt Count 265 (130-400) K/uL MPV 9.9 (9.4-12.3) fL Immature Gran % (Auto) 0.3 % Neut % (Auto) 61.4 % Lymph % (Auto) 26.0 % [place] % (Auto) 10.6 % Eos % (Auto) 0.9 % Baso % (Auto) 0.8 % Neut # (Auto) 4.74 (1.4-6.5) K/uL Lymph # (Auto) 2.01 (1.2-3.4) K/uL [place] # (Auto) 0.82 (0.24-0.82) K/uL Eos # (Auto) 0.07 (0-0.50) K/uL Baso # (Auto) 0.06 (0-0.2) K/uL Immature Gran # (Auto) 0.02 (0.00-0.02) K/uL PT 10.9 (9.0-12.0) Seconds INR 1.0 (0.9-1.1) APTT 25.3 (21.0-31.0) Seconds PTT Ratio 0.9 D-Dimer 530 H* (0-500) ug/L FEU Sodium (136-145) mmol/L Potassium (3.5-5.1) mmol/L Chloride (98-107) mmol/L Carbon Dioxide (21-32) mmol/L Anion Gap (3-11) BUN (6-23) mg/dl Creatinine (0.6-1.2) mg/dl Est Cr Clr Drug Dosing ml/min Est GFR ( Amer) ml/min Est GFR (Non-Af Amer) ml/min BUN/Creatinine Ratio (10-20) Glucose (70-99(Fasting)) mg/dl Calcium (8.5-10.1) mg/dl Magnesium (1.7-2.4) mg/dl Total Bilirubin (0.2-1.0) mg/dl AST (13-39) U/L ALT (7-52) U/L Alkaline Phosphatase (34-104) U/L Troponin I High Sens (0-14) pg/ml Total Protein (6.0-8.3) gm/dl Albumin (3.4-5.0) gm/dl Globulin (2.5-4.0) gm/dl Albumin/Globulin Ratio (0.9-2) TSH (0.300-4.500) uIu/ml SARS-CoV-2 (PCR) (Negative) Diagnostic Findings Chest X-Ray 12/09/21 17:37 XR chest 1V portable HISTORY: Dyspnea COMPARISON: Chest 08/18/2020. FINDINGS: The lungs are hyperexpanded with apical predominant emphysematous changes. No pneumothorax. No pleural effusions. Mild chronic interstitial thickening again noted at the lung bases. The heart is normal in size. Mild S- shaped scoliosis of the thoracolumbar spine. Old, healed left-sided rib f ractures. No new focal lung consolidations to suggest pneumonia. No evidence for pulmonary edema. IMPRESSION: No significant change compared to the prior study. No acute process. Emphysema again noted. ACT 112: Negative or not required by law. Electronically signed by: Marcel Mcqueen M.D. 12/09/2021 6:40 PM PG Care Time/CCT Total # of Minutes Spent Total Time Spent with Patient: Total time spent is greater than 50% in coordination of care (as documented) at patient's floor/unit and/or counseling patient: Coding Level of Care Code 49431 Subseq Hosp Care Lvl 2 Diagnoses COPD exacerbation J44.1 COPD (chronic obstructive pulmonary disease) J43.9 COPD type: emphysema Emphysema type: unspecified Hypoxia R09.02 Sleep apnea G47.30 Urge and stress incontinence N39.46 GERD (gastroesophageal reflux disease) K21.9 Esophagitis presence: without esophagitis Anxiety F41.9 (1) COPD (chronic obstructive pulmonary disease) COPD type: emphysema Emphysema type: unspecified Qualified Code(s): J43.9 - Emphysema, unspecified (2) GERD (gastroesophageal reflux disease) Esophagitis presence: without esophagitis Qualified Code(s): K21.9 - Gastro- esophageal reflux disease without esophagitis
[2021-12-10] MEDS ORDERED: NON-FORMULARY MEDICATION (Fluticasone-Umeclidin-Vilanter [Trelegy Ellipta] 100-62.5-25 mcg INH SCH (09:00)
[2021-12-10] MEDS ORDERED: MAGNESIUM SULFATE / D5W 1 GM/100 ML BAG IV ONE (10:57)
--- NOTE | 2021-12-10 12:27 | Electrocardiogram Report ---
Test Reason : Blood Pressure : / mmHG Vent. Rate : 106 BPM Atrial Rate : 106 BPM P-R Int : 178 ms QRS Dur : 118 ms QT Int : 360 ms P-R-T Axes : 081 261 056 degrees QTc Int : 478 ms Poor data quality, interpretation may be adversely affected Sinus tachycardia Possible Left atrial enlargement Right bundle branch block Inferior infarct , age undetermined Abnormal ECG When compared with ECG of 19-AUG-2020 15:55, Inferior infarct is now Present Confirmed by Cabrera Weaver ([id number]) on 12/10/2021 12:26:40 PM Referred By: REFERRED SELF Confirmed By:Christiano Weaver
[2021-12-10] MEDS: MONTELUKAST SODIUM 10 MG TABLET PO SCH (21:39)
[2021-12-11] MEDS: ALBUT/IPRATROP 3MG/0.5MG NEB 3 ML VIAL NEB SCH ×6 (02:52→22:21)
[2021-12-11] MEDS: UMECLIDINIUM/VILANTEROL 62.5/25MCG 7 PUFFS/INHALER INH SCH (07:55)
[2021-12-11] MEDS: CHOLECALCIFEROL 5,000 UNITS 125 MCG TAB PO SCH (07:56)
[2021-12-11] MEDS: DOXYCYCLINE HYCLATE 100 MG CAP PO SCH ×2 (07:56→21:12)
[2021-12-11] MEDS: CETIRIZINE HCL 10 MG TABLET PO SCH (07:56)
[2021-12-11] MEDS: guaiFENesin 600 MG TABCR PO SCH ×2 (07:56→21:12)
--- NOTE | 2021-12-11 07:56 | Hospitalist Progress Note ---
Date of Service December 11, 2021 Assessment & Plan (1) COPD exacerbation: Plan: x2-3 weeks shortness of breath, not responsive to nebulizers at home but didn't see pulmonary, found to have hypoxia to 84% on RA on admission. Improved with 4L NC, continued improvement and on 2L (of note, patient with portable tanks at home but doesn't use. Has been instructed in past as rx for 2L at rest, 3L with ambulation however patient states this was many years ago) CXR without evidence for PNA -> ddimer elevated but corrected for age negative. Less elevation earlier this year and had CT chest negative for PE Doxycycline 100mg BID x 7 days (on chronic azithromycin MWF)-- f/u pulm appt Feb 12 w/ Dr Marinelli Sputum cx prelim heavy normal jonas, final report to follow Solumedrol 40mg IV BID changed to PO prednisone daily Duonebs Q4h scheduled, q2h prn -- consider switching to atrovent nebs alone to prevent worsening tachycardia -- Also added hypertonic saline to nebulizers to assist with sputum production Mucinex 600mg BID -- consider increasing dose if needed but rec continuing daily use at discharge Montelukast 10mg daily, cetirizine 10mg daily, Trelegy/hospital equivalent Cough syrup prn added Afrin x 1. Added fluticasone nasal spray for congestion.Uses nasal saline at home/rinses. ENT f/u prior as well as allergy/immunology -- gets allergy shots (missed dose today) but rescheduled for next week Humidification added to O2 Titrate O2 to maintain saturation ~88-90% -- stable on 2L Continue incentive spirometer, flutter valve Will check ambulatory pulse ox in meantime to ensure continued 2-3L required. Does have portable tank. Discussed vermin exterminator use at discharge Check echo given murmur/JVD (although likely pulm HTN from severe emphysema) reports of SOB. Q wave on EKG inferior leads, no prior ECHO in system. (?if event at home in weeks prior w/ reports of vomiting. trop neg on admit). Not on statin/asa and no CAD hx Will also ask speech therapy for consult given esophageal dysphagia to solid foods at times, ?mariza GUERRERO following (2) COPD (chronic obstructive pulmonary disease): Plan: as outlined above rec f/u pulm outpatient at discharge-- appt already scheduled for January (3) Hypoxia: Plan: Acute respiratory failure with hypoxia Aim O2 sats 88 - 92% BiPAP HS as tolerated (4) Sleep apnea: Plan: BiPAP at bedtime (5) Urge and stress incontinence: Plan: Continue oxybutynin XL 15 mg p.o. daily (6) GERD (gastroesophageal reflux disease): Plan: Given steroid use and history of GERD, start pantoprazole 40 mg p.o. daily Mag 1.8 -- additional 1gm IV ordered to keep closer to 2 (7) Anxiety: Plan: Continue sertraline 25 mg p.o. every morning TSH wnl 1.402 Plan VTE prophylaxis - Lovenox 40 mg subcu daily PT/OT consulted Likely discharge over the weekend Admission and Anticipated Discharge Date Admission Date: December 09, 2021 Supervising Physician Co-Signing Physician Notes PA Supervision Note: I did not personally see or examine the patient today, but I verified all bales points of ZELDA Tsai's assessment and plan with the following exceptions/additions: None Subjective Seen this morning. Had a rough time last evening with coughing spell. Unable to tolerate BiPAP mask for long due to mask fit. Has some redness under her eyes. Feels some sinus congestion. Hx deviated septum and uses nasal rinses at home - has seen ENT/allergy in past but not much help she thinks. She states was using nasal spray up until couple weeks ago when she ran out and was doing yard work a week ago from tuesday, but does note environmental allergies. Will give afrin x 1, monitor. Also added fluticasone. Coughing but not bringing up sputum today -- will add hypertonic saline to nebulizers. Seen by Dr Perry in past but retired/ref'd to Dr Wiseman. Was getting allergy shots many years ago then stopped, again on last summer through January and then stopped due to "being dropped" and then was restarted in April with Dr Wiseman and getting q2 weeks, due today but rescheduled for next week. Added humidification to oxygen -- discussed home rx for 2L at rest, 3L w/ ambulation. She notes this was from 3 years ago when sick and typically does not need. She does endorse having a portable tank smaller than one in room. She endorses having follow up appt Feb [address] Marinelli. Discussed may need lifelong O2 but will repeat 2step to see about needs currently. Does also endorse coughing fit last evening after supper. Thinks she has many food trigggers. She does state in past issues with pork and meats and sensation getting stuck in her throat. Will consult speech for eval. Review of Systems Review of Systems: All systems reviewed & are unremarkable except as noted in HPI & below Physical Exam Physical Exam: General: WD, elderly frail female sitting up in chair, NAD but anxious appearing HEENT: slightly dry mm, trachea midline, +nasal septal deviation and moderate bogginess to L nares, mod-severe congestion/bogginess to R turbinates, post- nasal drip, +JVD Resp: able to talk in complete sentences at times (outside of when coughing) scattered wheezing/crackles (improved with cough, but having coughing spell after), pursed lip breathing, 94% on 2L. CV: tachycardic (rate 102bpm), +murmur, no calf edema/tenderness, trace b/l dependent edema, pulses palpable GI:+BS, soft, non-tender MSK/Neuro: moves all extremities, no focal deficit Psych: AOx3, anxious appearing Results & Data Results & Data ([facility]) Vital Signs (Past 12 Hours) Vital Signs Temp Pulse Resp BP Pulse Ox O2 Del Method O2 Flow Rate 12/11/21 07:13 100 H 20 90 Nasal Cannula 3 12/11/21 02:55 50 L 18 87 L BiPAP 2 12/10/21 23:15 36.6 C 100 H 20 113/63 92 Nasal Cannula 2 12/10/21 22:33 99 H 20 92 Nasal Cannula 5 Laboratory Results 12/11/21 Range/Units 08:10 Sodium 138 (136-145) mmol/L Potassium 4.2 (3.5-5.1) mmol/L Chloride 105 (98-107) mmol/L Carbon Dioxide 25 (21-32) mmol/L Anion Gap 8 (3-11) BUN 16 (6-23) mg/dl Creatinine 0.69 (0.6-1.2) mg/dl Est Cr Clr Drug Dosing 54.7 ml/min Est GFR ( Amer) 96.0 ml/min Est GFR (Non-Af Amer) 82.8 ml/min BUN/Creatinine Ratio 23.2 H (10-20) Glucose 106 H (70-99(Fasting)) mg/dl Calcium 8.7 (8.5-10.1) mg/dl Magnesium 1.8 (1.7-2.4) mg/dl PG Care Time/CCT Total # of Minutes Spent Total Time Spent with Patient: Total time spent is greater than 50% in coordination of care (as documented) at patient's floor/unit and/or counseling patient: Coding Level of Care Code 66823 Subseq Hosp Care Lvl 3 Diagnoses COPD exacerbation J44.1 COPD (chronic obstructive pulmonary disease) J43.9 COPD type: emphysema Emphysema type: unspecified Hypoxia R09.02 Sleep apnea G47.30 Urge and stress incontinence N39.46 GERD (gastroesophageal reflux disease) K21.9 Esophagitis presence: without esophagitis Anxiety F41.9 (1) COPD (chronic obstructive pulmonary disease) COPD type: emphysema Emphysema type: unspecified Qualified Code(s): J43.9 - Emphysema, unspecified (2) GERD (gastroesophageal reflux disease) Esophagitis presence: without esophagitis Qualified Code(s): K21.9 - Gastro- esophageal reflux disease without esophagitis
[2021-12-11] MEDS: FLUTICASONE FUROATE 100MCG 14 PUFFS/INHALER INH SCH (07:57)
[2021-12-11] MEDS: ENOXAPARIN INJ 40 MG/0.4 ML SYR SQ SCH (07:58)
[2021-12-11] MEDS: OXYBUTYNIN CHLORIDE XL 5 MG TABCR PO SCH (07:59)
[2021-12-11] MEDS: PANTOprazole 40 MG TAB PO SCH (08:00)
[2021-12-11] MEDS: SERTRALINE HCL 50 MG TABLET PO SCH (08:00)
[2021-12-11 09:08] LABS: BUN Creatinine Ratio 23.2 (10-20); Calcium 8.7 mg/dl (8.5-10.1); Creatinine Clr Calc Pharmacy 54.7 ml/min; Est GFR (Non-African American) 82.8 ml/min; Magnesium 1.8 mg/dl (1.7-2.4); Potassium 4.2 mmol/L (3.5-5.1)
[2021-12-11] MEDS ORDERED: MAGNESIUM SULFATE / D5W 1 GM/100 ML BAG IV ONE (09:46)
[2021-12-11] MEDS ORDERED: OXYMETAZOLINE 0.05% 30 ML BTL NAE ONE (10:25)
[2021-12-11] MEDS: FLUTICASONE PROPIONATE NA SPR 16 GM BTL SCH (10:52)
[2021-12-11] MEDS ORDERED: HYDROcodone/HOMATROPINE SYRUP 5MG/1.5MG 5ML UDP PO PRN (10:55)
[2021-12-11] MEDS: predniSONE 20 MG TAB PO SCH (11:28)
--- NOTE | 2021-12-11 17:31 | XCELERA ---
[id number]
[2021-12-11] MEDS ORDERED: SODIUM CHLOR 7% 4 ML NEB NEB SCH (19:00)
[2021-12-11] MEDS: MONTELUKAST SODIUM 10 MG TABLET PO SCH (21:12)
[2021-12-12] MEDS: ALBUT/IPRATROP 3MG/0.5MG NEB 3 ML VIAL NEB SCH ×4 (02:20→14:27)
[2021-12-12 07:26] LABS: BUN Creatinine Ratio 29.9 (10-20); Calcium 8.9 mg/dl (8.5-10.1); Est GFR (African American) 85.1 ml/min; Est GFR (Non-African American) 73.4 ml/min
--- NOTE | 2021-12-12 08:24 | Hospitalist Progress Note ---
Date of Service December 12, 2021 Assessment & Plan (1) COPD exacerbation: Plan: x2-3 weeks shortness of breath, not responsive to nebulizers at home but didn't see pulmonary, found to have hypoxia to 84% on RA on admission. Improved with 4L NC, continued improvement and on 2L (of note, patient with portable tanks at home but doesn't use. Has been instructed in past as rx for 2L at rest, 3L with ambulation however patient states this was many years ago) CXR without evidence for PNA -> ddimer elevated but corrected for age negative. Less elevation earlier this year and had CT chest negative for PE Doxycycline 100mg BID x 7 days (on chronic azithromycin MWF)-- f/u pulm appt Feb 12 w/ Dr Marinelli. Will change to PO to prevent PO esophagitis issue Increased protonix to BID, added carafate Got 6 doses PO doxy, to complete 5-7 day course but will use IV for now GI cocktail x 1, EKG and trop for completeness (negative) Also component of anxiety (prob component of steroids as well)-- given ativan 0.5mg SL x 1. monitor/additional prn if effective --> was able to sleep some Solumedrol --> prednisone 40mg daily to complete 5 days Sputum cx heavy normal jonas Duoneb switched to atrovent given tachycardia/anxiety, patient agreeable to adding back hypertonic saline Mucinex 600mg BID -- consider increasing dose if needed but rec continuing daily use at discharge Montelukast 10mg daily, cetirizine 10mg daily Trelegy/hospital equivalent Cough syrup prn Afrin x 2 doses, continue daily flonase. rec f/u ENT/allergy at d/c as missed allergy shot on Tuesday Need repeat 2step v ambulatory pulse ox at d/c to demonstrate needs as patient with O2 at home but does not use frequently at all Titrate O2 as tolerated to maintain sats 88-90% in patient with severe emphysema (2) GERD (gastroesophageal reflux disease): Plan: Given steroid use and history of GERD, start pantoprazole 40 mg p.o. daily Now possibly with esophagitis, ?from doxycycline use in patient who doesn't drink much in the way of fluids Increased PPI to BID, added carafate -- continue Mag 1.8 but will monitor in AM given increased protonix to BID (3) COPD (chronic obstructive pulmonary disease): Plan: as outlined above, on doxy rec f/u pulm outpatient at discharge-- appt already scheduled for January (4) Hypoxia: Plan: Acute respiratory failure with hypoxia Aim O2 sats 88 - 92% BiPAP HS as tolerated (5) Sleep apnea: Plan: BiPAP at bedtime ECHO w/ normal systolic function, mild LVH, RV moderately dilated. RVSP elevated 50-60mmHg. IVC mod dilated highly encouraged continued use of Bipap hs (6) Urge and stress incontinence: Plan: Continue oxybutynin XL 15 mg p.o. daily (7) Anxiety: Plan: Continue sertraline 25 mg p.o. every morning TSH wnl 1.402 Plan VTE prophylaxis - Lovenox 40 mg subcu daily PT/OT consulted continued inpatient stay Admission and Anticipated Discharge Date Admission Date: December 09, 2021 Subjective Evaluation this afternoon episode of coughing last evening after hypertonic saline neb but did discuss cough to increase ability to clear/loosen secretions. son at bedside. did discuss component of anxiety -- she denies having anxiety but on prozac and discussed cycle of anxiety/breathing. She states chest discomfort down the middle of her chest but denies any na usea/abdominal pain. States has been drinking more water and discussed doxycycline possibly causing a pill esophagitis and will give GI cocktail x1 and increase Protonix to BID and consider adding carafate pending response given episode of emesis this morning after toast/coffee and piece of fruit. Emesis brownish in color but no blood. Similar to episodes at home. Denies having episode of coughing prior to and actually with less cough reported with use of flutter valve today and lungs sound improved. Discussed titrating O2 given emphysema. +BM this morning "thank god". Nasal congestion about the same but she did state some improvement w/ afrin but would like to avoid rebound congestion. Review of Systems Review of Systems: All systems reviewed & are unremarkable except as noted in HPI & below Physical Exam Physical Exam: General: WD, elderly frail female sitting up in bed, anxious appearing and reporting just had episode of emesis, NAD HEENT: slightly dry mm, trachea midline, +nasal septal deviation and moderate bogginess to L nares, mod-severe congestion/bogginess to R turbinates, post- nasal drip, +JVD Resp: able to talk in complete sentences at times, no cough during encounter today, diminished breath sounds throughout but faint bibasilar crackles but no further wheezing/rales, on NC CV: rate 106bpm, regular, no calf edema/tenderness, trace b/l dependent edema, pulses palpable GI:+BS, soft, non-tender MSK/Neuro: moves all extremities, no focal deficit Psych: AOx3, anxious, son at bedside Results & Data Results & Data ([facility]) Vital Signs (Past 12 Hours) Vital Signs Temp Pulse Pulse Resp BP Pulse Ox O2 Del Method 12/12/21 07:35 36.8 C 105 H 22 99/57 L 93 Nasal Cannula 12/12/21 07:25 112 H 20 92 Nasal Cannula 12/12/21 02:21 105 H 89 L Ambu-Bag, BiPAP 12/12/21 02:21 18 12/11/21 22:56 36.9 C 107 H 20 92/52 L 93 BiPAP 12/11/21 22:22 102 H 20 89 L Nasal Cannula O2 Flow Rate 12/12/21 07:35 6 12/12/21 07:25 6 12/12/21 02:21 6 12/12/21 02:21 6 12/11/21 22:56 4 12/11/21 22:22 3 Laboratory Results 12/12/21 12/12/21 12/11/21 Range/Units 06:29 06:29 08:10 Sodium 140 138 (136-145) mmol/L Potassium 4.0 4.2 (3.5-5.1) mmol/L Chloride 105 105 (98-107) mmol/L Carbon Dioxide 30 25 (21-32) mmol/L Anion Gap 5 8 (3-11) BUN 23 16 (6-23) mg/dl Creatinine 0.77 0.69 (0.6-1.2) mg/dl Est Cr Clr Drug Dosing 49.0 54.7 ml/min Est GFR ( Amer) 85.1 96.0 ml/min Est GFR (Non-Af Amer) 73.4 82.8 ml/min BUN/Creatinine Ratio 29.9 H 23.2 H (10-20) Glucose 85 106 H (70-99(Fasting)) mg/dl Calcium 8.9 8.7 (8.5-10.1) mg/dl Magnesium 1.8 (1.7-2.4) mg/dl 25-OH Vitamin D Total 65.6 (30-100) ng/ml Diagnostic Findings Chest X-Ray 12/12/21 12:39 XR chest 1V portable HISTORY: hypoxia COMPARISON: Chest 12/09/2021. FINDINGS: No pneumothorax. No pleural fusions. Emphysema and chronic interstitial thickening persists. No new focal lung consolidations to suggest pneumonia. No evidence for pulmonary edema. Old, healed left-sided rib fracture. The heart is normal in size. Mild S-shaped scoliosis of the thoracolumbar spine again noted. IMPRESSION: No significant change compared to the prior study. No acute process. Emphysema. ACT 112: Negative or not required by law. Electronically signed by: Marcel Mcqueen M.D. 12/12/2021 1:52 PM PG Care Time/CCT Total # of Minutes Spent Total Time Spent with Patient: Total time spent is greater than 50% in coordination of care (as documented) at patient's floor/unit and/or counseling patient: Coding Level of Care Code 48799 Subseq Hosp Care Lvl 3 Diagnoses COPD exacerbation J44.1 GERD (gastroesophageal reflux disease) K21.9 Esophagitis presence: without esophagitis COPD (chronic obstructive pulmonary disease) J43.9 COPD type: emphysema Emphysema type: unspecified Hypoxia R09.02 Sleep apnea G47.30 Urge and stress incontinence N39.46 Anxiety F41.9 (1) COPD (chronic obstructive pulmonary disease) COPD type: emphysema Emphysema type: unspecified Qualified Code(s): J43.9 - Emphysema, unspecified (2) GERD (gastroesophageal reflux disease) Esophagitis presence: without esophagitis Qualified Code(s): K21.9 - Gastro- esophageal reflux disease without esophagitis
[2021-12-12] MEDS: SERTRALINE HCL 50 MG TABLET PO SCH (08:31)
[2021-12-12] MEDS: PANTOprazole 40 MG TAB PO SCH ×2 (08:31→20:24)
[2021-12-12] MEDS: predniSONE 20 MG TAB PO SCH (08:31)
[2021-12-12] MEDS: UMECLIDINIUM/VILANTEROL 62.5/25MCG 7 PUFFS/INHALER INH SCH (08:31)
[2021-12-12] MEDS: FLUTICASONE FUROATE 100MCG 14 PUFFS/INHALER INH SCH (08:31)
[2021-12-12] MEDS: CETIRIZINE HCL 10 MG TABLET PO SCH (08:31)
[2021-12-12] MEDS: guaiFENesin 600 MG TABCR PO SCH ×2 (08:31→20:24)
[2021-12-12] MEDS: CHOLECALCIFEROL 5,000 UNITS 125 MCG TAB PO SCH (08:32)
[2021-12-12] MEDS: DOXYCYCLINE HYCLATE 100 MG CAP PO SCH (08:32)
[2021-12-12] MEDS: ENOXAPARIN INJ 40 MG/0.4 ML SYR SQ SCH (08:32)
[2021-12-12] MEDS: FLUTICASONE PROPIONATE NA SPR 16 GM BTL SCH (08:32)
[2021-12-12] MEDS: OXYBUTYNIN CHLORIDE XL 5 MG TABCR PO SCH (08:32)
[2021-12-12 09:10] LABS: Basophils # (auto) 0.04 K/uL (0-0.2); Basophils % (auto) 0.5 %; Eosinophils # (auto) 0.03 K/uL (0-0.50); Eosinophils % (auto) 0.4 %; Hematocrit (blood only) 40.9 % (34.1-44.9); Immature Granulocytes # (auto) 0.02 K/uL (0.00-0.02); Immature Granulocytes % (auto) 0.2 %; Lymphocytes # (auto) 2.43 K/uL (1.2-3.4); Lymphocytes % (auto) 28.6 %; Mean Corpuscular Hemoglobin 29.7 pg (25.0-34.0); Mean Corpuscular Hgb Conc 31.8 g/dL (32.0-36.0); Mean Corpuscular Volume 93.6 fL (80.0-100.0); Mean Platelet Volume 9.9 fL (9.4-12.3); Monocytes # (auto) 0.89 K/uL (0.24-0.82); Monocytes % (auto) 10.5 %; Neutrophils # (auto) 5.09 K/uL (1.4-6.5); Neutrophils % (auto) 59.8 %; Platelet Count 262 K/uL (130-400); RDW Coefficient of Variation 14.1 % (11.5-14.5); RDW Standard Deviation 49.3 fL (36.4-46.3); Red Blood Count 4.37 M/uL (3.93-5.22)
[2021-12-12] MEDS ORDERED: OXYMETAZOLINE 0.05% 30 ML BTL NAE ONE (09:11)
[2021-12-12] MEDS ORDERED: MAGNESIUM SULFATE / D5W 1 GM/100 ML BAG IV ONE (10:00)
--- NOTE | 2021-12-12 13:53 | XRay Report ---
XR chest 1V portable HISTORY: hypoxia COMPARISON: Chest 12/09/2021. FINDINGS: No pneumothorax. No pleural fusions. Emphysema and chronic interstitial thickening persists . No new focal lung consolidations to suggest pneumonia. No evidence for pulmonary edema. Old, healed left-sided rib fracture. The heart is normal in size. Mild S-shaped scoliosis of the thoracolumbar s pine again noted. IMPRESSION: No significant change compared to the prior study. No acute process. Emphysema. ACT 112: Negative or not required by law. Electronically signed by: Marcel Mcqueen M.D. 12/12/2021 1:52 PM
[2021-12-12] MEDS ORDERED: LORazepam 0.5 MG TAB SL STA (13:56)
[2021-12-12] MEDS ORDERED: ALUMINUM/MAGNESIUM SUSP 18 ML, LIDOCAINE VISCOUS 2% SOLN 6 ML, BARCODE IDENTIFIER 1 EACH PO ONE (14:00)
[2021-12-12] MEDS: SUCRALFATE 1 GM/10 ML UDC PO SCH ×2 (17:54→20:24)
[2021-12-12] MEDS: DOXYCYCLINE HYCLATE 100 MG in DEXTROSE 5% 100 ML IV SCH (18:33)
[2021-12-12] MEDS: SODIUM CHLOR 7% 4 ML NEB NEB SCH (19:21)
[2021-12-12] MEDS: IPRATROPIUM BROMIDE NEB SOLN 0.02% 2.5 ML VIAL NEB SCH (19:21)
[2021-12-12] MEDS: MONTELUKAST SODIUM 10 MG TABLET PO SCH (20:24)
[2021-12-12] MEDS ORDERED: DOXYCYCLINE HYCLATE 100 MG in DEXTROSE 5% 100 ML IV SCH (21:00)
[2021-12-13] MEDS: DOXYCYCLINE HYCLATE 100 MG in DEXTROSE 5% 100 ML IV SCH ×2 (06:50→18:33)
[2021-12-13] MEDS: IPRATROPIUM BROMIDE NEB SOLN 0.02% 2.5 ML VIAL NEB SCH ×3 (07:24→20:15)
[2021-12-13] MEDS: SODIUM CHLOR 7% 4 ML NEB NEB SCH (07:24)
[2021-12-13] MEDS: CHOLECALCIFEROL 5,000 UNITS 125 MCG TAB PO SCH (08:18)
[2021-12-13] MEDS: guaiFENesin 600 MG TABCR PO SCH ×2 (08:18→21:18)
[2021-12-13] MEDS: predniSONE 20 MG TAB PO SCH (08:18)
[2021-12-13] MEDS: SERTRALINE HCL 50 MG TABLET PO SCH (08:18)
[2021-12-13] MEDS: CETIRIZINE HCL 10 MG TABLET PO SCH (08:18)
[2021-12-13] MEDS: PANTOprazole 40 MG TAB PO SCH ×2 (08:18→21:18)
[2021-12-13 08:20] LABS: Creatinine Clr Calc Pharmacy 53.9 ml/min; Est GFR (African American) 95.5 ml/min; Est GFR (Non-African American) 82.4 ml/min
[2021-12-13] MEDS: SUCRALFATE 1 GM/10 ML UDC PO SCH ×4 (08:22→21:18)
[2021-12-13] MEDS: FLUTICASONE PROPIONATE NA SPR 16 GM BTL SCH (08:24)
[2021-12-13] MEDS: FLUTICASONE FUROATE 100MCG 14 PUFFS/INHALER INH SCH (08:27)
[2021-12-13] MEDS: ENOXAPARIN INJ 40 MG/0.4 ML SYR SQ SCH (08:29)
[2021-12-13] MEDS: UMECLIDINIUM/VILANTEROL 62.5/25MCG 7 PUFFS/INHALER INH SCH (08:32)
[2021-12-13] MEDS: OXYBUTYNIN CHLORIDE XL 5 MG TABCR PO SCH (08:36)
[2021-12-13] MEDS: LORazepam 0.5 MG TAB PO PRN (09:58)
[2021-12-13] MEDS: LEVALBUTEROL 1.25MG/0.5ML NEB NEB SCH ×2 (12:06→20:15)
--- NOTE | 2021-12-13 12:36 | Electrocardiogram Report ---
Test Reason : Blood Pressure : / mmHG Vent. Rate : 104 BPM Atrial Rate : 104 BPM P-R Int : 158 ms QRS Dur : 144 ms QT Int : 384 ms P-R-T Axes : 075 256 058 degrees QTc Int : 504 ms Sinus tachycardia Right bundle branch block Abnormal ECG When compared with ECG of 09-DEC-2021 17:41, QRS duration has increased Criteria for Septal infarct are no longer Present Criteria for Inferior infarct are no longer Present Confirmed by Talib Lopez ([id number]) on 12/13/2021 12:36:09 PM Referred By: REFERRED SELF Confirmed By:Talib Lopez
--- NOTE | 2021-12-13 18:23 | Hospitalist Progress Note ---
Date of Service December 13, 2021 Assessment & Plan (1) COPD exacerbation: Plan: x2-3 weeks shortness of breath, not responsive to nebulizers at home but didn't see pulmonary, found to have hypoxia to 84% on RA on admission. (of note, patient with portable tanks at home but doesn't use. Has been instructed in past as rx for 2L at rest, 3L with ambulation however patient states this was many years ago) CXR without evidence for PNA -> ddimer elevated but corrected for age negative. Less elevation earlier this year and had CT chest negative for PE O2 sat 93% on 4 L Oxymask today. Notes worsening SOB and wheezing. -D/c oral Prednisone and switch back to IV solumedrol 40mg q12. -D/c hypertonic saline and increase Ipratropium to q6hrs. -Add Xopenex q6hrs. Doxycycline 100mg BID x 7 days (on chronic azithromycin MW)-- f/u pulm appt Feb 12 w/ Dr Marinelli. Changed to IV from PO to prevent esophagitis issue Increased protonix to BID, added carafate Got 6 doses PO doxy, to complete 5-7 day course but will use IV for now GI cocktail x 1, EKG and trop for completeness (negative) Sputum cx heavy normal jonas Duoneb ? caused tachycardia/anxiety--switched to Ipratroprium Mucinex 600mg BID -- consider increasing dose if needed but rec continuing daily use at discharge Montelukast 10mg daily, cetirizine 10mg daily Trelegy/hospital equivalent Cough syrup prn Afrin x 2 doses, continue daily flonase. rec f/u ENT/allergy at d/c as missed allergy shot on Tuesday Need repeat 2step v ambulatory pulse ox at d/c to demonstrate needs as patient with O2 at home but does not use frequently at all Titrate O2 as tolerated to maintain sats 88-90% in patient with severe emphysema (2) GERD (gastroesophageal reflux disease): Plan: Pantoprazole 40 mg p.o. daily Now possibly with esophagitis, ? from doxycycline use in patient who doesn't drink much in the way of fluids Increased PPI to BID, added carafate -- continue Mag 1.8 but will monitor in AM given increased protonix to BID. ? esophageal dysfunction. Patient seen by speech therapy. They are recommending a Barium Swallow followed by a Video Swallow tomorrow to be performed on 12/14/21. Time TBD. (3) COPD (chronic obstructive pulmonary disease): Plan: As above. (4) Hypoxia: Plan: Acute respiratory failure with hypoxia Aim O2 sats 88 - 92% BiPAP HS as tolerated (5) Sleep apnea: Plan: BiPAP at bedtime ECHO w/ normal systolic function, mild LVH, RV moderately dilated. RVSP elevated 50-60mmHg. IVC mod dilated highly encouraged continued use of Bipap hs (6) Urge and stress incontinence: Plan: Continue oxybutynin XL 15 mg p.o. daily (7) Anxiety: Plan: Continue sertraline 25 mg p.o. every morning TSH wnl 1.402 Plan VTE prophylaxis - Lovenox 40 mg subcu daily PT/OT consulted continued inpatient stay Admission and Anticipated Discharge Date Admission Date: December 09, 2021 Supervising Physician Co-Signing Physician Notes [employer] Supervision Note: I did not personally see or examine the patient today, but I verified all bales points of ARI Hampton's assessment and plan with the following exceptions/additions: Considering dilated IVC on ECHO, will attempt lasix diuresis-give one dose on 12/13 and reassess response Subjective 81-year-old female admitted for COPD exacerbation. Patient reports worsening shortness of breath and wheezing today. She also c/o persistent congestion. Patient declined hypertonic saline treatments the past few days as they made her feel worse. She has been evaluated by speech therapy, the recommendation is for a barium swallow tomorrow. She denies fever or chills. Review of Systems Review of Systems: All systems reviewed & are unremarkable except as noted in Subjective Physical Exam Physical Exam: Temp Pulse Resp BP Pulse Ox O2 Del Method O2 Flow Rate 37.1 C 102 H 20 107/66 93 4 12/13/21 16:00 12/13/21 16:00 12/13/21 16:00 12/13/21 16:00 12/13/21 16:00 12/13/21 16:00 12/13/21 16:00 Constitutional: + thin and + in distress Eyes: + anicteric sclerae ENMT: Ears: no hearing impairment Respiratory: + respiratory distress (mild respiratory distress ) Auscultation: + wheezes (bilateral inspiratory wheezes on auscultation) Cardiovascular: Rate/Rhythm: regular rhythm and + tachycardic Gastrointestinal (Abdomen): Inspection/Auscultation: normal bowel sounds Percussion/Palpation: abdomen soft; abdomen nontender Musculoskeletal: Head/Neck/Chest: normocephalic Psychiatric: Orientation: alert and oriented x 3 Affect: + anxious affect Results & Data Results & Data ([facility]) Vital Signs (Past 12 Hours) Vital Signs Temp Pulse Resp BP Pulse Ox O2 Del Method O2 Flow Rate 12/13/21 16:00 37.1 C 102 H 20 107/66 93 Oxymask 4 12/13/21 12:12 96 H 20 94 Oxymask 4 12/13/21 10:11 Nasal Cannula 5 12/13/21 07:52 36.6 C 80 18 104/67 93 Nasal Cannula 4 12/13/21 07:25 90 92 Nasal Cannula 4 PG Care Time/CCT Total # of Minutes Spent Total Time Spent with Patient: Total time spent is greater than 50% in coordination of care (as documented) at patient's floor/unit and/or counseling patient: Coding Level of Care Code 02879 Subseq Hosp Care Lvl 2 Medical Decision Making Moderate Complexity Diagnoses COPD exacerbation J44.1 GERD (gastroesophageal reflux disease) K21.9 Esophagitis presence: without esophagitis COPD (chronic obstructive pulmonary disease) J43.9 COPD type: emphysema Emphysema type: unspecified Hypoxia R09.02 Sleep apnea G47.30 Urge and stress incontinence N39.46 Anxiety F41.9 (1) COPD (chronic obstructive pulmonary disease) COPD type: emphysema Emphysema type: unspecified Qualified Code(s): J43.9 - Emphysema, unspecified (2) GERD (gastroesophageal reflux disease) Esophagitis presence: without esophagitis Qualified Code(s): K21.9 - Gastro- esophageal reflux disease without esophagitis
[2021-12-13] MEDS ORDERED: FUROSEMIDE INJ 20 MG/2 ML VIAL IV ONE (18:45)
[2021-12-13] MEDS: MONTELUKAST SODIUM 10 MG TABLET PO SCH (21:18)
[2021-12-13] MEDS: methylPREDNISolone 40 MG in SYRINGE 0 ML IV SCH (21:18)
[2021-12-14] MEDS: LEVALBUTEROL 1.25MG/0.5ML NEB NEB SCH ×3 (01:12→12:24)
[2021-12-14] MEDS: IPRATROPIUM BROMIDE NEB SOLN 0.02% 2.5 ML VIAL NEB SCH ×3 (01:12→12:23)
[2021-12-14] MEDS: DOXYCYCLINE HYCLATE 100 MG in DEXTROSE 5% 100 ML IV SCH (06:07)
[2021-12-14] MEDS ORDERED: LEVALBUTEROL HCL 1.25 MG/3 ML NEB ONE ×2 (07:02→12:15)
[2021-12-14 07:50] LABS: Basophils # (auto) 0.01 K/uL (0-0.2); Basophils % (auto) 0.1 %; Hematocrit (blood only) 42.6 % (34.1-44.9); Immature Granulocytes # (auto) 0.02 K/uL (0.00-0.02); Immature Granulocytes % (auto) 0.2 %; Lymphocytes # (auto) 2.19 K/uL (1.2-3.4); Lymphocytes % (auto) 24.1 %; Mean Corpuscular Hemoglobin 29.6 pg (25.0-34.0); Mean Corpuscular Hgb Conc 32.9 g/dL (32.0-36.0); Mean Corpuscular Volume 90.1 fL (80.0-100.0); Mean Platelet Volume 9.5 fL (9.4-12.3); Monocytes # (auto) 0.93 K/uL (0.24-0.82); Monocytes % (auto) 10.2 %; Neutrophils # (auto) 5.94 K/uL (1.4-6.5); Neutrophils % (auto) 65.4 %; Platelet Count 286 K/uL (130-400); RDW Coefficient of Variation 13.6 % (11.5-14.5); RDW Standard Deviation 44.9 fL (36.4-46.3); Red Blood Count 4.73 M/uL (3.93-5.22); White Blood Count 9.09 K/ul (4.8-10.8)
[2021-12-14] MEDS: UMECLIDINIUM/VILANTEROL 62.5/25MCG 7 PUFFS/INHALER INH SCH (08:20)
[2021-12-14] MEDS: CETIRIZINE HCL 10 MG TABLET PO SCH (08:21)
[2021-12-14] MEDS: SUCRALFATE 1 GM/10 ML UDC PO SCH (08:21)
[2021-12-14] MEDS: SERTRALINE HCL 50 MG TABLET PO SCH (08:21)
[2021-12-14] MEDS: guaiFENesin 600 MG TABCR PO SCH ×2 (08:21→20:50)
[2021-12-14] MEDS: FLUTICASONE FUROATE 100MCG 14 PUFFS/INHALER INH SCH (08:21)
[2021-12-14] MEDS: CHOLECALCIFEROL 5,000 UNITS 125 MCG TAB PO SCH (08:21)
[2021-12-14] MEDS: FLUTICASONE PROPIONATE NA SPR 16 GM BTL SCH (08:21)
[2021-12-14 08:22] LABS: BUN Creatinine Ratio 37.5 (10-20); Calcium 8.8 mg/dl (8.5-10.1); Creatinine Clr Calc Pharmacy 47.2 ml/min; Est GFR (African American) 81.3 ml/min; Est GFR (Non-African American) 70.1 ml/min; Magnesium 1.8 mg/dl (1.7-2.4); Potassium 4.3 mmol/L (3.5-5.1)
[2021-12-14] MEDS: OXYBUTYNIN CHLORIDE XL 5 MG TABCR PO SCH (08:22)
[2021-12-14] MEDS: ENOXAPARIN INJ 40 MG/0.4 ML SYR SQ SCH (08:22)
[2021-12-14] MEDS: PANTOprazole 40 MG TAB PO SCH ×2 (08:22→20:50)
[2021-12-14] MEDS: methylPREDNISolone 40 MG in SYRINGE 0 ML IV SCH (08:22)
--- NOTE | 2021-12-14 11:45 | Hospitalist Progress Note ---
Date of Service December 14, 2021 Assessment & Plan (1) COPD exacerbation: Plan: Continued symptoms; received more than 5 days of steroidsstop; no evidence of acute bacterial infection, got 5 days of Doxy, stop Reasonable to consider GERD but PPI single agent for now reasonable Discussed pulmonary consultationshe wanted to hold off - continue other agents rec f/u ENT/allergy at d/c as missed allergy shot on Tuesday Need repeat 2step v ambulatory pulse ox at d/c to demonstrate needs as patient with O2 at home but does not use frequently at all Titrate O2 as tolerated to maintain sats 88-90% in patient with severe emphysema (2) GERD (gastroesophageal reflux disease): Plan: Pantoprazole 40 mg p.o. bid for now (3) Respiratory failure, [id number]: Plan: Secondary to #1as above (4) COPD (chronic obstructive pulmonary disease): Plan: As above. (5) Sleep apnea: Plan: BiPAP at bedtime ECHO w/ normal systolic function, mild LVH, RV moderately dilated. RVSP elevated 50-60mmHg. IVC mod dilated highly encouraged continued use of Bipap hs (6) Urge and stress incontinence: Plan: Continue oxybutynin XL 15 mg p.o. daily (7) Anxiety: Plan: Continue sertraline 25 mg p.o. every morning TSH wnl 1.402 (8) Dysphagia: Plan: Appears mechanical rather than oropharyngeal, likely warrants GI consultation but await MBS (she wanted to hold off GI for now) Plan BP notedobserve, asymptomatic VTE prophylaxis - Lovenox 40 mg subcu daily PT/OT consulted continued inpatient stay Admission and Anticipated Discharge Date Admission Date: December 09, 2021 Subjective Follow of shortness of breath-feels the same; denied reflux but does complain of meat sticking lower esophagus Physical Exam Physical Exam: Constitutional and general: No acute distress, looks biologic age Head and face: No puffiness, atraumatic Eyes: No scleral icterus, extraocular movements normal Neck: Supple, no JVD Musculoskeletal: No acute joint swelling, no bony abnormalities Skin/dermatologic/integument: No rash, no purpura Hematologic and lymphatic: pallor +, no petechia Gastrointestinal/abdomen: Nondistended, soft, nonacute Neurologic: Cranial nerves intact, nonfocal Psychiatry: Awake, alert, pleasant, communicative Cardiovascular: Heart rhythm regular, no rub, no murmur, no gallop Respiratory: Chest movements equal, no use of accessory muscles, expiratory wheezing Extremities: No edema, no cyanosis Results & Data Results & Data ([facility]) Vital Signs (Past 12 Hours) Vital Signs Temp Pulse Pulse Pulse Resp BP Pulse Ox 12/14/21 09:56 12/14/21 08:11 36.8 C 94 H 16 99/63 L 91 12/14/21 07:08 91 H 18 94 12/14/21 01:13 93 H 20 91 O2 Del Method O2 Flow Rate 12/14/21 09:56 Oxymask 4 12/14/21 08:11 12/14/21 07:08 Oxymask 5 12/14/21 01:13 5 Laboratory Results Laboratory Results - last 24 hr 12/14/21 12/14/21 07:36 07:36 WBC 9.09 RBC 4.73 Hgb 14.0 Hct 42.6 MCV 90.1 MCH 29.6 MCHC 32.9 RDW Std Deviation 44.9 RDW Coeff of Geri 13.6 Plt Count 286 MPV 9.5 Immature Gran % (Auto) 0.2 Neut % (Auto) 65.4 Lymph % (Auto) 24.1 [place] % (Auto) 10.2 Eos % (Auto) 0.0 Baso % (Auto) 0.1 Neut # (Auto) 5.94 Lymph # (Auto) 2.19 [place] # (Auto) 0.93 H Eos # (Auto) 0.00 Baso # (Auto) 0.01 Immature Gran # (Auto) 0.02 Sodium 135 L Potassium 4.3 Chloride 101 Carbon Dioxide 26 Anion Gap 8 BUN 30 H Creatinine 0.80 Est Cr Clr Drug Dosing 47.2 Est GFR ( Amer) 81.3 Est GFR (Non-Af Amer) 70.1 BUN/Creatinine Ratio 37.5 H Glucose 127 H Calcium 8.8 Magnesium 1.8 PG Care Time/CCT Total # of Minutes Spent Total Time Spent with Patient: Total time spent is greater than 50% in coordination of care (as documented) at patient's floor/unit and/or counseling patient: Coding Level of Care Code 88864 Subseq Hosp Care Lvl 2 Diagnoses COPD exacerbation J44.1 GERD (gastroesophageal reflux disease) K21.9 Esophagitis presence: without esophagitis Respiratory failure, [id number] J96.20 COPD (chronic obstructive pulmonary disease) J43.9 COPD type: emphysema Emphysema type: unspecified Sleep apnea G47.30 Urge and stress incontinence N39.46 Anxiety F41.9 Dysphagia R13.10 (1) GERD (gastroesophageal reflux disease) Esophagitis presence: without esophagitis Qualified Code(s): K21.9 - Gastro- esophageal reflux disease without esophagitis (2) COPD (chronic obstructive pulmonary disease) COPD type: emphysema Emphysema type: unspecified Qualified Code(s): J43.9 - Emphysema, unspecified
--- NOTE | 2021-12-14 12:58 | Fluoroscopy Report ---
FL barium swallow CLINICAL HISTORY: assess for esophageal dysfunction TECHNIQUE: The patient was observed drinking thick and thin barium under fluoroscopic observation in both the upright and recumbent positions. Total fluoroscopy time: 2.0 minutes. COMPARISON: None available at the time of this dictation. FINDINGS: The patient had no problem initiating the swallowing mechanism. There was no evidence of aspiration. Dysmotility was seen with tertiary contractions. There was no evidence of strictures, filling defects, or outpouchings. Contrast flowed readily from t he esophagus into the stomach. No hiatal hernia was identified. There was no evidence of gastroesopha geal reflux. A 13 mm pill was ingested by the patient. This passed through the esophagus and into the stomach with out any evidence of holdup. IMPRESSION: Dysmotility and tertiary contractions. No aspiration is seen. No reflux was visualized. ACT 112: Negative or not required by law. Electronically signed by: Ayden Abarca M.D. 12/14/2021 12:56 PM
--- NOTE | 2021-12-14 13:23 | Pulmonary Consultation ---
Date of Consultation December 14, 2021 Assessment & Plan (1) COPD exacerbation: We will restart the patient's prednisone at 40 mg daily and encourage taper over the next 2 weeks. No role for antibiotics at this time other than azithromycin for prophylaxis. Will start pulmonary clearance therapy with vest percussive therapy 4 times a day and hypertonic saline twice daily. Continue Mucinex and flutter valve. Inspiratory capacity is very poor. We will discontinue her inhalers and start the patient on maintenance nebulized formoterol twice daily and nebulized budesonide twice daily. We will also add Spiriva Respimat once a day. This is the regimen that she should be discharged on which will take the place of [facility]. (2) Pulmonary hypertension: Echocardiogram revealed pulmonary hypertension which is likely secondary to chronic hypoxemia and COPD. We will start the patient on 20 mg Lasix daily. Encouraged to maintain oxygen saturations above 89% given the pulmonary hypertension seen on echo. She may be a candidate for inhaled treprostinil as an outpatient. We will need to consider right heart catheterization if she continues to be profoundly symptomatic despite an optimized regimen for her COPD. (3) Respiratory failure, wuyjv-cr-rquadno: Secondary to the above including COPD, pulmonary hypertension and deconditioning. Pulmonary rehab can be considered as an outpatient. Realistic goals need to be addressed with the patient. Palliative care referral should be considered. (4) Anxiety: I think this is playing a significant role in her symptoms overall, but is unfortunately mediated by her severe pulmonary disease. Plan Thank you for allowing us to participate in the care of this patient. We will continue to follow along with you. I did drug and alcohol counsellor the patient regarding her diagnosis and treatment plan and she expressed understanding. Greater than 50% of the time was spent [id number] with the patient counseling them on their diagnosis and treatment plan. This note was dictated using voice recognition software and may include grammatical errors, extra words, word substitutions and other inaccuracies due to errors in the voice recognition software and differences in speech patterns. History of Present Illness Reason for Consultation: COPD exacerbation Attending Physician: Lake Dunne MD History of Present Illness 81-year-old female with a past medical history of COPD and chronic hypoxemic respiratory failure presenting to the hospital on 12/09/2021 due to a COPD exacerbation. She was seen by her outpatient activities attendant, Dr. Marinelli on 12/15/2020. It is noted that she is on AVAPS and Trelegy at home. She has had frequent exacerbations over the last 2 years requiring several different hospitalizations. She notes that she has been using 2 to 3 L of oxygen at home for the past 2 years. She uses oxygen when she feels that she needs it and not based on pulse oximetry readings. She notes that she quit smoking approximately 8 years ago. She smoked half a pack to 1 pack/day of cigarettes for the past 50 years. She says that today she is feeling a little better but she continues with dry cough and wheeze. She is having trouble bringing up secretions. She constantly feels short of breath even at rest as of late. Barium swallow completed today revealed dysmotility and tertiary contractions. Chest x-ray from yesterday with emphysema and chronic interstitial thickening. Chest CTA from 08/18/2020 revealed a stable 8 mm hypodensity within the left lower lobe of the liver. No acute intrathoracic findings. Pulmonary emphysema. IgE level checked in 2019 was 61. Echo completed 12/11/2021 revealed right ventricular systolic pressure is elevated at 50 to 60 mmHg. Mild concentric LVH. She received 5 days of doxycycline and 5 days of prednisone which was discontinued by the hospitalist. She had a spirometry completed 07/31/2018 which revealed an FEV1 of 57% predicted without significant postbronchodilator response. Allergies Allergy/AdvReac Type Severity Reaction Status Date / Time Penicillins Allergy Intermediate HIVES Verified 12/09/21 22:12 Milk Containing Products AdvReac Mild Gastrointestinal Verified 12/09/21 22:12 Upset Home Medications Medication Instructions Recorded Confirmed Type CPAP Supplies #1 ea 08/13/19 11/23/21 Rx nebulizer accessories #1 ea 02/21/20 11/23/21 Rx oxybutynin chloride 15 mg 15 mg PO QAM #90 tabs 06/12/21 12/09/21 Rx tablet,extended release 24 hr CPAP Machine #1 ea 06/17/21 11/23/21 Rx sertraline 25 mg tablet 25 mg PO QAM #90 tabs 08/10/21 12/09/21 Rx albuterol sulfate 90 mcg/actuation 1 - 2 puff inhalation Q4H PRN 09/15/21 12/09/21 Rx aerosol inhaler shortness of breath #18 grams cholecalciferol (vitamin D3) 125 5,000 unit PO QAM #90 tabs 09/15/21 12/09/21 Rx mcg (5,000 unit) tablet (Vitamin D3) cetirizine 10 mg tablet 10 mg PO QAM #90 tabs 10/29/21 12/09/21 Rx montelukast 10 mg tablet 10 mg PO HS #90 tabs 10/29/21 12/09/21 Rx (Singulair) denosumab 60 mg/mL subcutaneous 60 mg subcut .every 6mos 11/23/21 12/09/21 History syringe (Prolia) azithromycin 250 mg tablet 250 mg PO 3XWK COPD maintenance 12/09/21 12/09/21 History ipratropium 0.5 mg-albuterol 3 mg 3 ml inhalation Q4 PRN Shortness 12/09/21 12/09/21 Rx (2.5 mg base)/3 mL nebulization Of Breath Or Wheezing #180 mL soln fluticasone fur. 100 mcg-umeclid 1 inh inhalation QAM #60 ea 12/11/21 Rx 62.5 mcg-vilant 25 mcg inhalat.powder (Trelegy Ellipta) Patient History Medical History (Updated 12/14/21 @ 13:44 by Abad Cage MD) Anxiety Chronic ischemic heart disease Chronic nasal congestion COPD (chronic obstructive pulmonary disease) GERD (gastroesophageal reflux disease) mild - no current medications History of ankle fracture Hypercholesterolemia no medications (per patient) On home oxygen therapy 2-3lpm via n/c PRN Osteoporosis Prediabetes Pulmonary hypertension Sinus tachycardia Sleep apnea bipap Urge and stress incontinence Vitamin D deficiency Surgical History History of colonoscopy History of laparoscopic cholecystectomy History of rhinoplasty History of right cataract surgery History of tonsillectomy Hx of excision of mass excision of intra abdominal mass (benign) S/P HANNA (total abdominal hysterectomy) Family History Mother Breast cancer Sister Heart disease Pacemaker Other No family history of adverse response to anesthesia No family history of bleeding disorder Denies family history of Ovarian cancer Prostate cancer Colorectal cancer Social History Smoking Status: Former smoker Tobacco Type: Cigarettes Age Quit Using Tobacco: 73; packs per day: 1; Years Smoked: 50; Second Hand Exposure: No; Hx Alcohol Use: No Hx Substance Use: No Preferred Language: Latvian Communication Ability: Effective Visual Impairment: No Limitations Hearing Ability: Normal Hand Sizer Required: No Beliefs That Will Affect Care: None marital status: / Current Living Situation: Alone current occupational status: retired Feels Safe at Home: Yes Childhood Exposure to Second-Hand Smoke: Yes (Father smoked, pt doesn't know if father smoked in the house or not. ) Diet Comment: regular caffeine: Yes (coffee) during the past year weight has: remained stable Dental Care, Regularly: Yes Physical Activity Frequency: 3-4 Times per Week Seatbelt Use: always Sunscreen Use: No Assistive Devices: None Review of Systems Review of Systems: All systems reviewed & are unremarkable except as noted in HPI & below Physical Exam Physical Exam: Constitutional: Frail and elderly appearing female who appears anxious. Eyes: Pupils are equal round and reactive to light. Conjunctivae are normal. Anicteric sclera. Ears nose, mouth and throat: Nasal cannula in place. No obvious deformities. Neck: Trachea is midline. Visual inspection is normal. Respiratory: Diffuse expiratory wheeze and rhonchi. Mildly increased work of breathing when talking. Occasional cough. Cardiovascular: Regular rate and rhythm. No murmurs. No edema. Gastrointestinal: Normal bowel sounds, soft, nontender and nondistended. No hepatosplenomegaly noted. Musculoskeletal: No cyanosis. Patient is able to move all extremities. Skin: No rashes, warm dry and intact. Neurologic: No obvious focal neurological deficits seen. Psychiatric: Alert and oriented x3 with an anxious mood. Results & Data Results & Data ([facility]) Vital Signs (Past 12 Hours) Vital Signs Temp Pulse Pulse Resp BP Pulse Ox O2 Del Method 12/14/21 12:24 105 H 18 89 L Oxymask 12/14/21 09:56 Oxymask 12/14/21 08:11 36.8 C 94 H 16 99/63 L 91 12/14/21 07:08 91 H 18 94 Oxymask O2 Flow Rate 12/14/21 12:24 5 12/14/21 09:56 4 12/14/21 08:11 12/14/21 07:08 5 PG Care Time/CCT Total # of Minutes Spent Total Time Spent with Patient: Total time spent is greater than 50% in coordination of care (as documented) at patient's floor/unit and/or counseling patient: Coding Level of Care Code 78751 Initial Inpt Care Lvl 3 Diagnoses COPD exacerbation J44.1 Pulmonary hypertension I27.20 Respiratory failure, [id number] J96.20 Anxiety F41.9
[2021-12-14] MEDS: FUROSEMIDE 20 MG TAB PO SCH (15:28)
[2021-12-14] MEDS: predniSONE 20 MG TAB PO SCH (15:28)
--- NOTE | 2021-12-14 16:27 | Gastrointestinal Consultation ---
Date of Consultation December 14, 2021 Assessment & Plan (1) Dysphagia: No obvious strictures noted on barium swallow imaging. -Protonix 40 mg BID -Famotidine 20 mg BID -Safe swallowing practices -Plan for EGD once patient's respiratory status improves (outpatient vs inpatient timing to be determined). Supervising Physician Co-Signing Physician Notes Agree with EDWIN Sim as above Abd: Soft, NT, ND Continue current therapy and supportive care Outpatient EGD when acute symptoms resolve History of Present Illness Reason for Consultation: Dysphagia Attending Physician: Lake Dunne MD History of Present Illness Patient is a 81 yo female with PMH of pulmonary hypertension, COPD, RAHEEM, prediabetes, anxiety, HLD, & osteoporosis. Patient is admitted for acute on chronic respiratory failure with a COPD exacerbation. During the course of her stay she did discuss with her hospitalist that she has had progressive solid food dysphagia lately (over the past several months). She does not think she's ever had an EGD in the past. She notes a history of GERD that she feels is well- controlled. She had a barium swallow while hospitalized that indicated dysmotility with tertiary contractions. The pill passed without issue. She notes complaints of shortness of breath. She feels slightly better than when she was admitted. Patient has a history of smoking. Allergies Allergy/AdvReac Type Severity Reaction Status Date / Time Penicillins Allergy Intermediate HIVES Verified 12/09/21 22:12 Milk Containing Products AdvReac Mild Gastrointestinal Verified 12/09/21 22:12 Upset Home Medications Medication Instructions Recorded Confirmed Type CPAP Supplies #1 ea 08/13/19 11/23/21 Rx nebulizer accessories #1 ea 02/21/20 11/23/21 Rx oxybutynin chloride 15 mg 15 mg PO QAM #90 tabs 06/12/21 12/09/21 Rx tablet,extended release 24 hr CPAP Machine #1 ea 06/17/21 11/23/21 Rx sertraline 25 mg tablet 25 mg PO QAM #90 tabs 08/10/21 12/09/21 Rx albuterol sulfate 90 mcg/actuation 1 - 2 puff inhalation Q4H PRN 09/15/21 12/09/21 Rx aerosol inhaler shortness of breath #18 grams cholecalciferol (vitamin D3) 125 5,000 unit PO QAM #90 tabs 09/15/21 12/09/21 Rx mcg (5,000 unit) tablet (Vitamin D3) cetirizine 10 mg tablet 10 mg PO QAM #90 tabs 10/29/21 12/09/21 Rx montelukast 10 mg tablet 10 mg PO HS #90 tabs 10/29/21 12/09/21 Rx (Singulair) denosumab 60 mg/mL subcutaneous 60 mg subcut .every 6mos 11/23/21 12/09/21 History syringe (Prolia) azithromycin 250 mg tablet 250 mg PO 3XWK COPD maintenance 12/09/21 12/09/21 History ipratropium 0.5 mg-albuterol 3 mg 3 ml inhalation Q4 PRN Shortness 12/09/21 12/09/21 Rx (2.5 mg base)/3 mL nebulization Of Breath Or Wheezing #180 mL soln fluticasone fur. 100 mcg-umeclid 1 inh inhalation QAM #60 ea 12/11/21 Rx 62.5 mcg-vilant 25 mcg inhalat.powder (Trelegy Ellipta) Patient History Medical History Anxiety Chronic ischemic heart disease Chronic nasal congestion COPD (chronic obstructive pulmonary disease) GERD (gastroesophageal reflux disease) mild - no current medications History of ankle fracture Hypercholesterolemia no medications (per patient) On home oxygen therapy 2-3lpm via n/c PRN Osteoporosis Prediabetes Pulmonary hypertension Sinus tachycardia Sleep apnea bipap Urge and stress incontinence Vitamin D deficiency Surgical History History of colonoscopy History of laparoscopic cholecystectomy History of rhinoplasty History of right cataract surgery History of tonsillectomy Hx of excision of mass excision of intra abdominal mass (benign) S/P HANNA (total abdominal hysterectomy) Family History Mother Breast cancer Sister Heart disease Pacemaker Other No family history of adverse response to anesthesia No family history of bleeding disorder Denies family history of Ovarian cancer Prostate cancer Colorectal cancer Social History Smoking Status: Former smoker Tobacco Type: Cigarettes Age Quit Using Tobacco: 73; packs per day: 1; Years Smoked: 52; Second Hand Exposure: No; Hx Alcohol Use: No Hx Substance Use: No Preferred Language: Gambian Communication Ability: Effective Visual Impairment: No Limitations Hearing Ability: Normal Certified Physician Assistant Required: No Beliefs That Will Affect Care: None marital status: / Current Living Situation: Alone current occupational status: retired Feels Safe at Home: Yes Childhood Exposure to Second-Hand Smoke: Yes (Father smoked, pt doesn't know if father smoked in the house or not. ) Diet Comment: regular caffeine: Yes (coffee) during the past year weight has: remained stable Dental Care, Regularly: Yes Physical Activity Frequency: 3-4 Times per Week Seatbelt Use: always Sunscreen Use: No Assistive Devices: None Review of Systems Constitutional: no fever and no chills Respiratory: + dyspnea Cardiovascular: no chest pain Gastrointestinal: + dysphagia; no abdominal pain, no heartburn and no change i n bowel habits Integumentary: no problem reported Psychiatric: no problem reported Physical Exam Constitutional: well developed Respiratory: Auscultation: + wheezes Cardiovascular: Rate/Rhythm: regular rate Gastrointestinal (Abdomen): Inspection/Auscultation: abdomen normal to inspection Musculoskeletal: Head/Neck/Chest: normocephalic Psychiatric: Orientation: alert and oriented x 3 Results & Data ([facility]) Vital Signs (Past 12 Hours) Vital Signs Temp Pulse Pulse Resp BP Pulse Ox O2 Del Method 12/14/21 12:24 105 H 18 89 L Oxymask 12/14/21 09:56 Oxymask 12/14/21 08:11 36.8 C 94 H 16 99/63 L 91 12/14/21 07:08 91 H 18 94 Oxymask O2 Flow Rate 12/14/21 12:24 5 12/14/21 09:56 4 12/14/21 08:11 12/14/21 07:08 5 PG Care Time/CCT Total # of Minutes Spent Total Time Spent with Patient: Total time spent is greater than 50% in coordination of care (as documented) at patient's floor/unit and/or counseling patient: Coding Level of Care Code 42333 Initial Inpt Care Lvl 3 Diagnoses Dysphagia R13.10
[2021-12-14] MEDS ORDERED: FORMOTEROL 20 MCG/2 ML VIAL ONE (19:17)
[2021-12-14] MEDS: FORMOTEROL 20 MCG/2 ML VIAL NEB SCH (19:21)
[2021-12-14] MEDS: BUDESONIDE 0.5 MG/2 ML VIAL (PULMICORT) NEB SCH (19:22)
[2021-12-14] MEDS: SODIUM CHLOR 7% 4 ML NEB NEB SCH (19:23)
[2021-12-14] MEDS: MONTELUKAST SODIUM 10 MG TABLET PO SCH (20:50)
[2021-12-14] MEDS: FAMOTIDINE 20 MG TAB PO SCH (20:59)
[2021-12-14] MEDS: LORazepam 0.5 MG TAB PO PRN (21:01)
[2021-12-15] MEDS: FORMOTEROL 20 MCG/2 ML VIAL NEB SCH ×2 (07:57→19:24)
[2021-12-15] MEDS: BUDESONIDE 0.5 MG/2 ML VIAL (PULMICORT) NEB SCH ×2 (07:57→19:24)
[2021-12-15] MEDS: SODIUM CHLOR 7% 4 ML NEB NEB SCH ×2 (07:57→19:24)
[2021-12-15] MEDS: FAMOTIDINE 20 MG TAB PO SCH ×2 (08:14→20:26)
[2021-12-15] MEDS: PANTOprazole 40 MG TAB PO SCH ×2 (08:15→20:26)
[2021-12-15] MEDS: SERTRALINE HCL 50 MG TABLET PO SCH (08:15)
[2021-12-15] MEDS: CETIRIZINE HCL 10 MG TABLET PO SCH (08:16)
[2021-12-15] MEDS: ENOXAPARIN INJ 40 MG/0.4 ML SYR SQ SCH (08:17)
[2021-12-15] MEDS: FLUTICASONE PROPIONATE NA SPR 16 GM BTL SCH (08:17)
[2021-12-15] MEDS: CHOLECALCIFEROL 5,000 UNITS 125 MCG TAB PO SCH (08:17)
[2021-12-15] MEDS: predniSONE 20 MG TAB PO SCH (08:18)
[2021-12-15] MEDS: FUROSEMIDE 20 MG TAB PO SCH (08:18)
[2021-12-15] MEDS: OXYBUTYNIN CHLORIDE XL 5 MG TABCR PO SCH (08:19)
[2021-12-15] MEDS: guaiFENesin 600 MG TABCR PO SCH ×2 (08:19→20:26)
[2021-12-15] MEDS: UMECLIDINIUM BROMIDE 62.5MCG/BLISTER 7 PUFFS/INHALER INH SCH (08:20)
[2021-12-15] MEDS ORDERED: TIOTROPIUM BROMIDE 5 PUFF/90 MCG INH INH SCH (09:00)
[2021-12-15] MEDS ORDERED: PANTOprazole 40 MG TAB PO SCH (09:00)
[2021-12-15 09:05] LABS: BUN Creatinine Ratio 37.6 (10-20); Calcium 8.7 mg/dl (8.5-10.1); Creatinine Clr Calc Pharmacy 44.4 ml/min; Est GFR (African American) 75.5 ml/min; Est GFR (Non-African American) 65.2 ml/min; Potassium 3.8 mmol/L (3.5-5.1)
[2021-12-15] MEDS: LORazepam 0.5 MG TAB PO PRN (13:34)
[2021-12-15] MEDS: ALBUT/IPRATROP 3MG/0.5MG NEB 3 ML VIAL NEB PRN (14:00)
--- NOTE | 2021-12-15 14:31 | Pulmonology Progress Note ---
Date of Service December 15, 2021 Assessment & Plan (1) COPD exacerbation: Plan: Prednisone 40 mg daily and encourage taper over the next 2 weeks. No role for antibiotics at this time other than azithromycin for prophylaxis. Continue pulmonary clearance therapy with vest percussive therapy 4 times a day and hypertonic saline twice daily. Continue Mucinex and flutter valve. Inspiratory capacity is very poor. Continue maintenance nebulized formoterol twice daily and nebulized budesonide twice daily. Continue LAMA inhaler. This is the regimen that she should be discharged on which will take the place of [facility]. (2) Pulmonary hypertension: Plan: Echocardiogram revealed pulmonary hypertension which is likely secondary to chronic hypoxemia and COPD. Continue daily 20 mg Lasix to maintain euvolemia in the setting of pulmonary hypertension and cor pulmonale. Encouraged to maintain oxygen saturations above 89% given the pulmonary hypertension seen on echo. She may be a candidate for inhaled treprostinil as an outpatient. We will need to consider right heart catheterization if she continues to be profoundly symptomatic despite an optimized regimen for her COPD. (3) Respiratory failure, [id number]: Plan: Secondary to the above including COPD, pulmonary hypertension and deconditioning. Pulmonary rehab can be considered as an outpatient. Realistic goals need to be addressed with the patient. Palliative care referral should be considered. (4) Anxiety: Plan: I think this is playing a significant role in her symptoms overall, but is unfortunately mediated by her severe pulmonary disease. Consider behavioral health consultation. Plan Thank you for allowing us to participate in the care of this patient. We will continue to follow along with you. I did licensed professional counselor the patient regarding her diagnosis and treatment plan and she expressed understanding. Greater than 50% of the time was spent [id number] with the patient counseling them on their diagnosis and treatment plan. This note was dictated using voice recognition software and may include grammatical errors, extra words, word substitutions and other inaccuracies due to errors in the voice recognition software and differences in speech patterns. Admission and Anticipated Discharge Date Admission Date: December 09, 2021 Subjective Patient notes slight improvement in her breathing compared to yesterday. She continues to have wheezing, shortness of breath with exertion. She remains anxious. Review of Systems Review of Systems: All systems reviewed & are unremarkable except as noted in HPI & below Physical Exam Physical Exam: Constitutional: Frail and elderly appearing female who appears anxious. Eyes: Pupils are equal round and reactive to light. Conjunctivae are normal. Anicteric sclera. Ears nose, mouth and throat: Nasal cannula in place. No obvious deformities. Neck: Trachea is midline. Visual inspection is normal. Respiratory: Diffuse expiratory wheeze and rhonchi. Occasional cough. Cardiovascular: Regular rate and rhythm. No murmurs. No edema. Gastrointestinal: Normal bowel sounds, soft, nontender and nondistended. No hepatosplenomegaly noted. Musculoskeletal: No cyanosis. Patient is able to move all extremities. Skin: No rashes, warm dry and intact. Neurologic: No obvious focal neurological deficits seen. Psychiatric: Alert and oriented x3 with an anxious mood. Results & Data Results & Data ([facility]) Vital Signs (Past 12 Hours) Vital Signs Temp Pulse Resp BP Pulse Ox O2 Del Method O2 Flow Rate 12/15/21 14:00 95 H 22 91 Oxymask 5 12/15/21 08:05 36.7 C 88 16 106/63 90 Oxymask 12/15/21 08:06 Oxymask 5 12/15/21 07:58 93 H 20 92 Oxymask 5 PG Care Time/CCT Total # of Minutes Spent Total Time Spent with Patient: Total time spent is greater than 50% in coordination of care (as documented) at patient's floor/unit and/or counseling patient: Coding Level of Care Code 59477 Subseq Hosp Care Lvl 2 Diagnoses COPD exacerbation J44.1 Pulmonary hypertension I27.20 Respiratory failure, [id number] J96.20 Anxiety F41.9
--- NOTE | 2021-12-15 17:18 | Hospitalist Progress Note ---
Date of Service December 15, 2021 Assessment & Plan (1) COPD exacerbation: Plan: Improved; pulmonary input and regimen noted and appreciated; recommend continue steroids for 2-week taper (2) GERD (gastroesophageal reflux disease): Plan: Pantoprazole 40 mg p.o. bid along with H2 lia; GI input noted and appreciated (3) Respiratory failure, [id number]-[id number]: Plan: Secondary to #1as above (4) COPD (chronic obstructive pulmonary disease): Plan: As above. Pulmonary hypertension, if present (presuming RV systolic pressure reflects pulmonary artery pressure), likely group 3. (5) Sleep apnea: Plan: BiPAP at bedtime ECHO w/ normal systolic function, mild LVH, RV moderately dilated. RVSP elevated 50-60mmHg. IVC mod dilated highly encouraged continued use of Bipap hs (6) Urge and stress incontinence: Plan: Continue oxybutynin XL 15 mg p.o. daily (7) Anxiety: Plan: Continue sertraline 25 mg p.o. every morning TSH wnl 1.402 Plan BP notedobserve, asymptomatic VTE prophylaxis - Lovenox 40 mg subcu daily PT/OT consulted continued inpatient stay Admission and Anticipated Discharge Date Admission Date: December 09, 2021 Subjective Follow-up of shortness of breathfeels slightly better Physical Exam Physical Exam: Constitutional and general: No acute distress, looks biologic age Head and face: No puffiness, atraumatic Eyes: No scleral icterus, extraocular movements normal Neck: Supple, no JVD Musculoskeletal: No acute joint swelling, no bony abnormalities Skin/dermatologic/integument: No rash, no purpura Hematologic and lymphatic: pallor +, no petechia Gastrointestinal/abdomen: Nondistended, soft, nonacute Neurologic: Cranial nerves intact, nonfocal Psychiatry: Awake, alert, pleasant, communicative Cardiovascular: Heart rhythm regular, no rub, no murmur, no gallop Respiratory: Chest movements equal, +use of accessory muscles, extremely poor air entry Extremities: No edema, no cyanosis Results & Data Results & Data ([facility]) Vital Signs (Past 12 Hours) Vital Signs Temp Pulse Resp BP Pulse Ox O2 Del Method O2 Flow Rate 12/15/21 15:20 36.6 C 87 16 110/65 91 Oxymask 12/15/21 14:00 95 H 22 91 Oxymask 5 12/15/21 08:05 36.7 C 88 16 106/63 90 Oxymask 12/15/21 08:06 Oxymask 5 12/15/21 07:58 93 H 20 92 Oxymask 5 Laboratory Results Laboratory Results - last 24 hr 12/15/21 08:16 Sodium 139 Potassium 3.8 Chloride 103 Carbon Dioxide 28 Anion Gap 8 BUN 32 H Creatinine 0.85 Est Cr Clr Drug Dosing 44.4 Est GFR ( Amer) 75.5 Est GFR (Non-Af Amer) 65.2 BUN/Creatinine Ratio 37.6 H Glucose 102 H Calcium 8.7 PG Care Time/CCT Total # of Minutes Spent Total Time Spent with Patient: Total time spent is greater than 50% in coordination of care (as documented) at patient's floor/unit and/or counseling patient: Coding Level of Care Code 94394 Subseq Hosp Care Lvl 2 Diagnoses COPD exacerbation J44.1 GERD (gastroesophageal reflux disease) K21.9 Esophagitis presence: without esophagitis Respiratory failure, [id number] J96.20 COPD (chronic obstructive pulmonary disease) 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
[2021-12-15] MEDS: MONTELUKAST SODIUM 10 MG TABLET PO SCH (20:25)
[2021-12-16] MEDS: FORMOTEROL 20 MCG/2 ML VIAL NEB SCH ×2 (07:22→19:47)
[2021-12-16] MEDS: BUDESONIDE 0.5 MG/2 ML VIAL (PULMICORT) NEB SCH ×2 (07:22→19:47)
[2021-12-16] MEDS: SODIUM CHLOR 7% 4 ML NEB NEB SCH ×2 (07:23→19:48)
[2021-12-16 08:20] LABS: BUN Creatinine Ratio 32.5 (10-20); Calcium 8.6 mg/dl (8.5-10.1); Est GFR (African American) 85.1 ml/min; Est GFR (Non-African American) 73.4 ml/min; Potassium 3.8 mmol/L (3.5-5.1)
[2021-12-16] MEDS: UMECLIDINIUM BROMIDE 62.5MCG/BLISTER 7 PUFFS/INHALER INH SCH (08:39)
[2021-12-16] MEDS: SERTRALINE HCL 50 MG TABLET PO SCH (08:40)
[2021-12-16] MEDS: predniSONE 20 MG TAB PO SCH (08:40)
[2021-12-16] MEDS: guaiFENesin 600 MG TABCR PO SCH ×2 (08:41→21:10)
[2021-12-16] MEDS: CHOLECALCIFEROL 5,000 UNITS 125 MCG TAB PO SCH (08:41)
[2021-12-16] MEDS: CETIRIZINE HCL 10 MG TABLET PO SCH (08:41)
[2021-12-16] MEDS: OXYBUTYNIN CHLORIDE XL 5 MG TABCR PO SCH (08:41)
[2021-12-16] MEDS: PANTOprazole 40 MG TAB PO SCH ×2 (08:41→21:09)
[2021-12-16] MEDS: FUROSEMIDE 20 MG TAB PO SCH (08:41)
[2021-12-16] MEDS: FAMOTIDINE 20 MG TAB PO SCH ×2 (08:42→21:09)
[2021-12-16] MEDS: FLUTICASONE PROPIONATE NA SPR 16 GM BTL SCH (08:42)
--- NOTE | 2021-12-16 09:55 | Pulmonology Progress Note ---
Date of Service December 16, 2021 Assessment & Plan (1) COPD exacerbation: Plan: Prednisone 40 mg daily and encourage taper over the next 2 weeks. No role for antibiotics at this time other than azithromycin for prophylaxis. Continue pulmonary clearance therapy with vest percussive therapy 4 times a day and hypertonic saline twice daily. Continue Mucinex and flutter valve. Inspiratory capacity is very poor. Continue maintenance nebulized formoterol twice daily and nebulized budesonide twice daily. Continue LAMA inhaler. This is the regimen that she should be discharged on which will take the place of [facility]. (2) Pulmonary hypertension: Plan: Echocardiogram revealed pulmonary hypertension which is likely secondary to chronic hypoxemia and COPD. Continue daily 20 mg Lasix to maintain euvolemia in the setting of pulmonary hypertension and cor pulmonale. Encouraged to maintain oxygen saturations above 89% given the pulmonary hypertension seen on echo. She may be a candidate for inhaled treprostinil as an outpatient. We will need to consider right heart catheterization if she continues to be profoundly symptomatic despite an optimized regimen for her COPD. (3) Respiratory failure, taqfu-os-xdmylft: Plan: Secondary to the above including COPD, pulmonary hypertension and deconditioning. Pulmonary rehab can be considered as an outpatient. Realistic goals need to be addressed with the patient. Palliative care referral should be considered. (4) Anxiety: Plan: I think this is playing a significant role in her symptoms overall, but is unfortunately mediated by her severe pulmonary disease. Consider behavioral health consultation. Plan Pulmonary will sign off. Please call with questions. I did job placement counselor the patient regarding her diagnosis and treatment plan and she expressed understanding. Greater than 50% of the time was spent vwpb-es-lgaf with the patient counseling them on their diagnosis and treatment plan. This note was dictated using voice recognition software and may include grammatical errors, extra words, word substitutions and other inaccuracies due to errors in the voice recognition software and differences in speech patterns. Admission and Anticipated Discharge Date Admission Date: December 09, 2021 Subjective Patient significantly improved compared to yesterday. Cough and shortness of breath is less pronounced. Patient sitting up in bed and eating her breakfast. Review of Systems Review of Systems: All systems reviewed & are unremarkable except as noted in HPI & below Physical Exam Physical Exam: Constitutional: Frail and elderly appearing female who appears anxious. Eyes: Pupils are equal round and reactive to light. Conjunctivae are normal. Anicteric sclera. Ears nose, mouth and throat: Nasal cannula in place. No obvious deformities. Neck: Trachea is midline. Visual inspection is normal. Respiratory: Diffuse wheezes less pronounced than yesterday. No increased work of breathing. Cardiovascular: Regular rate and rhythm. No murmurs. No edema. Gastrointestinal: Normal bowel sounds, soft, nontender and nondistended. No hepatosplenomegaly noted. Musculoskeletal: No cyanosis. Patient is able to move all extremities. Skin: No rashes, warm dry and intact. Neurologic: No obvious focal neurological deficits seen. Psychiatric: Alert and oriented x3 with an anxious mood. Results & Data Results & Data ([facility]) Vital Signs (Past 12 Hours) Vital Signs Temp Pulse Pulse Resp BP Pulse Ox O2 Del Method 12/16/21 07:40 36.7 C 86 17 112/64 90 Oxymask 12/16/21 07:23 94 H 20 92 Oxymask 12/16/21 03:30 95 H 17 91 12/15/21 23:10 89 19 90 12/15/21 22:32 36.7 C 93 H 18 120/74 91 Nasal Cannula O2 Flow Rate 12/16/21 07:40 12/16/21 07:23 5 12/16/21 03:30 6 12/15/21 23:10 6 12/15/21 22:32 5 PG Care Time/CCT Total # of Minutes Spent Total Time Spent with Patient: Total time spent is greater than 50% in coordination of care (as documented) at patient's floor/unit and/or counseling patient: Coding Level of Care Code 37552 Subseq Hosp Care Lvl 2 Diagnoses COPD exacerbation J44.1 Pulmonary hypertension I27.20 Respiratory failure, eitnh-xy-lvmlikp J96.20 Anxiety F41.9
[2021-12-16] MEDS: ENOXAPARIN INJ 40 MG/0.4 ML SYR SQ SCH (12:11)
[2021-12-16] MEDS: ALBUT/IPRATROP 3MG/0.5MG NEB 3 ML VIAL NEB PRN (14:43)
--- NOTE | 2021-12-16 17:06 | Hospitalist Progress Note ---
Date of Service December 16, 2021 Assessment & Plan (1) COPD exacerbation: Plan: Improved; pulmonary input and regimen noted and appreciated; recommended continue steroids for 2-week taper (2) GERD (gastroesophageal reflux disease): Plan: Pantoprazole 40 mg p.o. bid along with H2 lia; GI input noted and appreciated; EGD later once improved and as outpatient (3) Respiratory failure, nhzit-vw-[id number]: Plan: Secondary to #1as above (4) COPD (chronic obstructive pulmonary disease): Plan: As above. Pulmonary hypertension, if present (presuming RV systolic pressure reflects pulmonary artery pressure), likely group 3. (5) Sleep apnea: Plan: BiPAP at bedtime ECHO w/ normal systolic function, mild LVH, RV moderately dilated. RVSP elevated 50-60mmHg. IVC mod dilated highly encouraged continued use of Bipap hs (6) Urge and stress incontinence: Plan: Continue oxybutynin XL 15 mg p.o. daily (7) Anxiety: Plan: Continue sertraline 25 mg p.o. every morning TSH wnl 1.402 Plan BP notedobserve, asymptomatic VTE prophylaxis - Lovenox 40 mg subcu daily PT/OT consulted continued inpatient stay Admission and Anticipated Discharge Date Admission Date: December 09, 2021 Subjective Follow-up of presentation with shortness of breath, congestion symptomsoverall doing better but still complains of "congestion" Physical Exam Physical Exam: Constitutional and general: No acute distress, looks biologic age Head and face: No puffiness, atraumatic Eyes: No scleral icterus, extraocular movements normal Neck: Supple, no JVD Musculoskeletal: No acute joint swelling, no bony abnormalities Skin/dermatologic/integument: No rash, no purpura Hematologic and lymphatic: pallor +, no petechia Gastrointestinal/abdomen: Nondistended, soft, nonacute Neurologic: Cranial nerves intact, nonfocal Psychiatry: Awake, alert, pleasant, communicative Cardiovascular: Heart rhythm regular, no rub, no murmur, no gallop Respiratory: Chest movements equal, +use of accessory muscles, extremely poor air entry; wheezing noted today; Extremities: No edema, no cyanosis Results & Data Results & Data ([facility]) Vital Signs (Past 12 Hours) Vital Signs Temp Pulse Resp BP Pulse Ox O2 Del Method O2 Flow Rate 12/16/21 15:20 36.9 C 100 H 20 97/62 L 90 Nasal Cannula 2 12/16/21 14:45 92 H 20 94 Nasal Cannula 5 12/16/21 08:00 Nasal Cannula, Oxymask 5 12/16/21 07:40 36.7 C 86 17 112/64 90 Oxymask 12/16/21 07:23 94 H 20 92 Oxymask 5 Laboratory Results Laboratory Results - last 24 hr 12/16/21 07:45 Sodium 138 Potassium 3.8 Chloride 104 Carbon Dioxide 27 Anion Gap 7 BUN 25 H Creatinine 0.77 Est Cr Clr Drug Dosing 49.0 Est GFR ( Amer) 85.1 Est GFR (Non-Af Amer) 73.4 BUN/Creatinine Ratio 32.5 H Glucose 91 Calcium 8.6 PG Care Time/CCT Total # of Minutes Spent Total Time Spent with Patient: Total time spent is greater than 50% in coordination of care (as documented) at patient's floor/unit and/or counseling patient: Coding Level of Care Code 78921 Subseq Hosp Care Lvl 2 Diagnoses COPD exacerbation J44.1 GERD (gastroesophageal reflux disease) K21.9 Esophagitis presence: without esophagitis Respiratory failure, muqzq-cd-xfgxqry J96.20 COPD (chronic obstructive pulmonary disease) 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
[2021-12-16] MEDS: MONTELUKAST SODIUM 10 MG TABLET PO SCH (21:09)
[2021-12-17] MEDS: BUDESONIDE 0.5 MG/2 ML VIAL (PULMICORT) NEB SCH ×2 (07:29→20:08)
[2021-12-17] MEDS: SODIUM CHLOR 7% 4 ML NEB NEB SCH ×2 (07:30→20:08)
[2021-12-17] MEDS: FORMOTEROL 20 MCG/2 ML VIAL NEB SCH ×2 (07:30→20:08)
[2021-12-17 07:37] LABS: BUN Creatinine Ratio 30.9 (10-20); Calcium 8.3 mg/dl (8.5-10.1); Creatinine Clr Calc Pharmacy 46.6 ml/min; Est GFR (African American) 80.1 ml/min; Est GFR (Non-African American) 69.1 ml/min; Potassium 3.8 mmol/L (3.5-5.1)
[2021-12-17] MEDS: FAMOTIDINE 20 MG TAB PO SCH ×2 (08:56→19:56)
[2021-12-17] MEDS: SERTRALINE HCL 50 MG TABLET PO SCH (08:57)
[2021-12-17] MEDS: CHOLECALCIFEROL 5,000 UNITS 125 MCG TAB PO SCH (08:57)
[2021-12-17] MEDS: OXYBUTYNIN CHLORIDE XL 5 MG TABCR PO SCH (08:58)
[2021-12-17] MEDS: predniSONE 20 MG TAB PO SCH (08:58)
[2021-12-17] MEDS: CETIRIZINE HCL 10 MG TABLET PO SCH (08:58)
[2021-12-17] MEDS: PANTOprazole 40 MG TAB PO SCH ×2 (08:58→19:55)
[2021-12-17] MEDS: guaiFENesin 600 MG TABCR PO SCH ×2 (08:59→19:56)
[2021-12-17] MEDS: ENOXAPARIN INJ 40 MG/0.4 ML SYR SQ SCH (08:59)
[2021-12-17] MEDS: FLUTICASONE PROPIONATE NA SPR 16 GM BTL SCH (08:59)
[2021-12-17] MEDS: UMECLIDINIUM BROMIDE 62.5MCG/BLISTER 7 PUFFS/INHALER INH SCH (09:00)
[2021-12-17] MEDS: FUROSEMIDE 20 MG TAB PO SCH (09:03)
[2021-12-17] MEDS: ALBUT/IPRATROP 3MG/0.5MG NEB 3 ML VIAL NEB PRN (11:26)
--- NOTE | 2021-12-17 12:33 | Hospitalist Progress Note ---
Date of Service December 17, 2021 Assessment & Plan (1) COPD exacerbation: Plan: Somewhat improved but still high oxygen needs; may be her new baseline; pulmonary input and regimen noted and appreciated; recommended continue steroids for 2-week taper Ambulate and assess High risk of readmission after discharge regardless (2) GERD (gastroesophageal reflux disease): Plan: Pantoprazole 40 mg p.o. bid along with H2 lia; GI input noted and appreciated; EGD later once improved and as outpatient (3) Respiratory failure, ihnim-fg-jmjblct: Plan: Secondary to #1as above (4) COPD (chronic obstructive pulmonary disease): Plan: As above. Pulmonary hypertension, if present (presuming RV systolic pressure reflects pulmonary artery pressure), likely group 3. (5) Sleep apnea: Plan: BiPAP at bedtime ECHO w/ normal systolic function, mild LVH, RV moderately dilated. RVSP elevated 50-60mmHg. IVC mod dilated highly encouraged continued use of Bipap hs (6) Urge and stress incontinence: Plan: Continue oxybutynin XL 15 mg p.o. daily (7) Anxiety: Plan: Continue sertraline 25 mg p.o. every morning TSH wnl 1.402 Plan BP notedobserve, asymptomatic VTE prophylaxis - Lovenox 40 mg subcu daily Admission and Anticipated Discharge Date Admission Date: December 09, 2021 Subjective Follow-up of presentation with shortness of breath, congestion symptomsoverall doing better but still complains of "congestion"; while fluctuating still high oxygen need; does not seem to have ambulated much at all Physical Exam Physical Exam: Constitutional and general: No acute distress, looks biologic age Head and face: No puffiness, atraumatic Eyes: No scleral icterus, extraocular movements normal Neck: Supple, no JVD Musculoskeletal: No acute joint swelling, no bony abnormalities Skin/dermatologic/integument: No rash, no purpura Hematologic and lymphatic: pallor +, no petechia Gastrointestinal/abdomen: Nondistended, soft, nonacute Neurologic: Cranial nerves intact, nonfocal Psychiatry: Awake, alert, pleasant, communicative Cardiovascular: Heart rhythm regular, no rub, no murmur, no gallop Respiratory: Chest movements equal, +use of accessory muscles, extremely poor air entry; mild wheezing; wheezing noted today; Extremities: No edema, no cyanosis Results & Data Results & Data ([facility]) Vital Signs (Past 12 Hours) Vital Signs Temp Pulse Pulse Resp BP Pulse Ox O2 Del Method 12/17/21 11:26 84 22 88 L Nasal Cannula 12/17/21 09:10 Nasal Cannula 12/17/21 09:03 103/72 92 Nasal Cannula 12/17/21 07:05 37 C 91 H 16 99/66 L 91 Nasal Cannula 12/17/21 07:30 98 H 24 88 L Nasal Cannula 12/17/21 02:05 110 H 16 94 O2 Flow Rate 12/17/21 11:26 5 12/17/21 09:10 5 12/17/21 09:03 5 12/17/21 07:05 5 12/17/21 07:30 5 12/17/21 02:05 3 PG Care Time/CCT Total # of Minutes Spent Total Time Spent with Patient: Total time spent is greater than 50% in coordination of care (as documented) at patient's floor/unit and/or counseling patient: Coding Level of Care Code 02002 Subseq Hosp Care Lvl 2 Diagnoses COPD exacerbation J44.1 GERD (gastroesophageal reflux disease) K21.9 Esophagitis presence: without esophagitis Respiratory failure, ravhd-gu-oesxdwx J96.20 COPD (chronic obstructive pulmonary disease) 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
[2021-12-17] MEDS: MONTELUKAST SODIUM 10 MG TABLET PO SCH (19:58)
[2021-12-18] MEDS: BUDESONIDE 0.5 MG/2 ML VIAL (PULMICORT) NEB SCH ×2 (07:01→19:21)
[2021-12-18] MEDS: FORMOTEROL 20 MCG/2 ML VIAL NEB SCH ×2 (07:01→19:21)
[2021-12-18] MEDS: SODIUM CHLOR 7% 4 ML NEB NEB SCH ×2 (07:01→19:21)
[2021-12-18] MEDS: guaiFENesin 600 MG TABCR PO SCH ×2 (08:52→21:54)
[2021-12-18] MEDS: CHOLECALCIFEROL 5,000 UNITS 125 MCG TAB PO SCH (08:52)
[2021-12-18] MEDS: CETIRIZINE HCL 10 MG TABLET PO SCH (08:52)
[2021-12-18] MEDS: PANTOprazole 40 MG TAB PO SCH ×2 (08:53→21:54)
[2021-12-18] MEDS: FLUTICASONE PROPIONATE NA SPR 16 GM BTL SCH (08:53)
[2021-12-18] MEDS: SERTRALINE HCL 50 MG TABLET PO SCH (08:53)
[2021-12-18] MEDS: OXYBUTYNIN CHLORIDE XL 5 MG TABCR PO SCH (08:53)
[2021-12-18] MEDS: FAMOTIDINE 20 MG TAB PO SCH ×2 (08:53→21:54)
[2021-12-18] MEDS: predniSONE 20 MG TAB PO SCH (08:53)
[2021-12-18] MEDS: ENOXAPARIN INJ 40 MG/0.4 ML SYR SQ SCH (08:54)
[2021-12-18] MEDS: UMECLIDINIUM BROMIDE 62.5MCG/BLISTER 7 PUFFS/INHALER INH SCH (08:54)
[2021-12-18] MEDS: FUROSEMIDE 20 MG TAB PO SCH (09:01)
--- NOTE | 2021-12-18 16:20 | Discharge Summary ---
Date of Service December 18, 2021 Admission HPI Per Admitting Provider Judie White is a 81 year old female with COPD who presents to the ER with shortness of breath. She reports getting progressively getting worse for the last 3 weeks. Associated mild productive cough and tightness in chest. Despite having known COPD she did not call her polysomnography technician and is yet to take any steroids during this course of illness. In the ER she was hypoxic on room air with O2 sats 84%. She was therefore referred to medicine for admission and ongoing management of COPD exacerbation and hypoxia. Principal Diagnosis COPD exacerbation, acute on chronic hypoxic respiratory failure Discharge Exam No acute distress, looks well comparativelythe best I have seen her Chest -no significant wheezing, decreased breath sounds Discharge Data Allergies Allergy/AdvReac Type Severity Reaction Status Date / Time Penicillins Allergy Intermediate HIVES Verified 12/09/21 22:12 Milk Containing Products AdvReac Mild Gastrointestinal Verified 12/09/21 22:12 Upset Consultations 12/09/21 20:52 ED Decision to Admit Stat 12/14/21 12:52 Consult Gastroenterology Routine Consult Pulmonology Routine Ordered Studies 12/14/21 13:00 FL barium swallow Routine Hospital Course (1) COPD exacerbation: improved; oxygen need better; taper steroids, continue treatment as recommended by pulmonary with follow-up with pulmonary and allergy High risk of readmission remains (2) GERD (gastroesophageal reflux disease): Pantoprazole 40 mg p.o. bid along with H2 lia; GI input noted and appreciated; EGD later once improved and as outpatient (3) Respiratory failure, rltws-el-swvutwc: Secondary to #1as above (4) COPD (chronic obstructive pulmonary disease): As above. Pulmonary hypertension, if present (presuming RV systolic pressure reflects pulmonary artery pressure), likely group 3. (5) Sleep apnea: BiPAP at bedtime ECHO w/ normal systolic function, mild LVH, RV moderately dilated. RVSP elevated 50-60mmHg. IVC mod dilated highly encouraged continued use of Bipap hs (6) Urge and stress incontinence: Continue oxybutynin XL 15 mg p.o. daily (7) Anxiety: Continue sertraline 25 mg p.o. 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 Call non-emergency contact if: your symptoms worsen Follow-up/Referrals: Carl Ravi DO [Physician] - (Seen in house, in about 2 weeks for consideration of EGD) Camila Beth DO [Primary Care Provider] - Agustin Marinelli MD [Physician] - (Known to you, in 1 to 2 weeks, as soon as possible) Joel Wiseman MD [Physician] - (Known to you, early follow-up, missed appointment) Diet: Regular Addtl Attending Provider Instructions: Continue BiPAP use at night and during sleep; use oxygen 2 L at rest, 3 L on activity, and 5 L feeding into BiPAP at night and if used during the day while sleeping Pending Studies at Discharge: No Stand-Alone Forms: My [employer], Smoking Cessation Medications and DC Order Prescriptions: New pantoprazole 40 mg Tablet,Delayed Release (Dr/Ec) 40 mg PO BID Qty: 60 1RF prednisone 10 mg Tablet 30 mg PO DAILY Qty: 24 0RF Rx Instructions: Take 3 tablets daily for 4 days, 2 tablets daily for 4 days, 1 tablet daily for 4 days and then stop famotidine 20 mg Tablet 20 mg PO BID Qty: 60 1RF budesonide 0.5 mg/2 mL Suspension For Nebulization 0.5 mg NEB BIDR Qty: 60 3RF Incruse Ellipta 62.5 mcg/actuation Blister With Device 1 inh inhalation QAM Qty: 30 1RF formoterol fumarate [Perforomist] 20 mcg/2 mL Solution For Nebulization 20 mcg NEB BID Qty: 120 1RF Continued (DME) nebulizer accessories Misc See Rx Instructions .ROUTE .MEDSUPPLY Qty: 1 0RF Rx Instructions: Filters for nebulizer oxybutynin chloride 15 mg tablet extended release 24 hr 15 mg PO QAM Qty: 90 1RF sertraline 25 mg tablet 25 mg PO QAM Qty: 90 1RF albuterol sulfate 90 mcg/actuation HFA aerosol inhaler 1 - 2 puff inhalation Q4H PRN (Reason: shortness of breath) Qty: 18 5RF cholecalciferol (vitamin D3) [Vitamin D3] 125 mcg (5,000 unit) tablet 5,000 unit PO QAM Qty: 90 1RF cetirizine 10 mg tablet 10 mg PO QAM Qty: 90 1RF montelukast [Singulair] 10 mg tablet 10 mg PO HS Qty: 90 1RF ipratropium-albuterol 0.5 mg-3 mg(2.5 mg base)/3 mL solution for nebulization 3 ml inhalation Q4 PRN (Reason: Shortness Of Breath Or Wheezing) Qty: 180 1RF Rx Instructions: 1 VIAL VIA NEB EVERY FOUR HOURS NEEDED FOR WHEEZING. DX. 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 Lifetime need. azithromycin 250 mg tablet 250 mg PO 3XWK Rx Instructions: Take 1 tablet orally every Tuesday, Tuesday, and Tuesday Discontinued Trelegy Ellipta 100-62.5-25 mcg blister with device 1 inh INH QAM Qty: 60 5RF Discharge Orders: Discharge Order (Routine); Ordered 12/18/21 Ordered By: [place] Admission Data Admit Date/Time: 12/09/21 21:32 Attending Provider: [place] Admit Provider: Compa Oliveira Primary Care Provider: Camila Beth Other Providers: Compa Oliveira ; Kathy Palacios ; Ladi Ochoa ; Abad Cage Supervising Physician Co-Signing Physician Notes Agree with EDWIN Sim as above Abd: Soft, NT, ND Continue current therapy and supportive care Outpatient EGD when acute symptoms resolve Coding Level of Care Code D/C DAY MANAGEMENT >30 MINS Diagnoses COPD exacerbation J44.1 GERD (gastroesophageal reflux disease) K21.9 Esophagitis presence: without esophagitis Respiratory failure, phmsk-yr-suscfiz J96.20 COPD (chronic obstructive pulmonary disease) J43.9 COPD type: emphysema Emphysema type: unspecified Sleep apnea G47.30 Urge and stress incontinence N39.46 Anxiety F41.9
[2021-12-18] MEDS: MONTELUKAST SODIUM 10 MG TABLET PO SCH (21:54)
[2021-12-19] MEDS: BUDESONIDE 0.5 MG/2 ML VIAL (PULMICORT) NEB SCH (07:21)
[2021-12-19] MEDS: FORMOTEROL 20 MCG/2 ML VIAL NEB SCH (07:21)
[2021-12-19] MEDS: SODIUM CHLOR 7% 4 ML NEB NEB SCH (07:22)
--- NOTE | 2021-12-19 07:53 | Hospitalist Progress Note ---
Date of Service December 19, 2021 Assessment & Plan (1) COPD exacerbation: Plan: improved; oxygen need better; taper steroids, continue treatment as recommended by pulmonary with follow-up with pulmonary and allergy High risk of readmission remains (2) GERD (gastroesophageal reflux disease): Plan: Pantoprazole 40 mg p.o. bid along with H2 lia; GI input noted and appreciated; EGD later once improved and as outpatient (3) Respiratory failure, bqkos-ic-ywqzlxv: Plan: Secondary to #1as above (4) COPD (chronic obstructive pulmonary disease): Plan: As above. Pulmonary hypertension, if present (presuming RV systolic pressure reflects pulmonary artery pressure), likely group 3. (5) Sleep apnea: Plan: BiPAP at bedtime ECHO w/ normal systolic function, mild LVH, RV moderately dilated. RVSP elevated 50-60mmHg. IVC mod dilated highly encouraged continued use of Bipap hs (6) Urge and stress incontinence: Plan: Continue oxybutynin XL 15 mg p.o. daily (7) Anxiety: Plan: Continue sertraline 25 mg p.o. every morning TSH wnl 1.402 Admission and Anticipated Discharge Date Admission Date: December 09, 2021 Subjective Follow-up of presentation with shortness of breath, congestion symptomsdoing well and keen to go home Physical Exam Physical Exam: No acute distress, looks well comparativel Chest -no significant wheezing, decreased breath sounds Results & Data Results & Data ([facility]) Vital Signs (Past 12 Hours) Vital Signs Temp Pulse Pulse Resp BP Pulse Ox O2 Del Method 12/19/21 07:21 76 20 95 Nasal Cannula 12/19/21 02:45 78 17 94 12/18/21 23:30 17 12/18/21 22:28 37.0 C 81 17 113/68 94 Nasal Cannula 12/18/21 20:00 Nasal Cannula O2 Flow Rate 12/19/21 07:21 4 12/19/21 02:45 4 12/18/21 23:30 4 12/18/21 22:28 4 12/18/21 20:00 2 PG Care Time/CCT Total # of Minutes Spent Total Time Spent with Patient: Total time spent is greater than 50% in coordination of care (as documented) at patient's floor/unit and/or counseling patient: Coding Level of Care Code 84475 Subseq Hosp Care Lvl 1 Diagnoses COPD exacerbation J44.1 GERD (gastroesophageal reflux disease) K21.9 Esophagitis presence: without esophagitis Respiratory failure, [id number] J96.20 COPD (chronic obstructive pulmonary disease) 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
[2021-12-19] MEDS ORDERED: predniSONE 10 MG TABLET PO SCH (09:00)
[2021-12-19] MEDS: PANTOprazole 40 MG TAB PO SCH (09:22)
[2021-12-19] MEDS: FAMOTIDINE 20 MG TAB PO SCH (09:22)
[2021-12-19] MEDS: CHOLECALCIFEROL 5,000 UNITS 125 MCG TAB PO SCH (09:22)
[2021-12-19] MEDS: FLUTICASONE PROPIONATE NA SPR 16 GM BTL SCH (09:23)
[2021-12-19] MEDS: guaiFENesin 600 MG TABCR PO SCH (09:23)
[2021-12-19] MEDS: SERTRALINE HCL 50 MG TABLET PO SCH (09:24)
[2021-12-19] MEDS: OXYBUTYNIN CHLORIDE XL 5 MG TABCR PO SCH (09:24)
[2021-12-19] MEDS: CETIRIZINE HCL 10 MG TABLET PO SCH (09:26)
[2021-12-19] MEDS: ENOXAPARIN INJ 40 MG/0.4 ML SYR SQ SCH (09:28)
[2021-12-19] MEDS: FUROSEMIDE 20 MG TAB PO SCH (09:28)
[2021-12-19] MEDS: UMECLIDINIUM BROMIDE 62.5MCG/BLISTER 7 PUFFS/INHALER INH SCH (09:29)
== END 2021-12-19 10:33 | disposition home health service (06) | DRG 190 ==
LOC: ED 17:28 → SUATTDRO 21:32 → 3N 21:32

== ENCOUNTER 2022-12-18 11:03 | Inpatient (IN) ==
[2022-12-18] MEDS ORDERED: SODIUM CHLORIDE 0.9% 500 ML IV STA (11:10)
[2022-12-18] MEDS ORDERED: fentaNYL citrate PF 100 MCG/2 ML VIAL IV PRN (11:10)
[2022-12-18] MEDS ORDERED: ONDANSETRON INJ 2 MG/ML 2 ML VIAL IV STA (11:10)
[2022-12-18] MEDS ORDERED: ALBUT/IPRATROP 3MG/0.5MG NEB 3 ML VIAL NEB STA ×2 (11:16→15:03)
--- NOTE | 2022-12-18 11:20 | Emergency Department Note ---
Impression & Plan Acute exacerbation of chronic obstructive pulmonary disease, Chest pain ED Provider Note NAME: AMY DIALLO AGE: 82 SEX: F : 1940 ARRIVES VIA: Ambulance INFORMANT: Patient, EMS ED PROVIDER(S): Talib Goncalves DO CHIEF COMPLAINT: Shortness of breath HPI: The patient is an 82-year-old female who presented to the emergency department for shortness of breath cough and chest pain. The patient states her symptoms have been ongoing over the last 24 hours. She did call 911 and arrived via ambulance. She received DuoNeb treatment as well as IV Solu-Medrol prior to arrival. She states her symptoms are mildly improved. She denies having any hemoptysis. She denies having any lower extremity swelling or pain. The patient has had no fevers. She has had no exposures to any infectious process as far she knows. She has been compliant with her outpatient medications otherwise. ROS: See above HPI for pertinent positives & negatives. A total of 10 systems reviewed and were otherwise negative. PAST MEDICAL HISTORY: See Below PAST SURGICAL HISTORY: See Below FAMILY HISTORY: See Below SOCIAL HISTORY: See Below HOME MEDICATIONS: See Below ALLERGIES: See Below VITALS: See Below PHYSICAL EXAMINATION: GENERAL: The patient is awake and alert. She appears anxious and uncomfortable. EYES: The conjunctivae are clear. The pupils are round and reactive. EARS, NOSE, MOUTH AND THROAT: The nose is without any evidence of any deformity. NECK: The neck is nontender and supple. RESPIRATORY: Diminished breath sounds are noted throughout. There is significant conversational dyspnea as well as tachypnea. CARDIOVASCULAR: Regular rate and rhythm noted there no murmurs rubs or gallops normal S1 normal S2. GASTROINTESTINAL: The abdomen is soft. Abdomen is nontender. MUSCULOSKELETAL/EXTREMITIES: There is no evidence of gross deformity full range of motion is noted in the hips and shoulders. SKIN: There is no obvious evidence of any rash. There are no petechiae, pallor or cyanosis noted. NEUROLOGIC: Patient is awake alert and oriented x3 MEDICAL DECISION MAKING: The patient is an 82-year-old female who presented to the emergency department for an evaluation of shortness of breath. The patient arrived via ambulance. She was treated with a DuoNeb prior to arrival. She was also given IV Solu- Medrol prior to arrival. I discussed the patient's laboratory and radiographic studies with her. She was treated with pain medication as well as IV antibioti cs for presumed bronchitis as she did have a productive cough. The patient was feeling much better but still had an oxygen requirement. She had significant pain as well as exertional dyspnea. Because of the pain the patient did have a CT angiography of the chest. This did not appear to be consistent with pulmonary embolism. The patient was felt to be a better candidate for inpatient management. Dr. Teresa[facility] the [facility]. Triage Nursing notes reviewed. Prior medical records reviewed Vital Signs: reviewed and remarkable for no significant abnormalities Differential diagnosis: Cardiac ischemia, aortic dissection, pulmonary embolism, pneumothorax, pneumonia, pericarditis, myocarditis, esophageal rupture, GERD, cholecystitis, pancreatitis, musculoskeletal, as well as other pathologies. ER treatment provided: See below Diagnostics interpreted by me: ECG: EKG was obtained in the emergency department. My interpretation is normal sinus rhythm at 99 bpm. There is no ectopy. Right bundle branch block pattern was noted. This was compared to a tracing from December 12, 2021. No changes were noted. A prehospital EKG was evaluated. My interpretation is sinus tachycardia at 103 bpm. Right bundle branch block pattern was noted. This compares favorably to the tracing obtained in the emergency department. Cardiac Monitoring: An order was placed for continuous cardiac monitoring. The monitor shows a rate of 89 bpm with sinus rhythm. Laboratory studies: As stated above and show below. Imaging studies: See below. Radiographic imaging was reviewed by myself Consultation(s): Dr Teresa [facility] the patient. He will evaluate the patient in the emergency department. ED COURSE: Procedures: none Critical Care: I have personally spent greater than 45 minutes of critical care time in the direct management of this patient. This includes bedside care, interpretation of diagnostic studies, and testing, discussion with consultants, patient, and family members, and other required patient management activities. This 45 minutes is in excess of all separately billable procedures. Past Med/Surg History Medical History Anxiety Asthma Chronic ischemic heart disease Chronic nasal congestion COPD (chronic obstructive pulmonary disease) well controlled w/ inhalers - prn o2 use GERD (gastroesophageal reflux disease) History of ankle fracture Hypercholesterolemia On home oxygen therapy 2-3lpm via n/c PRN Osteoporosis Prediabetes Pulmonary hypertension Sleep apnea cpap Urge and stress incontinence Vitamin D deficiency Surgical History History of colonoscopy History of esophagogastroduodenoscopy (EGD) History of laparoscopic cholecystectomy History of rhinoplasty History of right cataract surgery History of tonsillectomy Hx of excision of mass excision of intra abdominal mass (benign) Hx of left cataract extraction S/P HANNA (total abdominal hysterectomy) Family History Mother Breast cancer Sister Heart disease Pacemaker Other Encounter for pre-operative examination No family history of adverse response to anesthesia No family history of bleeding disorder Denies family history of Ovarian cancer Prostate cancer Colorectal cancer Social History Smoking Status: Former smoker Tobacco Type: Cigarettes Age Started Using Tobacco: 23; Age Quit Using Tobacco: 73; packs per day: 0.5; Cigarettes Per Day: quit 9 years ago; Second Hand Exposure: Yes (as a child); Do You Dip or Chew Tobacco: No; Hx Alcohol Use: No Hx Substance Use: No Preferred Language: Irish Communication Ability: Effective Visual Impairment: No Limitations Hearing Ability: Normal General Expeditor Required: No Beliefs That Will Affect Care: None marital status: / Current Living Situation: Alone current occupational status: retired Feels Safe at Home: Yes Childhood Exposure to Second-Hand Smoke: Yes (Father smoked, pt doesn't know if father smoked in the house or not. ) Diet: regular Diet Comment: regular caffeine: Yes (2 cups coffee in morning, 1 with supper) during the past year weight has: remained stable Dental Care, Regularly: Yes Physical Activity Frequency: 1-2 Times per Week Seatbelt Use: always Sunscreen Use: No Assistive Devices: CPAP, Glasses, Nebulizer and Other Allergies Allergies Allergy/AdvReac Type Severity Reaction Status Date / Time Penicillins Allergy Intermediate HIVES Verified 11/29/22 11:56 Milk Containing Products AdvReac Mild Gastrointestinal Verified 11/29/22 11:56 (Dairy) Upset [Milk Containing Products] house dust AdvReac Unknown Verified 11/29/22 11:56 mold AdvReac Unknown Verified 11/29/22 11:56 Home Meds Home Medications Medication Instructions Recorded Confirmed cholecalciferol (vitamin D3) 50 0 unit PO DAILY 12/18/22 12/18/22 mcg (2,000 unit) capsule Previous Rx's Medication Instructions Recorded CPAP Supplies #1 ea 08/13/19 nebulizer accessories #1 ea 02/21/20 CPAP Machine #1 ea 06/17/21 ipratropium bromide 21 mcg (0.03 2 spray intranasal DAILY PRN 02/11/22 %) nasal spray allergy symptoms #90 mL fluticasone propionate 50 2 spray intranasal DAILY #48 grams 03/23/22 mcg/actuation nasal spray,suspension (Flonase Allergy Relief) montelukast 10 mg tablet 10 mg PO HS #90 tabs 04/26/22 (Singulair) olopatadine 0.6 % nasal spray 2 spray intranasal DAILY #91.5 05/31/22 (Patanase) grams oxybutynin chloride 15 mg 15 mg PO QAM #90 tabs 07/02/22 tablet,extended release 24 hr sertraline 25 mg tablet 25 mg PO QAM #90 tabs 07/26/22 azelastine 137 mcg (0.1 %) nasal 2 spray intranasal BID #90 mL 08/10/22 spray aerosol pantoprazole 40 mg tablet,delayed See Rx Instructions .Route 08/20/22 release .COMPLEX #60 tabs albuterol sulfate 90 mcg/actuation 1 - 2 puff inhalation Q4H PRN 10/08/22 aerosol inhaler shortness of breath #18 grams azithromycin 250 mg tablet 250 mg PO 3XWK COPD maintenance 11/02/22 #36 tabs fluticasone fur. 100 mcg-umeclid 1 inh inhalation DAILY #60 ea 11/02/22 62.5 mcg-vilant 25 mcg inhalat.powder (Trelegy Ellipta) famotidine 20 mg tablet See Rx Instructions .Route 11/09/22 .COMPLEX #180 tabs cetirizine 10 mg tablet 10 mg PO QAM #90 tabs 11/25/22 ipratropium 0.5 mg-albuterol 3 mg 3 ml inhalation Q4 PRN Shortness 11/25/22 (2.5 mg base)/3 mL nebulization Of Breath Or Wheezing #180 mL soln Results & Data (ED) Vital Signs Vital Signs - 24 hr 12/18/22 11:09 12/18/22 11:28 12/18/22 11:28 Temperature 36.9 C Temperature Source Oral Pulse Rate 103 H Pulse Rate [Radial] Respiratory Rate 21 Respiratory Effort / Characteristics Spontaneous Labored Short of Breath Spontaneous Labored Respiratory Depth Normal Deep Respiratory Pattern Regular Blood Pressure 129/80 Blood Pressure [Left Arm] Blood Pressure Mean 96 Blood Pressure Mean [Left Arm] Blood Pressure Position Sitting Pulse Oximetry 96 95 Oxygen Delivery Method Nasal Cannula Nasal Cannula Nasal Cannula Oxygen Flow Rate 2 2 2 Sepsis Recent Fever Within 48 Hours No Sepsis New/Unexplained Change in Mental Status No Sepsis Action Taken by Nursing Physician Notified 12/18/22 11:28 12/18/22 12:18 12/18/22 13:09 Temperature Temperature Source Pulse Rate 104 H Pulse Rate [Radial] 89 Respiratory Rate 20 Respiratory Effort / Characteristics Non-Labored Spontaneous Respiratory Depth Normal Respiratory Pattern Regular Blood Pressure Blood Pressure [Left Arm] 102/69 Blood Pressure Mean Blood Pressure Mean [Left Arm] 80 Blood Pressure Position Pulse Oximetry 95 95 Oxygen Delivery Method Nasal Cannula Nasal Cannula Oxygen Flow Rate 2 2 Sepsis Recent Fever Within 48 Hours Sepsis New/Unexplained Change in Mental Status Sepsis Action Taken by Custodial Medications Current Medication List: was personally reviewed by me Laboratory Data Attestation: I reviewed the patient's lab results. 12/18/22 11:16 12/18/22 11:16 Lab Results 12/18/22 12/18/22 12/18/22 Range/Units 11:16 11:16 11:16 WBC 9.05 (4.8-10.8) K/ul RBC 4.02 L (4.20-5.40) M/uL Hgb 10.7 L (12.0-16.0) g/dl Hct 34.5 L (37.0-47.0) % MCV 85.8 (80.0-100.0) fL MCH 26.6 (25.0-34.0) pg MCHC 31.0 L (32.0-36.0) g/dL RDW Std Deviation 47.1 H (36.4-46.3) fL RDW Coeff of Geri 15.0 H (11.5-14.5) % Plt Count 305 (130-400) K/uL MPV 9.8 (9.4-12.4) fL Immature Gran % (Auto) 0.2 % Neut % (Auto) 64.8 % Lymph % (Auto) 24.4 % Bell % (Auto) 8.8 % Eos % (Auto) 1.0 % Baso % (Auto) 0.8 % Neut # (Auto) 5.86 (1.40-6.50) K/uL Lymph # (Auto) 2.21 (1.2-3.4) K/uL Bell # (Auto) 0.80 H (0.11-0.59) K/uL Eos # (Auto) 0.09 (0-0.50) K/uL Baso # (Auto) 0.07 (0-0.2) K/uL Immature Gran # (Auto) 0.02 (0.01-0.20) K/uL PT 10.6 (9.0-12.0) Seconds INR 1.0 (0.9-1.1) APTT 24.2 (21.0-31.0) Seconds PTT Ratio 0.9 VBG pH (7.36-7.41) VBG pCO2 (38-50) mmHg VBG pO2 mmHg VBG HCO3 mmol/L VBG O2 Saturation % VBG Base Excess mEq/L Sodium 139 (136-145) mmol/L Potassium 3.8 (3.5-5.1) mmol/L Chloride 104 (98-107) mmol/L Carbon Dioxide 28 (21-32) mmol/L Anion Gap 7 (3-11) BUN 12 (6-23) mg/dl Creatinine 0.75 (0.6-1.2) mg/dl Est Cr Clr Drug Dosing 49.5 ml/min Est GFR ( Amer) 87.3 ml/min Est GFR (Non-Af Amer) 75.3 ml/min BUN/Creatinine Ratio 16.0 (10-20) Glucose 90 (70-99(Fasting)) mg/dl Calcium 9.6 (8.6-10.3) mg/dl Magnesium 1.8 (1.7-2.4) mg/dl Total Bilirubin 0.8 (0.2-1.0) mg/dl AST 17 (13-39) U/L ALT 10 (7-52) U/L Alkaline Phosphatase 71 (34-104) U/L Troponin I High Sens 3.4 (0-14) pg/ml B-Natriuretic Peptide (0-100) pg/ml Total Protein 6.9 (6.0-8.3) gm/dl Albumin 4.1 (3.4-5.0) gm/dl Globulin 2.8 (2.5-4.0) gm/dl Albumin/Globulin Ratio 1.5 (0.9-2) SARS-CoV-2, RNA, NAAT (NEGATIVE) 12/18/22 12/18/22 12/18/22 Range/Units 11:16 11:24 11:31 WBC (4.8-10.8) K/ul RBC (4.20-5.40) M/uL Hgb (12.0-16.0) g/dl Hct (37.0-47.0) % MCV (80.0-100.0) fL MCH (25.0-34.0) pg MCHC (32.0-36.0) g/dL RDW Std Deviation (36.4-46.3) fL RDW Coeff of Geri (11.5-14.5) % Plt Count (130-400) K/uL MPV (9.4-12.4) fL Immature Gran % (Auto) % Neut % (Auto) % Lymph % (Auto) % Bell % (Auto) % Eos % (Auto) % Baso % (Auto) % Neut # (Auto) (1.40-6.50) K/uL Lymph # (Auto) (1.2-3.4) K/uL Bell # (Auto) (0.11-0.59) K/uL Eos # (Auto) (0-0.50) K/uL Baso # (Auto) (0-0.2) K/uL Immature Gran # (Auto) (0.01-0.20) K/uL PT (9.0-12.0) Seconds INR (0.9-1.1) APTT (21.0-31.0) Seconds PTT Ratio VBG pH 7.37 (7.36-7.41) VBG pCO2 52 H (38-50) mmHg VBG pO2 36 mmHg VBG HCO3 30 mmol/L VBG O2 Saturation < 60.0 % VBG Base Excess 3.6 mEq/L Sodium (136-145) mmol/L Potassium (3.5-5.1) mmol/L Chloride (98-107) mmol/L Carbon Dioxide (21-32) mmol/L Anion Gap (3-11) BUN (6-23) mg/dl Creatinine (0.6-1.2) mg/dl Est Cr Clr Drug Dosing ml/min Est GFR ( Amer) ml/min Est GFR (Non-Af Amer) ml/min BUN/Creatinine Ratio (10-20) Glucose (70-99(Fasting)) mg/dl Calcium (8.6-10.3) mg/dl Magnesium (1.7-2.4) mg/dl Total Bilirubin (0.2-1.0) mg/dl AST (13-39) U/L ALT (7-52) U/L Alkaline Phosphatase (34-104) U/L Troponin I High Sens (0-14) pg/ml B-Natriuretic Peptide 20 (0-100) pg/ml Total Protein (6.0-8.3) gm/dl Albumin (3.4-5.0) gm/dl Globulin (2.5-4.0) gm/dl Albumin/Globulin Ratio (0.9-2) SARS-CoV-2, RNA, NAAT NEGATIVE (NEGATIVE) Administered Medications Fentanyl Citrate (Fentanyl Citrate Pf 100 Mcg/2 Ml Vial) 50 mcg IV Q15M PRN PRN Reason: Pain Stop: 01/01/23 11:09 Last Admin: 12/18/22 11:18 Dose: 50 mcg Documented By: SHILPA Discontinued Medications Albuterol (Albut/Ipratrop 3mg/0.5mg Neb 3 Ml Vial) 3 ml NEB NOW STA; Protocol Stop: 12/18/22 11:17 Last Admin: 12/18/22 11:22 Dose: 3 ml Documented By: SHILPA Sodium Chloride (Nss) 500 mls @ 999 mls/hr IV .Q31M STA Stop: 12/18/22 11:40 Last Infusion: 12/18/22 12:27 Dose: 0 mls/hr Documented By: Admin: 12/18/22 11:21 Dose: 999 mls/hr Documented By: SHILPA Ceftriaxone Sodium (Rocephin) 2,000 mg in 70 mls @ 140 mls/hr IV NOW STA Stop: 12/18/22 12:03 Last Infusion: 12/18/22 12:27 Dose: 0 mls/hr Documented By: Admin: 12/18/22 11:49 Dose: 140 mls/hr Documented By: SHILPA Sodium Chloride (Nss) 500 mls @ 999 mls/hr IV .Q31M ONE Stop: 12/18/22 13:38 Last Infusion: 12/18/22 14:45 Dose: 0 mls/hr Documented By: Admin: 12/18/22 14:08 Dose: 999 mls/hr Documented By: SHILPA Ioversol (Ioversol 350 Mg 125ml Prefilled Syringe) 120 ml IV ONCE ONE Stop: 12/18/22 13:55 Last Admin: 12/18/22 13:55 Dose: 120 ml Documented By: CRISTIANA Ondansetron HCl (Ondansetron Inj 2 Mg/Ml 2 Ml Vial) 4 mg IV NOW STA Stop: 12/18/22 11:11 Last Admin: 12/18/22 11:18 Dose: 4 mg Documented By: SHILPA Imaging Data Attestation: I personally reviewed and interpreted this imaging study as follows: My Impression: 1 view chest x-ray was obtained in the emergency department. There is scarring at the left base, no definite infiltrate, final report below. Radiologist's Impression: Chest X-Ray 12/18/22 11:10 XR chest 1V portable CLINICAL HISTORY: Dyspnea. COMPARISON STUDY: Chest CT August 18, 2020 and chest radiograph December 12, 2021. FINDINGS: Lung volumes are normal. Lungs are clear. There is underlying emphysema. Linear left apical opacity is unchanged and favor scarring. There is no pneumothorax or pleural effusion. Cardiac size is normal. Mediastinal con tours are normal. There is no evidence for pulmonary edema. IMPRESSION: No acute cardiopulmonary findings. ACT 112: Negative or not required by law. Electronically signed by: Alban Gonsalves M.D. 12/18/2022 11:33 AM Chest CTA 12/18/22 13:08 CT ANGIOGRAPHY OF THE CHEST, PULMONARY EMBOLUS PROTOCOL CLINICAL HISTORY: Shortness of breath. COPD. Evaluate for pulmonary embolus. COMPARISON STUDY: Chest CT August 18, 2020 and chest radiograph performed earlier today. TECHNIQUE: Following IV administration of 120 mL of Optiray, helical axial images of the chest were obtained utilizing the pulmonary embolus protocol. Maximal intensity projections and sagittal and coronal reformats were viewed on an independent 3D workstation. IV contrast was administered without complication. Automated exposure control was utilized for the study. A dose lowering technique was utilized adhering to the principles of ALARA. CT DOSE: 322.69 mGy.cm FINDINGS: No pulmonary emboli are identified. The size of the heart is normal. There is no pericardial effusion. There is no thoracic aortic dissection. No thoracic lymphadenopathy is present. Severe upper lobe predominant emphysema is noted. Linear left apical density is unchanged since CT of August 18, 2020. This represents scarring. A 6 mm right apical nodular density on image 207 is also similar to prior CT. 8 mm linear density within the left upper lobe on image 175 is new since prior CT. No consolidation is identified. There are moderate secretions throughout the segmental bronchi of the right lower lobe. No central obstructing mass is identified. No acute fractures within the bony thorax are noted. There is a 1 cm lateral segment hepatic cyst. IMPRESSION: 1. No pulmonary emboli identified. 2. Severe emphysema. No consolidation to suggest pneumonia. 3. Moderate secretions throughout the right lower lobe segmental bronchi. 4. 8 mm linear density within the left upper lobe which is new since prior CT. This favors scarring. However, a follow-up chest CT in 6 months to ensure stability/resolution is recommended. ACT 112: Negative or not required by law. Electronically signed by: Alban Gonsalves M.D. 12/18/2022 2:12 PM Discharge Plan Visit Data Chief Complaint: Shortness of Breath/Dyspnea Stated Complaint: SOB ED Provider: Talib Goncalves Discharge Problem: Acute exacerbation of chronic obstructive pulmonary disease, Chest pain Patient Disposition: Being Evaluated by Hospitalist Forms Stand Alone Forms: [facility] Prescriptions Prescriptions: No Action (DME) nebulizer accessories Misc See Rx Instructions .ROUTE .MEDSUPPLY Qty: 1 0RF Rx Instructions: Filters for nebulizer ipratropium bromide 21 mcg (0.03 %) spray,non-aerosol 2 spray intranasal DAILY PRN (Reason: allergy symptoms) Qty: 90 1RF Rx Instructions: administer into each nostril fluticasone propionate [Flonase Allergy Relief] 50 mcg/actuation spray,suspension 2 spray intranasal DAILY Qty: 48 1RF Rx Instructions: administer into each nostril montelukast [Singulair] 10 mg tablet 10 mg PO HS Qty: 90 1RF olopatadine [Patanase] 0.6 % spray,non-aerosol 2 spray intranasal DAILY Qty: 91.5 3RF oxybutynin chloride 15 mg tablet extended release 24hr 15 mg PO QAM Qty: 90 1RF sertraline 25 mg tablet 25 mg PO QAM Qty: 90 1RF azelastine 137 mcg (0.1 %) aerosol,spray 2 spray intranasal BID Qty: 90 3RF Rx Instructions: administer into each nostril pantoprazole 40 mg tablet,delayed release (DR/EC) See Rx Instructions .ROUTE .COMPLEX Qty: 60 1RF Dose Instruction: TAKE 1 TABLET BY MOUTH TWICE A DAY Rx Instructions: TAKE 1 TABLET BY MOUTH TWICE A DAY albuterol sulfate 90 mcg/actuation HFA aerosol inhaler 1 - 2 puff inhalation Q4H PRN (Reason: shortness of breath) Qty: 18 5RF famotidine 20 mg tablet See Rx Instructions .ROUTE .COMPLEX Qty: 180 2RF Dose Instruction: TAKE 1 TABLET BY MOUTH TWICE A DAY Rx Instructions: TAKE 1 TABLET BY MOUTH TWICE A DAY ipratropium-albuterol 0.5 mg-3 mg(2.5 mg base)/3 mL solution for nebulization 3 ml inhalation Q4 PRN (Reason: Shortness Of Breath Or Wheezing) Qty: 180 1RF Rx Instructions: 1 VIAL VIA NEB EVERY FOUR HOURS NEEDED FOR WHEEZING. DX. J44.9; J96.11 (DME) CPAP Supplies Misc See Rx Instructions .ROUTE .MEDSUPPLY Qty: 1 0RF Rx Instructions: NIV mask fit and teaching regarding use and oxygen; DME=[employer] cetirizine 10 mg tablet 10 mg PO QAM Qty: 90 1RF azithromycin 250 mg tablet 250 mg PO 3XWK Qty: 36 0RF Rx Instructions: Take 1 tablet orally every Tuesday, Tuesday, and Tuesday Trelegy Ellipta 100-62.5-25 mcg blister with device 1 inh inhalation DAILY Qty: 60 3RF (DME) CPAP Machine Misc See Rx Instructions .MEDSUPPLY Qty: 1 0RF Rx Instructions: Please provide a humidifier for her CPAP. Lifetime need. cholecalciferol (vitamin D3) 50 mcg (2,000 unit) capsule 0 unit PO DAILY Rx Instructions: pt unsure of dose Referrals Referrals: Camila Beth DO [Primary Care Provider] - Chest pain Qualifiers: Chest pain type: unspecified Qualified Code(s): R07.9 - Chest pain, unspecified
[2022-12-18] MEDS ORDERED: cefTRIAXone SODIUM 2,000 MG/70 ML BAG IV STA (11:34)
--- NOTE | 2022-12-18 11:34 | XRay Report ---
XR chest 1V portable CLINICAL HISTORY: Dyspnea. COMPARISON STUDY: Chest CT August 18, 2020 and chest radiograph December 12, 2021. FINDINGS: Lung volumes are normal. Lungs are clear. There is underlying emphysema. Linear left apical opacity is unchanged and favor scarring. There is no pneumothorax or pleural effusion. Cardiac size is normal. Mediastinal contours are normal. There is no evidence for pulmonary edema. IMPRESSION: No acute cardiopulmonary findings. ACT 112: Negative or not required by law. Electronically signed by: Alban Gonsalves M.D. 12/18/2022 11:33 AM
[2022-12-18 11:39] LABS: Base Excess VBG 3.6 mEq/L; HCO3 VBG 30 mmol/L; Oxygen Saturation VBG < 60.0 %; PCO2 VBG 52 mmHg (38-50); PO2 VBG 36 mmHg; pH VBG 7.37 (7.36-7.41)
[2022-12-18 11:46] LABS: Basophils # (auto) 0.07 K/uL (0-0.2); Basophils % (auto) 0.8 %; Eosinophils # (auto) 0.09 K/uL (0-0.50); Hematocrit (blood only) 34.5 % (37.0-47.0); Hemoglobin 10.7 g/dl (12.0-16.0); Immature Granulocytes # (auto) 0.02 K/uL (0.01-0.20); Immature Granulocytes % (auto) 0.2 %; Lymphocytes # (auto) 2.21 K/uL (1.2-3.4); Lymphocytes % (auto) 24.4 %; Mean Corpuscular Hemoglobin 26.6 pg (25.0-34.0); Mean Corpuscular Volume 85.8 fL (80.0-100.0); Mean Platelet Volume 9.8 fL (9.4-12.4); Monocytes % (auto) 8.8 %; Neutrophils # (auto) 5.86 K/uL (1.40-6.50); Neutrophils % (auto) 64.8 %; Platelet Count 305 K/uL (130-400); RDW Standard Deviation 47.1 fL (36.4-46.3); Red Blood Count 4.02 M/uL (4.20-5.40); White Blood Count 9.05 K/ul (4.8-10.8)
[2022-12-18 12:02] LABS: Albumin Globulin Ratio 1.5 (0.9-2); Albumin Level 4.1 gm/dl (3.4-5.0); Bilirubin,Total 0.8 mg/dl (0.2-1.0); Calcium 9.6 mg/dl (8.6-10.3); Creatinine Clr Calc Pharmacy 49.5 ml/min; Est GFR (African American) 87.3 ml/min; Est GFR (Non-African American) 75.3 ml/min; Globulin 2.8 gm/dl (2.5-4.0); Magnesium 1.8 mg/dl (1.7-2.4); Potassium 3.8 mmol/L (3.5-5.1); Total Protein 6.9 gm/dl (6.0-8.3)
[2022-12-18 12:08] LABS: Troponin I High Sensitivity 3.4 pg/ml (0-14)
[2022-12-18 12:22] LABS: Partial Thromboplastin Ratio 0.9; Partial Thromboplastin Time 24.2 Seconds (21.0-31.0); Prothrombin Time 10.6 Seconds (9.0-12.0)
--- NOTE | 2022-12-18 12:56 | Electrocardiogram Report ---
Test Reason : Blood Pressure : / mmHG Vent. Rate : 099 BPM Atrial Rate : 099 BPM P-R Int : 160 ms QRS Dur : 128 ms QT Int : 378 ms P-R-T Axes : 080 261 052 degrees QTc Int : 485 ms Normal sinus rhythm Left atrial enlargement Right bundle branch block Abnormal ECG When compared with ECG of 12-DEC-2021 14:09, No significant change was found Confirmed by Davi Bay ([id number]) on 12/18/2022 12:55:47 PM Referred By: Confirmed By:Davi Bay
[2022-12-18] MEDS ORDERED: SODIUM CHLORIDE 0.9% 500 ML IV ONE (13:08)
[2022-12-18] MEDS ORDERED: IOVERSOL 350 MG 125mL Prefilled Syringe IV ONE (13:54)
--- NOTE | 2022-12-18 14:14 | CT Scan Report ---
CT ANGIOGRAPHY OF THE CHEST, PULMONARY EMBOLUS PROTOCOL CLINICAL HISTORY: Shortness of breath. COPD. Evaluate for pulmonary embolus. COMPARISON STUDY: Chest CT August 18, 2020 and chest radiograph performed earlier today. TECHNIQUE: Following IV administration of 120 mL of Optiray, helical axial images of the chest were o btained utilizing the pulmonary embolus protocol. Maximal intensity projections and sagittal and cor onal reformats were viewed on an independent 3D workstation. IV contrast was administered without co mplication. Automated exposure control was utilized for the study. A dose lowering technique was ut ilized adhering to the principles of ALARA. CT DOSE: 322.69 mGy.cm FINDINGS: No pulmonary emboli are identified. The size of the heart is normal. There is no pericardi al effusion. There is no thoracic aortic dissection. No thoracic lymphadenopathy is present. Severe u pper lobe predominant emphysema is noted. Linear left apical density is unchanged since CT of July 292020. This represents scarring. A 6 mm right apical nodular density on image 207 is also similar t o prior CT. 8 mm linear density within the left upper lobe on image 175 is new since prior CT. No con solidation is identified. There are moderate secretions throughout the segmental bronchi of the right lower lobe. No central obstructing mass is identified. No acute fractures within the bony thorax are noted. There is a 1 cm lateral segment hepatic cyst. IMPRESSION: 1. No pulmonary emboli identified. 2. Severe emphysema. No consolidation to suggest pneumonia. 3. Moderate secretions throughout the right lower lobe segmental bronchi. 4. 8 mm linear density within the left upper lobe which is new since prior CT. This favors scarring. However, a follow-up chest CT in 6 months to ensure stability/resolution is recommended. ACT 112: Negative or not required by law. Electronically signed by: Alban Gonsalves M.D. 12/18/2022 2:12 PM
--- NOTE | 2022-12-18 15:15 | History & Physical Report ---
Date of Service December 18, 2022 Assessment & Plan (1) Acute exacerbation of chronic obstructive pulmonary disease: Plan: Acute on Chronic COPD 24 hours of wheezing and productive cough CTAchest: No PE. No consolidations consistent with pneumonia, right lower lung moderate secretions are noted. Procalcitonin is pending Patient received Rocephin x1 in ER due to her productive cough, this will cover for 24 hours Obtain Pro-Abelardo Continue steroids, pulmonary toilet. She is on azithromycin 3 times weekly for suppression at home. We will hold this in the setting of QT prolongation and add adjunct Doxy. Home inhaler/formulary equivalent continue Right-sided chest pain No territorial signs of ischemia on EKG High-sensitivity troponin is normal Suspect due to cough and COPD exacerbation We will follow on telemetry. Second troponin ordered at time of consultation, if normal will defer additional Prediabetes Stable, diet controlled BSG 90 on admission Add SSI if required for hyperglycemia while on steroids. Anxiety Continue home meds Sleep apnea Continue nightly BiPAP with oxygen bleed as needed GERD - PPR pRN Rhinitis/Allergies - Multiple visits to pulmonology/allergy as outpatient. Difficulty to control sx worsened with seasonal change - Continue montelukast, nasal ipratropium/azelastine, cetirizine daily, famotidine Sinus CT 11/02 with partial opacification of the sphenoid sinus and postsurgical changes noted No maxillary tenderness on admission DVT PPx: Lovenox Diet: Reg Dispo: M/T Code: Full (2) Pulmonary hypertension: (3) Sleep apnea: (4) GERD (gastroesophageal reflux disease): (5) Chronic respiratory failure with hypoxia and hypercapnia: History of Present Illness Primary Care Provider: Camila Beth DO Judie White is a 82-year-old female with a past medical history of COPD, chronic respiratory failure with hypoxia and hypercapnia, pulmonary hypertension, sleep apnea, GERD, hyperlipidemia who presents to the hospital by ambulance with shortness of breath. She has had worsening shortness of breath and chest discomfort over 24 hours. Judie reports that she is very frustrated. Has seasonal allergies which seem to trigger her COPD flares with runny nose, postnasal drip, cough, wheezing, and congestion which seems to occur and be worse with the change of seasons. 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 She is currently taking multiple nasal sprays, inhalers, montelukast, and cetirizine with limited success and notes that with the change and fall is not surprised that she is having another breathing exacerbation which "does not feel". She is on a nebulizer at time of visit, reports she thinks this helps but her symptoms has not resolved. She is not having any chest pain or chest pressure. Denies fever, chills, sweats. She reports she is compliant with her home medications and inhalers, takes azithromycin 3 times a week. No nausea/vomiting/diarrhea/constipation. No leg swelling Medical History: Reviewed Medications: Reviewed Surgical History: Reviewed Family history: Reviewed Allergies: Reviewed Social History: Reviewed. Former tobacco use Code Status:Full Allergies Allergy/AdvReac Type Severity Reaction Status Date / Time Penicillins Allergy Intermediate HIVES Verified 11/29/22 11:56 Milk Containing Products AdvReac Mild Gastrointestinal Verified 11/29/22 11:56 (Dairy) Upset [Milk Containing Products] house dust AdvReac Unknown Verified 11/29/22 11:56 mold AdvReac Unknown Verified 11/29/22 11:56 Home Medications Medication Instructions Recorded Confirmed Type CPAP Supplies #1 ea 08/13/19 11/25/22 Rx nebulizer accessories #1 ea 02/21/20 11/25/22 Rx CPAP Machine #1 ea 06/17/21 11/25/22 Rx ipratropium bromide 21 mcg (0.03 2 spray intranasal DAILY PRN 02/11/22 12/18/22 Rx %) nasal spray allergy symptoms #90 mL fluticasone propionate 50 2 spray intranasal DAILY #48 grams 03/23/22 12/18/22 Rx mcg/actuation nasal spray,suspension (Flonase Allergy Relief) montelukast 10 mg tablet 10 mg PO HS #90 tabs 04/26/22 12/18/22 Rx (Singulair) olopatadine 0.6 % nasal spray 2 spray intranasal DAILY #91.5 05/31/22 12/18/22 Rx (Patanase) grams oxybutynin chloride 15 mg 15 mg PO QAM #90 tabs 07/02/22 12/18/22 Rx tablet,extended release 24 hr sertraline 25 mg tablet 25 mg PO QAM #90 tabs 07/26/22 12/18/22 Rx azelastine 137 mcg (0.1 %) nasal 2 spray intranasal BID #90 mL 08/10/22 12/18/22 Rx spray aerosol pantoprazole 40 mg tablet,delayed See Rx Instructions .Route 08/20/22 12/18/22 Rx release .COMPLEX #60 tabs albuterol sulfate 90 mcg/actuation 1 - 2 puff inhalation Q4H PRN 10/08/22 12/18/22 Rx aerosol inhaler shortness of breath #18 grams azithromycin 250 mg tablet 250 mg PO [id number] COPD maintenance 11/02/22 12/18/22 Rx #36 tabs fluticasone fur. 100 mcg-umeclid 1 inh inhalation DAILY #60 ea 11/02/22 12/18/22 Rx 62.5 mcg-vilant 25 mcg inhalat.powder (Trelegy Ellipta) famotidine 20 mg tablet See Rx Instructions .Route 11/09/22 12/18/22 Rx .COMPLEX #180 tabs cetirizine 10 mg tablet 10 mg PO QAM #90 tabs 11/25/22 12/18/22 Rx ipratropium 0.5 mg-albuterol 3 mg 3 ml inhalation Q4 PRN Shortness 11/25/22 12/18/22 Rx (2.5 mg base)/3 mL nebulization Of Breath Or Wheezing #180 mL soln cholecalciferol (vitamin D3) 50 0 unit PO DAILY 12/18/22 12/18/22 History mcg (2,000 unit) capsule Past Med/Surg History Medical History Anxiety Asthma Chronic ischemic heart disease Chronic nasal congestion COPD (chronic obstructive pulmonary disease) well controlled w/ inhalers - prn o2 use GERD (gastroesophageal reflux disease) History of ankle fracture Hypercholesterolemia On home oxygen therapy 2-3lpm via n/c PRN Osteoporosis Prediabetes Pulmonary hypertension Sleep apnea cpap Urge and stress incontinence Vitamin D deficiency Surgical History History of colonoscopy History of esophagogastroduodenoscopy (EGD) History of laparoscopic cholecystectomy History of rhinoplasty History of right cataract surgery History of tonsillectomy Hx of excision of mass excision of intra abdominal mass (benign) Hx of left cataract extraction S/P HANNA (total abdominal hysterectomy) Family History Mother Breast cancer Sister Heart disease Pacemaker Other Encounter for pre-operative examination No family history of adverse response to anesthesia No family history of bleeding disorder Denies family history of Ovarian cancer Prostate cancer Colorectal cancer Social History Smoking Status: Former smoker Tobacco Type: Cigarettes Age Started Using Tobacco: 23; Age Quit Using Tobacco: 73; packs per day: 0.5; Cigarettes Per Day: quit 9 years ago; Second Hand Exposure: No; Do You Dip or Chew Tobacco: No; Tobacco Cessation Education Requested by Patient: No Hx Alcohol Use: No Hx Substance Use: No Preferred Language: Mohawk Communication Ability: Effective Visual Impairment: No Limitations Hearing Ability: Normal Entry Level Electrician Required: No Beliefs That Will Affect Care: None marital status: / Current Living Situation: Alone current occupational status: retired Other Information That Helps Us Care for You: No Feels Safe at Home: Yes Safety Concerns: Feels Safe At This Time Childhood Exposure to Second-Hand Smoke: Yes (Father smoked, pt doesn't know if father smoked in the house or not. ) Diet: regular Diet Comment: regular caffeine: Yes (2 cups coffee in morning, 1 with supper) during the past year weight has: remained stable Dental Care, Regularly: Yes Physical Activity Frequency: 1-2 Times per Week Seatbelt Use: always Sunscreen Use: No Assistive Devices: None Review of Systems Review of Systems: All systems reviewed & are unremarkable except as noted in HPI & below Physical Exam Physical Exam: General: A&Ox3. NAD. Cooperative. On neb at time of visit. HEENT: Atraumatic, normocephalic. +sinus congestion. EOM intact, vision/hearing grossly intact. No maxillary tenderness to percussion Pulm: Scattered wheezes, [place] on forced expiration diffusely. Symmetrical chest rise. No increased work of breathing. No respiratory distress. Cardiac: RRR, -mrg. Radial pulses intact and symmetrical. Abdominal: Nontender, nondistended, soft. BS present. Results & Data Results & Data Vital Signs (Past 12 Hours) Vital Signs Temp Pulse Pulse Resp BP BP Pulse Ox 12/18/22 13:09 89 20 102/69 95 12/18/22 12:18 104 H 12/18/22 11:28 95 12/18/22 11:28 95 12/18/22 11:28 12/18/22 11:09 36.9 C 103 H 21 129/80 96 O2 Del Method O2 Flow Rate 12/18/22 13:09 Nasal Cannula 2 12/18/22 12:18 12/18/22 11:28 Nasal Cannula 2 12/18/22 11:28 Nasal Cannula 2 12/18/22 11:28 Nasal Cannula 2 12/18/22 11:09 Nasal Cannula 2 PG Care Time/CCT Total # of Minutes Spent Total Time Spent with Patient: Total time spent is greater than 50% in coordination of care (as documented) at patient's floor/unit and/or counseling patient: Coding Level of Care Code 38864 INT INP/OBS CARE 3/75MIN Diagnoses Acute exacerbation of chronic obstructive pulmonary disease J44.1 Pulmonary hypertension I27.20 Sleep apnea G47.30 GERD (gastroesophageal reflux disease) K21.9 Esophagitis presence: without esophagitis Chronic respiratory failure with hypoxia and hypercapnia J96.11; J96.12 (4) GERD (gastroesophageal reflux disease) Esophagitis presence: without esophagitis Qualified Code(s): K21.9 - Gastro- esophageal reflux disease without esophagitis
[2022-12-18] MEDS ORDERED: methylPREDNISolone 125 MG/2 ML VIAL IV STA (15:18)
[2022-12-18 15:38] LABS: Appearance Urine Clear (Clear); Bacteria Urine Automated Negative (Negative); Bilirubin Urine Negative (Negative); Blood Urine Negative (Negative); Color Urine Yellow; Epithelial Cell Urine Auto >30 /lpf (0-5); Glucose Urine UA Negative (Negative); Ketones Urine Negative (Negative); Leukocyte Esterase Urine 1+ (Negative); Nitrite Urine Negative (Negative); Protein Urine Trace (Negative); RBC Urine Automated 0-4 /hpf (0-4); Specific Gravity Urine > 1.045 (1.000-1.030); Urobilinogen Urine Negative (Negative); WBC Urine Automated >30 /hpf (0-5); pH Urine 6.5 (4.5-7.5)
[2022-12-18] MEDS ORDERED: ALBUT/IPRATROP 3MG/0.5MG NEB 3 ML VIAL NEB PRN (16:40)
[2022-12-18] MEDS: MAGNESIUM SULFATE / D5W 1 GM/100 ML BAG IV SCH ×2 (18:41→21:15)
[2022-12-18] MEDS: ENOXAPARIN INJ 40 MG/0.4 ML SYR SQ SCH (18:43)
[2022-12-18] MEDS: AZELASTINE HCL 0.1% NASAL 200 SPRAYS/27,400 MCG BTL NAE SCH (21:15)
[2022-12-18] MEDS: MONTELUKAST SODIUM 10 MG TABLET PO SCH (21:15)
[2022-12-18] MEDS: FAMOTIDINE 20 MG TAB PO SCH (21:16)
[2022-12-18] MEDS: DOXYCYCLINE HYCLATE 100 MG CAP PO SCH (21:16)
[2022-12-18] MEDS: guaiFENesin 600 MG TABCR PO SCH (21:16)
[2022-12-19 07:04] LABS: Basophils # (auto) 0.03 K/uL (0-0.2); Basophils % (auto) 0.3 %; Hematocrit (blood only) 31.5 % (37.0-47.0); Hemoglobin 9.7 g/dl (12.0-16.0); Immature Granulocytes # (auto) 0.04 K/uL (0.01-0.20); Immature Granulocytes % (auto) 0.3 %; Lymphocytes # (auto) 1.64 K/uL (1.2-3.4); Lymphocytes % (auto) 14.3 %; Mean Corpuscular Hemoglobin 26.6 pg (25.0-34.0); Mean Corpuscular Hgb Conc 30.8 g/dL (32.0-36.0); Mean Corpuscular Volume 86.3 fL (80.0-100.0); Mean Platelet Volume 10.1 fL (9.4-12.4); Monocytes # (auto) 1.17 K/uL (0.11-0.59); Monocytes % (auto) 10.2 %; Neutrophils % (auto) 74.9 %; Platelet Count 321 K/uL (130-400); RDW Coefficient of Variation 14.9 % (11.5-14.5); RDW Standard Deviation 47.1 fL (36.4-46.3); Red Blood Count 3.65 M/uL (4.20-5.40); White Blood Count 11.48 K/ul (4.8-10.8)
[2022-12-19 07:06] LABS: Calcium 9.2 mg/dl (8.6-10.3); Est GFR (African American) 84.5 ml/min; Est GFR (Non-African American) 72.9 ml/min; Magnesium 2.1 mg/dl (1.7-2.4); Potassium 4.5 mmol/L (3.5-5.1)
[2022-12-19] MEDS: CHOLECALCIFEROL 1,000 UNITS 25 MCG TAB PO SCH (07:31)
[2022-12-19] MEDS: SERTRALINE HCL 50 MG TABLET PO SCH (07:32)
[2022-12-19] MEDS: guaiFENesin 600 MG TABCR PO SCH ×2 (07:32→20:35)
[2022-12-19] MEDS: PANTOprazole 40 MG TAB PO SCH (07:32)
[2022-12-19] MEDS: OXYBUTYNIN CHLORIDE XL 5 MG TABCR PO SCH (07:32)
[2022-12-19] MEDS: FLUTICASONE FUROATE 100MCG 14 PUFFS/INHALER INH SCH (07:33)
[2022-12-19] MEDS: DOXYCYCLINE HYCLATE 100 MG CAP PO SCH ×2 (07:33→20:35)
[2022-12-19] MEDS: FAMOTIDINE 20 MG TAB PO SCH ×2 (07:33→20:35)
[2022-12-19] MEDS: CETIRIZINE HCL 10 MG TABLET PO SCH (07:33)
[2022-12-19] MEDS: methylPREDNISolone 40 MG in SYRINGE 0 ML IV SCH ×2 (07:34→16:51)
[2022-12-19] MEDS: FLUTICASONE PROPIONATE NA SPR 16 GM BTL NAE SCH (07:34)
[2022-12-19] MEDS: UMECLIDINIUM/VILANTEROL 62.5/25MCG 7 PUFFS/INHALER INH SCH (07:34)
[2022-12-19] MEDS: AZELASTINE HCL 0.1% NASAL 200 SPRAYS/27,400 MCG BTL NAE SCH ×2 (07:34→20:34)
[2022-12-19 07:58] LABS: Reticulocyte % 1.4 % (0.5-2.0); Reticulocytes # 0.05 10^6/uL (0.02-0.10)
[2022-12-19 08:48] LABS: Ferritin 6.8 ng/ml (8-388)
[2022-12-19] MEDS ORDERED: NON-FORMULARY MEDICATION (Fluticasone-Umeclidin-Vilanter [Trelegy Ellipta] 100-62.5-25 mcg INH SCH (09:00)
[2022-12-19] MEDS ORDERED: ACETAMINOPHEN 500 MG TAB PO ONE (11:40)
[2022-12-19] MEDS ORDERED: ACETAMINOPHEN 500 MG TAB ONE (13:54)
--- NOTE | 2022-12-19 14:16 | Hospitalist Progress Note ---
Date of Service December 19, 2022 Assessment & Plan (1) Acute exacerbation of chronic obstructive pulmonary disease: Plan: Acute on Chronic COPD 24 hours of wheezing and productive cough CTAchest: No PE. No consolidations consistent with pneumonia, right lower lung moderate secretions are noted Patient received Rocephin x1 in ER due to her productive cough, discontinued with Procalcitonin normal Continue steroids, pulmonary toilet. She is on azithromycin 3 times weekly for suppression at home. We will hold this in the setting of QT prolongation and add adjunct Doxy Home inhaler/formulary equivalent continue - Wean O2 Anemia - Hemoglobin dropped to 9.7 this morning with follow-up studies notable for low ferritin and low normal B12 - Start iron supplementation - Check FOBT Right-sided chest pain No territorial signs of ischemia on EKG High-sensitivity troponin is normal and normal on repeat Suspect due to cough and COPD exacerbation We will follow on telemetry - Add Tylenol Prediabetes Stable, diet controlled BSG 90 on admission Add SSI if required for hyperglycemia while on steroids Anxiety Continue home meds Sleep apnea Continue nightly BiPAP with oxygen bleed as needed GERD - PPR pRN Rhinitis/Allergies - Multiple visits to pulmonology/allergy as outpatient. Difficulty to control sx worsened with seasonal change - Continue montelukast, nasal ipratropium/azelastine, cetirizine daily, famotidine Sinus CT 11/02 with partial opacification of the sphenoid sinus and postsurgical changes noted No maxillary tenderness on admission DVT PPx: Lovenox Diet: Reg Dispo: M/T Code: Full (2) Pulmonary hypertension: (3) Sleep apnea: (4) GERD (gastroesophageal reflux disease): (5) Chronic respiratory failure with hypoxia and hypercapnia: Admission and Anticipated Discharge Date Admission Date: December 18, 2022 Subjective Endorses ongoing dyspnea and coughing productive of sputum, though notes this has been improving since being started on steroids. She does also report chest wall discomfort from all the coughing but this has improved as well. She also reports her head feeling funny but not sure headache. Otherwise no significant additional symptoms to report Physical Exam Physical Exam: General: Mildly-appearing, Nontoxic HEENT: NC in place Cardiovascular: RRR, no M/R/G Pulmonary: Diffuse wheezing and active coughing Neurologic: AAOx3, no focal deficits Psychiatric: Appropriate mood/affect Results & Data Results & Data Vital Signs (Past 12 Hours) Vital Signs Temp Pulse Pulse Resp BP Pulse Ox O2 Del Method 12/19/22 12:13 36.6 C 99 H 18 115/76 90 Room Air 12/19/22 08:40 90 12/19/22 08:40 Nasal Cannula 12/19/22 08:37 36.8 C 89 17 102/62 92 Room Air 12/19/22 03:51 35.6 C L 89 18 103/66 92 BiPAP O2 Flow Rate 12/19/22 12:13 12/19/22 08:40 12/19/22 08:40 5 12/19/22 08:37 12/19/22 03:51 5 Laboratory Results WBC increased to 11.48 Hemoglobin dropped to 9.7 Iron studies most notable for low ferritin at 6.8. Also note normal folate at 8.69, B12 mildly low normal at 220, iron 42, transferrin 365 Procalcitonin normal PG Care Time/CCT Total # of Minutes Spent Total Time Spent with Patient: Total time spent is greater than 50% in coordination of care (as documented) at patient's floor/unit and/or counseling patient: Coding Level of Care Code 80841 SUB INP/OBS CARE 2/35MIN Diagnoses Acute exacerbation of chronic obstructive pulmonary disease J44.1 Pulmonary hypertension I27.20 Sleep apnea G47.30 GERD (gastroesophageal reflux disease) K21.9 Esophagitis presence: without esophagitis Chronic respiratory failure with hypoxia and hypercapnia J96.11; J96.12 (4) GERD (gastroesophageal reflux disease) Esophagitis presence: without esophagitis Qualified Code(s): K21.9 - Gastro- esophageal reflux disease without esophagitis
[2022-12-19] MEDS: ENOXAPARIN INJ 40 MG/0.4 ML SYR SQ SCH (16:52)
[2022-12-19] MEDS ORDERED: ACETAMINOPHEN 500 MG TAB PO PRN (20:00)
[2022-12-19] MEDS: MONTELUKAST SODIUM 10 MG TABLET PO SCH (20:34)
[2022-12-20] MEDS: methylPREDNISolone 40 MG in SYRINGE 0 ML IV SCH ×3 (01:40→17:14)
[2022-12-20 06:57] LABS: Basophils # (auto) 0.01 K/uL (0-0.2); Basophils % (auto) 0.1 %; Hematocrit (blood only) 30.6 % (37.0-47.0); Hemoglobin 9.7 g/dl (12.0-16.0); Immature Granulocytes # (auto) 0.07 K/uL (0.01-0.20); Immature Granulocytes % (auto) 0.7 %; Lymphocytes # (auto) 0.97 K/uL (1.2-3.4); Lymphocytes % (auto) 9.7 %; Mean Corpuscular Hemoglobin 26.6 pg (25.0-34.0); Mean Corpuscular Hgb Conc 31.7 g/dL (32.0-36.0); Mean Corpuscular Volume 83.8 fL (80.0-100.0); Monocytes # (auto) 0.26 K/uL (0.11-0.59); Monocytes % (auto) 2.6 %; Neutrophils # (auto) 8.69 K/uL (1.40-6.50); Neutrophils % (auto) 86.9 %; Platelet Count 294 K/uL (130-400); RDW Coefficient of Variation 14.8 % (11.5-14.5); RDW Standard Deviation 45.4 fL (36.4-46.3); Red Blood Count 3.65 M/uL (4.20-5.40)
[2022-12-20 07:02] LABS: BUN Creatinine Ratio 27.5 (10-20); Calcium 9.3 mg/dl (8.6-10.3); Est GFR (African American) 95.3 ml/min; Est GFR (Non-African American) 82.2 ml/min; Potassium 4.9 mmol/L (3.5-5.1)
[2022-12-20] MEDS: FLUTICASONE PROPIONATE NA SPR 16 GM BTL NAE SCH (08:15)
[2022-12-20] MEDS: AZELASTINE HCL 0.1% NASAL 200 SPRAYS/27,400 MCG BTL NAE SCH ×2 (08:15→21:27)
[2022-12-20] MEDS: CHOLECALCIFEROL 1,000 UNITS 25 MCG TAB PO SCH (08:16)
[2022-12-20] MEDS: guaiFENesin 600 MG TABCR PO SCH ×2 (08:16→21:32)
[2022-12-20] MEDS: DOXYCYCLINE HYCLATE 100 MG CAP PO SCH ×2 (08:16→21:30)
[2022-12-20] MEDS: SERTRALINE HCL 50 MG TABLET PO SCH (08:16)
[2022-12-20] MEDS: UMECLIDINIUM/VILANTEROL 62.5/25MCG 7 PUFFS/INHALER INH SCH (08:16)
[2022-12-20] MEDS: PANTOprazole 40 MG TAB PO SCH (08:16)
[2022-12-20] MEDS: FLUTICASONE FUROATE 100MCG 14 PUFFS/INHALER INH SCH (08:16)
[2022-12-20] MEDS: FAMOTIDINE 20 MG TAB PO SCH ×2 (08:16→21:29)
[2022-12-20] MEDS: CETIRIZINE HCL 10 MG TABLET PO SCH (08:17)
[2022-12-20] MEDS: OXYBUTYNIN CHLORIDE XL 5 MG TABCR PO SCH (08:17)
[2022-12-20] MEDS ORDERED: FERROUS SULFATE 325 MG TAB PO SCH (09:00)
[2022-12-20] MEDS: FERROUS SULFATE 325 MG TAB PO SCH (11:25)
[2022-12-20] MEDS: ENOXAPARIN INJ 40 MG/0.4 ML SYR SQ SCH (17:14)
[2022-12-20] MEDS ORDERED: LIDOCAINE 5% 1 PATCH TD PRN (19:45)
--- NOTE | 2022-12-20 19:51 | Hospitalist Progress Note ---
Date of Service December 20, 2022 Assessment & Plan (1) Acute exacerbation of chronic obstructive pulmonary disease: Plan: Acute on Chronic COPD 24 hours of wheezing and productive cough prior to admission CTAchest: No PE. No consolidations consistent with pneumonia, right lower lung moderate secretions are noted, 8mm linear density in TERESO new since prior CT. This favors scarring but needs repeat CT Chest 6 months Patient received Rocephin x1 in ER due to her productive cough, discontinued with Procalcitonin normal -Improving, still with cough, rib pain on right, and clear sputum, requiring 4L O2 increased from previous 2L at rest -continue po doxy 100mg bid x 5 days for COPD exacerbation Continue steroids but change IV to prednisone 40mg po daily -continue pulmonary toilet - She is on azithromycin 3 times weekly for suppression at home. We will hold this in the setting of QT prolongation Home inhaler/formulary equivalent continue - Wean O2 and get repeat 2 step prior to discharge Anemia - Hemoglobin dropped to 9.7 and was normal 4 months ago. No active bleeding anywhere here. Hgb stable agin today at 9.7 Ferritin quite low at 6, B12 low normal at 220 -started FeSO4 325mg po daily, start B12 1000 mcg IM daily x 2 doses while here and then change to po for dc -Had EGD 06/2022 with Alina esophagitis and gastritis; colonoscopy 11/2022 with tubular adenomas removed, otherwise normal - Check FOBT-pending -f/u with PCP Right-sided chest pain No territorial signs of ischemia on EKG High-sensitivity troponin is normal and normal on repeat Suspect due to cough and COPD exacerbation, rib intercostal pain -make tylenol scheduled -she declines lidocaine patch but ordered prn Prediabetes Stable, diet controlled BSG 90 on admission Add SSI if required for hyperglycemia while on steroids Anxiety Continue home meds Sleep apnea Continue nightly BiPAP with oxygen bleed as needed GERD - PPI Rhinitis/Allergies - Multiple visits to pulmonology/allergy as outpatient. Difficulty to control sx worsened with seasonal change - Continue montelukast, nasal ipratropium/azelastine, cetirizine daily, famotidine Sinus CT 11/02 with partial opacification of the sphenoid sinus and postsurgical changes noted No maxillary tenderness on admission -on doxy here which would also tx sinusitis DVT PPx: Lovenox Diet: Reg Dispo: can downgrade off tele. Likely dc to home tomorrow, 2 step prior to discharge Code: Full (2) Pulmonary hypertension: (3) Sleep apnea: (4) GERD (gastroesophageal reflux disease): (5) Chronic respiratory failure with hypoxia and hypercapnia: (6) Anemia, iron deficiency: (7) B12 deficiency: Admission and Anticipated Discharge Date Admission Date: December 18, 2022 Subjective Cough is getting looser. Still has pressure sensation across the top and front of head from sinus issues and allergies. Feels congested in the nose. Having right sided rib pain that hurts to the touch and with cough, improves with holding her breast up off the area and with tylenol. Tele with SR, IVCD, rates 100s Physical Exam Constitutional: + thin Neck: trachea midline, no thyromegaly Respiratory: normal respiratory effort and + cough; not tachypneic Auscultation: + rhonchi (right lower lung field); no crackles and no wheezes Cardiovascular: RRR, no murmur, no edema Chest (Breasts): Additional Comments: +TTP over anterior right ribs at approximately #6-7 in mid clavicular line Gastrointestinal (Abdomen): normal bowel sounds, soft, nontender, no hepatosplenomegaly Musculoskeletal: Extremities: extremities normal to inspection; no cyanosis and no clubbing Skin: no rashes, warm and dry Neurologic: moves all extremities and awake; no focal motor deficits Psychiatric: A+Ox3, euthymic affect Lymphatic: no lymphedema Results & Data Results & Data Vital Signs (Past 12 Hours) Vital Signs Temp Pulse Pulse Resp BP Pulse Ox Pulse Ox 12/20/22 17:00 36.9 C 94 H 18 109/68 92 12/20/22 15:53 95 H 12/20/22 12:50 92 12/20/22 08:20 12/20/22 10:46 36.7 C 84 22 105/65 92 12/20/22 08:23 36.7 C 98 H 20 93/58 L 98 O2 Del Method O2 Flow Rate O2 Flow Rate 12/20/22 17:00 Oxymask 4 12/20/22 15:53 12/20/22 12:50 4 12/20/22 08:20 Oxymask 7 12/20/22 10:46 Oxymask 4 12/20/22 08:23 Oxymask 7 Laboratory Results CBC, BMP reviewed PG Care Time/CCT Total # of Minutes Spent Total Time Spent with Patient: Total time spent is greater than 50% in coordination of care (as documented) at patient's floor/unit and/or counseling patient: Coding Level of Care Code 09081 SUB INP/OBS CARE 2/35MIN Diagnoses Acute exacerbation of chronic obstructive pulmonary disease J44.1 Pulmonary hypertension I27.20 Sleep apnea G47.30 GERD (gastroesophageal reflux disease) K21.9 Esophagitis presence: without esophagitis Chronic respiratory failure with hypoxia and hypercapnia J96.11; J96.12 Anemia, iron deficiency D50.9 B12 deficiency E53.8 (4) GERD (gastroesophageal reflux disease) Esophagitis presence: without esophagitis Qualified Code(s): K21.9 - Gastro- esophageal reflux disease without esophagitis
[2022-12-20] MEDS: CYANOCOBALAMIN 1000 MCG/ML VIAL IM SCH (21:23)
[2022-12-20] MEDS: ACETAMINOPHEN 500 MG TAB PO SCH (21:24)
[2022-12-20] MEDS: MONTELUKAST SODIUM 10 MG TABLET PO SCH (21:28)
[2022-12-21] MEDS: ACETAMINOPHEN 500 MG TAB PO SCH ×3 (05:07→19:34)
[2022-12-21 06:50] LABS: Basophils # (auto) 0.01 K/uL (0-0.2); Basophils % (auto) 0.1 %; Hematocrit (blood only) 33.4 % (37.0-47.0); Hemoglobin 10.6 g/dl (12.0-16.0); Immature Granulocytes # (auto) 0.06 K/uL (0.01-0.20); Immature Granulocytes % (auto) 0.4 %; Lymphocytes # (auto) 2.47 K/uL (1.2-3.4); Lymphocytes % (auto) 17.8 %; Mean Corpuscular Hemoglobin 26.6 pg (25.0-34.0); Mean Corpuscular Hgb Conc 31.7 g/dL (32.0-36.0); Mean Corpuscular Volume 83.9 fL (80.0-100.0); Mean Platelet Volume 9.9 fL (9.4-12.4); Monocytes # (auto) 1.15 K/uL (0.11-0.59); Monocytes % (auto) 8.3 %; Neutrophils # (auto) 10.16 K/uL (1.40-6.50); Neutrophils % (auto) 73.4 %; Platelet Count 319 K/uL (130-400); RDW Coefficient of Variation 14.9 % (11.5-14.5); RDW Standard Deviation 45.7 fL (36.4-46.3); Red Blood Count 3.98 M/uL (4.20-5.40); White Blood Count 13.85 K/ul (4.8-10.8)
[2022-12-21 07:15] LABS: BUN Creatinine Ratio 33.8 (10-20); Calcium 9.8 mg/dl (8.6-10.3); Creatinine Clr Calc Pharmacy 45.7 ml/min; Est GFR (African American) 80.7 ml/min; Est GFR (Non-African American) 69.6 ml/min; Potassium 4.1 mmol/L (3.5-5.1)
[2022-12-21] MEDS: FLUTICASONE FUROATE 100MCG 14 PUFFS/INHALER INH SCH (08:02)
[2022-12-21] MEDS: UMECLIDINIUM/VILANTEROL 62.5/25MCG 7 PUFFS/INHALER INH SCH (08:02)
[2022-12-21] MEDS: OXYBUTYNIN CHLORIDE XL 5 MG TABCR PO SCH (08:02)
[2022-12-21] MEDS: AZELASTINE HCL 0.1% NASAL 200 SPRAYS/27,400 MCG BTL NAE SCH ×2 (08:02→19:35)
[2022-12-21] MEDS: CETIRIZINE HCL 10 MG TABLET PO SCH (08:03)
[2022-12-21] MEDS: CHOLECALCIFEROL 1,000 UNITS 25 MCG TAB PO SCH (08:03)
[2022-12-21] MEDS: DOXYCYCLINE HYCLATE 100 MG CAP PO SCH ×2 (08:03→19:34)
[2022-12-21] MEDS: SERTRALINE HCL 50 MG TABLET PO SCH (08:03)
[2022-12-21] MEDS: PANTOprazole 40 MG TAB PO SCH (08:03)
[2022-12-21] MEDS: FAMOTIDINE 20 MG TAB PO SCH ×2 (08:03→19:34)
[2022-12-21] MEDS: guaiFENesin 600 MG TABCR PO SCH ×2 (08:03→19:34)
[2022-12-21] MEDS: FLUTICASONE PROPIONATE NA SPR 16 GM BTL NAE SCH (08:03)
[2022-12-21] MEDS: CYANOCOBALAMIN 1000 MCG/ML VIAL IM SCH (08:04)
[2022-12-21] MEDS: predniSONE 20 MG TAB PO SCH (08:04)
[2022-12-21 08:39] LABS: KPC Carbapenemase NOT DETECTED (NotDetected); NDM Carbapenemase NOT DETECTED (NotDetected)
[2022-12-21] MEDS ORDERED: PSEUDOEPHEDRINE HCL 30 MG TAB PO PRN (11:37)
--- NOTE | 2022-12-21 11:49 | Hospitalist Progress Note ---
Date of Service December 21, 2022 Assessment & Plan (1) Acute exacerbation of chronic obstructive pulmonary disease: Plan: Acute on Chronic COPD 24 hours of wheezing and productive cough prior to admission CTAchest: No PE. No consolidations consistent with pneumonia, right lower lung moderate secretions are noted, 8mm linear density in TERESO new since prior CT. This favors scarring but needs repeat CT Chest 6 months Patient received Rocephin x1 in ER due to her productive cough, discontinued with Procalcitonin normal -Improving,/stable, still with cough, rib pain on right now improved with tylenol, and clear sputum, now at baseline O2 of 2LNC at rest and 3LNC with exertion -continue po doxy 100mg bid x 5 days for COPD exacerbation Continue prednisone 40mg po daily x 4 more days -continue pulmonary toilet-made Duonebs scheduled rather than prn - She is on azithromycin 3 times weekly for suppression at home. We will hold this in the setting of QT prolongation Home inhaler/formulary equivalent continue - repeat 2 step shows 2LNC at rest, 3LNC with exertion which is her home dose- improved -sinus congestion remains her biggest complaint--> add on sudafed prn and advised to use sparingly; switch Zyrtec to Kimberli; f/u with ENT as planned in December Anemia - Hemoglobin dropped to 9.7 and was normal 4 months ago. No active bleeding anywhere here. Hgb now improved to 10.6 -Ferritin quite low at 6, B12 low normal at 220 -started FeSO4 325mg po daily, start B12 1000 mcg IM daily x 3 doses while here and then change to po for dc -Had EGD 06/2022 with Alina esophagitis and gastritis; colonoscopy 11/2022 with tubular adenomas removed, otherwise normal -Check FOBT-pending -f/u with PCP Right-sided chest pain-from intercostal strain from cough--> now greatly improved with tylenol -no rib fractures on imaging No territorial signs of ischemia on EKG High-sensitivity troponin is normal and normal on repeat -continue tylenol scheduled -she declines lidocaine patch but ordered prn Prediabetes Stable, diet controlled BSG 90 on admission Add SSI if required for hyperglycemia while on steroids Anxiety Continue home meds Sleep apnea Continue nightly CPAP with oxygen bleed as needed GERD - PPI Rhinitis/Allergies - Multiple visits to pulmonology/allergy as outpatient. Difficulty to control sx worsened with seasonal change - Continue montelukast, nasal ipratropium/azelastine, famotidine Sinus CT 11/02 with partial opacification of the sphenoid sinus and postsurgical changes noted No maxillary tenderness on admission -on doxy here which would also tx sinusitis -as above, change Zyrtec to Kimberli and add sudafed prn DVT PPx: Lovenox Diet: Reg Dispo: continued stay on med/surg, Likely dc to home tomorrow Code: Full (2) Pulmonary hypertension: (3) Sleep apnea: (4) GERD (gastroesophageal reflux disease): (5) Chronic respiratory failure with hypoxia and hypercapnia: (6) Anemia, iron deficiency: (7) B12 deficiency: Admission and Anticipated Discharge Date Admission Date: December 18, 2022 Subjective Pt still feels "no better" with her sinus congestion. She is coughing up sputum and asks about why she has rattling noises in her chest. Has not received a neb treatment in 2 days. She is very frustrated with her ongoing sinus issues and reports having an ENT appt on Jan [address] Arias-is hoping to get more answers there. She does report taking Claritin D in the past which reall yhelped but was advised not to take it (likely due to the sudafed). She does not yet feel comfortable to go home yet today. 2 step shows same home O2 requirement Physical Exam Constitutional: + thin Neck: trachea midline, no thyromegaly Respiratory: normal respiratory effort and + cough; not tachypneic Auscultation: + rhonchi (right lower lung field); no crackles and no wheezes Cardiovascular: RRR, no murmur, no edema Gastrointestinal (Abdomen): normal bowel sounds, soft, nontender, no hepatosplenomegaly Musculoskeletal: Extremities: extremities normal to inspection; no cyanosis and no clubbing Skin: no rashes, warm and dry Neurologic: moves all extremities and awake; no focal motor deficits Psychiatric: Orientation: alert, oriented x 3 and cooperative Affect: + flat affect Lymphatic: no lymphedema Results & Data Results & Data Vital Signs (Past 12 Hours) Vital Signs Temp Pulse Pulse Pulse Pulse Pulse Resp 12/21/22 09:20 96 H 103 H 97 H 100 H 12/21/22 07:34 36.5 C 73 18 12/21/22 00:24 Resp Resp Resp Resp BP Pulse Ox Pulse Ox 12/21/22 09:20 22 22 18 18 84 L 12/21/22 07:34 116/75 100 12/21/22 00:24 Pulse Ox Pulse Ox Pulse Ox O2 Del Method O2 Flow Rate O2 Flow Rate O2 Flow Rate 12/21/22 09:20 92 91 87 L 2 3 12/21/22 07:34 Nasal Cannula 4 12/21/22 00:24 Oxymask, CPAP O2 Flow Rate 12/21/22 09:20 2 12/21/22 07:34 12/21/22 00:24 Laboratory Results CBC, BMP reviewed Ur cx with Klebsiella aerogenes 70k CFU BCxs NGTD PG Care Time/CCT Total # of Minutes Spent Total Time Spent with Patient: Total time spent is greater than 50% in coordination of care (as documented) at patient's floor/unit and/or counseling patient: Coding Level of Care Code 61760 SUB INP/OBS CARE 2/35MIN Diagnoses Acute exacerbation of chronic obstructive pulmonary disease J44.1 Pulmonary hypertension I27.20 Sleep apnea G47.30 GERD (gastroesophageal reflux disease) K21.9 Esophagitis presence: without esophagitis Chronic respiratory failure with hypoxia and hypercapnia J96.11; J96.12 Anemia, iron deficiency D50.9 B12 deficiency E53.8 (4) GERD (gastroesophageal reflux disease) Esophagitis presence: without esophagitis Qualified Code(s): K21.9 - Gastro- esophageal reflux disease without esophagitis
[2022-12-21] MEDS: FERROUS SULFATE 325 MG TAB PO SCH (11:53)
[2022-12-21] MEDS: ALBUT/IPRATROP 3MG/0.5MG NEB 3 ML VIAL NEB SCH ×2 (12:18→19:30)
[2022-12-21] MEDS: ENOXAPARIN INJ 40 MG/0.4 ML SYR SQ SCH (16:35)
[2022-12-21] MEDS: MONTELUKAST SODIUM 10 MG TABLET PO SCH (19:34)
[2022-12-22] MEDS: ACETAMINOPHEN 500 MG TAB PO SCH ×2 (04:49→10:37)
[2022-12-22] MEDS: ALBUT/IPRATROP 3MG/0.5MG NEB 3 ML VIAL NEB SCH ×3 (06:57→14:36)
[2022-12-22] MEDS: FLUTICASONE PROPIONATE NA SPR 16 GM BTL NAE SCH (08:45)
[2022-12-22] MEDS: UMECLIDINIUM/VILANTEROL 62.5/25MCG 7 PUFFS/INHALER INH SCH (08:45)
[2022-12-22] MEDS: FLUTICASONE FUROATE 100MCG 14 PUFFS/INHALER INH SCH (08:45)
[2022-12-22] MEDS: CHOLECALCIFEROL 1,000 UNITS 25 MCG TAB PO SCH (08:46)
[2022-12-22] MEDS: CYANOCOBALAMIN 1000 MCG/ML VIAL IM SCH (08:46)
[2022-12-22] MEDS: predniSONE 20 MG TAB PO SCH (08:46)
[2022-12-22] MEDS: SERTRALINE HCL 50 MG TABLET PO SCH (08:47)
[2022-12-22] MEDS: DOXYCYCLINE HYCLATE 100 MG CAP PO SCH (08:48)
[2022-12-22] MEDS: OXYBUTYNIN CHLORIDE XL 5 MG TABCR PO SCH (08:48)
[2022-12-22] MEDS: FAMOTIDINE 20 MG TAB PO SCH (08:48)
[2022-12-22] MEDS: guaiFENesin 600 MG TABCR PO SCH (08:48)
[2022-12-22] MEDS: AZELASTINE HCL 0.1% NASAL 200 SPRAYS/27,400 MCG BTL NAE SCH (08:48)
[2022-12-22] MEDS: PANTOprazole 40 MG TAB PO SCH (08:49)
[2022-12-22] MEDS ORDERED: FEXOFENADINE HCL 180 MG TAB PO SCH (09:00)
[2022-12-22] MEDS: FERROUS SULFATE 325 MG TAB PO SCH (10:37)
--- NOTE | 2022-12-22 13:13 | Discharge Summary ---
Discharge Summary Date of Service December 22, 2022 Notes For Next Care Provider Needs repeat Chest CT in 6 months Medication Changes From Visit Discontinued Zyrtec, started Kimberli 180mg po daily Added prednisone 40mg daily x 3 more day, doxycycline 100mg po bid x 3 more days Admission HPI Per Admitting Provider Judie White is a 82-year-old female with a past medical history of COPD, chronic respiratory failure with hypoxia and hypercapnia, pulmonary hypertension, sleep apnea, GERD, hyperlipidemia who presents to the hospital by ambulance with shortness of breath. She has had worsening shortness of breath and chest discomfort over 24 hours. Judie reports that she is very frustrated. Has seasonal allergies which seem to trigger her COPD flares with runny nose, postnasal drip, cough, wheezing, and congestion which seems to occur and be worse with the change of seasons. 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 She is currently taking multiple nasal sprays, inhalers, montelukast, and cetirizine with limited success and notes that with the change and fall is not surprised that she is having another breathing exacerbation which "does not feel". She is on a nebulizer at time of visit, reports she thinks this helps but her symptoms has not resolved. She is not having any chest pain or chest pressure. Denies fever, chills, sweats. She reports she is compliant with her home medications and inhalers, takes azithromycin 3 times a week. No nausea/vomiting/diarrhea/constipation. No leg swelling Medical History: Reviewed Medications: Reviewed Surgical History: Reviewed Family history: Reviewed Allergies: Reviewed Social History: Reviewed. Former tobacco use Code Status:Full Principal Dx & Hospital Course #1 = Principal Diagnosis (1) Acute exacerbation of chronic obstructive pulmonary disease: Acute on Chronic COPD 24 hours of wheezing and productive cough prior to admission CTAchest: No PE. No consolidations consistent with pneumonia, right lower lung moderate secretions are noted, 8mm linear density in TERESO new since prior CT. This favors scarring but needs repeat CT Chest 6 months Patient received Rocephin x1 in ER due to her productive cough, discontinued with Procalcitonin normal -Improving,/stable, still with cough, rib pain on right now improved with tylenol, and clear sputum, now at baseline O2 of 2LNC at rest and 3LNC with exertion -continue po doxy 100mg bid x 7 days for COPD exacerbation-needs 3 more days Continue prednisone 40mg po daily x 3 more days -continue pulmonary toilet- Duonebs, flutter valve - She is on azithromycin 3 times weekly for suppression at home continue maintenance Trelegy - repeat 2 step shows 2LNC at rest, 3LNC with exertion which is her home dose- improved since admission -sinus congestion remains her biggest complaint--> added on sudafed prn and advised to use sparingly; switch Zyrtec to Kimberli; f/u with ENT as planned in December Anemia - Hemoglobin dropped to 9.7 and was normal 4 months ago. No active bleeding anywhere here. Hgb now improved to 10.6 -Ferritin quite low at 6, B12 low normal at 220 -started FeSO4 325mg po daily, start B12 1000 mcg IM daily x 3 doses while here and then change to po for dc -Had EGD 06/2022 with Alina esophagitis and gastritis; colonoscopy 11/2022 with tubular adenomas removed, otherwise normal -Check FOBT-pending/never collected before discharge -f/u with PCP Right-sided chest pain-from intercostal strain from cough--> now greatly improved with tylenol -no rib fractures on imaging No territorial signs of ischemia on EKG High-sensitivity troponin is normal and normal on repeat -continue tylenol prn Prediabetes Stable, diet controlled BSG 90 on admission Anxiety Continue home meds Sleep apnea Continue nightly CPAP with oxygen bleed as needed GERD - PPI Rhinitis/Allergies - Multiple visits to pulmonology/allergy as outpatient. Difficulty to control sx worsened with seasonal change - Continue montelukast, nasal ipratropium/azelastine,olopatadine, famotidine Sinus CT 11/02 with partial opacification of the sphenoid sinus and postsurgical changes noted No maxillary tenderness on admission -on doxy here which would also tx sinusitis -as above, change Zyrtec to Kimberli and sudafed prn DVT PPx: Lovenox Dispo: dc to home today with home health Code: Full (2) Pulmonary hypertension: (3) Sleep apnea: (4) GERD (gastroesophageal reflux disease): (5) Chronic respiratory failure with hypoxia and hypercapnia: (6) Anemia, iron deficiency: (7) B12 deficiency: Discharge Exam Constitutional + thin Neck trachea midline, no thyromegaly Respiratory normal respiratory effort and + cough; not tachypneic Auscultation: + wheezes (occasional); no crackles Cardiovascular RRR, no murmur, no edema Gastrointestinal (Abdomen) normal bowel sounds, soft, nontender, no hepatosplenomegaly Musculoskeletal Extremities: extremities normal to inspection; no cyanosis and no clubbing Skin no rashes, warm and dry Neurologic moves all extremities and awake; no focal motor deficits Psychiatric A+Ox3, euthymic affect Orientation: cooperative Lymphatic no lymphedema Updated Medication List Medication Instructions Recorded Confirmed Type CPAP Supplies #1 ea 08/13/19 11/25/22 Rx nebulizer accessories #1 ea 02/21/20 11/25/22 Rx CPAP Machine #1 ea 06/17/21 11/25/22 Rx ipratropium bromide 21 mcg (0.03 2 spray intranasal DAILY PRN 02/11/22 12/18/22 Rx %) nasal spray allergy symptoms #90 mL fluticasone propionate 50 2 spray intranasal DAILY #48 grams 03/23/22 12/18/22 Rx mcg/actuation nasal spray,suspension (Flonase Allergy Relief) montelukast 10 mg tablet 10 mg PO HS #90 tabs 04/26/22 12/18/22 Rx (Singulair) olopatadine 0.6 % nasal spray 2 spray intranasal DAILY #91.5 05/31/22 12/18/22 Rx (Patanase) grams oxybutynin chloride 15 mg 15 mg PO QAM #90 tabs 07/02/22 12/18/22 Rx tablet,extended release 24 hr sertraline 25 mg tablet 25 mg PO QAM #90 tabs 07/26/22 12/18/22 Rx azelastine 137 mcg (0.1 %) nasal 2 spray intranasal BID #90 mL 08/10/22 12/18/22 Rx spray aerosol pantoprazole 40 mg tablet,delayed See Rx Instructions .Route 08/20/22 12/18/22 Rx release .COMPLEX #60 tabs albuterol sulfate 90 mcg/actuation 1 - 2 puff inhalation Q4H PRN 10/08/22 12/18/22 Rx aerosol inhaler shortness of breath #18 grams azithromycin 250 mg tablet 250 mg PO 3XWK COPD maintenance 11/02/22 12/18/22 Rx #36 tabs fluticasone fur. 100 mcg-umeclid 1 inh inhalation DAILY #60 ea 11/02/22 12/18/22 Rx 62.5 mcg-vilant 25 mcg inhalat.powder (Trelegy Ellipta) famotidine 20 mg tablet See Rx Instructions .Route 11/09/22 12/18/22 Rx .COMPLEX #180 tabs cetirizine 10 mg tablet 10 mg PO QAM #90 tabs 11/25/22 12/18/22 Rx ipratropium 0.5 mg-albuterol 3 mg 3 ml inhalation Q4 PRN Shortness 11/25/22 12/18/22 Rx (2.5 mg base)/3 mL nebulization Of Breath Or Wheezing #180 mL soln cholecalciferol (vitamin D3) 50 0 unit PO DAILY 12/18/22 12/18/22 History mcg (2,000 unit) capsule acetaminophen 500 mg tablet 1,000 mg PO Q8H PRN rib pain #60 12/22/22 Rx (Tylenol Extra Strength) tabs cyanocobalamin (vitamin B-12) 1,000 mcg PO DAILY #30 caps 12/22/22 Rx 1,000 mcg capsule doxycycline hyclate 100 mg capsule 100 mg PO BID #6 caps 12/22/22 Rx ferrous sulfate 325 mg (65 mg 325 mg PO DAILY@1100 #30 tabs 12/22/22 Rx iron) tablet,delayed release fexofenadine 180 mg tablet 180 mg PO QAM #30 tabs 12/22/22 Rx (Allergy Relief (fexofenadine)) guaifenesin 600 mg tablet, 1,200 mg PO BID #60 tabs 12/22/22 Rx extended release 12 hr (Mucinex) prednisone 20 mg tablet 40 mg PO QAM 3 days #6 tabs 12/22/22 Rx Hospital Stay Data Consultations 12/18/22 14:24 ED Decision to Admit Stat Diagnostic Imagining Performed 12/18/22 13:08 CT angio chest PE protocol Stat Pending Results Patient Have Any Pending Studies at Discharge: No Discharge Instructions Given to Patient (Per Discharging Provider) Please finish out the prednisone 40mg daily and the antibiotic called doxycycline twice a day x 3 more days. Continue your nebulizer treatments four times a day as needed. Keep your follow up appointments with Pulmonology and ENT as scheduled. You were found to be deficient in vitamin B12 and iron which was causing you to have anemia. Please follow up with your PCP regarding this issue and continue on the oral B12 and iron pills-these can be bought over the counter. Your Zyrtec was switched to Kimberli to see if this helps your allergy symptoms. It is ok for you to take a decongestant occasionally as needed for nasal congestion. Total Time Total Time Spent Total Time Spent (In Minutes): 35 min Coding Level of Care Code 25515 INP/OBS DISCH >30 MIN Diagnoses Acute exacerbation of chronic obstructive pulmonary disease J44.1 Pulmonary hypertension I27.20 Sleep apnea G47.30 GERD (gastroesophageal reflux disease) K21.9 Esophagitis presence: without esophagitis Chronic respiratory failure with hypoxia and hypercapnia J96.11; J96.12 Anemia, iron deficiency D50.9 B12 deficiency E53.8
== END 2022-12-22 15:13 | disposition home health service (06) | DRG 191 ==
LOC: ED 11:03 → 2W 15:18 → SUATTDRO 15:18 → 2W 15:48

== ENCOUNTER 2023-01-21 12:37 | Inpatient (IN) ==
[2023-01-21] MEDS ORDERED: ALBUT/IPRATROP 3MG/0.5MG NEB 3 ML VIAL NEB STA (12:51)
--- NOTE | 2023-01-21 12:54 | Emergency Department Note ---
Impression & Plan Acute dyspnea, Acute exacerbation of chronic obstructive pulmonary disease, Acute respiratory failure with hypoxia ED Provider Note HISTORY OF PRESENT ILLNESS: Patient is an 82-year-old female presenting with shortness of breath and chest tightness. Patient reports she felt a pressure in her chest today and felt like she could not catch her breath and she called her home health nurse. They came and evaluated her and felt like she needed evaluation in the emergency department. Patient was found to have saturations of 80% on room air and she was sent to the emergency department for further evaluation. EMS gave the patient 125 mg of IV Solu-Medrol and a DuoNeb in route. Patient reports has had a productive cough. She has been on Levaquin for a sinus infection. Denies any DVT or PE history. She reports she is supposed to wear 2 L nasal cannula at rest and 3 L when she is up walking. ROS: as above PHYSICAL EXAM: Constitutional: Patient appears in no acute distress. HENT: Head: Normocephalic and atraumatic. Eyes: EOMI, PERRL Mouth/Throat: Mucous membranes moist. Neck: Trachea midline. Neck supple. Cardiovascular: Tachycardic with regular rhythm. No murmurs, rubs or gallops. Intact distal pulses. Pulmonary/Chest: Breath sounds clear bilaterally. Expiratory wheezes bilaterally Abdominal: Abdomen soft, no tenderness, rebound or guarding. Musculoskeletal: No edema, tenderness or deformity noted. Skin: Warm and dry. No rash, erythema, pallor or cyanosis Psychiatric: Appropriate mood and affect for situation. Neurological: Alert and keenly responsive. CN II-XII grossly intact, moving all extremities equally and fully. MDM: - Vitals signs stable. - History obtained via patient. Patient presents with shortness of breath and chest tightness. Patient reports that she felt like she could not catch her breath today and her chest was very tight. Her home health nurse came to the house and evaluated her and she was found to be hypoxic and sent the patient to the ER. - Chronic conditions affecting care: COPD; pulmonary HTN; HLD - Differential diagnoses include, but are not limited to: Congestive heart f ailure; acute coronary syndrome; COPD/asthma exacerbation; pulmonary edema; pulmonary embolism; pneumonia; pneumothorax; viral syndrome - Order placed for continuous cardiac monitoring. At this time, monitor showed rate of 85 bpm with normal sinus rhythm, per my interpretation. - External medical records reviewed. EMS run sheet reviewed. Patient was found to be hypoxic to 80% on room air. She was tachycardic in route. She was given a DuoNeb treatment and 125 mg of Solu-Medrol prehospital. - EKG reviewed by myself showed normal sinus rhythm. Rate tachycardic at 110 bpm. QTc 492. Noted to have a right bundle branch block. No acute ischemic changes. - Laboratory workup interpreted by myself showed normal WBC; elevated dimer (1290); normal procalcitonin; stable electrolytes; normal troponin; normal magnesium; normal BNP - UA negative - VGB grossly normal - Viral respiratory panel negative - CXR negative for pneumonia, per my interpretation - CT PE negative for pulmonary embolism. Noted to have severe emphysema. No evidence of pneumonia. - Patient was given a duoneb in ER. On reassessment, the patient reports she still feels short of breath. She does not feel safe to be discharged home. She is still on 3 L nasal cannula while laying in bed, which is new for the patient. - Discussion was had with social sciences chair about patient's case and need for admission - Hospitalist consulted for admission - Patient admitted to [facility] for further evaluation and management. ASSESSMENT AND PLAN: Diagnosis: dyspnea; COPD exacerbation; acute hypoxic respiratory failure Plan: admit Past Med/Surg History Medical History (Updated 01/21/23 @ 16:53 by Caorle Hartman MD) Acute exacerbation of chronic obstructive pulmonary disease Anemia, iron deficiency Anxiety Asthma B12 deficiency Chronic ischemic heart disease Chronic nasal congestion COPD (chronic obstructive pulmonary disease) well controlled w/ inhalers - prn o2 use GERD (gastroesophageal reflux disease) History of ankle fracture Hypercholesterolemia On home oxygen therapy 2-3lpm via n/c PRN Osteoporosis Prediabetes Pulmonary hypertension Sleep apnea cpap Urge and stress incontinence Vitamin D deficiency Surgical History History of colonoscopy History of esophagogastroduodenoscopy (EGD) History of laparoscopic cholecystectomy History of rhinoplasty History of right cataract surgery History of tonsillectomy Hx of excision of mass Hx of left cataract extraction S/P HANNA (total abdominal hysterectomy) Family History Mother Breast cancer Sister Heart disease Pacemaker Other Encounter for pre-operative examination No family history of adverse response to anesthesia No family history of bleeding disorder Denies family history of Ovarian cancer Prostate cancer Colorectal cancer Social History Smoking Status: Former smoker Tobacco Type: Cigarettes Age Started Using Tobacco: 23; Age Quit Using Tobacco: 73; packs per day: 0.5; Cigarettes Per Day: quit 9 years ago; Second Hand Exposure: No; Do You Dip or Chew Tobacco: No; Hx Alcohol Use: No Hx Substance Use: No Preferred Language: Guinean Communication Ability: Effective Visual Impairment: No Limitations Hearing Ability: Normal Email Designer Required: No Beliefs That Will Affect Care: None marital status: / Current Living Situation: Alone current occupational status: retired Feels Safe at Home: Yes Childhood Exposure to Second-Hand Smoke: Yes (Father smoked, pt doesn't know if father smoked in the house or not. ) Diet: regular Diet Comment: regular caffeine: Yes (2 cups coffee in morning, 1 with supper) during the past year weight has: remained stable Dental Care, Regularly: Yes Physical Activity Frequency: 1-2 Times per Week Seatbelt Use: always Sunscreen Use: No Assistive Devices: CPAP, Nebulizer and Oxygen - Continuous Allergies Allergies Allergy/AdvReac Type Severity Reaction Status Date / Time Penicillins Allergy Intermediate HIVES Verified 01/10/23 10:07 house dust AdvReac Unknown Verified 01/10/23 10:07 mold AdvReac Unknown Verified 01/10/23 10:07 Home Meds Home Medications Medication Instructions Recorded Confirmed cholecalciferol (vitamin D3) 50 50 mcg PO DAILY 12/23/22 01/10/23 mcg (2,000 unit) capsule Previous Rx's Medication Instructions Recorded CPAP Supplies #1 ea 08/13/19 nebulizer accessories #1 ea 02/21/20 CPAP Machine #1 ea 06/17/21 ipratropium bromide 21 mcg (0.03 2 spray intranasal DAILY PRN 02/11/22 %) nasal spray allergy symptoms #90 mL fluticasone propionate 50 2 spray intranasal DAILY #48 grams 03/23/22 mcg/actuation nasal spray,suspension (Flonase Allergy Relief) olopatadine 0.6 % nasal spray 2 spray intranasal DAILY #91.5 01/02/23 (Patanase) grams sertraline 25 mg tablet 25 mg PO QAM #90 tabs 07/26/22 azelastine 137 mcg (0.1 %) nasal 2 spray intranasal BID #90 mL 08/10/22 spray aerosol pantoprazole 40 mg tablet,delayed See Rx Instructions .Route 08/20/22 release .COMPLEX #60 tabs albuterol sulfate 90 mcg/actuation 1 - 2 puff inhalation Q4H PRN 10/08/22 aerosol inhaler shortness of breath #18 grams fluticasone fur. 100 mcg-umeclid 1 inh inhalation DAILY #60 ea 11/02/22 62.5 mcg-vilant 25 mcg inhalat.powder (Trelegy Ellipta) famotidine 20 mg tablet See Rx Instructions .Route 11/09/22 .COMPLEX #180 tabs ipratropium 0.5 mg-albuterol 3 mg 3 ml inhalation Q4 PRN Shortness 11/25/22 (2.5 mg base)/3 mL nebulization Of Breath Or Wheezing #180 mL soln acetaminophen 500 mg tablet 1,000 mg PO Q8H PRN rib pain #60 12/22/22 (Tylenol Extra Strength) tabs cyanocobalamin (vitamin B-12) 1,000 mcg PO DAILY #30 caps 12/22/22 1,000 mcg capsule ferrous sulfate 325 mg (65 mg 325 mg PO DAILY@1100 #30 tabs 12/22/22 iron) tablet,delayed release fexofenadine 180 mg tablet 180 mg PO QAM #30 tabs 12/22/22 (Allergy Relief (fexofenadine)) guaifenesin 600 mg tablet, 1,200 mg PO BID #60 tabs 12/22/22 extended release 12 hr (Mucinex) oxybutynin chloride 15 mg 15 mg PO QAM #90 tabs 01/05/23 tablet,extended release 24 hr azithromycin 250 mg tablet 250 mg PO [id number] COPD maintenance 01/10/23 #36 tabs Results & Data (ED) Vital Signs Vital Signs - 24 hr 01/21/23 12:59 01/21/23 12:48 01/21/23 13:00 Temperature 36.5 C Temperature Source Oral Pulse Rate 110 H 110 H Pulse Rate [Apical] Respiratory Rate 24 Respiratory Effort / Characteristics Labored Short of Breath Blood Pressure 111/73 Blood Pressure [Right Arm] Blood Pressure Mean 85 Blood Pressure Mean [Right Arm] Blood Pressure Position [Right Arm] Pulse Oximetry 82 L 86 L Oxygen Delivery Method Room Air Nasal Cannula Oxygen Flow Rate 0 Sepsis Recent Fever Within 48 Hours No Sepsis New/Unexplained Change in Mental Status N/A Sepsis Action Taken by Nursing Physician Notified Oxygen Flow Rate - Titration 3 Pulse Oximetry Post Tiitration 93 01/21/23 13:17 01/21/23 14:15 01/21/23 14:32 Temperature Temperature Source Pulse Rate 116 H Pulse Rate [Apical] 112 H Respiratory Rate 20 22 Respiratory Effort / Characteristics Accessory Muscle Use Grunting Moaning Short of Breath Blood Pressure Blood Pressure [Right Arm] Blood Pressure Mean Blood Pressure Mean [Right Arm] Blood Pressure Position [Right Arm] Pulse Oximetry 100 99 Oxygen Delivery Method Nasal Cannula Nasal Cannula Nasal Cannula Oxygen Flow Rate 5 4 3 Sepsis Recent Fever Within 48 Hours Sepsis New/Unexplained Change in Mental Status Sepsis Action Taken by Nursing Oxygen Flow Rate - Titration Pulse Oximetry Post Tiitration 01/21/23 14:30 01/21/23 15:35 01/21/23 16:48 Temperature Temperature Source Pulse Rate Pulse Rate [Apical] 116 H 83 Respiratory Rate 18 16 Respiratory Effort / Characteristics Blood Pressure Blood Pressure [Right Arm] 98/68 L 111/65 109/55 L Blood Pressure Mean Blood Pressure Mean [Right Arm] 78 80 73 Blood Pressure Position [Right Arm] Sitting Pulse Oximetry 94 96 Oxygen Delivery Method Nasal Cannula Nasal Cannula Oxygen Flow Rate 3 3 Sepsis Recent Fever Within 48 Hours Sepsis New/Unexplained Change in Mental Status Sepsis Action Taken by Nursing Oxygen Flow Rate - Titration Pulse Oximetry Post Tiitration Laboratory Data 01/21/23 14:06 01/21/23 14:06 Lab Results 01/21/23 01/21/23 01/21/23 Range/Units 14:06 14:06 14:06 WBC 9.20 (4.8-10.8) K/ul RBC 3.79 L (4.20-5.40) M/uL Hgb 10.0 L (12.0-16.0) g/dl Hct 31.8 L (37.0-47.0) % MCV 83.9 (80.0-100.0) fL MCH 26.4 (25.0-34.0) pg MCHC 31.4 L (32.0-36.0) g/dL RDW Std Deviation 47.8 H (36.4-46.3) fL RDW Coeff of Geri 15.7 H (11.5-14.5) % Plt Count 341 (130-400) K/uL MPV 9.7 (9.4-12.4) fL Immature Gran % (Auto) 0.4 % Neut % (Auto) 84.8 % Lymph % (Auto) 11.5 % Divide % (Auto) 3.0 % Eos % (Auto) 0.1 % Baso % (Auto) 0.2 % Neut # (Auto) 7.79 H (1.40-6.50) K/uL Lymph # (Auto) 1.06 L (1.20-3.40) K/uL Divide # (Auto) 0.28 (0.11-0.59) K/uL Eos # (Auto) 0.01 (0.00-0.50) K/uL Baso # (Auto) 0.02 (0.00-0.20) K/uL Immature Gran # (Auto) 0.04 (0.01-0.20) K/uL D-Dimer (0-500) ug/L FEU VBG pH (7.36-7.41) VBG pCO2 (38-50) mmHg VBG pO2 mmHg VBG HCO3 mmol/L VBG O2 Saturation % VBG Base Excess mEq/L Sodium 140 (136-145) mmol/L Potassium 3.7 (3.5-5.1) mmol/L Chloride 103 (98-107) mmol/L Carbon Dioxide 30 (21-32) mmol/L Anion Gap 7 (3-11) BUN 16 (6-23) mg/dl Creatinine 0.76 (0.6-1.2) mg/dl Est Cr Clr Drug Dosing 48.8 ml/min Est GFR ( Amer) 85.9 ml/min Est GFR (Non-Af Amer) 74.1 ml/min BUN/Creatinine Ratio 21.1 H (10-20) Glucose 114 H (70-99(Fasting)) mg/dl Calcium 9.3 (8.6-10.3) mg/dl Magnesium 1.7 (1.7-2.4) mg/dl Total Bilirubin 0.7 (0.2-1.0) mg/dl AST 14 (13-39) U/L ALT 9 (7-52) U/L Alkaline Phosphatase 65 (34-104) U/L Troponin I High Sens 4.3 (0-14) pg/ml B-Natriuretic Peptide 21 (0-100) pg/ml Total Protein 6.6 (6.0-8.3) gm/dl Albumin 4.1 (3.4-5.0) gm/dl Globulin 2.5 (2.5-4.0) gm/dl Albumin/Globulin Ratio 1.6 (0.9-2) Procalcitonin (0-0.5) ng/ml Urine Color Urine Appearance (Clear) Urine pH (4.5-7.5) Ur Specific [place] (1.000-1.030) Urine Protein (Negative) Urine Glucose (UA) (Negative) Urine Ketones (Negative) Urine Blood (Negative) Urine Nitrite (Negative) Urine Bilirubin (Negative) Urine Urobilinogen (Negative) Ur Leukocyte Esterase (Negative) Urine WBC (Auto) (0-5) /hpf Urine RBC (Auto) (0-4) /hpf U Hyaline Cast (Auto) (0-5) /lpf U Epithel Cells (Auto) (0-5) /lpf Urine Bacteria (Auto) (Negative) Adenovirus (PCR) (NotDetected) B. pertussis DNA (PCR) (NotDetected) B.parapertussis DNA PCR (NotDetected) C. pneumoniae DNA (PCR) (NotDetected) Coronavirus OC43 (PCR) (NotDetected) Coronavirus HKU1 (PCR) (NotDetected) Coronavirus 229E (PCR) (NotDetected) SARS-CoV-2 (PCR) (NotDetected) Coronavirus NL63 (PCR) (NotDetected) Human Metapneumovir PCR (NotDetected) Influenza Type A (PCR) (NotDetected) Influenza Type B (PCR) (NotDetected) M. pneumoniae (PCR) (NotDetected) Parainfluenza 1 (PCR) (NotDetected) Parainfluenza 2 (PCR) (NotDetected) Parainfluenza 3 (PCR) (NotDetected) Parainfluenza 4 (PCR) (NotDetected) RSV (PCR) (NotDetected) Entero/Rhino (PCR) (NotDetected) 01/21/23 01/21/23 01/21/23 Range/Units 14:06 14:06 14:20 WBC (4.8-10.8) K/ul RBC (4.20-5.40) M/uL Hgb (12.0-16.0) g/dl Hct (37.0-47.0) % MCV (80.0-100.0) fL MCH (25.0-34.0) pg MCHC (32.0-36.0) g/dL RDW Std Deviation (36.4-46.3) fL RDW Coeff of Geri (11.5-14.5) % Plt Count (130-400) K/uL MPV (9.4-12.4) fL Immature Gran % (Auto) % Neut % (Auto) % Lymph % (Auto) % Divide % (Auto) % Eos % (Auto) % Baso % (Auto) % Neut # (Auto) (1.40-6.50) K/uL Lymph # (Auto) (1.20-3.40) K/uL Divide # (Auto) (0.11-0.59) K/uL Eos # (Auto) (0.00-0.50) K/uL Baso # (Auto) (0.00-0.20) K/uL Immature Gran # (Auto) (0.01-0.20) K/uL D-Dimer 1290 H* (0-500) ug/L FEU VBG pH 7.42 H (7.36-7.41) VBG pCO2 47 (38-50) mmHg VBG pO2 24 mmHg VBG HCO3 31 mmol/L VBG O2 Saturation < 60.0 % VBG Base Excess 5.1 mEq/L Sodium (136-145) mmol/L Potassium (3.5-5.1) mmol/L Chloride (98-107) mmol/L Carbon Dioxide (21-32) mmol/L Anion Gap (3-11) BUN (6-23) mg/dl Creatinine (0.6-1.2) mg/dl Est Cr Clr Drug Dosing ml/min Est GFR ( Amer) ml/min Est GFR (Non-Af Amer) ml/min BUN/Creatinine Ratio (10-20) Glucose (70-99(Fasting)) mg/dl Calcium (8.6-10.3) mg/dl Magnesium (1.7-2.4) mg/dl Total Bilirubin (0.2-1.0) mg/dl AST (13-39) U/L ALT (7-52) U/L Alkaline Phosphatase (34-104) U/L Troponin I High Sens (0-14) pg/ml B-Natriuretic Peptide (0-100) pg/ml Total Protein (6.0-8.3) gm/dl Albumin (3.4-5.0) gm/dl Globulin (2.5-4.0) gm/dl Albumin/Globulin Ratio (0.9-2) Procalcitonin < 0.05 (0-0.5) ng/ml Urine Color Urine Appearance (Clear) Urine pH (4.5-7.5) Ur Specific [place] (1.000-1.030) Urine Protein (Negative) Urine Glucose (UA) (Negative) Urine Ketones (Negative) Urine Blood (Negative) Urine Nitrite (Negative) Urine Bilirubin (Negative) Urine Urobilinogen (Negative) Ur Leukocyte Esterase (Negative) Urine WBC (Auto) (0-5) /hpf Urine RBC (Auto) (0-4) /hpf U Hyaline Cast (Auto) (0-5) /lpf U Epithel Cells (Auto) (0-5) /lpf Urine Bacteria (Auto) (Negative) Adenovirus (PCR) (NotDetected) B. pertussis DNA (PCR) (NotDetected) B.parapertussis DNA PCR (NotDetected) C. pneumoniae DNA (PCR) (NotDetected) Coronavirus OC43 (PCR) (NotDetected) Coronavirus HKU1 (PCR) (NotDetected) Coronavirus 229E (PCR) (NotDetected) SARS-CoV-2 (PCR) (NotDetected) Coronavirus NL63 (PCR) (NotDetected) Human Metapneumovir PCR (NotDetected) Influenza Type A (PCR) (NotDetected) Influenza Type B (PCR) (NotDetected) M. pneumoniae (PCR) (NotDetected) Parainfluenza 1 (PCR) (NotDetected) Parainfluenza 2 (PCR) (NotDetected) Parainfluenza 3 (PCR) (NotDetected) Parainfluenza 4 (PCR) (NotDetected) RSV (PCR) (NotDetected) Entero/Rhino (PCR) (NotDetected) 01/21/23 01/21/23 Range/Units 14:26 Unknown WBC (4.8-10.8) K/ul RBC (4.20-5.40) M/uL Hgb (12.0-16.0) g/dl Hct (37.0-47.0) % MCV (80.0-100.0) fL MCH (25.0-34.0) pg MCHC (32.0-36.0) g/dL RDW Std Deviation (36.4-46.3) fL RDW Coeff of Geri (11.5-14.5) % Plt Count (130-400) K/uL MPV (9.4-12.4) fL Immature Gran % (Auto) % Neut % (Auto) % Lymph % (Auto) % Divide % (Auto) % Eos % (Auto) % Baso % (Auto) % Neut # (Auto) (1.40-6.50) K/uL Lymph # (Auto) (1.20-3.40) K/uL Divide # (Auto) (0.11-0.59) K/uL Eos # (Auto) (0.00-0.50) K/uL Baso # (Auto) (0.00-0.20) K/uL Immature Gran # (Auto) (0.01-0.20) K/uL D-Dimer (0-500) ug/L FEU VBG pH (7.36-7.41) VBG pCO2 (38-50) mmHg VBG pO2 mmHg VBG HCO3 mmol/L VBG O2 Saturation % VBG Base Excess mEq/L Sodium (136-145) mmol/L Potassium (3.5-5.1) mmol/L Chloride (98-107) mmol/L Carbon Dioxide (21-32) mmol/L Anion Gap (3-11) BUN (6-23) mg/dl Creatinine (0.6-1.2) mg/dl Est Cr Clr Drug Dosing ml/min Est GFR ( Amer) ml/min Est GFR (Non-Af Amer) ml/min BUN/Creatinine Ratio (10-20) Glucose (70-99(Fasting)) mg/dl Calcium (8.6-10.3) mg/dl Magnesium (1.7-2.4) mg/dl Total Bilirubin (0.2-1.0) mg/dl AST (13-39) U/L ALT (7-52) U/L Alkaline Phosphatase (34-104) U/L Troponin I High Sens (0-14) pg/ml B-Natriuretic Peptide (0-100) pg/ml Total Protein (6.0-8.3) gm/dl Albumin (3.4-5.0) gm/dl Globulin (2.5-4.0) gm/dl Albumin/Globulin Ratio (0.9-2) Procalcitonin (0-0.5) ng/ml Urine Color Yellow Urine Appearance Clear (Clear) Urine pH 7.0 (4.5-7.5) Ur Specific [place] 1.009 (1.000-1.030) Urine Protein Negative (Negative) Urine Glucose (UA) Negative (Negative) Urine Ketones Negative (Negative) Urine Blood Trace H (Negative) Urine Nitrite Negative (Negative) Urine Bilirubin Negative (Negative) Urine Urobilinogen Negative (Negative) Ur Leukocyte Esterase 1+ H (Negative) Urine WBC (Auto) 10-30 H (0-5) /hpf Urine RBC (Auto) 5-10 H (0-4) /hpf U Hyaline Cast (Auto) 1-5 (0-5) /lpf U Epithel Cells (Auto) >30 H (0-5) /lpf Urine Bacteria (Auto) Negative (Negative) Adenovirus (PCR) Not Detected (NotDetected) B. pertussis DNA (PCR) Not Detected (NotDetected) B.parapertussis DNA PCR Not Detected (NotDetected) C. pneumoniae DNA (PCR) Not Detected (NotDetected) Coronavirus OC43 (PCR) Not Detected (NotDetected) Coronavirus HKU1 (PCR) Not Detected (NotDetected) Coronavirus 229E (PCR) Not Detected (NotDetected) SARS-CoV-2 (PCR) Not Detected (NotDetected) Coronavirus NL63 (PCR) Not Detected (NotDetected) Human Metapneumovir PCR Not Detected (NotDetected) Influenza Type A (PCR) Not Detected (NotDetected) Influenza Type B (PCR) Not Detected (NotDetected) M. pneumoniae (PCR) Not Detected (NotDetected) Parainfluenza 1 (PCR) Not Detected (NotDetected) Parainfluenza 2 (PCR) Not Detected (NotDetected) Parainfluenza 3 (PCR) Not Detected (NotDetected) Parainfluenza 4 (PCR) Not Detected (NotDetected) RSV (PCR) Not Detected (NotDetected) Entero/Rhino (PCR) Not Detected (NotDetected) Administered Medications Discontinued Medications Albuterol (Albut/Ipratrop 3mg/0.5mg Neb 3 Ml Vial) 3 ml NEB NOW STA; Protocol Stop: 01/21/23 12:52 Last Admin: 01/21/23 13:13 Dose: 3 ml Documented By: THAO Ioversol (Ioversol 350 Mg 125ml Prefilled Syringe) 118 ml IV ONCE ONE Stop: 01/21/23 15:30 Last Admin: 01/21/23 15:30 Dose: 118 ml Documented By: PETER Imaging Data Radiologist's Impression: Chest X-Ray 01/21/23 12:51 XR chest 1V portable HISTORY: 82 years-old Female Dyspnea acute shortness of breath COMPARISON: 12/18/2022 TECHNIQUE: AP view of the chest FINDINGS: Cardiomediastinal and hilar silhouettes are within normal limits. Hyperinflation with mild chronic interstitial coarsening. Emphysema. Stable linear opacity of the left upper lobe. No pneumothorax, pleural effusion or lobar airspace consolidation. The bones appear grossly intact with sigmoidal thoracolumbar scoliosis. Cholecystectomy. Chronic left-sided rib fractures. IMPRESSION: Emphysema without acute process. ACT 112: Negative or not required by law. The above report was generated using voice recognition software. It may contain grammatical, syntax or spelling errors. Electronically signed by: Toni Marshall M.D. 01/21/2023 1:14 PM Chest CTA 01/21/23 15:02 CT ANGIOGRAPHY OF THE CHEST, PULMONARY EMBOLUS PROTOCOL CLINICAL HISTORY: Shortness of breath. Evaluate for pulmonary embolus. COMPARISON STUDY: Chest CT December 18, 2022. Chest radiograph performed earlier today. TECHNIQUE: Following IV administration of 118 mL of Optiray, helical axial images of the chest were obtained utilizing the pulmonary embolus protocol. Maximal intensity projections and sagittal and coronal reformats were viewed on an independent 3D workstation. IV contrast was administered without complication. Automated exposure control was utilized for the study. A dose lowering technique was utilized adhering to the principles of ALARA. CT DOSE: 282.25 mGy.cm FINDINGS: No pulmonary emboli are identified. There is no thoracic aortic dissection. The size of the heart is normal. No enlarged axillary, mediastinal or hilar lymph nodes are present. No pneumothorax or pleural effusion is present. The central airways are patent. There is no consolidation to suggest pneumonia. Severe emphysema is again noted. An 8 mm linear density within the left upper lobe is unchanged since CT of December 18, 2022. This is new since CT of August 18, 2020. An additional left apical linear density represents scarring. Linear densities within the right upper lobe favor scarring. Healing anterior right fourth rib fracture is incidentally noted. IMPRESSION: 1. No pulmonary emboli identified. 2. No acute intrathoracic findings. No consolidation to suggest pneumonia. 3. Severe emphysema. ACT 112: Negative or not required by law. Electronically signed by: Alban Gonsalves M.D. 01/21/2023 3:49 PM Discharge Plan Visit Data Chief Complaint: Respiratory Distress Stated Complaint: RESP. DIFFICULTY ED Provider: Carole Hartman Discharge Problem: Acute dyspnea, Acute exacerbation of chronic obstructive pulmonary disease, Acute respiratory failure with hypoxia Forms [facility] Al[facility]: [facility] [employer] Prescriptions Prescriptions: No Action (DME) nebulizer accessories Misc See Rx Instructions .ROUTE .MEDSUPPLY Qty: 1 0RF Rx Instructions: Filters for nebulizer ipratropium bromide 21 mcg (0.03 %) spray,non-aerosol 2 spray intranasal DAILY PRN (Reason: allergy symptoms) Qty: 90 1RF Rx Instructions: administer into each nostril fluticasone propionate [Flonase Allergy Relief] 50 mcg/actuation spra y,suspension 2 spray intranasal DAILY Qty: 48 1RF Rx Instructions: administer into each nostril olopatadine [Patanase] 0.6 % spray,non-aerosol 2 spray intranasal DAILY Qty: 91.5 3RF sertraline 25 mg tablet 25 mg PO QAM Qty: 90 1RF azelastine 137 mcg (0.1 %) aerosol,spray 2 spray intranasal BID Qty: 90 3RF Rx Instructions: administer into each nostril pantoprazole 40 mg tablet,delayed release (DR/EC) See Rx Instructions .ROUTE .COMPLEX Qty: 60 1RF Dose Instruction: TAKE 1 TABLET BY MOUTH TWICE A DAY Rx Instructions: TAKE 1 TABLET BY MOUTH TWICE A DAY albuterol sulfate 90 mcg/actuation HFA aerosol inhaler 1 - 2 puff inhalation Q4H PRN (Reason: shortness of breath) Qty: 18 5RF famotidine 20 mg tablet See Rx Instructions .ROUTE .COMPLEX Qty: 180 2RF Dose Instruction: TAKE 1 TABLET BY MOUTH TWICE A DAY Rx Instructions: TAKE 1 TABLET BY MOUTH TWICE A DAY ipratropium-albuterol 0.5 mg-3 mg(2.5 mg base)/3 mL solution for nebulization 3 ml inhalation Q4 PRN (Reason: Shortness Of Breath Or Wheezing) Qty: 180 1RF Rx Instructions: 1 VIAL VIA NEB EVERY FOUR HOURS NEEDED FOR WHEEZING. DX. J44.9; J96.11 oxybutynin chloride 15 mg tablet extended release 24hr 15 mg PO QAM Qty: 90 1RF azithromycin 250 mg tablet 250 mg PO 3XWK Qty: 36 0RF Rx Instructions: Take 1 tablet orally every Tuesday, Tuesday, and Tuesday (DME) CPAP Supplies Misc See Rx Instructions .ROUTE .MEDSUPPLY Qty: 1 0RF Rx Instructions: NIV mask fit and teaching regarding use and oxygen; DME=SWIMMING [employer]OL MAINTENANCE Trelegy Ellipta 100-62.5-25 mcg blister with device 1 inh inhalation DAILY Qty: 60 3RF (DME) CPAP Machine Misc See Rx Instructions .MEDSUPPLY Qty: 1 0RF Rx Instructions: Please provide a humidifier for her CPAP. Lifetime need. cholecalciferol (vitamin D3) 50 mcg (2,000 unit) capsule 50 mcg PO DAILY fexofenadine [Allergy Relief (fexofenadine)] 180 mg Tablet 180 mg PO QAM Qty: 30 0RF ferrous sulfate 325 mg (65 mg iron) Tablet,Delayed Release (Dr/Ec) 325 mg PO DAILY@1100 Qty: 30 0RF Rx Instructions: Over the counter acetaminophen [Tylenol Extra Strength] 500 mg Tablet 1,000 mg PO Q8H PRN (Reason: rib pain) Qty: 60 0RF Rx Instructions: Over the counter guaifenesin [Mucinex] 600 mg Tablet Extended Release 12hr 1,200 mg PO BID Qty: 60 0RF Rx Instructions: Over the counter cyanocobalamin (vitamin B-12) 1,000 mcg capsule 1,000 mcg PO DAILY Qty: 30 0RF Rx Instructions: Over the counter Referrals Referrals: Camial Beth DO [Primary Care Provider] -
--- NOTE | 2023-01-21 13:16 | XRay Report ---
XR chest 1V portable HISTORY: 82 years-old Female Dyspnea acute shortness of breath COMPARISON: 12/18/2022 TECHNIQUE: AP view of the chest FINDINGS: Cardiomediastinal and hilar silhouettes are within normal limits. Hyperinflation with mild chronic in terstitial coarsening. Emphysema. Stable linear opacity of the left upper lobe. No pneumothorax, pleu ral effusion or lobar airspace consolidation. The bones appear grossly intact with sigmoidal thoracol umbar scoliosis. Cholecystectomy. Chronic left-sided rib fractures. IMPRESSION: Emphysema without acute process. ACT 112: Negative or not required by law. The above report was generated using voice recognition software. It may contain grammatical, syntax o r spelling errors. Electronically signed by: Toni Marshall M.D. 01/21/2023 1:14 PM
[2023-01-21 14:28] LABS: Basophils # (auto) 0.02 K/uL (0.00-0.20); Basophils % (auto) 0.2 %; Eosinophils # (auto) 0.01 K/uL (0.00-0.50); Eosinophils % (auto) 0.1 %; Hematocrit (blood only) 31.8 % (37.0-47.0); Immature Granulocytes # (auto) 0.04 K/uL (0.01-0.20); Immature Granulocytes % (auto) 0.4 %; Lymphocytes # (auto) 1.06 K/uL (1.20-3.40); Lymphocytes % (auto) 11.5 %; Mean Corpuscular Hemoglobin 26.4 pg (25.0-34.0); Mean Corpuscular Hgb Conc 31.4 g/dL (32.0-36.0); Mean Corpuscular Volume 83.9 fL (80.0-100.0); Mean Platelet Volume 9.7 fL (9.4-12.4); Monocytes # (auto) 0.28 K/uL (0.11-0.59); Neutrophils # (auto) 7.79 K/uL (1.40-6.50); Neutrophils % (auto) 84.8 %; Platelet Count 341 K/uL (130-400); RDW Coefficient of Variation 15.7 % (11.5-14.5); RDW Standard Deviation 47.8 fL (36.4-46.3); Red Blood Count 3.79 M/uL (4.20-5.40)
[2023-01-21 14:32] LABS: Base Excess VBG 5.1 mEq/L; HCO3 VBG 31 mmol/L; Oxygen Saturation VBG < 60.0 %; PCO2 VBG 47 mmHg (38-50); PO2 VBG 24 mmHg; pH VBG 7.42 (7.36-7.41)
[2023-01-21 14:42] LABS: Appearance Urine Clear (Clear); Bacteria Urine Automated Negative (Negative); Bilirubin Urine Negative (Negative); Blood Urine Trace (Negative); Color Urine Yellow; Epithelial Cell Urine Auto >30 /lpf (0-5); Glucose Urine UA Negative (Negative); Ketones Urine Negative (Negative); Leukocyte Esterase Urine 1+ (Negative); Nitrite Urine Negative (Negative); Protein Urine Negative (Negative); Specific Gravity Urine 1.009 (1.000-1.030); Urobilinogen Urine Negative (Negative)
[2023-01-21 14:43] LABS: Albumin Globulin Ratio 1.6 (0.9-2); Albumin Level 4.1 gm/dl (3.4-5.0); BUN Creatinine Ratio 21.1 (10-20); Bilirubin,Total 0.7 mg/dl (0.2-1.0); Calcium 9.3 mg/dl (8.6-10.3); Creatinine Clr Calc Pharmacy 48.8 ml/min; Est GFR (African American) 85.9 ml/min; Est GFR (Non-African American) 74.1 ml/min; Globulin 2.5 gm/dl (2.5-4.0); Magnesium 1.7 mg/dl (1.7-2.4); Potassium 3.7 mmol/L (3.5-5.1); Total Protein 6.6 gm/dl (6.0-8.3)
[2023-01-21 14:49] LABS: Troponin I High Sensitivity 4.3 pg/ml (0-14)
[2023-01-21 15:03] LABS: D Dimer 1290 ug/L FEU (0-500)
[2023-01-21 15:12] LABS: Adenovirus PCR Not Detected (NotDetected); Bordetella parapertussis PCR Not Detected (NotDetected); Bordetella pertussis PCR Not Detected (NotDetected); Chlamydia pneumoniae PCR Not Detected (NotDetected); Coronavirus 229E PCR Not Detected (NotDetected); Coronavirus CoV-2 (COVID19)PCR Not Detected (NotDetected); Coronavirus HKU1 PCR Not Detected (NotDetected); Coronavirus NL63 PCR Not Detected (NotDetected); Coronavirus OC43PCR Not Detected (NotDetected); Human Metapneumovirus PCR Not Detected (NotDetected); Influenza A PCR Not Detected (NotDetected); Influenza B PCR Not Detected (NotDetected); Mycoplasma pneumoniae PCR Not Detected (NotDetected); Parainfluenza Virus 1 PCR Not Detected (NotDetected); Parainfluenza Virus 2 PCR Not Detected (NotDetected); Parainfluenza Virus 3 PCR Not Detected (NotDetected); Parainfluenza Virus 4 PCR Not Detected (NotDetected); Respiratory Syncytial VirusPCR Not Detected (NotDetected); Rhinovirus/Enterovirus PCR Not Detected (NotDetected)
[2023-01-21] MEDS ORDERED: IOVERSOL 350 MG 125mL Prefilled Syringe IV ONE (15:29)
--- NOTE | 2023-01-21 15:51 | CT Scan Report ---
CT ANGIOGRAPHY OF THE CHEST, PULMONARY EMBOLUS PROTOCOL CLINICAL HISTORY: Shortness of breath. Evaluate for pulmonary embolus. COMPARISON STUDY: Chest CT December 18, 2022. Chest radiograph performed earlier today. TECHNIQUE: Following IV administration of 118 mL of Optiray, helical axial images of the chest were o btained utilizing the pulmonary embolus protocol. Maximal intensity projections and sagittal and cor onal reformats were viewed on an independent 3D workstation. IV contrast was administered without co mplication. Automated exposure control was utilized for the study. A dose lowering technique was ut ilized adhering to the principles of ALARA. CT DOSE: 282.25 mGy.cm FINDINGS: No pulmonary emboli are identified. There is no thoracic aortic dissection. The size of th e heart is normal. No enlarged axillary, mediastinal or hilar lymph nodes are present. No pneumothora x or pleural effusion is present. The central airways are patent. There is no consolidation to sugges t pneumonia. Severe emphysema is again noted. An 8 mm linear density within the left upper lobe is un changed since CT of December 18, 2022. This is new since CT of August 18, 2020. An additional left apical linear density represents scarring. Linear densities within the right upper lobe favor scarring. Heal ing anterior right fourth rib fracture is incidentally noted. IMPRESSION: 1. No pulmonary emboli identified. 2. No acute intrathoracic findings. No consolidation to suggest pneumonia. 3. Severe emphysema. ACT 112: Negative or not required by law. Electronically signed by: Alban Gonsalves M.D. 01/21/2023 3:49 PM
--- NOTE | 2023-01-21 16:53 | Electrocardiogram Report ---
Test Reason : Blood Pressure : / mmHG Vent. Rate : 110 BPM Atrial Rate : 110 BPM P-R Int : 156 ms QRS Dur : 114 ms QT Int : 364 ms P-R-T Axes : 086 259 045 degrees QTc Int : 492 ms Poor data quality, interpretation may be adversely affected Sinus tachycardia Pulmonary disease pattern Right bundle branch block Abnormal ECG When compared with ECG of 18-DEC-2022 11:11, No significant change was found Confirmed by Enrique Dupont ([id number]) on 01/21/2023 4:52:54 PM Referred By: REFERRED SELF Confirmed By:Enrique Dupont
--- NOTE | 2023-01-21 17:03 | History & Physical Report ---
Date of Service January 21, 2023 Assessment & Plan (1) Acute exacerbation of chronic obstructive pulmonary disease: Plan: Solu-medrol 40mg IV q8h Duonebs QID Formoterol/Budesonide NEBS BID instead of her regular inhaler Chronically on azithromycin therefore will switch to doxycycline 100mg PO BID for 5 days Consult pulmonology to optimize management given recent admission and difficulty keeping her out of hospital (2) Acute respiratory failure with hypoxia: Plan: Secondary to COPD exacerbation as above Aim O2 sats > 88% Baseline 2LPM O2 at rest, 3LPM on exertion (3) GERD (gastroesophageal reflux disease): Plan: Continue famotidine and pantoprazole (4) Sleep apnea: Plan: CPAP HS (5) Anemia, iron deficiency: Plan: At baseline (6) Osteoporosis: (7) B12 deficiency: Plan VTE Prophylaxis - Lovenox 40mg SQ daily Diet - regular Disposition - observation status to med/surg Admission and Anticipated Discharge Date Admission Date: January 21, 2023 History of Present Illness Chief Complaint: Shortness of breath Primary Care Provider: Camila Beth DO Judie White is an 82 year old female with severe COPD who presents to the ER with shortness of breath. She reports progressive worsening shortness of breath despite oral prednisone (given for sinusitis) since her last admission. No sudden onset. She notes always having shortness of breath but it is not usually this bad. Associated productive cough. She reports always having allergies and is awaiting testing. She takes Imelda daily after last admission but does not feel this makes much of a difference. Chronic nasal congestion and post nasal drip. No current sinus pain but recently treated for a sinus infections seen by her ENT physician on scope with Levaquin and prednisone taper 10 days ago, she is currently still on the prednisone. Shortness of breath chronically comes and does but doesn't feel this bad usually. She has been using 2LPM O2 at rest and 3LPM O2 on exertion since last admission. Allergies Allergy/AdvReac Type Severity Reaction Status Date / Time Penicillins Allergy Intermediate HIVES Verified 01/21/23 17:27 house dust AdvReac Unknown Verified 01/21/23 17:27 mold AdvReac Unknown Verified 01/21/23 17:27 Home Medications Medication Instructions Recorded Confirmed Type CPAP Supplies #1 ea 08/13/19 01/10/23 Rx nebulizer accessories #1 ea 02/21/20 01/10/23 Rx CPAP Machine #1 ea 06/17/21 01/10/23 Rx ipratropium bromide 21 mcg (0.03 2 spray intranasal DAILY PRN 02/11/22 01/21/23 Rx %) nasal spray allergy symptoms #90 mL olopatadine 0.6 % nasal spray 2 spray intranasal DAILY #91.5 05/31/22 01/21/23 Rx (Patanase) grams azelastine 137 mcg (0.1 %) nasal 2 spray intranasal BID #90 mL 08/10/22 01/21/23 Rx spray aerosol albuterol sulfate 90 mcg/actuation 1 - 2 puff inhalation Q4H PRN 10/08/22 01/21/23 Rx aerosol inhaler shortness of breath #18 grams fluticasone fur. 100 mcg-umeclid 1 inh inhalation DAILY #60 ea 11/02/22 01/21/23 Rx 62.5 mcg-vilant 25 mcg inhalat.powder (Trelegy Ellipta) ipratropium 0.5 mg-albuterol 3 mg 3 ml inhalation Q4 PRN Shortness 11/25/22 01/21/23 Rx (2.5 mg base)/3 mL nebulization Of Breath Or Wheezing #180 mL soln acetaminophen 500 mg tablet 1,000 mg PO Q8H PRN rib pain #60 12/22/22 01/21/23 Rx (Tylenol Extra Strength) tabs cyanocobalamin (vitamin B-12) 1,000 mcg PO DAILY #30 caps 12/22/22 01/21/23 Rx 1,000 mcg capsule guaifenesin 600 mg tablet, 1,200 mg PO BID #60 tabs 12/22/22 01/21/23 Rx extended release 12 hr (Mucinex) cholecalciferol (vitamin D3) 50 50 mcg PO DAILY 12/23/22 01/21/23 History mcg (2,000 unit) capsule oxybutynin chloride 15 mg 15 mg PO QAM #90 tabs 01/05/23 01/21/23 Rx tablet,extended release 24 hr azithromycin 250 mg tablet 250 mg PO 3XWK COPD maintenance 01/10/23 01/21/23 Rx #36 tabs famotidine 20 mg tablet 20 mg PO BID 01/21/23 01/21/23 History fexofenadine 180 mg tablet 180 mg PO QAM 01/21/23 01/21/23 History fluticasone propionate 50 2 spray intranasal DAILY PRN 01/21/23 01/21/23 History mcg/actuation nasal Congestion spray,suspension (Flonase Allergy Relief) pantoprazole 40 mg tablet,delayed 40 mg PO BID 01/21/23 01/21/23 History release prednisone 10 mg tablet See Rx Instructions .Route .COMPLEX 01/21/23 01/21/23 History Past Med/Surg History Medical History (Updated 01/21/23 @ 16:53 by Carole Hartman MD) Acute exacerbation of chronic obstructive pulmonary disease Anemia, iron deficiency Anxiety Asthma B12 deficiency Chronic ischemic heart disease Chronic nasal congestion COPD (chronic obstructive pulmonary disease) well controlled w/ inhalers - prn o2 use GERD (gastroesophageal reflux disease) History of ankle fracture Hypercholesterolemia On home oxygen therapy 2-3lpm via n/c PRN Osteoporosis Prediabetes Pulmonary hypertension Sleep apnea cpap Urge and stress incontinence Vitamin D deficiency Surgical History History of colonoscopy History of esophagogastroduodenoscopy (EGD) History of laparoscopic cholecystectomy History of rhinoplasty History of right cataract surgery History of tonsillectomy Hx of excision of mass Hx of left cataract extraction S/P HANNA (total abdominal hysterectomy) Family History Mother Breast cancer Sister Heart disease Pacemaker Other Encounter for pre-operative examination No family history of adverse response to anesthesia No family history of bleeding disorder Denies family history of Ovarian cancer Prostate cancer Colorectal cancer Social History Smoking Status: Former smoker Tobacco Type: Cigarettes Age Started Using Tobacco: 23; Age Quit Using Tobacco: 73; packs per day: 0.5; Cigarettes Per Day: quit 9 years ago; Second Hand Exposure: No; Do You Dip or Chew Tobacco: No; Hx Alcohol Use: No Hx Substance Use: No Preferred Language: [place] Communication Ability: Effective Visual Impairment: No Limitations Hearing Ability: Normal 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 ) Diet: regular Diet Comment: regular caffeine: Yes (2 cups coffee in morning, 1 with supper) during the past year weight has: remained stable Dental Care, Regularly: Yes Physical Activity Frequency: 1-2 Times per Week Seatbelt Use: always Sunscreen Use: No Assistive Devices: Glasses and Oxygen - Continuous Review of Systems Review of Systems: All systems reviewed & are unremarkable except as noted in HPI & below Physical Exam Constitutional: WD/WN, vitals as above Eyes: PERRL, conjunctivae normal, anicteric sclerae ENMT: external ear and nose normal, oropharynx normal Respiratory: + labored breathing, + uses accessory muscles, able to speak in complete sentences and + prolonged expiratory phase; + abnormal respiratory effort and no stridor Auscultation: + wheezes (inspiratory and expiratory); breath sounds present, no diminished lung sounds, no crackles, no rales and no rhonchi Cardiovascular: RRR, no murmur, no edema Gastrointestinal (Abdomen): normal bowel sounds, soft, nontender, no hepatosplenomegaly Musculoskeletal: no cyanosis or clubbing, extremities motor strength 5/5 Skin: no rashes, warm and dry Neurologic: moves all extremities and awake; not confused Psychiatric: A+Ox3, euthymic affect Genitourinary: no CVA tenderness Results & Data Results & Data Vital Signs (Past 12 Hours) Vital Signs Temp Pulse Pulse Resp BP BP Pulse Ox 01/21/23 16:48 83 16 109/55 L 96 01/21/23 15:35 116 H 18 111/65 94 01/21/23 14:30 98/68 L 01/21/23 14:32 116 H 22 99 01/21/23 14:15 112 H 20 100 01/21/23 13:17 01/21/23 13:00 86 L 01/21/23 12:48 110 H 01/21/23 12:59 36.5 C 110 H 24 111/73 82 L O2 Del Method O2 Flow Rate 01/21/23 16:48 Nasal Cannula 3 01/21/23 15:35 Nasal Cannula 3 01/21/23 14:30 01/21/23 14:32 Nasal Cannula 3 01/21/23 14:15 Nasal Cannula 4 01/21/23 13:17 Nasal Cannula 5 01/21/23 13:00 Nasal Cannula 0 01/21/23 12:48 01/21/23 12:59 Room Air Laboratory Results Abnormal lab results 01/21/23 01/21/23 01/21/23 Range/Units 14:06 14:06 14:06 RBC 3.79 L (4.20-5.40) M/uL Hgb 10.0 L (12.0-16.0) g/dl Hct 31.8 L (37.0-47.0) % MCHC 31.4 L (32.0-36.0) g/dL RDW Std Deviation 47.8 H (36.4-46.3) fL RDW Coeff of Geri 15.7 H (11.5-14.5) % Neut # (Auto) 7.79 H (1.40-6.50) K/uL Lymph # (Auto) 1.06 L (1.20-3.40) K/uL D-Dimer (0-500) ug/L FEU VBG pH 7.42 H (7.36-7.41) BUN/Creatinine Ratio 21.1 H (10-20) Glucose 114 H (70-99(Fasting)) mg/dl Urine Blood (Negative) Ur Leukocyte Esterase (Negative) Urine WBC (Auto) (0-5) /hpf Urine RBC (Auto) (0-4) /hpf U Epithel Cells (Auto) (0-5) /lpf 01/21/23 01/21/23 Range/Units 14:06 14:26 RBC (4.20-5.40) M/uL Hgb (12.0-16.0) g/dl Hct (37.0-47.0) % MCHC (32.0-36.0) g/dL RDW Std Deviation (36.4-46.3) fL RDW Coeff of Geri (11.5-14.5) % Neut # (Auto) (1.40-6.50) K/uL Lymph # (Auto) (1.20-3.40) K/uL D-Dimer 1290 H* (0-500) ug/L FEU VBG pH (7.36-7.41) BUN/Creatinine Ratio (10-20) Glucose (70-99(Fasting)) mg/dl Urine Blood Trace H (Negative) Ur Leukocyte Esterase 1+ H (Negative) Urine WBC (Auto) 10-30 H (0-5) /hpf Urine RBC (Auto) 5-10 H (0-4) /hpf U Epithel Cells (Auto) >30 H (0-5) /lpf Diagnostic Findings XR chest 1V portable HISTORY: 82 years-old Female Dyspnea acute shortness of breath COMPARISON: 12/18/2022 TECHNIQUE: AP view of the chest FINDINGS: Cardiomediastinal and hilar silhouettes are within normal limits. Hyperinflation with mild chronic interstitial coarsening. Emphysema. Stable linear opacity of the left upper lobe. No pneumothorax, pleural effusion or lobar airspace consolidation. The bones appear grossly intact with sigmoidal thoracolumbar scoliosis. Cholecystectomy. Chronic left-sided rib fractures. IMPRESSION: Emphysema without acute process. CT ANGIOGRAPHY OF THE CHEST, PULMONARY EMBOLUS PROTOCOL CLINICAL HISTORY: Shortness of breath. Evaluate for pulmonary embolus. COMPARISON STUDY: Chest CT December 18, 2022. Chest radiograph performed earlier today. TECHNIQUE: Following IV administration of 118 mL of Optiray, helical axial images of the chest were obtained utilizing the pulmonary embolus protocol. Maximal intensity projections and sagittal and coronal reformats were viewed on an independent 3D workstation. IV contrast was administered without complication. Automated exposure control was utilized for the study. A dose lowering technique was utilized adhering to the principles of ALARA. CT DOSE: 282.25 mGy.cm FINDINGS: No pulmonary emboli are identified. There is no thoracic aortic dissection. The size of the heart is normal. No enlarged axillary, mediastinal or hilar lymph nodes are present. No pneumothorax or pleural effusion is present. The central airways are patent. There is no consolidation to suggest pneumonia. Severe emphysema is again noted. An 8 mm linear density within the left upper lobe is unchanged since CT of December 18, 2022. This is new since CT of August 18, 2020. An additional left apical linear density represents scarring. Linear densities within the right upper lobe favor scarring. Healing anterior right fourth rib fracture is incidentally noted. IMPRESSION: 1. No pulmonary emboli identified. 2. No acute intrathoracic findings. No consolidation to suggest pneumonia. 3. Severe emphysema. Medications Administered ER Medications Given: Duoneb 3ml ECG Rate (beats per minute): 110 Rhythm: sinus tachycardia Findings: + RBBB; no acute ischemic change Comparison ECG Date: from (December 18, 2022) Change: no significant change Code Status & VTE Plan Code Status DNR/DNI as discussed with the patient VTE Prophylaxis Plan VTE Prophylaxis will be ordered: Yes PG Care Time/CCT Total # of Minutes Spent Total Time Spent with Patient: Total time spent is greater than 50% in coordination of care (as documented) at patient's floor/unit and/or counseling patient: Coding Level of Care Code 96354 INT INP/OBS CARE 2/55MIN Diagnoses Acute exacerbation of chronic obstructive pulmonary disease J44.1 Acute respiratory failure with hypoxia J96.01 GERD (gastroesophageal reflux disease) K21.9 Esophagitis presence: without esophagitis Sleep apnea G47.30 Anemia, iron deficiency D50.9 Osteoporosis M81.0 B12 deficiency E53.8 (3) GERD (gastroesophageal reflux disease) Esophagitis presence: without esophagitis Qualified Code(s): K21.9 - Gastro- esophageal reflux disease without esophagitis
[2023-01-21] MEDS ORDERED: BUDESONIDE 0.5 MG/2 ML VIAL (PULMICORT) NEB STA (18:20)
[2023-01-21] MEDS ORDERED: FORMOTEROL 20 MCG/2 ML VIAL NEB STA (18:21)
[2023-01-21] MEDS ORDERED: ACETAMINOPHEN 325 MG TAB PO PRN (21:12)
[2023-01-21] MEDS ORDERED: ONDANSETRON INJ 2 MG/ML 2 ML VIAL IV PRN (21:12)
[2023-01-21] MEDS: ALBUT/IPRATROP 3MG/0.5MG NEB 3 ML VIAL NEB SCH (21:28)
[2023-01-21] MEDS: FAMOTIDINE 20 MG TAB PO SCH (22:11)
[2023-01-21] MEDS: DOXYCYCLINE HYCLATE 100 MG CAP PO SCH (22:11)
[2023-01-21] MEDS: methylPREDNISolone 40 MG in SYRINGE 0 ML IV SCH (22:12)
[2023-01-21] MEDS: guaiFENesin 600 MG TABCR PO SCH (22:12)
[2023-01-21] MEDS: PANTOprazole 40 MG TAB PO SCH (22:12)
[2023-01-21] MEDS: ENOXAPARIN INJ 40 MG/0.4 ML SYR SQ SCH (22:13)
[2023-01-21] MEDS: FEXOFENADINE HCL 180 MG TAB PO SCH (22:15)
[2023-01-22] MEDS: methylPREDNISolone 40 MG in SYRINGE 0 ML IV SCH ×3 (05:17→21:57)
[2023-01-22] MEDS: BUDESONIDE 0.5 MG/2 ML VIAL (PULMICORT) NEB SCH ×2 (07:01→20:45)
[2023-01-22] MEDS: FORMOTEROL 20 MCG/2 ML VIAL NEB SCH ×2 (07:01→20:45)
[2023-01-22] MEDS: ALBUT/IPRATROP 3MG/0.5MG NEB 3 ML VIAL NEB SCH ×4 (07:02→20:45)
--- NOTE | 2023-01-22 08:23 | Pulmonary Consultation ---
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 Emphysema type: unspecified Qualified Code(s): J43.9 - Emphysema, unspecified (6) Sleep apnea: (7) Multiple pulmonary nodules: Plan CT chest 01/21/2023 personally reviewed: Severe centrilobular and paraseptal emphysema appreciated bilaterally Right upper lobe 9 mm pulmonary nodularity (6mm 2020), left upper lobe 8 mm pulmonary nodule versus scarring (unchanged 11/2022) Left upper lobe linear scarring No mediastinal lymphadenopathy 2D echo 12/11/2021: EF 60-65%, RVSP 50-60 mmHg, RV systolic function normal, RV moderately dilated -- Acute on chronic hypercapnic hypoxic respiratory failure 2 L oxygen at rest, 3 L on exertion at baseline Respiratory bio fire negative for everything 01/21/2023 Procalcitonin negative On trilogy machine at home -- Severe COPD with emphysema Supposed to be on Trelegy inhaler at home along with azithromycin 250 mg [id number] But as per the patient she is only using right now albuterol and nebulizers Need to make sure on discharge she has either trilogy inhaler or nebulized Perforomist plus budesonide nebulized plus Yupelri nebulized along with azithromycin -- Multiple pulmonary nodules Continue monitoring outpatient -- Pulmonary hypertension Likely type III Plan to treat underlying COPD as above Plan: Add hypertonic saline nebulized Given the relentless cough we will give guaifenesin-DM [id number] Continue with doxycycline for total of 7 days Follow-up sputum culture Please note the above document was generated using voice recognition software. It may contain grammatical, syntax or spelling errors.Any formal questions or concerns about the content, text or information contained within the body of this dictation should be directly addressed to the provider for clarification. History of Present Illness Attending Physician: Andres Murphy MD History of Present Illness 82-year-old female admitted to the hospital for shortness of breath Past medical history: COPD on home O2 2 L at rest and 3 L on exertion, GERD, ischemic heart disease, chronic allergic rhinitis Patient following up with Dr. Marinelli, he saw the patient last on 11/02/2022 Previous records and images personally reviewed At the time of examination patient was saturating 94 to 95% on 4 L nasal cannula, I went down to 3 L Unfortunately patient is not sure if she is taking any standing inhalers. She says that she is using nebulizers and albuterol inhaler. Since the last couple of days she has been complaining of chest tightness and difficulty bringing up the phlegm. She has also relentless cough whenever she takes deep breath in. She does bring up phlegm which is mostly clear denies any blood in it. Dysuria, diarrhea No fever or chills No night sweats, no unintentional weight loss. She has been using her AVAPS machine at home. Social history: > [id number] smoking history, quit smoking 2011 Allergies Allergy/AdvReac Type Severity Reaction Status Date / Time Penicillins Allergy Intermediate HIVES Verified 01/21/23 17:27 house dust AdvReac Unknown Verified 01/21/23 17:27 mold AdvReac Unknown Verified 01/21/23 17:27 Home Medications Medication Instructions Recorded Confirmed Type CPAP Supplies #1 ea 08/13/19 01/10/23 Rx nebulizer accessories #1 ea 02/21/20 01/10/23 Rx CPAP Machine #1 ea 06/17/21 01/10/23 Rx ipratropium bromide 21 mcg (0.03 2 spray intranasal DAILY PRN 02/11/22 01/21/23 Rx %) nasal spray allergy symptoms #90 mL olopatadine 0.6 % nasal spray 2 spray intranasal DAILY #91.5 05/31/22 01/21/23 Rx (Patanase) grams azelastine 137 mcg (0.1 %) nasal 2 spray intranasal BID #90 mL 08/10/22 01/21/23 Rx spray aerosol albuterol sulfate 90 mcg/actuation 1 - 2 puff inhalation Q4H PRN 10/08/22 01/21/23 Rx aerosol inhaler shortness of breath #18 grams fluticasone fur. 100 mcg-umeclid 1 inh inhalation DAILY #60 ea 11/02/22 01/21/23 Rx 62.5 mcg-vilant 25 mcg inhalat.powder (Trelegy Ellipta) ipratropium 0.5 mg-albuterol 3 mg 3 ml inhalation Q4 PRN Shortness 11/25/22 01/21/23 Rx (2.5 mg base)/3 mL nebulization Of Breath Or Wheezing #180 mL soln acetaminophen 500 mg tablet 1,000 mg PO Q8H PRN rib pain #60 12/22/22 01/21/23 Rx (Tylenol Extra Strength) tabs cyanocobalamin (vitamin B-12) 1,000 mcg PO DAILY #30 caps 12/22/22 01/21/23 Rx 1,000 mcg capsule guaifenesin 600 mg tablet, 1,200 mg PO BID #60 tabs 12/22/22 01/21/23 Rx extended release 12 hr (Mucinex) cholecalciferol (vitamin D3) 50 50 mcg PO DAILY 12/23/22 01/21/23 History mcg (2,000 unit) capsule oxybutynin chloride 15 mg 15 mg PO QAM #90 tabs 01/05/23 01/21/23 Rx tablet,extended release 24 hr azithromycin 250 mg tablet 250 mg PO 3XWK COPD maintenance 01/10/23 01/21/23 Rx #36 tabs famotidine 20 mg tablet 20 mg PO BID 01/21/23 01/21/23 History fexofenadine 180 mg tablet 180 mg PO QAM 01/21/23 01/21/23 History fluticasone propionate 50 2 spray intranasal DAILY PRN 01/21/23 01/21/23 History mcg/actuation nasal Congestion spray,suspension (Flonase Allergy Relief) pantoprazole 40 mg tablet,delayed 40 mg PO BID 01/21/23 01/21/23 History release prednisone 10 mg tablet See Rx Instructions .Route .COMPLEX 01/21/23 01/21/23 History Patient History Medical History (Updated 01/22/23 @ 15:08 by Bennett Napoles MD, [facility]) Acute exacerbation of chronic obstructive pulmonary disease Anemia, iron deficiency Anxiety Asthma B12 deficiency Chronic ischemic heart disease Chronic nasal congestion COPD (chronic obstructive pulmonary disease) well controlled w/ inhalers - prn o2 use GERD (gastroesophageal reflux disease) History of ankle fracture Hypercholesterolemia On home oxygen therapy 2-3lpm via n/c PRN Osteoporosis Prediabetes Pulmonary hypertension Sleep apnea cpap Urge and stress incontinence Vitamin D deficiency Surgical History History of colonoscopy History of esophagogastroduodenoscopy (EGD) History of laparoscopic cholecystectomy History of rhinoplasty History of right cataract surgery History of tonsillectomy Hx of excision of mass Hx of left cataract extraction S/P HANNA (total abdominal hysterectomy) Family History Mother Breast cancer Sister Heart disease Pacemaker Other Encounter for pre-operative examination No family history of adverse response to anesthesia No family history of bleeding disorder Denies family history of Ovarian cancer Prostate cancer Colorectal cancer Social History Smoking Status: Former smoker Tobacco Type: Cigarettes Age Started Using Tobacco: 23; Age Quit Using Tobacco: 73; packs per day: 0.5; Cigarettes Per Day: quit 9 years ago; Second Hand Exposure: No; Do You Dip or Chew Tobacco: No; Hx Alcohol Use: No Hx Substance Use: No Preferred Language: Mauritian Communication Ability: Effective Visual Impairment: No Limitations Hearing Ability: Normal Call Or Contact Centre Coach Required: No Beliefs That Will Affect Care: None marital status: / Current Living Situation: Alone current occupational status: retired Feels Safe at Home: Yes Safety Concerns: Feels Safe At This Time Childhood Exposure to Second-Hand Smoke: Yes (Father smoked, pt doesn't know if father smoked in the house or not. ) Diet: regular Diet Comment: regular caffeine: Yes (2 cups coffee in morning, 1 with supper) during the past year weight has: remained stable Dental Care, Regularly: Yes Physical Activity Frequency: 1-2 Times per Week Seatbelt Use: always Sunscreen Use: No Assistive Devices: Glasses and Oxygen - Continuous Review of Systems Review of Systems: All systems reviewed & are unremarkable except as noted in HPI & below Physical Exam Physical Exam: Constitutional: No acute distress HEENT: EOMI, PERRLA Respiratory system: Decreased air entry bilaterally, mild crackles bilateral lower lobes, positive expiratory wheeze bilaterally, positive rhonchi CVS: S1-S2 positive, no murmurs or gallops Abdomen: Soft, nontender, nondistended, positive bowel sounds x4 Extremities: +2 pulses bilaterally radialis/ dorsalis pedis, no cyanosis, no edema Neuro: Awake alert oriented x3 Psych: Normal mood and affect G/U: No Ferguson Skin: no rashes, warm and dry Lymphatic: no cervical or axillary lymphadenopathy Results & Data Results & Data Vital Signs (Past 12 Hours) Vital Signs Temp Pulse Pulse Resp BP Pulse Ox O2 Del Method 01/22/23 07:08 36.3 C L 90 17 112/74 100 Room Air 01/22/23 07:03 88 17 93 Nasal Cannula 01/21/23 21:00 Nasal Cannula 01/21/23 21:00 36.8 C 118 H 18 99/58 L 95 Nasal Cannula O2 Flow Rate 01/22/23 07:08 01/22/23 07:03 4 01/21/23 21:00 4 01/21/23 21:00 4 Laboratory Results 01/21/23 14:06 01/21/23 14:06 PG Care Time/CCT Total # of Minutes Spent Total Time Spent with Patient: Total time spent is greater than 50% in coordination of care (as documented) at patient's floor/unit and/or counseling patient: Coding Level of Care Code 21413 INT INP/OBS CARE 3/75MIN Diagnoses Acute exacerbation of chronic obstructive pulmonary disease J44.1 Acute bronchitis J20.9 Acute on chronic respiratory failure with hypoxia and hypercapnia J96.21; J96.22 Pulmonary hypertension I27.20 COPD (chronic obstructive pulmonary disease) J43.9 COPD type: emphysema Emphysema type: unspecified Sleep apnea G47.30 Multiple pulmonary nodules R91.8
[2023-01-22] MEDS: FEXOFENADINE HCL 180 MG TAB PO SCH (08:34)
[2023-01-22] MEDS: guaiFENesin 600 MG TABCR PO SCH (08:34)
[2023-01-22] MEDS: DOXYCYCLINE HYCLATE 100 MG CAP PO SCH ×2 (08:34→20:37)
[2023-01-22] MEDS: PANTOprazole 40 MG TAB PO SCH ×2 (08:34→20:37)
[2023-01-22] MEDS: OXYBUTYNIN CHLORIDE XL 5 MG TABCR PO SCH (08:34)
[2023-01-22] MEDS: FAMOTIDINE 20 MG TAB PO SCH ×2 (08:35→20:37)
[2023-01-22] MEDS ORDERED: NON-FORMULARY MEDICATION (Fluticasone-Umeclidin-Vilanter [Trelegy Ellipta] 100-62.5-25 mcg INH SCH (09:00)
[2023-01-22] MEDS ORDERED: FLUTICASONE FUROATE 200MCG 14 PUFFS/INHALER INH SCH (09:00)
[2023-01-22] MEDS ORDERED: UMECLIDINIUM/VILANTEROL 62.5/25MCG 7 PUFFS/INHALER INH SCH (09:00)
--- NOTE | 2023-01-22 12:57 | Hospitalist Progress Note ---
Date of Service January 22, 2023 Assessment & Plan (1) Acute exacerbation of chronic obstructive pulmonary disease: Plan: Continue scheduled nebulizer treatments and parenteral steroids. Treat underlying bronchitis. Pulmonary medicine consultation appreciated (2) Acute respiratory failure with hypoxia: Plan: Supplemental oxygen to maintain saturation greater than 90%. Treat acute bronchitis and exacerbation COPD (3) Acute bronchitis: Plan: Sputum culture results pending. Continue cefepime, day 1. Continue oral doxycycline (4) GERD (gastroesophageal reflux disease): Plan: Stable. Continue famotidine and pantoprazole (5) Sleep apnea: Plan: Stable. CPAP HS (6) Anemia, iron deficiency: Plan: Stable. Serial labs Plan Hopeful discharge back to home this coming week Admission and Anticipated Discharge Date Admission Date: January 21, 2023 Subjective Alert and oriented. No acute distress. She has a productive cough. Sputum culture has been ordered. Cefepime has been started, day 1. She remains on Solu-Medrol along with scheduled DuoNebs and oral doxycycline. Pulmonary medicine consultation appreciated. Chest CTA negative for PE Review of Systems Review of Systems: Constitutional-no fever or chills ENT-no blurred vision, no double vision, no epistaxis, no sore throat Respiratory-productive cough. Shortness of breath with exertion. No hemoptysis Cardiac-no palpitations, no chest pain, no syncope GI-no nausea, vomiting, diarrhea, melena, hematochezia -no urinary retention, no urinary incontinence, no dysuria, no hematuria Musculoskeletal-no joint pain, no muscle tenderness Skin-no bruising, no rashes, no pruritus Neuro-no isolated weakness, no paresthesia, no weakness Psych-no depression, no anxiety Physical Exam Physical Exam: General-alert and oriented x3, no fevers, no chills HEENT-head atraumatic and normocephalic, pupils equal and reactive to light, extraocular muscles intact Neck-no lymphadenopathy or thyromegaly, trachea midline Chest-diminished breath sounds bilaterally. Bilateral rhonchi. Bilateral end expiratory wheezes Cardiac-regular rate and rhythm, normal S1 and S2 Abdomen-normal bowel sounds, nontender, no hepatosplenomegaly Extremities-no cyanosis, clubbing, or edema Neuro-cranial nerves II through XII intact, motor and sensory function within normal limits, strength symmetrical , no focal deficits Psych-normal affect, normal mood Results & Data Results & Data Vital Signs (Past 12 Hours) Vital Signs Temp Pulse Pulse Resp BP Pulse Ox O2 Del Method 01/22/23 09:00 Nasal Cannula 01/22/23 10:36 88 17 90 Nasal Cannula 01/22/23 07:08 36.3 C L 90 17 112/74 100 Room Air 01/22/23 07:03 88 17 93 Nasal Cannula O2 Flow Rate 01/22/23 09:00 4 01/22/23 10:36 4 01/22/23 07:08 01/22/23 07:03 4 Laboratory Results 01/21/23 14:06 01/21/23 14:06 PG Care Time/CCT Total # of Minutes Spent Total Time Spent with Patient: Total time spent is greater than 50% in coordination of care (as documented) at patient's floor/unit and/or counseling patient: Coding Level of Care Code 16421 SUB INP/OBS CARE 3/50MIN Diagnoses Acute exacerbation of chronic obstructive pulmonary disease J44.1 Acute respiratory failure with hypoxia J96.01 Acute bronchitis J20.9 GERD (gastroesophageal reflux disease) K21.9 Esophagitis presence: without esophagitis Sleep apnea G47.30 Anemia, iron deficiency D50.9 (4) GERD (gastroesophageal reflux disease) Esophagitis presence: without esophagitis Qualified Code(s): K21.9 - Gastro- esophageal reflux disease without esophagitis
[2023-01-22] MEDS: CEFEPIME 1,000 MG in SYRINGE 0 ML IV SCH (15:38)
[2023-01-22] MEDS: guaiFENesin/DEXTROM SYRUP 100MG/10MG 5ML UDC PO SCH (16:49)
[2023-01-22] MEDS: ENOXAPARIN INJ 40 MG/0.4 ML SYR SQ SCH (20:37)
[2023-01-22] MEDS: SODIUM CHLOR 7% 4 ML NEB NEB SCH (20:49)
[2023-01-23] MEDS: guaiFENesin/DEXTROM SYRUP 100MG/10MG 5ML UDC PO SCH ×5 (01:18→23:11)
[2023-01-23] MEDS: CEFEPIME 1,000 MG in SYRINGE 0 ML IV SCH ×2 (02:15→13:36)
[2023-01-23] MEDS: methylPREDNISolone 40 MG in SYRINGE 0 ML IV SCH ×3 (05:29→23:11)
[2023-01-23] MEDS: BUDESONIDE 0.5 MG/2 ML VIAL (PULMICORT) NEB SCH ×2 (07:04→19:47)
[2023-01-23] MEDS: FORMOTEROL 20 MCG/2 ML VIAL NEB SCH ×2 (07:04→19:47)
[2023-01-23] MEDS: ALBUT/IPRATROP 3MG/0.5MG NEB 3 ML VIAL NEB SCH ×4 (07:05→19:47)
[2023-01-23] MEDS: SODIUM CHLOR 7% 4 ML NEB NEB SCH (07:07)
--- NOTE | 2023-01-23 08:18 | Pulmonology Progress Note ---
Date of Service January 23, 2023 Assessment & Plan (1) Acute exacerbation of chronic obstructive pulmonary disease: (2) Acute bronchitis: (3) Acute on chronic respiratory failure with hypoxia and hypercapnia: (4) Pulmonary hypertension: (5) COPD (chronic obstructive pulmonary disease): COPD type: emphysema Emphysema type: unspecified Qualified Code(s): J43.9 - Emphysema, unspecified (6) Sleep apnea: (7) Multiple pulmonary nodules: Plan CT chest 01/21/2023 personally reviewed: Severe centrilobular and paraseptal emphysema appreciated bilaterally Right upper lobe 9 mm pulmonary nodularity (6mm 2020), left upper lobe 8 mm pulmonary nodule versus scarring (unchanged 11/2022) Left upper lobe linear scarring No mediastinal lymphadenopathy 2D echo 12/11/2021: EF 60-65%, RVSP 50-60 mmHg, RV systolic function normal, RV moderately dilated -- Acute on chronic hypercapnic hypoxic respiratory failure 2 L oxygen at rest, 3 L on exertion at baseline Respiratory bio fire negative for everything 01/21/2023 Procalcitonin negative On trilogy machine at home -- Severe COPD with emphysema Supposed to be on Trelegy inhaler at home along with azithromycin 250 mg Besnlr-Effphlsou-Efthfk But as per the patient she is only using right now albuterol and nebulizers Need to make sure on discharge she has either trilogy inhaler or nebulized Perforomist plus budesonide nebulized plus Yupelri nebulized along with azithromycin -- Multiple pulmonary nodules Continue monitoring outpatient -- Pulmonary hypertension Likely type III Plan to treat underlying COPD as above Plan: We will discontinue hypertonic saline as she was not able to tolerate it We will give a trial of Mucomyst nebulized. Continue with guaifenesin-DM [id number] BiPAP nightly and as needed shortness of breath Continue with doxycycline for total of 7 days Follow-up sputum culture Case was discussed with RT at bedside Please note the above document was generated using voice recognition software. It may contain grammatical, syntax or spelling errors.Any formal questions or concerns about the content, text or information contained within the body of this dictation should be directly addressed to the provider for clarification. Admission and Anticipated Discharge Date Admission Date: January 21, 2023 Subjective Patient seen and examined at bedside. No acute distress, no adverse events overnight Patient was not able to tolerate hypertonic saline as she went into fits of cough following that. Still complains of chest tightness. Bringing up phlegm easily. Denies any hemoptysis Fair appetite No nausea vomiting Did not use her CPAP last night Review of Systems Review of Systems: All systems reviewed & are unremarkable except as noted in Subjective Physical Exam Physical Exam: Constitutional: No acute distress HEENT: EOMI, PERRLA Respiratory system: Decreased air entry bilaterally, mild crackles bilateral lower lobes, positive expiratory wheeze bilaterally, positive rhonchi CVS: S1-S2 positive, no murmurs or gallops Abdomen: Soft, nontender, nondistended, positive bowel sounds x4 Extremities: +2 pulses bilaterally radialis/ dorsalis pedis, no cyanosis, no edema Neuro: Awake alert oriented x3 Psych: Normal mood and affect G/U: No Ferguson Skin: no rashes, warm and dry Lymphatic: no cervical or axillary lymphadenopathy Results & Data Results & Data Vital Signs (Past 12 Hours) Vital Signs Temp Pulse Resp BP Pulse Ox O2 Del Method O2 Flow Rate 01/23/23 07:24 36.7 C 101 H 20 120/68 96 Nasal Cannula 4 01/23/23 07:21 Nasal Cannula 4 01/23/23 07:06 89 18 94 Nasal Cannula 4 01/22/23 20:50 110 H 20 93 Nasal Cannula 4 01/22/23 20:35 36.8 C 118 H 20 121/55 L 95 Nasal Cannula 4 Laboratory Results 01/21/23 14:06 01/21/23 14:06 PG Care Time/CCT Total # of Minutes Spent Total Time Spent with Patient: Total time spent is greater than 50% in coordination of care (as documented) at patient's floor/unit and/or counseling patient: Coding Level of Care Code 13431 SUB INP/OBS CARE 3/50MIN Diagnoses Acute exacerbation of chronic obstructive pulmonary disease J44.1 Acute bronchitis J20.9 Acute on chronic respiratory failure with hypoxia and hypercapnia J96.21; J96.22 Pulmonary hypertension I27.20 COPD (chronic obstructive pulmonary disease) J43.9 COPD type: emphysema Emphysema type: unspecified Sleep apnea G47.30 Multiple pulmonary nodules R91.8
[2023-01-23] MEDS: OXYBUTYNIN CHLORIDE XL 5 MG TABCR PO SCH (08:19)
[2023-01-23] MEDS: PANTOprazole 40 MG TAB PO SCH ×2 (08:19→19:39)
[2023-01-23] MEDS: DOXYCYCLINE HYCLATE 100 MG CAP PO SCH ×2 (08:20→19:36)
[2023-01-23] MEDS: FEXOFENADINE HCL 180 MG TAB PO SCH (08:20)
[2023-01-23] MEDS: FAMOTIDINE 20 MG TAB PO SCH ×2 (08:20→19:38)
[2023-01-23] MEDS: ACETYLCYSTEINE 20% INHAL SOLN 4ML ***DISPENSED BY RESP. INH SCH ×2 (12:57→19:47)
--- NOTE | 2023-01-23 14:46 | Hospitalist Progress Note ---
Date of Service January 23, 2023 Assessment & Plan (1) Acute exacerbation of chronic obstructive pulmonary disease: Plan: Continue scheduled nebulizer treatments and parenteral steroids. Treat underlying bronchitis. Pulmonary medicine consultation appreciated . She refuses to take any more saline nebulizers (2) Acute respiratory failure with hypoxia: Plan: Supplemental oxygen to maintain saturation greater than 90%. Treat acute bronchitis and exacerbation COPD (3) Acute bronchitis: Plan: Sputum culture results pending. Continue cefepime, day 2. Continue oral doxycycline (4) GERD (gastroesophageal reflux disease): Plan: Stable. Continue famotidine and pantoprazole (5) Sleep apnea: Plan: Stable. CPAP HS (6) Anemia, iron deficiency: Plan: Stable. Serial labs Plan Hopeful discharge back to home this coming week Admission and Anticipated Discharge Date Admission Date: January 23, 2023 Subjective Alert and oriented. No significant change from yesterday, January 22. She is refusing her saline nebulizers since she insists they make her worse. She remains on cefepime, oral doxycycline, and parenteral steroid therapy. OT and PT assessments have been requested. She has been admitted from observation status. Review of Systems Review of Systems: Constitutional-no fever or chills ENT-no blurred vision, no double vision, no epistaxis, no sore throat Respiratory-productive cough. Shortness of breath with exertion. No hemoptysis Cardiac-no palpitations, no chest pain, no syncope GI-no nausea, vomiting, diarrhea, melena, hematochezia -no urinary retention, no urinary incontinence, no dysuria, no hematuria Musculoskeletal-no joint pain, no muscle tenderness Skin-no bruising, no rashes, no pruritus Neuro-no isolated weakness, no paresthesia, no weakness Psych-no depression, no anxiety Physical Exam Physical Exam: General-alert and oriented x3, no fevers, no chills HEENT-head atraumatic and normocephalic, pupils equal and reactive to light, extraocular muscles intact Neck-no lymphadenopathy or thyromegaly, trachea midline Chest-diminished breath sounds bilaterally. Bilateral rhonchi. Bilateral end expiratory wheezes Cardiac-regular rate and rhythm, normal S1 and S2 Abdomen-normal bowel sounds, nontender, no hepatosplenomegaly Extremities-no cyanosis, clubbing, or edema Neuro-cranial nerves II through XII intact, motor and sensory function within normal limits, strength symmetrical , no focal deficits Psych-normal affect, normal mood Results & Data Results & Data Vital Signs (Past 12 Hours) Vital Signs Temp Pulse Resp BP Pulse Ox O2 Del Method O2 Flow Rate 01/23/23 10:39 90 18 94 Nasal Cannula 4 01/23/23 07:24 36.7 C 101 H 20 120/68 96 Nasal Cannula 4 01/23/23 07:21 Nasal Cannula 4 01/23/23 07:06 89 18 94 Nasal Cannula 4 Laboratory Results 01/21/23 14:06 01/21/23 14:06 PG Care Time/CCT Total # of Minutes Spent Total Time Spent with Patient: Total time spent is greater than 50% in coordination of care (as documented) at patient's floor/unit and/or counseling patient: Coding Level of Care Code 23157 SUB INP/OBS CARE 3/50MIN Diagnoses Acute exacerbation of chronic obstructive pulmonary disease J44.1 Acute respiratory failure with hypoxia J96.01 Acute bronchitis J20.9 GERD (gastroesophageal reflux disease) K21.9 Esophagitis presence: without esophagitis Sleep apnea G47.30 Anemia, iron deficiency D50.9 (4) GERD (gastroesophageal reflux disease) Esophagitis presence: without esophagitis Qualified Code(s): K21.9 - Gastro- esophageal reflux disease without esophagitis
[2023-01-23] MEDS: ENOXAPARIN INJ 40 MG/0.4 ML SYR SQ SCH (19:36)
[2023-01-24] MEDS: CEFEPIME 1,000 MG in SYRINGE 0 ML IV SCH ×2 (00:57→13:11)
[2023-01-24] MEDS: guaiFENesin/DEXTROM SYRUP 100MG/10MG 5ML UDC PO SCH ×4 (05:58→22:32)
[2023-01-24] MEDS: methylPREDNISolone 40 MG in SYRINGE 0 ML IV SCH ×3 (05:59→22:32)
[2023-01-24] MEDS: BUDESONIDE 0.5 MG/2 ML VIAL (PULMICORT) NEB SCH ×2 (06:46→20:20)
[2023-01-24] MEDS: ALBUT/IPRATROP 3MG/0.5MG NEB 3 ML VIAL NEB SCH ×4 (06:46→20:19)
[2023-01-24] MEDS: ACETYLCYSTEINE 20% INHAL SOLN 4ML ***DISPENSED BY RESP. INH SCH ×2 (06:47→20:19)
[2023-01-24] MEDS: FORMOTEROL 20 MCG/2 ML VIAL NEB SCH ×2 (06:48→20:19)
[2023-01-24 07:23] LABS: Basophils # (auto) 0.01 K/uL (0.00-0.20); Basophils % (auto) 0.1 %; Hematocrit (blood only) 32.9 % (37.0-47.0); Hemoglobin 10.2 g/dl (12.0-16.0); Immature Granulocytes # (auto) 0.11 K/uL (0.01-0.20); Immature Granulocytes % (auto) 0.7 %; Lymphocytes # (auto) 1.16 K/uL (1.20-3.40); Lymphocytes % (auto) 7.4 %; Mean Corpuscular Hemoglobin 25.9 pg (25.0-34.0); Mean Corpuscular Volume 83.5 fL (80.0-100.0); Mean Platelet Volume 9.6 fL (9.4-12.4); Monocytes # (auto) 0.76 K/uL (0.11-0.59); Monocytes % (auto) 4.9 %; Neutrophils # (auto) 13.57 K/uL (1.40-6.50); Neutrophils % (auto) 86.9 %; Platelet Count 326 K/uL (130-400); RDW Coefficient of Variation 15.6 % (11.5-14.5); RDW Standard Deviation 47.7 fL (36.4-46.3); Red Blood Count 3.94 M/uL (4.20-5.40); White Blood Count 15.61 K/ul (4.8-10.8)
[2023-01-24 07:50] LABS: Anion Gap 6 (3-11); BUN Creatinine Ratio 35.7 (10-20); Blood Urea Nitrogen 25 mg/dl (6-23); Calcium 9.1 mg/dl (8.6-10.3); Carbon Dioxide 29 mmol/L (21-32); Chloride 103 mmol/L (98-107); Creatinine Clr Calc Pharmacy 51.2 ml/min; Est GFR (African American) 94.8 ml/min; Est GFR (Non-African American) 81.8 ml/min; Glucose 126 mg/dl (70-99(Fasting)); Potassium 4.4 mmol/L (3.5-5.1); Sodium 138 mmol/L (136-145)
[2023-01-24] MEDS: FAMOTIDINE 20 MG TAB PO SCH ×2 (08:17→19:48)
[2023-01-24] MEDS: OXYBUTYNIN CHLORIDE XL 5 MG TABCR PO SCH (08:17)
[2023-01-24] MEDS: DOXYCYCLINE HYCLATE 100 MG CAP PO SCH ×2 (08:17→19:47)
[2023-01-24] MEDS: FEXOFENADINE HCL 180 MG TAB PO SCH (08:18)
[2023-01-24] MEDS: PANTOprazole 40 MG TAB PO SCH ×2 (08:21→19:48)
[2023-01-24 09:11] LABS: C Reactive Protein < 0.50 mg/dl (0-0.5)
--- NOTE | 2023-01-24 10:50 | Pulmonology Progress Note ---
Date of Service January 24, 2023 Assessment & Plan (1) Acute exacerbation of chronic obstructive pulmonary disease: (2) Acute bronchitis: (3) Acute on chronic respiratory failure with hypoxia and hypercapnia: (4) Pulmonary hypertension: (5) Sleep apnea: (6) Multiple pulmonary nodules: Plan IMPRESSION: 82-year-old female presenting with acute exacerbation of COPD as well as acute on chronic hypoxemic respiratory failure. RECOMMENDATIONS: 1. Acute exacerbation of COPD - Likely in the setting of acute bronchitis. Patient remains relatively bronchospastic on exam today. Would continue with IV steroids for now. Hopefully we will be able to taper off and placed on oral taper. Agree with continued antibiotic coverage for entire 7 day course. Encourage IS/Flutter valve/OOB as tolerated. Currently on her home setting of 2L NC. Goal SaO2 of 88-92%. Would benefit from her home AVAPS settings. 2. RAHEEM - Night time AVAPS settings encouraged. 3. Pulmonary Nodules - To be addressed in the outpatient setting. Thank you for allowing us to participate in the care of this pleasant patient. We will continue to follow along during hospitalization. Admission and Anticipated Discharge Date Admission Date: January 23, 2023 Supervising Physician Co-Signing Physician Notes I saw and evaluated the patient with ZEDLA Cramer, and I agree with his findings and plan as documented in the note. Would recommend AVAPS for her on home device Weaning oxygen to her baseline of 2 L nasal cannula. Maintain oxygen saturation 88 to 92%. Needs 7-day course of antibiotics. Patient can follow-up with pulmonary clinic regarding evaluation of her pulmonary nodules I have spent more than 50% of this encounter in counseling and/or coordination of care with patient. Subjective Patient was seen and evaluated by myself. She reports that she did not like the 1 nebulizer she received which seem to make her breathing worse. Otherwise, she feels as though she is approaching her baseline. Review of Systems Review of Systems: A complete 10 point review of systems was reviewed with the patient with pertinent positives and negatives as per history of present illness. All else we re negative. Physical Exam Physical Exam: VITAL SIGNS - Vital signs and nursing notes were reviewed. GENERAL - 82-year-old female appearing her stated age who is in no acute distress. Communicates well with provider and answers questions appropriately. LUNGS - Chest wall evaluation demonstrates increased chest wall A:P diameter. Auscultation reveals decreased air entry bilaterally. Diffuse end expiratory wheezes noted. CARDIAC - RRR with S1/S2. No murmur, rubs, or gallops appreciated. EXTREMITIES -No peripheral cyanosis. No pretibial edema present. +3/5 radial palpated throughout. PSYCH - A&Ox3 and cooperates fully with examiner. Pt is very pleasant and interacts well with examiner. Results & Data Results & Data Vital Signs (Past 12 Hours) Vital Signs Temp Pulse Pulse Resp BP Pulse Ox O2 Del Method 01/24/23 07:35 Nasal Cannula 01/24/23 08:48 111 H 20 121/70 95 Nasal Cannula 01/24/23 07:29 36.2 C L 98 H 16 113/60 95 Nasal Cannula 01/24/23 06:48 83 17 95 Nasal Cannula O2 Flow Rate 01/24/23 07:35 4 01/24/23 08:48 4 01/24/23 07:29 4 01/24/23 06:48 4 PG Care Time/CCT Total # of Minutes Spent Total Time Spent with Patient: Total time spent is greater than 50% in coordination of care (as documented) at patient's floor/unit and/or counseling patient: Coding Level of Care Code 83138 SUB INP/OBS CARE 3/50MIN Diagnoses Acute exacerbation of chronic obstructive pulmonary disease J44.1 Acute bronchitis J20.9 Acute on chronic respiratory failure with hypoxia and hypercapnia J96.21; J96.22 Pulmonary hypertension I27.20 Sleep apnea G47.30 Multiple pulmonary nodules R91.8
[2023-01-24] MEDS: ENOXAPARIN INJ 40 MG/0.4 ML SYR SQ SCH (19:47)
--- NOTE | 2023-01-24 22:06 | Hospitalist Progress Note ---
Date of Service January 24, 2023 Assessment & Plan (1) Acute exacerbation of chronic obstructive pulmonary disease: Plan: Continue scheduled nebulizer treatments and parenteral steroids. Treat underlying bronchitis. Pulmonary medicine consultation appreciated . She refuses to take any more saline nebulizers COntinue IV steroids on 01/24 as above. (2) Acute respiratory failure with hypoxia: Plan: Supplemental oxygen to maintain saturation greater than 90%. Treat acute bronchitis and exacerbation COPD (3) Acute bronchitis: Plan: Sputum culture results pending. Continue cefepime, day 3. Increased to 2gr Q12h. Continue oral doxycycline (4) GERD (gastroesophageal reflux disease): Plan: Stable. Continue famotidine and pantoprazole (5) Sleep apnea: Plan: Stable. CPAP HS (6) Anemia, iron deficiency: Plan: Stable. Serial labs Plan Hopeful discharge back to home this coming week Admission and Anticipated Discharge Date Admission Date: January 23, 2023 Subjective Patient continues to be short of breath. Patient reports no new symptoms. Review of Systems Review of Systems: All systems reviewed & are unremarkable except as noted in HPI & below Physical Exam Physical Exam: General-alert and oriented x3, no fevers, no chills HEENT-head atraumatic and normocephalic, pupils equal and reactive to light, extraocular muscles intact Neck-no lymphadenopathy or thyromegaly, trachea midline Chest-diminished breath sounds bilaterally. no wheezing heard. Cardiac-regular rate and rhythm, normal S1 and S2 Abdomen-normal bowel sounds, nontender, no hepatosplenomegaly Extremities-no cyanosis, clubbing, or edema Neuro-cranial nerves II through XII intact, motor and sensory function within normal limits, strength symmetrical , no focal deficits Psych-normal affect, normal mood Results & Data Results & Data Vital Signs (Past 12 Hours) Vital Signs Temp Pulse Pulse Pulse Resp BP Pulse Ox 01/24/23 20:56 36.8 C 106 H 20 112/70 95 01/24/23 20:11 103 H 90 18 3 L 01/24/23 15:36 93 H 18 96 01/24/23 15:16 96 01/24/23 14:55 36.7 C 105 H 18 116/62 97 01/24/23 12:05 01/24/23 11:26 112 H 20 90 Pulse Ox Pulse Ox Pulse Ox O2 Del Method O2 Flow Rate O2 Flow Rate O2 Flow Rate 01/24/23 20:56 Nasal Cannula 4.0 01/24/23 20:11 Nasal Cannula 4 01/24/23 15:36 Nasal Cannula 4 01/24/23 15:16 01/24/23 14:55 Nasal Cannula 4 01/24/23 12:05 94 91 88 L 4 4 01/24/23 11:26 Nasal Cannula 3 O2 Flow Rate 01/24/23 20:56 01/24/23 20:11 01/24/23 15:36 01/24/23 15:16 01/24/23 14:55 01/24/23 12:05 4 01/24/23 11:26 PG Care Time/CCT Total # of Minutes Spent Total Time Spent with Patient: Total time spent is greater than 50% in coordination of care (as documented) at patient's floor/unit and/or counseling patient: Coding Level of Care Code 40157 SUB INP/OBS CARE 235MIN Diagnoses Acute exacerbation of chronic obstructive pulmonary disease J44.1 Acute respiratory failure with hypoxia J96.01 Acute bronchitis J20.9 GERD (gastroesophageal reflux disease) K21.9 Esophagitis presence: without esophagitis Sleep apnea G47.30 Anemia, iron deficiency D50.9 (4) GERD (gastroesophageal reflux disease) Esophagitis presence: without esophagitis Qualified Code(s): K21.9 - Gastro- esophageal reflux disease without esophagitis
[2023-01-24] MEDS: CEFEPIME 2,000 MG in SYRINGE 0 ML IV SCH (22:32)
[2023-01-25] MEDS: guaiFENesin/DEXTROM SYRUP 100MG/10MG 5ML UDC PO SCH ×4 (05:55→23:36)
[2023-01-25] MEDS: methylPREDNISolone 40 MG in SYRINGE 0 ML IV SCH ×2 (05:55→18:13)
[2023-01-25] MEDS: FORMOTEROL 20 MCG/2 ML VIAL NEB SCH ×2 (06:58→19:49)
[2023-01-25] MEDS: BUDESONIDE 0.5 MG/2 ML VIAL (PULMICORT) NEB SCH ×2 (06:58→19:49)
[2023-01-25] MEDS: ACETYLCYSTEINE 20% INHAL SOLN 4ML ***DISPENSED BY RESP. INH SCH (07:00)
[2023-01-25] MEDS: ALBUT/IPRATROP 3MG/0.5MG NEB 3 ML VIAL NEB SCH ×4 (07:01→19:49)
[2023-01-25] MEDS: FAMOTIDINE 20 MG TAB PO SCH ×2 (07:44→20:26)
[2023-01-25] MEDS: PANTOprazole 40 MG TAB PO SCH ×2 (07:44→20:26)
[2023-01-25] MEDS: DOXYCYCLINE HYCLATE 100 MG CAP PO SCH ×2 (07:44→20:25)
[2023-01-25] MEDS: FEXOFENADINE HCL 180 MG TAB PO SCH (07:44)
[2023-01-25] MEDS: OXYBUTYNIN CHLORIDE XL 5 MG TABCR PO SCH (07:45)
[2023-01-25 08:08] LABS: Hematocrit (blood only) 33.2 % (37.0-47.0); Hemoglobin 10.6 g/dl (12.0-16.0); Mean Corpuscular Hemoglobin 26.5 pg (25.0-34.0); Mean Corpuscular Hgb Conc 31.9 g/dL (32.0-36.0); Mean Platelet Volume 9.5 fL (9.4-12.4); Platelet Count 336 K/uL (130-400); RDW Coefficient of Variation 15.5 % (11.5-14.5); RDW Standard Deviation 46.9 fL (36.4-46.3); White Blood Count 13.35 K/ul (4.8-10.8)
[2023-01-25 08:36] LABS: Anion Gap 6 (3-11); BUN Creatinine Ratio 34.7 (10-20); Blood Urea Nitrogen 25 mg/dl (6-23); C Reactive Protein < 0.50 mg/dl (0-0.5); Calcium 9.4 mg/dl (8.6-10.3); Carbon Dioxide 29 mmol/L (21-32); Chloride 102 mmol/L (98-107); Creatinine Clr Calc Pharmacy 49.8 ml/min; Est GFR (African American) 91.7 ml/min; Est GFR (Non-African American) 79.1 ml/min; Glucose 119 mg/dl (70-99(Fasting)); Potassium 4.6 mmol/L (3.5-5.1); Sodium 137 mmol/L (136-145)
[2023-01-25] MEDS: CEFEPIME 2,000 MG in SYRINGE 0 ML IV SCH ×2 (11:45→23:36)
--- NOTE | 2023-01-25 13:43 | Pulmonology Progress Note ---
Date of Service January 25, 2023 Assessment & Plan (1) Acute exacerbation of chronic obstructive pulmonary disease: (2) Acute bronchitis: (3) Acute on chronic respiratory failure with hypoxia and hypercapnia: (4) Pulmonary hypertension: (5) Sleep apnea: (6) Multiple pulmonary nodules: Plan IMPRESSION: 82-year-old female presenting with acute exacerbation of COPD as well as acute on chronic hypoxemic respiratory failure. RECOMMENDATIONS: 1. Acute exacerbation of COPD - Likely in the setting of acute bronchitis. Patient past forced wheezing on exam. Will titrate down her steroids to twice daily at this time and see if it makes any difference moving forward. Hopefully we will be able to taper off and placed on oral taper. Agree with continued antibiotic coverage for entire 7 day course. Encourage IS/Flutter valve/OOB as tolerated. Currently on her home setting of 2L NC. Goal SaO2 of 88-92%. Would benefit from her home AVAPS settings. 2. RAHEEM - Night time AVAPS settings encouraged. 3. Pulmonary Nodules - To be addressed in the outpatient setting. Thank you for allowing us to participate in the care of this pleasant patient. We will continue to follow along during hospitalization. Admission and Anticipated Discharge Date Admission Date: January 23, 2023 Supervising Physician Co-Signing Physician Notes I saw and evaluated the patient with ZELDA Cramer, and I agree with his findings and plan as documented in the note. Would recommend AVAPS for her on home device once she goes home. Weaning oxygen to her baseline of 2 L nasal cannula although had "bad" night and oxygen requirement higher today. Maintain oxygen saturation 88 to 92%. Needs 7-day course of antibiotics. Patient can follow-up with pulmonary clinic regarding evaluation of her pulmonary nodules Patient more emotional today which maybe side effect of steroids therefore will reduce steroids today. I have spent more than 50% of this encounter in counseling and/or coordination of care with patient. Subjective Patient seen and evaluated. She reports that she had an okay night sleep with the AVAPS settings. She reports that she did not like the Mucomyst inhaler and would wish to discontinue that. She has persistent wheezing and generally feels poor. Review of Systems Review of Systems: A complete 10 point review of systems was reviewed with the patient with pertinent positives and negatives as per history of present illness. All else were negative. Physical Exam Physical Exam: VITAL SIGNS - Vital signs and nursing notes were reviewed. GENERAL - 82-year-old female appearing her stated age who is in no acute distress. Communicates well with provider and answers questions appropriately. LUNGS - Chest wall evaluation demonstrates increased chest wall A:P diameter. Auscultation reveals decreased air entry bilaterally. Diffuse end expiratory wheezes noted. CARDIAC - RRR with S1/S2. No murmur, rubs, or gallops appreciated. EXTREMITIES -No peripheral cyanosis. No pretibial edema present. +3/5 radial palpated throughout. PSYCH - A&Ox3 and cooperates fully with examiner. Pt is very pleasant and interacts well with examiner. Results & Data Results & Data Vital Signs (Past 12 Hours) Vital Signs Temp Pulse Resp BP Pulse Ox O2 Del Method O2 Flow Rate 01/25/23 11:30 87 18 89 L Nasal Cannula 3 01/25/23 07:30 Nasal Cannula 4 01/25/23 07:41 86 18 106/54 L 94 Nasal Cannula 4 01/25/23 07:32 36.8 C 99 H 16 90/56 L 92 Nasal Cannula 2 01/25/23 07:02 97 H 18 92 Room Air PG Care Time/CCT Total # of Minutes Spent Total Time Spent with Patient: Total time spent is greater than 50% in coordination of care (as documented) at patient's floor/unit and/or counseling patient: Coding Level of Care Code 25450 SUB INP/OBS CARE 2/35MIN Diagnoses Acute exacerbation of chronic obstructive pulmonary disease J44.1 Acute bronchitis J20.9 Acute on chronic respiratory failure with hypoxia and hypercapnia J96.21; J96.22 Pulmonary hypertension I27.20 Sleep apnea G47.30 Multiple pulmonary nodules R91.8
[2023-01-25] MEDS: ENOXAPARIN INJ 40 MG/0.4 ML SYR SQ SCH (20:25)
--- NOTE | 2023-01-25 21:22 | Hospitalist Progress Note ---
Date of Service January 25, 2023 Assessment & Plan (1) Acute exacerbation of chronic obstructive pulmonary disease: Plan: Continue scheduled nebulizer treatments and parenteral steroids. Treat underlying bronchitis. Pulmonary medicine consultation appreciated . She refuses to take any more saline nebulizers COntinue IV steroids on 01/24 as above. (2) Acute respiratory failure with hypoxia: Plan: Supplemental oxygen to maintain saturation greater than 90%. Treat acute bronchitis and exacerbation COPD (3) Acute bronchitis: Plan: Sputum culture results pending. Continue cefepime, day 4, however dose was recently increased to 2gr Q12h. Continue oral doxycycline (4) GERD (gastroesophageal reflux disease): Plan: Stable. Continue famotidine and pantoprazole (5) Sleep apnea: Plan: Stable. CPAP HS (6) Anemia, iron deficiency: Plan: Stable. Serial labs Plan Hopeful discharge back to home this coming week Admission and Anticipated Discharge Date Admission Date: January 23, 2023 Subjective Patient reports breathing better today. She is not quite at baseline however. Review of Systems 2 Review of Systems: All systems reviewed & are unremarkable except as noted in HPI & below Physical Exam Physical Exam: General-alert and oriented x3, no fevers, no chills HEENT-head atraumatic and normocephalic, pupils equal and reactive to light, extraocular muscles intact Neck-no lymphadenopathy or thyromegaly, trachea midline Chest-diminished breath sounds bilaterally. no wheezing heard. Cardiac-regular rate and rhythm, normal S1 and S2 Abdomen-normal bowel sounds, nontender, no hepatosplenomegaly Extremities-no cyanosis, clubbing, or edema Neuro-cranial nerves II through XII intact, motor and sensory function within normal limits, strength symmetrical , no focal deficits Psych-normal affect, normal mood Results & Data Results & Data Vital Signs (Past 12 Hours) Vital Signs Temp Pulse Pulse Resp BP Pulse Ox O2 Del Method 01/25/23 20:29 36.9 C 100 H 18 106/63 94 Nasal Cannula 01/25/23 19:51 112 H 19 94 Nasal Cannula 01/25/23 15:24 36.7 C 95 H 16 94/65 L 95 Nasal Cannula 01/25/23 14:55 85 18 93 Nasal Cannula 01/25/23 14:22 93 Nasal Cannula 01/25/23 11:30 87 18 89 L Nasal Cannula O2 Flow Rate 01/25/23 20:29 2 01/25/23 19:51 2 01/25/23 15:24 2 01/25/23 14:55 2 01/25/23 14:22 2 01/25/23 11:30 3 PG Care Time/CCT Total # of Minutes Spent Total Time Spent with Patient: Total time spent is greater than 50% in coordination of care (as documented) at patient's floor/unit and/or counseling patient: Coding Level of Care Code 45757 SUB INP/OBS CARE 2/35MIN Diagnoses Acute exacerbation of chronic obstructive pulmonary disease J44.1 Acute respiratory failure with hypoxia J96.01 Acute bronchitis J20.9 GERD (gastroesophageal reflux disease) K21.9 Esophagitis presence: without esophagitis Sleep apnea G47.30 Anemia, iron deficiency D50.9 (4) GERD (gastroesophageal reflux disease) Esophagitis presence: without esophagitis Qualified Code(s): K21.9 - Gastro- esophageal reflux disease without esophagitis
[2023-01-26] MEDS: methylPREDNISolone 40 MG in SYRINGE 0 ML IV SCH (05:56)
[2023-01-26] MEDS: guaiFENesin/DEXTROM SYRUP 100MG/10MG 5ML UDC PO SCH ×4 (05:57→23:14)
[2023-01-26] MEDS: BUDESONIDE 0.5 MG/2 ML VIAL (PULMICORT) NEB SCH ×2 (07:25→19:23)
[2023-01-26] MEDS: FORMOTEROL 20 MCG/2 ML VIAL NEB SCH ×2 (07:25→19:22)
[2023-01-26] MEDS: ALBUT/IPRATROP 3MG/0.5MG NEB 3 ML VIAL NEB SCH ×5 (07:41→19:22)
[2023-01-26] MEDS: FAMOTIDINE 20 MG TAB PO SCH ×2 (07:53→21:04)
[2023-01-26] MEDS: OXYBUTYNIN CHLORIDE XL 5 MG TABCR PO SCH (07:53)
[2023-01-26] MEDS: FEXOFENADINE HCL 180 MG TAB PO SCH (07:53)
[2023-01-26] MEDS: PANTOprazole 40 MG TAB PO SCH ×2 (07:53→21:03)
[2023-01-26] MEDS: DOXYCYCLINE HYCLATE 100 MG CAP PO SCH ×2 (07:53→21:03)
--- NOTE | 2023-01-26 11:07 | Pulmonology Progress Note ---
Date of Service January 26, 2023 Assessment & Plan (1) Acute exacerbation of chronic obstructive pulmonary disease: (2) Acute bronchitis: (3) Acute on chronic respiratory failure with hypoxia and hypercapnia: (4) Pulmonary hypertension: (5) Sleep apnea: (6) Multiple pulmonary nodules: Plan IMPRESSION: 82-year-old female presenting with acute exacerbation of COPD as well as acute on chronic hypoxemic respiratory failure. RECOMMENDATIONS: 1. Acute exacerbation of COPD - Likely in the setting of acute bronchitis. Patient past forced wheezing on exam. Otherwise no significant wheezing on exam. Has improved despite decreased steroid dosing. Patient can be transitioned to PO prednisone taper. Would transition antibiotics to PO (consider Cefdinir). Restart Azithromycin Mo/We/Fr. She is back at her baseline O2 requirement. Encourage IS/Flutter valve/OOB as tolerated. Goal SaO2 of 88-92%. 2. RAHEEM - Night time AVAPS settings encouraged. 3. Pulmonary Nodules - To be addressed in the outpatient setting. Thank you for allowing us to participate in the care of this pleasant patient. Patient appears to be near her baseline at this time. Pulmonary medicine will sign off at this time. Admission and Anticipated Discharge Date Admission Date: January 23, 2023 Supervising Physician Co-Signing Physician Notes I saw and evaluated the patient with ZELDA Cramer, and I agree with his findings and plan as documented in the note. Would recommend AVAPS for her on home device once she goes home. Weaning oxygen to her baseline of 2 L nasal cannula and appears more comfortable and relaxed with her breathing today. Maintain oxygen saturation 88 to 92%. Needs 7-day course of antibiotics. Does take Azithromycin 3x/week for COPD/Chronic Bronchitis management. Will follow-up with pulmonary clinic regarding evaluation of her pulmonary nodules Remains on steroids but less emotional today. I have spent more than 50% of this encounter in counseling and/or coordination of care with patient. Subjective Patient was seen and evaluated bedside. She reports feeling somewhat better today. She offers multiple complaints, most of which are unrelated to her breathing. Review of Systems Review of Systems: A complete 10 point review of systems was reviewed with the patient with pertinent positives and negatives as per history of present illness. All else were negative. Physical Exam Physical Exam: VITAL SIGNS - Vital signs and nursing notes were reviewed. GENERAL - 82-year-old female appearing her stated age who is in no acute distress. Communicates well with provider and answers questions appropriately. LUNGS - Auscultation reveals decreased air entry bilaterally. Slight wheeze. Patient can for significant wheeze if agitated. CARDIAC - RRR with S1/S2. No murmur, rubs, or gallops appreciated. EXTREMITIES -No peripheral cyanosis. No pretibial edema present. +3/5 radial palpated throughout. PSYCH - A&Ox3 and cooperates fully with examiner. Pt is very pleasant and interacts well with examiner. Results & Data Results & Data Vital Signs (Past 12 Hours) Vital Signs Temp Pulse Resp BP Pulse Ox O2 Del Method O2 Flow Rate 01/26/23 08:01 Nasal Cannula 3 01/26/23 07:30 36.6 C 96 H 16 112/69 95 Nasal Cannula 2 01/26/23 07:28 84 18 95 Nasal Cannula 2.5 01/26/23 06:01 36.6 C 96 H 16 108/67 95 Nasal Cannula 2 PG Care Time/CCT Total # of Minutes Spent Total Time Spent with Patient: Total time spent is greater than 50% in coordination of care (as documented) at patient's floor/unit and/or counseling patient: Coding Level of Care Code 21205 SUB INP/OBS CARE 3/50MIN Diagnoses Acute exacerbation of chronic obstructive pulmonary disease J44.1 Acute bronchitis J20.9 Acute on chronic respiratory failure with hypoxia and hypercapnia J96.21; J96.22 Pulmonary hypertension I27.20 Sleep apnea G47.30 Multiple pulmonary nodules R91.8
[2023-01-26] MEDS ORDERED: predniSONE 20 MG TAB PO STA (11:08)
[2023-01-26] MEDS: CEFEPIME 2,000 MG in SYRINGE 0 ML IV SCH ×2 (11:57→23:09)
--- NOTE | 2023-01-26 20:58 | Hospitalist Progress Note ---
Date of Service January 26, 2023 Assessment & Plan (1) Acute exacerbation of chronic obstructive pulmonary disease: Plan: Continue scheduled nebulizer treatments and parenteral steroids. Treat underlying bronchitis. Pulmonary medicine consultation appreciated . She refuses to take any more saline nebulizers COntinue IV steroids on 01/24 as above. (2) Acute bronchitis: Plan: Sputum culture results pending. Continue cefepime, day 5, however dose was recently increased to 2gr Q12h. Continue oral doxycycline (3) Acute on chronic respiratory failure with hypoxia and hypercapnia: Plan: (4) GERD (gastroesophageal reflux disease): Plan: Stable. Continue famotidine and pantoprazole (5) Sleep apnea: Plan: Stable. CPAP HS (6) Anemia, iron deficiency: Plan: Stable. Serial labs Plan Hopeful discharge back to home this coming week (4) Pulmonary hypertension: (5) Sleep apnea: (6) Multiple pulmonary nodules: Admission and Anticipated Discharge Date Admission Date: January 23, 2023 Subjective Patient reports feeling SOB tonight. Review of Systems Review of Systems: All systems reviewed & are unremarkable except as noted in HPI & below Physical Exam Physical Exam: General-alert and oriented x3, no fevers, no chills HEENT-head atraumatic and normocephalic, pupils equal and reactive to light, extraocular muscles intact Neck-no lymphadenopathy or thyromegaly, trachea midline Chest-diminished breath sounds bilaterally. no wheezing heard. Cardiac-regular rate and rhythm, normal S1 and S2 Abdomen-normal bowel sounds, nontender, no hepatosplenomegaly Extremities-no cyanosis, clubbing, or edema Neuro-cranial nerves II through XII intact, motor and sensory function within normal limits, strength symmetrical , no focal deficits Psych-normal affect, normal mood Results & Data Results & Data Vital Signs (Past 12 Hours) Vital Signs Temp Pulse Pulse Resp BP Pulse Ox O2 Del Method 01/26/23 19:25 103 H 18 95 Nasal Cannula 01/26/23 17:37 115 H 17 95 Nasal Cannula 01/26/23 15:50 Nasal Cannula 01/26/23 15:26 36.6 C 100 H 16 100/58 L 94 Nasal Cannula 01/26/23 15:15 17 96 Nasal Cannula 01/26/23 11:22 77 17 97 Nasal Cannula O2 Flow Rate 01/26/23 19:25 4 01/26/23 17:37 4 01/26/23 15:50 4 01/26/23 15:26 3 01/26/23 15:15 2.5 01/26/23 11:22 4 PG Care Time/CCT Total # of Minutes Spent Total Time Spent with Patient: Total time spent is greater than 50% in coordination of care (as documented) at patient's floor/unit and/or counseling patient: Coding Level of Care Code 36117 SUB INP/OBS CARE 2/35MIN Diagnoses Acute exacerbation of chronic obstructive pulmonary disease J44.1 Acute bronchitis J20.9 Acute on chronic respiratory failure with hypoxia and hypercapnia J96.21; J96.22 Pulmonary hypertension I27.20 Sleep apnea G47.30 Multiple pulmonary nodules R91.8
[2023-01-26] MEDS: ENOXAPARIN INJ 40 MG/0.4 ML SYR SQ SCH (21:04)
[2023-01-27] MEDS: guaiFENesin/DEXTROM SYRUP 100MG/10MG 5ML UDC PO SCH ×4 (05:31→23:20)
[2023-01-27] MEDS: FORMOTEROL 20 MCG/2 ML VIAL NEB SCH ×2 (07:08→19:19)
[2023-01-27] MEDS: BUDESONIDE 0.5 MG/2 ML VIAL (PULMICORT) NEB SCH ×2 (07:08→19:18)
[2023-01-27] MEDS: ALBUT/IPRATROP 3MG/0.5MG NEB 3 ML VIAL NEB SCH ×4 (07:26→19:18)
[2023-01-27] MEDS: FEXOFENADINE HCL 180 MG TAB PO SCH (08:49)
[2023-01-27] MEDS: OXYBUTYNIN CHLORIDE XL 5 MG TABCR PO SCH (08:49)
[2023-01-27] MEDS: FAMOTIDINE 20 MG TAB PO SCH ×2 (08:50→20:25)
[2023-01-27] MEDS: PANTOprazole 40 MG TAB PO SCH ×2 (08:50→20:25)
[2023-01-27] MEDS: CEFEPIME 2,000 MG in SYRINGE 0 ML IV SCH ×2 (12:57→23:20)
[2023-01-27] MEDS: POLYETHYLENE (MIRALAX) 17 GM PACK PO SCH (16:09)
[2023-01-27] MEDS: DOCUSATE SODIUM/SENNA 50/8.6MG TAB PO SCH (16:09)
[2023-01-27] MEDS: ENOXAPARIN INJ 40 MG/0.4 ML SYR SQ SCH (20:25)
[2023-01-28] MEDS: guaiFENesin/DEXTROM SYRUP 100MG/10MG 5ML UDC PO SCH ×4 (06:05→23:41)
--- NOTE | 2023-01-28 06:24 | Hospitalist Progress Note ---
Date of Service January 27, 2023 Assessment & Plan (1) Acute exacerbation of chronic obstructive pulmonary disease: Plan: Continue scheduled nebulizer treatments and parenteral steroids. Treat underlying bronchitis. Pulmonary medicine consultation appreciated . She refuses to take any more saline nebulizers Now she is concerned about her maintenance meds. Will continue to recommend these medications. COntinue IV steroids on 01/24 as above. (2) Acute bronchitis: Plan: Sputum culture results pending. Continue cefepime, day 5, however dose was recently increased to 2gr Q12h. Continue oral doxycycline (3) Acute on chronic respiratory failure with hypoxia and hypercapnia: Plan: (4) GERD (gastroesophageal reflux disease): Plan: Stable. Continue famotidine and pantoprazole (5) Sleep apnea: Plan: Stable. CPAP HS (6) Anemia, iron deficiency: Plan: Stable. Serial labs Plan Hopeful discharge back to home Tuesday in AM. (4) Pulmonary hypertension: (5) Sleep apnea: (6) Multiple pulmonary nodules: Admission and Anticipated Discharge Date Admission Date: January 23, 2023 Subjective Patient reports when she took her maintenance medicine this AM, she developed sevre cough and SOB. Patient is scared to contiue these medicines at home. Patient also reports she does not feel comfortable being discharged today. Review of Systems Review of Systems: All systems reviewed & are unremarkable except as noted in HPI & below Physical Exam Physical Exam: General-alert and oriented x3, no fevers, no chills HEENT-head atraumatic and normocephalic, pupils equal and reactive to light, extraocular muscles intact Neck-no lymphadenopathy or thyromegaly, trachea midline Chest-diminished breath sounds bilaterally. no wheezing heard. Cardiac-regular rate and rhythm, normal S1 and S2 Abdomen-normal bowel sounds, nontender, no hepatosplenomegaly Extremities-no cyanosis, clubbing, or edema Neuro-\no focal deficits Psych-normal affect, normal mood Results & Data Results & Data Vital Signs (Past 12 Hours) Vital Signs Temp Pulse Resp BP Pulse Ox O2 Del Method O2 Flow Rate 01/27/23 20:20 Nasal Cannula 4 01/27/23 20:29 36.5 C 99 H 20 101/64 95 Nasal Cannula 4 01/27/23 19:20 106 H 20 93 Nasal Cannula 4 PG Care Time/CCT Total # of Minutes Spent Total Time Spent with Patient: Total time spent is greater than 50% in coordination of care (as documented) at patient's floor/unit and/or counseling patient: Coding Level of Care Code 34614 SUB INP/OBS CARE 2/35MIN Diagnoses Acute exacerbation of chronic obstructive pulmonary disease J44.1 Acute bronchitis J20.9 Acute on chronic respiratory failure with hypoxia and hypercapnia J96.21; J96.22 Pulmonary hypertension I27.20 Sleep apnea G47.30 Multiple pulmonary nodules R91.8
[2023-01-28] MEDS: ALBUT/IPRATROP 3MG/0.5MG NEB 3 ML VIAL NEB SCH ×4 (07:16→19:32)
[2023-01-28] MEDS: BUDESONIDE 0.5 MG/2 ML VIAL (PULMICORT) NEB SCH ×2 (07:18→19:34)
[2023-01-28] MEDS: FORMOTEROL 20 MCG/2 ML VIAL NEB SCH ×2 (07:18→19:34)
[2023-01-28] MEDS: POLYETHYLENE (MIRALAX) 17 GM PACK PO SCH (08:05)
[2023-01-28] MEDS: PANTOprazole 40 MG TAB PO SCH ×2 (08:06→20:40)
[2023-01-28] MEDS: FAMOTIDINE 20 MG TAB PO SCH ×2 (08:06→20:40)
[2023-01-28] MEDS: OXYBUTYNIN CHLORIDE XL 5 MG TABCR PO SCH (08:06)
[2023-01-28] MEDS: FEXOFENADINE HCL 180 MG TAB PO SCH (08:06)
[2023-01-28] MEDS: DOCUSATE SODIUM/SENNA 50/8.6MG TAB PO SCH (08:07)
[2023-01-28] MEDS: CEFEPIME 2,000 MG in SYRINGE 0 ML IV SCH ×2 (10:45→23:41)
[2023-01-28] MEDS: predniSONE 20 MG TAB PO SCH (10:45)
--- NOTE | 2023-01-28 10:48 | Discharge Summary ---
Date of Service January 28, 2023 Admission HPI Per Admitting Provider Judie White is an 82 year old female with severe COPD who presents to the ER with shortness of breath. She reports progressive worsening shortness of breath despite oral prednisone (given for sinusitis) since her last admission. No sudden onset. She notes always having shortness of breath but it is not usually this bad. Associated productive cough. She reports always having allergies and is awaiting testing. She takes Imelda daily after last admission but does not feel this makes much of a difference. Chronic nasal congestion and post nasal drip. No current sinus pain but recently treated for a sinus infections seen by her ENT physician on scope with Levaquin and prednisone taper 10 days ago, she is currently still on the prednisone. Shortness of breath chronically comes and does but doesn't feel this bad usually. She has been using 2LPM O2 at rest and 3LPM O2 on exertion since last admission. Discharge Data Allergies Allergy/AdvReac Type Severity Reaction Status Date / Time Penicillins Allergy Intermediate HIVES Verified 01/21/23 17:27 house dust AdvReac Unknown Verified 01/21/23 17:27 mold AdvReac Unknown Verified 01/21/23 17:27 Consultations 01/21/23 16:57 ED Decision to Admit Stat 01/21/23 21:12 Consult Pulmonology Routine Ordered Studies 01/21/23 15:02 CT for pulmonary embolism PE [CT angio chest PE protocol] Stat Hospital Course (1) Acute exacerbation of chronic obstructive pulmonary disease: Continue scheduled nebulizer treatments and parenteral steroids. Treat underlying bronchitis. Pulmonary medicine consultation appreciated . She refuses to take any more saline nebulizers Now she is concerned about her maintenance meds. Will continue to recommend these medications. COntinue IV steroids on 01/24 as above. (2) Acute bronchitis: Sputum culture results pending. Continue cefepime, day 5, however dose was recently increased to 2gr Q12h. Continue oral doxycycline (3) Acute on chronic respiratory failure with hypoxia and hypercapnia: (4) GERD (gastroesophageal reflux disease): Plan: Stable. Continue famotidine and pantoprazole (5) Sleep apnea: Plan: Stable. CPAP HS (6) Anemia, iron deficiency: Plan: Stable. Serial labs Plan Hopeful discharge back to home Tuesday in AM. (4) Pulmonary hypertension: (5) Sleep apnea: (6) Multiple pulmonary nodules: Discharge Plan Discharge Items Patient Disposition: Home - Self-Care Reason For Visit: COPD EXACERBATION Discharge Diagnosis: acute COPD exacerbation Activity: Resume your previous activity Non-emergency contact: Primary Care Provider Call non-emergency contact if: you have any medication questions and your symptoms worsen Follow-up/Referrals: Camila Beth DO [Primary Care Provider] - Raheem Scales PA-C [Hospitalist] - 02/15/23 4:00 pm Diet: Heart Healthy Addtl Attending Provider Instructions: Advised to follow-up with PCP in 1 week Pending Studies at Discharge: No Stand-Alone Forms: My [facility] Medications and DC Order Prescriptions: New prednisone 10 mg tablet 10 mg PO DAILY Qty: 20 0RF Rx Instructions: 4 tabs for 2 days, then drop by 1 tab every 2 days, then stop cefdinir 300 mg capsule 300 mg PO BID 3 Days Qty: 6 0RF Continued (DME) nebulizer accessories Misc See Rx Instructions .ROUTE .MEDSUPPLY Qty: 1 0RF Rx Instructions: Filters for nebulizer ipratropium bromide 21 mcg (0.03 %) spray,non-aerosol 2 spray intranasal DAILY PRN (Reason: allergy symptoms) Qty: 90 1RF Rx Instructions: administer into each nostril olopatadine [Patanase] 0.6 % spray,non-aerosol 2 spray intranasal DAILY Qty: 91.5 3RF azelastine 137 mcg (0.1 %) aerosol,spray 2 spray intranasal BID Qty: 90 3RF Rx Instructions: administer into each nostril albuterol sulfate 90 mcg/actuation HFA aerosol inhaler 1 - 2 puff inhalation Q4H PRN (Reason: shortness of breath) Qty: 18 5RF ipratropium-albuterol 0.5 mg-3 mg(2.5 mg base)/3 mL solution for nebulization 3 ml inhalation Q4 PRN (Reason: Shortness Of Breath Or Wheezing) Qty: 180 1RF Rx Instructions: 1 VIAL VIA NEB EVERY FOUR HOURS NEEDED FOR WHEEZING. DX. 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 Lifetime need. cholecalciferol (vitamin D3) 50 mcg (2,000 unit) capsule 50 mcg PO DAILY acetaminophen [Tylenol Extra Strength] 500 mg Tablet 1,000 mg PO Q8H PRN (Reason: rib pain) Qty: 60 0RF Rx Instructions: Over the counter guaifenesin [Mucinex] 600 mg Tablet Extended Release 12hr 1,200 mg PO BID Qty: 60 0RF Rx Instructions: Over the counter cyanocobalamin (vitamin B-12) 1,000 mcg capsule 1,000 mcg PO DAILY Qty: 30 0RF Rx Instructions: Over the counter famotidine 20 mg tablet 20 mg PO BID pantoprazole 40 mg tablet,delayed release (DR/EC) 40 mg PO BID fluticasone propionate [Flonase Allergy Relief] 50 mcg/actuation spray,suspension 2 spray intranasal DAILY PRN (Reason: Congestion) Rx Instructions: administer into each nostril fexofenadine 180 mg tablet 180 mg PO QAM Discontinued prednisone 10 mg tablet See Rx Instructions .ROUTE .COMPLEX Rx Instructions: End Date 01/23/23: 40mg by mouth daily x3 days; 30mg by mouth daily x3 days; 20mg by mouth daily x3 days; 10mg by mouth daily x3 days. Discharge Orders: Discharge Order (Routine); Ordered 01/28/23 Ordered By: Connor Lee Admission Data Admit Date/Time: 01/23/23 12:13 Attending Provider: Connor Lee Admit Provider: Compa Oliveira Primary Care Provider: Camila Beth Other Providers: Compa Oliveira ; [facility] Coding Diagnoses Acute exacerbation of chronic obstructive pulmonary disease J44.1 Acute bronchitis J20.9 Acute on chronic respiratory failure with hypoxia and hypercapnia J96.21; J96.22 Pulmonary hypertension I27.20 Sleep apnea G47.30 Multiple pulmonary nodules R91.8
[2023-01-28] MEDS ORDERED: LORazepam 0.5 MG TAB PO STA (11:23)
--- NOTE | 2023-01-28 17:52 | Hospitalist Progress Note ---
Date of Service January 28, 2023 Assessment & Plan (1) Acute exacerbation of chronic obstructive pulmonary disease: Plan: Continue scheduled nebulizer treatments and parenteral steroids. Treat underlying bronchitis. Pulmonary medicine consultation appreciated . She refuses to take any more saline nebulizers she did not get any steroids yesterday 01/27. Today her breathing is slightly worse that could have been anxiety related. She has been started on p.o. prednisone 40 mg. I will treat her anxiety with a small dose of Ativan today. Discharge canceled for today. (2) Acute bronchitis: Plan: Sputum culture results pending. Continue cefepime, day 5, however dose was recently increased to 2gr Q12h. Continue oral doxycycline (3) Acute on chronic respiratory failure with hypoxia and hypercapnia: Plan: (4) GERD (gastroesophageal reflux disease): Plan: Stable. Continue famotidine and pantoprazole (5) Sleep apnea: Plan: Stable. CPAP HS (6) Anemia, iron deficiency: Plan: Stable. Serial labs Plan Hopefully discharge back to home in the next few days (4) Pulmonary hypertension: (5) Sleep apnea: (6) Multiple pulmonary nodules: Admission and Anticipated Discharge Date Admission Date: January 23, 2023 Subjective Patient says "I just worked myself up. Now I cannot breathe." Patient is having trouble breathing. She says that whenever she gets anxious, she has trouble breathing. Review of Systems Review of Systems: All systems reviewed & are unremarkable except as noted in Subjective Physical Exam Physical Exam: General: Awake, conversant. Increased respiratory effort. Unable to complete sentences. Heart: S1, S2/regular rate and rhythm, no murmur rubs or gallops Lungs: Diminished breath sounds. Increased respiratory effort with air hunger Abdomen: Soft/nontender/nondistended. No hepatosplenomegaly Extremities: No clubbing/cyanosis. No edema Behavior: Appropriate, cooperative Results & Data Results & Data Vital Signs (Past 12 Hours) Vital Signs Temp Pulse Pulse Resp BP Pulse Ox O2 Del Method 01/28/23 15:55 Nasal Cannula 01/28/23 15:06 112 H 24 92 Nasal Cannula 01/28/23 14:40 36.8 C 110 H 19 95/60 L 95 Nasal Cannula 01/28/23 14:08 Nasal Cannula 01/28/23 11:59 95 H 20 95 Nasal Cannula 01/28/23 08:00 36.8 C 93 H 18 98/60 L 96 Nasal Cannula 01/28/23 07:18 97 H 20 98 Nasal Cannula O2 Flow Rate 01/28/23 15:55 4 01/28/23 15:06 4 01/28/23 14:40 4 01/28/23 14:08 4 01/28/23 11:59 4 01/28/23 08:00 4 01/28/23 07:18 4 PG Care Time/CCT Total # of Minutes Spent Total Time Spent with Patient: Total time spent is greater than 50% in coordination of care (as documented) at patient's floor/unit and/or counseling patient: Coding Level of Care Code 68726 SUB INP/OBS CARE 235MIN Diagnoses Acute exacerbation of chronic obstructive pulmonary disease J44.1 Acute bronchitis J20.9 Acute on chronic respiratory failure with hypoxia and hypercapnia J96.21; J96.22 Pulmonary hypertension I27.20 Sleep apnea G47.30 Multiple pulmonary nodules R91.8
[2023-01-28] MEDS: ENOXAPARIN INJ 40 MG/0.4 ML SYR SQ SCH (20:39)
[2023-01-29] MEDS: guaiFENesin/DEXTROM SYRUP 100MG/10MG 5ML UDC PO SCH (05:45)
[2023-01-29] MEDS: FORMOTEROL 20 MCG/2 ML VIAL NEB SCH (07:13)
[2023-01-29] MEDS: BUDESONIDE 0.5 MG/2 ML VIAL (PULMICORT) NEB SCH (07:13)
[2023-01-29] MEDS: ALBUT/IPRATROP 3MG/0.5MG NEB 3 ML VIAL NEB SCH ×2 (07:13→10:51)
[2023-01-29] MEDS: predniSONE 20 MG TAB PO SCH (07:36)
[2023-01-29] MEDS: PANTOprazole 40 MG TAB PO SCH (07:36)
[2023-01-29] MEDS: FAMOTIDINE 20 MG TAB PO SCH (07:36)
[2023-01-29] MEDS: FEXOFENADINE HCL 180 MG TAB PO SCH (07:36)
[2023-01-29] MEDS: POLYETHYLENE (MIRALAX) 17 GM PACK PO SCH (07:37)
[2023-01-29] MEDS: OXYBUTYNIN CHLORIDE XL 5 MG TABCR PO SCH (07:37)
[2023-01-29] MEDS: DOCUSATE SODIUM/SENNA 50/8.6MG TAB PO SCH (07:37)
--- NOTE | 2023-01-29 10:17 | Discharge Summary ---
Date of Service January 29, 2023 Admission HPI Per Admitting Provider Judie White is an 82 year old female with severe COPD who presents to the ER with shortness of breath. She reports progressive worsening shortness of breath despite oral prednisone (given for sinusitis) since her last admission. No sudden onset. She notes always having shortness of breath but it is not usually this bad. Associated productive cough. She reports always having allergies and is awaiting testing. She takes Imelda daily after last admission but does not feel this makes much of a difference. Chronic nasal congestion and post nasal drip. No current sinus pain but recently treated for a sinus infections seen by her ENT physician on scope with Levaquin and prednisone taper 10 days ago, she is currently still on the prednisone. Shortness of breath chronically comes and does but doesn't feel this bad usually. She has been using 2LPM O2 at rest and 3LPM O2 on exertion since last admission. Admission Exam Per Admitting Provider Constitutional: WD/WN, vitals as above Eyes: PERRL, conjunctivae normal, anicteric sclerae ENMT: external ear and nose normal, oropharynx normal Respiratory: + labored breathing, + uses accessory muscles, able to speak in complete sentences and + prolonged expiratory phase; + abnormal respiratory effort and no stridor Auscultation: + wheezes (inspiratory and expiratory); breath sounds present, no diminished lung sounds, no crackles, no rales and no rhonchi Cardiovascular: RRR, no murmur, no edema Gastrointestinal (Abdomen): normal bowel sounds, soft, nontender, no hepatosplenomegaly Musculoskeletal: no cyanosis or clubbing, extremities motor strength 5/5 Skin: no rashes, warm and dry Neurologic: moves all extremities and awake; not confused Psychiatric: A+Ox3, euthymic affect Genitourinary: no CVA tenderness Principal Diagnosis acute COPD exacerbation Discharge Exam General: Awake, conversant. Increased respiratory effort. Unable to complete sentences. Heart: S1, S2/regular rate and rhythm, no murmur rubs or gallops Lungs: Diminished breath sounds. Increased respiratory effort with air hunger Abdomen: Soft/nontender/nondistended. No hepatosplenomegaly Extremities: No clubbing/cyanosis. No edema Behavior: Appropriate, cooperative Discharge Data Allergies Allergy/AdvReac Type Severity Reaction Status Date / Time Penicillins Allergy Intermediate HIVES Verified 01/21/23 17:27 house dust AdvReac Unknown Verified 01/21/23 17:27 mold AdvReac Unknown Verified 01/21/23 17:27 Consultations 01/21/23 16:57 ED Decision to Admit Stat 01/21/23 21:12 Consult Pulmonology Routine Ordered Studies 01/21/23 15:02 CT for pulmonary embolism PE [CT angio chest PE protocol] Stat Hospital Course (1) Acute exacerbation of chronic obstructive pulmonary disease: Continue scheduled nebulizer treatments and parenteral steroids. Treated underlying bronchitis. Pulmonary medicine consultation appreciated . She refuses to take any more saline nebulizers today patient states that she is back to her usual baseline. She has been started on p.o. prednisone 40 mg. Discharge on p.o. prednisone tapering dose (2) Acute bronchitis: completed antibiotic course Discharge on p.o. prednisone tapering dose (3) Acute on chronic respiratory failure with hypoxia and hypercapnia: (4) GERD (gastroesophageal reflux disease): Plan: Stable. Continue famotidine and pantoprazole (5) Sleep apnea: Plan: Stable. CPAP HS (6) Anemia, iron deficiency: Plan: Stable. Serial labs Plan discharge to home today (4) Pulmonary hypertension: (5) Sleep apnea: (6) Multiple pulmonary nodules: Total Time Total Time Spent Total Time Spent (In Minutes): 35 Discharge Plan Discharge Items Patient Disposition: Home - Home Health Services Reason For Visit: COPD EXACERBATION Discharge Diagnosis: acute COPD exacerbation Activity: Resume your previous activity Non-emergency contact: Primary Care Provider Call non-emergency contact if: you have any medication questions and your symptoms worsen Follow-up/Referrals: Camila Beth DO [Primary Care Provider] - 02/09/23 3:20 pm Raheem Scales PA-C [Hospitalist] - 02/15/23 4:00 pm Diet: Heart Healthy Addtl Attending Provider Instructions: Advised to follow-up with PCP in 1 week Pending Studies at Discharge: No Stand-Alone Forms: My [facility] Medications and DC Order Prescriptions: New prednisone 10 mg tablet 10 mg PO DAILY Qty: 20 0RF Rx Instructions: 4 tabs for 2 days, then drop by 1 tab every 2 days, then stop cefdinir 300 mg capsule 300 mg PO BID 3 Days Qty: 6 0RF Continued (DME) nebulizer accessories Misc See Rx Instructions .ROUTE .MEDSUPPLY Qty: 1 0RF Rx Instructions: Filters for nebulizer ipratropium bromide 21 mcg (0.03 %) spray,non-aerosol 2 spray intranasal DAILY PRN (Reason: allergy symptoms) Qty: 90 1RF Rx Instructions: administer into each nostril olopatadine [Patanase] 0.6 % spray,non-aerosol 2 spray intranasal DAILY Qty: 91.5 3RF azelastine 137 mcg (0.1 %) aerosol,spray 2 spray intranasal BID Qty: 90 3RF Rx Instructions: administer into each nostril albuterol sulfate 90 mcg/actuation HFA aerosol inhaler 1 - 2 puff inhalation Q4H PRN (Reason: shortness of breath) Qty: 18 5RF ipratropium-albuterol 0.5 mg-3 mg(2.5 mg base)/3 mL solution for nebulization 3 ml inhalation Q4 PRN (Reason: Shortness Of Breath Or Wheezing) Qty: 180 1RF Rx Instructions: 1 VIAL VIA NEB EVERY FOUR HOURS NEEDED FOR WHEEZING. DX. 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 Lifetime need. cholecalciferol (vitamin D3) 50 mcg (2,000 unit) capsule 50 mcg PO DAILY acetaminophen [Tylenol Extra Strength] 500 mg Tablet 1,000 mg PO Q8H PRN (Reason: rib pain) Qty: 60 0RF Rx Instructions: Over the counter guaifenesin [Mucinex] 600 mg Tablet Extended Release 12hr 1,200 mg PO BID Qty: 60 0RF Rx Instructions: Over the counter cyanocobalamin (vitamin B-12) 1,000 mcg capsule 1,000 mcg PO DAILY Qty: 30 0RF Rx Instructions: Over the counter famotidine 20 mg tablet 20 mg PO BID pantoprazole 40 mg tablet,delayed release (DR/EC) 40 mg PO BID fluticasone propionate [Flonase Allergy Relief] 50 mcg/actuation spray,susp ension 2 spray intranasal DAILY PRN (Reason: Congestion) Rx Instructions: administer into each nostril fexofenadine 180 mg tablet 180 mg PO QAM Discontinued prednisone 10 mg tablet See Rx Instructions .ROUTE .COMPLEX Rx Instructions: End Date 01/23/23: 40mg by mouth daily x3 days; 30mg by mouth daily x3 days; 20mg by mouth daily x3 days; 10mg by mouth daily x3 days. Discharge Orders: Discharge Order (Routine); Ordered 01/29/23 Ordered By: Connor Torres/Other Patient Handouts: Acute Bronchitis, COPD Meds Admission Data Admit Date/Time: 01/23/23 12:13 Attending Provider: Connor Lee Admit Provider: Compa Oliveira Primary Care Provider: Camila Beth Other Providers: Compa Oliveira ; [facility] Other Interventions: Discharge Summary Assessment (RN) Last Done: 01/29/23 10:23 Coding Level of Care Code 57415 INP/OBS DISCH >30 MIN Diagnoses Acute exacerbation of chronic obstructive pulmonary disease J44.1 Acute bronchitis J20.9 Acute on chronic respiratory failure with hypoxia and hypercapnia J96.21; J96.22 Pulmonary hypertension I27.20 Sleep apnea G47.30 Multiple pulmonary nodules R91.8
== END 2023-01-29 12:37 | disposition home health service (06) | DRG 189 ==
LOC: ED 12:37 → 3W 12:37 → SUATTDRO 17:12 → 3W 20:27 → SUATTDRO 01-23 12:13

== ENCOUNTER 2023-02-01 12:51 | Inpatient (IN) ==
--- NOTE | 2023-02-01 13:15 | Emergency Department Note ---
History of Present Illness General Chief complaint: Shortness of Breath/Dyspnea Time Seen by Provider: 02/01/23 12:57 History of Present Illness 82-year-old female presents emergency department via EMS has a prior history of COPD with an admission last week. Patient was discharged on Tuesday and was in [place] at the [facility] office for follow-up. Patient had increased work of breathing and increased oxygen demands. Patient was 85% on 2 L of oxygen and her physician decided that she needed to be sent back in for admission. Patient states general malaise and weakness. Patient states slight cough denies any chest pain. Denies nausea vomiting diarrhea. Denies fever. There are no other mitigating or alleviating factors. Patient was given 125 mg of IV Solu-Medrol prior to arrival as well as 2 DuoNebs by EMS. Home Medications Medication Instructions Recorded Confirmed Type CPAP Supplies #1 ea 08/13/19 02/01/23 Rx nebulizer accessories #1 ea 02/21/20 02/01/23 Rx CPAP Machine #1 ea 06/17/21 02/01/23 Rx ipratropium bromide 21 mcg (0.03 2 spray intranasal DAILY PRN 02/11/22 02/01/23 Rx %) nasal spray allergy symptoms #90 mL olopatadine 0.6 % nasal spray 2 spray intranasal DAILY #91.5 05/31/22 02/01/23 Rx (Patanase) grams azelastine 137 mcg (0.1 %) nasal 2 spray intranasal BID #90 mL 08/10/22 02/01/23 Rx spray aerosol albuterol sulfate 90 mcg/actuation 1 - 2 puff inhalation Q4H PRN 10/08/22 02/01/23 Rx aerosol inhaler shortness of breath #18 grams fluticasone fur. 100 mcg-umeclid 1 inh inhalation DAILY #60 ea 11/02/22 02/01/23 Rx 62.5 mcg-vilant 25 mcg inhalat.powder (Trelegy Ellipta) ipratropium 0.5 mg-albuterol 3 mg 3 ml inhalation Q4 PRN Shortness 11/25/22 02/01/23 Rx (2.5 mg base)/3 mL nebulization Of Breath Or Wheezing #180 mL soln acetaminophen 500 mg tablet 1,000 mg PO Q8H PRN rib pain #60 12/22/22 02/01/23 Rx (Tylenol Extra Strength) tabs oxybutynin chloride 15 mg 15 mg PO QAM #90 tabs 01/05/23 02/01/23 Rx tablet,extended release 24 hr azithromycin 250 mg tablet 250 mg PO 3XWK COPD maintenance 01/10/23 02/01/23 Rx #36 tabs famotidine 20 mg tablet 20 mg PO BID 01/21/23 02/01/23 History fluticasone propionate 50 2 spray intranasal DAILY PRN 01/21/23 02/01/23 History mcg/actuation nasal Congestion spray,suspension (Flonase Allergy Relief) pantoprazole 40 mg tablet,delayed 40 mg PO BID 01/21/23 02/01/23 History release sertraline 25 mg tablet 25 mg PO DAILY 02/01/23 02/01/23 History Allergies Allergy/AdvReac Type Severity Reaction Status Date / Time Penicillins Allergy Intermediate HIVES Verified 02/01/23 11:41 house dust AdvReac Unknown Verified 02/01/23 11:41 mold AdvReac Unknown Verified 02/01/23 11:41 Past Med/Surg History Medical History Anemia, iron deficiency Anxiety Asthma B12 deficiency Chronic ischemic heart disease Chronic nasal congestion COPD (chronic obstructive pulmonary disease) well controlled w/ inhalers - prn o2 use GERD (gastroesophageal reflux disease) History of ankle fracture Hypercholesterolemia On home oxygen therapy 2-3lpm via n/c PRN Osteoporosis Prediabetes Pulmonary hypertension Sleep apnea cpap Urge and stress incontinence Vitamin D deficiency Surgical History History of colonoscopy History of esophagogastroduodenoscopy (EGD) History of laparoscopic cholecystectomy History of rhinoplasty History of right cataract surgery History of tonsillectomy Hx of excision of mass excision of intra abdominal mass (benign) Hx of left cataract extraction S/P HANNA (total abdominal hysterectomy) Family History Mother Breast cancer Sister Heart disease Pacemaker Other Encounter for pre-operative examination No family history of adverse response to anesthesia No family history of bleeding disorder Denies family history of Ovarian cancer Prostate cancer Colorectal cancer Social History Smoking Status: Former smoker Tobacco Type: Cigarettes Age Started Using Tobacco: 23; Age Quit Using Tobacco: 73; packs per day: 0.5; Cigarettes Per Day: quit 9 years ago; Second Hand Exposure: No; Do You Dip or Chew Tobacco: No; Hx Alcohol Use: No Hx Substance Use: No Preferred Language: Latvian Communication Ability: Effective Visual Impairment: No Limitations Hearing Ability: Normal 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 ) Diet: regular Diet Comment: regular caffeine: Yes (2 cups coffee in morning, 1 with supper) during the past year weight has: remained stable Dental Care, Regularly: Yes Physical Activity Frequency: 1-2 Times per Week Seatbelt Use: always Sunscreen Use: No Assistive Devices: CPAP, Nebulizer and Oxygen - Continuous Review of Systems A total of 10 systems reviewed and were otherwise negative Respiratory: + dyspnea Physical Exam Vital Signs Vital Signs - 24 hr 02/01/23 13:07 02/01/23 13:03 02/01/23 13:03 Pulse Rate 112 H 115 H Pulse Rate [Bilateral] Pulse Rhythm Respiratory Rate 18 Respiratory Effort / Characteristics Short of Breath Respiratory Depth Shallow Respiratory Pattern Regular Blood Pressure 95/66 L Blood Pressure [Right Arm] Blood Pressure Mean 75 Blood Pressure Mean [Right Arm] Pulse Oximetry 98 Oxygen Delivery Method Nasal Cannula Nasal Cannula Oxygen Flow Rate 6 6 Sepsis Recent Fever Within 48 Hours No Sepsis New/Unexplained Change in Mental Status N/A Sepsis Action Taken by Nursing MD Previously Notified Oxygen Flow Rate - Titration Pulse Oximetry Post Tiitration 02/01/23 13:03 02/01/23 13:03 02/01/23 13:03 Pulse Rate 120 H Pulse Rate [Bilateral] 120 H Pulse Rhythm Regular Respiratory Rate 22 18 Respiratory Effort / Characteristics Respiratory Depth Respiratory Pattern Blood Pressure Blood Pressure [Right Arm] 95/66 L Blood Pressure Mean Blood Pressure Mean [Right Arm] 75 Pulse Oximetry 85 L 98 98 Oxygen Delivery Method Nasal Cannula Nasal Cannula Nasal Cannula Oxygen Flow Rate 2 6 6 Sepsis Recent Fever Within 48 Hours Sepsis New/Unexplained Change in Mental Status Sepsis Action Taken by Nursing Oxygen Flow Rate - Titration 6 Pulse Oximetry Post Tiitration 98 02/01/23 14:09 02/01/23 14:00 02/01/23 15:00 Pulse Rate Pulse Rate [Bilateral] 126 H 117 H 113 H Pulse Rhythm Respiratory Rate 24 23 27 H Respiratory Effort / Characteristics Respiratory Depth Shallow Shallow Respiratory Pattern Blood Pressure Blood Pressure [Right Arm] 84/67 L 84/67 L 97/66 L Blood Pressure Mean Blood Pressure Mean [Right Arm] 72 72 76 Pulse Oximetry 94 93 96 Oxygen Delivery Method Nasal Cannula Room Air Room Air Oxygen Flow Rate 6 Sepsis Recent Fever Within 48 Hours Sepsis New/Unexplained Change in Mental Status Sepsis Action Taken by Nursing Oxygen Flow Rate - Titration Pulse Oximetry Post Tiitration GENERAL: Patient is awake alert, ill-appearing, on 6 L of oxygen via nasal cannula EYES: The conjunctivae are clear. The pupils are round and reactive. EARS, NOSE, MOUTH AND THROAT: The nose is without any evidence of any deformity. Mucous membranes are moist. Tongue is midline. NECK: The neck is nontender and supple. RESPIRATORY: Decreased breath sounds bilaterally CARDIOVASCULAR: Regular rate and rhythm noted there no murmurs rubs or gallops normal S1 normal S2. GASTROINTESTINAL: The abdomen is soft. Abdomen is nontender. BACK: No midline tenderness or or step-off noted range of motion in flexion extension as well as rotation no signs of muscle spasm noted MUSCULOSKELETAL/EXTREMITIES: There is no evidence of gross deformity full range of motion is noted in the hips and shoulders. SKIN: There is no obvious evidence of any rash. There are no petechiae, pallor or cyanosis noted. NEUROLOGIC: Patient is awake alert and oriented x3 strength is symmetric Course Reevaluation(s) Reevaluation #1: Patient was continued on 6 L of oxygen. Patient is in no distress had received DuoNebs and Solu-Medrol prior to arrival Time: 14:12 Consultations Consultation #1: Case was discussed with the [facility] hospitalist for admission Time: 14:12 Administered Medications Sodium Chloride (Nss 1000ml) 1,000 mls @ 999 mls/hr IV .Q1H1M ONE Stop: 02/01/23 16:12 Last Admin: 02/01/23 15:51 Dose: 999 mls/hr Documented By: TBS Critical Care Time Critical Care Time: Yes Total Critical Care Time: 35 I have personally spent greater than 35 minutes of critical care time in the direct management of this patient. This includes bedside care, interpretation of diagnostic studies, and testing, discussion with consultants, patient, and family members, and other required patient management activities. These minutes are in excess of all separately billable procedures. Medical Decision Making Medical Records Attestation: I reviewed the patient's medical records. Home Medications Current Medication List: was personally reviewed by co Laboratory Data Attestation: I reviewed the patient's lab results. Labs interpreted by me patient has a leukocytosis 02/01/23 13:00 02/01/23 13:00 Lab Results 02/01/23 02/01/23 02/01/23 Range/Units 13:00 13:00 13:00 WBC 13.73 H (4.8-10.8) K/ul RBC 4.18 L (4.20-5.40) M/uL Hgb 11.1 L (12.0-16.0) g/dl Hct 35.1 L (37.0-47.0) % MCV 84.0 (80.0-100.0) fL MCH 26.6 (25.0-34.0) pg MCHC 31.6 L (32.0-36.0) g/dL RDW Std Deviation 49.2 H (36.4-46.3) fL RDW Coeff of Geri 16.2 H (11.5-14.5) % Plt Count 325 (130-400) K/uL MPV 10.2 (9.4-12.4) fL Immature Gran % (Auto) 0.6 % Neut % (Auto) 92.8 % Lymph % (Auto) 5.5 % Ray % (Auto) 1.0 % Eos % (Auto) 0.0 % Baso % (Auto) 0.1 % Neut # (Auto) 12.74 H (1.40-6.50) K/uL Lymph # (Auto) 0.76 L (1.20-3.40) K/uL Ray # (Auto) 0.14 (0.11-0.59) K/uL Eos # (Auto) 0.00 (0.00-0.50) K/uL Baso # (Auto) 0.01 (0.00-0.20) K/uL Immature Gran # (Auto) 0.08 (0.01-0.20) K/uL Ovalocytes 1+ Acanthocytes (Spur) 1+ PT 10.9 (9.0-12.0) Seconds INR 1.0 (0.9-1.1) APTT 21.5 (21.0-31.0) Seconds PTT Ratio 0.8 Sodium 138 (136-145) mmol/L Potassium 3.8 (3.5-5.1) mmol/L Chloride 103 (98-107) mmol/L Carbon Dioxide 27 (21-32) mmol/L Anion Gap 8 (3-11) BUN 20 (6-23) mg/dl Creatinine 0.86 (0.6-1.2) mg/dl Est Cr Clr Drug Dosing 43.2 ml/min Est GFR ( Amer) 73.9 ml/min Est GFR (Non-Af Amer) 63.8 ml/min BUN/Creatinine Ratio 23.3 H (10-20) Glucose 132 H (70-99(Fasting)) mg/dl Calcium 9.3 (8.6-10.3) mg/dl Magnesium 1.7 (1.7-2.4) mg/dl Total Bilirubin 0.8 (0.2-1.0) mg/dl AST 23 (13-39) U/L ALT 26 (7-52) U/L Alkaline Phosphatase 52 (34-104) U/L Troponin I High Sens 6.1 (0-14) pg/ml Total Protein 6.5 (6.0-8.3) gm/dl Albumin 4.1 (3.4-5.0) gm/dl Globulin 2.4 L (2.5-4.0) gm/dl Albumin/Globulin Ratio 1.7 (0.9-2) Urine Color Urine Appearance (Clear) Urine pH (4.5-7.5) Ur Specific [place] (1.000-1.030) Urine Protein (Negative) Urine Glucose (UA) (Negative) Urine Ketones (Negative) Urine Blood (Negative) Urine Nitrite (Negative) Urine Bilirubin (Negative) Urine Urobilinogen (Negative) Ur Leukocyte Esterase (Negative) Urine WBC (Auto) (0-5) /hpf Urine RBC (Auto) (0-4) /hpf U Hyaline Cast (Auto) (0-5) /lpf U Epithel Cells (Auto) (0-5) /lpf Urine Bacteria (Auto) (Negative) SARS-CoV-2, RNA, NAAT (NEGATIVE) 02/01/23 02/01/23 Range/Units 13:50 14:30 WBC (4.8-10.8) K/ul RBC (4.20-5.40) M/uL Hgb (12.0-16.0) g/dl Hct (37.0-47.0) % MCV (80.0-100.0) fL MCH (25.0-34.0) pg MCHC (32.0-36.0) g/dL RDW Std Deviation (36.4-46.3) fL RDW Coeff of Geri (11.5-14.5) % Plt Count (130-400) K/uL MPV (9.4-12.4) fL Immature Gran % (Auto) % Neut % (Auto) % Lymph % (Auto) % Ray % (Auto) % Eos % (Auto) % Baso % (Auto) % Neut # (Auto) (1.40-6.50) K/uL Lymph # (Auto) (1.20-3.40) K/uL Ray # (Auto) (0.11-0.59) K/uL Eos # (Auto) (0.00-0.50) K/uL Baso # (Auto) (0.00-0.20) K/uL Immature Gran # (Auto) (0.01-0.20) K/uL Ovalocytes Acanthocytes (Spur) PT (9.0-12.0) Seconds INR (0.9-1.1) APTT (21.0-31.0) Seconds PTT Ratio Sodium (136-145) mmol/L Potassium (3.5-5.1) mmol/L Chloride (98-107) mmol/L Carbon Dioxide (21-32) mmol/L Anion Gap (3-11) BUN (6-23) mg/dl Creatinine (0.6-1.2) mg/dl Est Cr Clr Drug Dosing ml/min Est GFR ( Amer) ml/min Est GFR (Non-Af Amer) ml/min BUN/Creatinine Ratio (10-20) Glucose (70-99(Fasting)) mg/dl Calcium (8.6-10.3) mg/dl Magnesium (1.7-2.4) mg/dl Total Bilirubin (0.2-1.0) mg/dl AST (13-39) U/L ALT (7-52) U/L Alkaline Phosphatase (34-104) U/L Troponin I High Sens (0-14) pg/ml Total Protein (6.0-8.3) gm/dl Albumin (3.4-5.0) gm/dl Globulin (2.5-4.0) gm/dl Albumin/Globulin Ratio (0.9-2) Urine Color Yellow Urine Appearance Clear (Clear) Urine pH 6.0 (4.5-7.5) Ur Specific [place] 1.011 (1.000-1.030) Urine Protein 1+ H (Negative) Urine Glucose (UA) Negative (Negative) Urine Ketones Negative (Negative) Urine Blood 1+ H (Negative) Urine Nitrite Negative (Negative) Urine Bilirubin Negative (Negative) Urine Urobilinogen Negative (Negative) Ur Leukocyte Esterase 2+ H (Negative) Urine WBC (Auto) >30 H (0-5) /hpf Urine RBC (Auto) 10-30 H (0-4) /hpf U Hyaline Cast (Auto) 1-5 (0-5) /lpf U Epithel Cells (Auto) 20-30 H (0-5) /lpf Urine Bacteria (Auto) Negative (Negative) SARS-CoV-2, RNA, NAAT NEGATIVE (NEGATIVE) Imaging Data Attestation: I personally reviewed and interpreted this imaging study as follows: My Impression: Chest x-ray interpreted by me COPD changes Radiologist's Impression: Chest X-Ray 02/01/23 12:58 XR chest 1V portable CLINICAL HISTORY: Dyspnea TECHNIQUE: Single frontal radiograph of the chest was obtained. Comparison: Comparison is made to chest radiograph 01/21/2023 FINDINGS: No lines and tubes are seen. Calcified aortic knob is seen. The lungs are clear. No evidence of pleural effusion or pneumothorax. IMPRESSION: No acute chest disease. ACT 112: Negative or not required by law. Electronically signed by: Ayden Abarca M.D. 02/01/2023 1:49 PM ECG Data Attestation: I personally reviewed and interpreted this ECG as follows: Additional Comments: EKG interpreted by me sinus tachycardia rate of 112, right bundle branch block, poor R wave progression the precordium, no obvious ST segment elevation or depression Telemetry was ordered by me, interpreted as sinus tachycardia rate of 112 MDM Narrative Medical decision making differential diagnosis includes COPD exacerbation, pneumonia, hypercarbic respiratory failure, CHF, COVID, upper respiratory tract infection Plan is to check labs, EKG, chest x-ray, keep on oxygen External medical records were reviewed by me Patient will be admitted for further evaluation and treatment of COPD, I do not suspect the patient to be septic at this time Impression & Plan COPD (chronic obstructive pulmonary disease), Hypoxia Discharge Plan Visit Data Chief Complaint: Shortness of Breath/Dyspnea ED Provider: Adalberto Tan Discharge Problem: COPD (chronic obstructive pulmonary disease), Hypoxia Patient Disposition: Admitted As Inpatient Forms Stand Alone Forms: My [facility] Prescriptions Prescriptions: No Action (DME) nebulizer accessories Misc See Rx Instructions .ROUTE .MEDSUPPLY Qty: 1 0RF Rx Instructions: Filters for nebulizer ipratropium bromide 21 mcg (0.03 %) spray,non-aerosol 2 spray intranasal DAILY PRN (Reason: allergy symptoms) Qty: 90 1RF Rx Instructions: administer into each nostril olopatadine [Patanase] 0.6 % spray,non-aerosol 2 spray intranasal DAILY Qty: 91.5 3RF azelastine 137 mcg (0.1 %) aerosol,spray 2 spray intranasal BID Qty: 90 3RF Rx Instructions: administer into each nostril albuterol sulfate 90 mcg/actuation HFA aerosol inhaler 1 - 2 puff inhalation Q4H PRN (Reason: shortness of breath) Qty: 18 5RF ipratropium-albuterol 0.5 mg-3 mg(2.5 mg base)/3 mL solution for nebulization 3 ml inhalation Q4 PRN (Reason: Shortness Of Breath Or Wheezing) Qty: 180 1RF Rx Instructions: 1 VIAL VIA NEB EVERY FOUR HOURS NEEDED FOR WHEEZING. DX. J44.9; J96.11 oxybutynin chloride 15 mg tablet extended release 24hr 15 mg PO QAM Qty: 90 1RF azithromycin 250 mg tablet 250 mg PO 3XWK Qty: 36 0RF Rx Instructions: Take 1 tablet orally every Tuesday, Tuesday, and Tuesday (DME) CPAP Supplies Misc See Rx Instructions .ROUTE .MEDSUPPLY Qty: 1 0RF Rx Instructions: NIV mask fit and teaching regarding use and oxygen; DME=GERIATRICS PHYSICIAN Trelegy Ellipta 100-62.5-25 mcg blister with device 1 inh inhalation DAILY Qty: 60 3RF (DME) CPAP Machine Misc See Rx Instructions .MEDSUPPLY Qty: 1 0RF Rx Instructions: Please provide a humidifier for her CPAP. Lifetime need. sertraline 25 mg tablet 25 mg PO DAILY acetaminophen [Tylenol Extra Strength] 500 mg Tablet 1,000 mg PO Q8H PRN (Reason: rib pain) Qty: 60 0RF Rx Instructions: Over the counter famotidine 20 mg tablet 20 mg PO BID pantoprazole 40 mg tablet,delayed release (DR/EC) 40 mg PO BID fluticasone propionate [Flonase Allergy Relief] 50 mcg/actuation spray,suspension 2 spray intranasal DAILY PRN (Reason: Congestion) Rx Instructions: administer into each nostril Referrals Referrals: Camila Beth DO [Primary Care Provider] -
--- NOTE | 2023-02-01 13:51 | XRay Report ---
XR chest 1V portable CLINICAL HISTORY: Dyspnea TECHNIQUE: Single frontal radiograph of the chest was obtained. Comparison: Comparison is made to chest radiograph 01/21/2023 FINDINGS: No lines and tubes are seen. Calcified aortic knob is seen. The lungs are clear. No evidence of pleur al effusion or pneumothorax. IMPRESSION: No acute chest disease. ACT 112: Negative or not required by law. Electronically signed by: Ayden Abarca M.D. 02/01/2023 1:49 PM
[2023-02-01 13:56] LABS: Hematocrit (blood only) 35.1 % (37.0-47.0); Hemoglobin 11.1 g/dl (12.0-16.0); Mean Corpuscular Hemoglobin 26.6 pg (25.0-34.0); Mean Corpuscular Hgb Conc 31.6 g/dL (32.0-36.0); Mean Platelet Volume 10.2 fL (9.4-12.4); Platelet Count 325 K/uL (130-400); RDW Coefficient of Variation 16.2 % (11.5-14.5); RDW Standard Deviation 49.2 fL (36.4-46.3); Red Blood Count 4.18 M/uL (4.20-5.40); White Blood Count 13.73 K/ul (4.8-10.8)
[2023-02-01 13:59] LABS: Partial Thromboplastin Ratio 0.8; Partial Thromboplastin Time 21.5 Seconds (21.0-31.0); Prothrombin Time 10.9 Seconds (9.0-12.0)
[2023-02-01 14:10] LABS: Albumin Level 4.1 gm/dl (3.4-5.0); Bilirubin,Total 0.8 mg/dl (0.2-1.0); Calcium 9.3 mg/dl (8.6-10.3); Magnesium 1.7 mg/dl (1.7-2.4); Potassium 3.8 mmol/L (3.5-5.1)
[2023-02-01 14:16] LABS: Albumin Globulin Ratio 1.7 (0.9-2); BUN Creatinine Ratio 23.3 (10-20); Creatinine Clr Calc Pharmacy 43.2 ml/min; Est GFR (African American) 73.9 ml/min; Est GFR (Non-African American) 63.8 ml/min; Globulin 2.4 gm/dl (2.5-4.0); Total Protein 6.5 gm/dl (6.0-8.3); Troponin I High Sensitivity 6.1 pg/ml (0-14)
[2023-02-01 14:22] LABS: Acanthocytes 1+; Basophils # (auto) 0.01 K/uL (0.00-0.20); Basophils % (auto) 0.1 %; Immature Granulocytes # (auto) 0.08 K/uL (0.01-0.20); Immature Granulocytes % (auto) 0.6 %; Lymphocytes # (auto) 0.76 K/uL (1.20-3.40); Lymphocytes % (auto) 5.5 %; Monocytes # (auto) 0.14 K/uL (0.11-0.59); Neutrophils # (auto) 12.74 K/uL (1.40-6.50); Neutrophils % (auto) 92.8 %; Ovalocytes 1+
[2023-02-01 15:09] LABS: Appearance Urine Clear (Clear); Bacteria Urine Automated Negative (Negative); Bilirubin Urine Negative (Negative); Blood Urine 1+ (Negative); Color Urine Yellow; Epithelial Cell Urine Auto 20-30 /lpf (0-5); Glucose Urine UA Negative (Negative); Ketones Urine Negative (Negative); Leukocyte Esterase Urine 2+ (Negative); Nitrite Urine Negative (Negative); Protein Urine 1+ (Negative); Specific Gravity Urine 1.011 (1.000-1.030); Urobilinogen Urine Negative (Negative); WBC Urine Automated >30 /hpf (0-5)
[2023-02-01] MEDS ORDERED: SODIUM CHLORIDE 0.9% 1,000 ML IV ONE (15:12)
--- NOTE | 2023-02-01 15:13 | History & Physical Report ---
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 Increased oxygen requirements with ambulation, increased wheezing, increased dyspnea on her home oxygen requirements at least last 24 hours Continue Trelegy/formulary equivalent Patient reports she is CPAP dependent at home however she does not think her nasal pillow is working correctly. Beeps and alarms frequently overnight and is an old machine. May have hypercapnic respiratory failure with nonfunctioning CPAP. Should have this evaluated as an outpatient, will see if she feels better on nasal pillow here VBGSeven-point / On azithromycin 3 times weekly suppressive therapy at home Received Solu-Medrol 125 mg load in ER, will continue 40 mg 3 times daily wean as able and then transition to p.o. On discharge 01/29 she was discharged with cefdinir 3 mg twice daily for 3 additional days and a prednisone taper which was set to complete 02/03. Pt thinks she was taking this on discharge. Pro-Abelardo is normal, low suspicion for continued bacterial exacerbation. Given home suppressive therapy on azithromycin, doxycycline on admission for continued exacerbation. May have had worsening due to completing steroid taper, may require slow steroid taper on discharge PFTs 2019: Moderate/severe obstructive airway disease with slight bronchodilator response.FVC was 108% of predicted. FEV1 was 57% of predicted. [id number] was 20% of predicted. -History of pulmonary hypertension, last echo EF 60-65%. RVSP 5060 with normal RV systolic function CXR: No acute findings Persistent leukocytosis of 13 Procalcitonin ordered COVID pending, expanded bio fire High-sensitivity troponin normal Admitting EKG: Sinus tachycardia - Optimize mag 1.7, 1g IV ordered Asymptomatic Bacteruria - UA with blood, LE. 20-30 epis - No urinary sx - on mutliple abx as above, defer additional at this time GERD Continue PPI/famotidine Sleep apnea Continue evening CPAP/AVAPS Borderline normocytic anemia Chronic, uptrending and improved from prior baseline No acute bleeding, no acute change in management DVT prophylaxis: Lovenox Diet: Heart healthy Disposition: Medical telemetry CODE STATUS: Full code (2) COPD (chronic obstructive pulmonary disease): (3) Chronic ischemic heart disease: (4) GERD (gastroesophageal reflux disease): (5) Sleep apnea: (6) Pulmonary hypertension: (7) B12 deficiency: (8) Hypercholesterolemia: History of Present Illness Primary Care Provider: Camila Beth DO Judie is a 82-year-old female with a past medical history of COPD, GERD, pulmonary hypertension, sleep apnea, chronic respiratory failure with hypoxia and hypercapnia who was recently admitted 01/21/2023 - 01/29/2023 for acute COPD exacerbation with bronchitis who Jaylen presents 3 days following discharge after she was seen at her PCP for follow-up but was having increased oxygen demand, increased work of breathing, and was 85% on her normal 2 L of oxygen. She received Solu-Medrol 125 mg in route with DuoNebs prior to ER evaluation. Breathing continued to worsen 24 hours ago. Took morning meds today. Used nebulizer once this morning, helped a little bit. She feels she just cannot function at home. She is not sure if she took prednisone at home as prescribed, knows this was prescribed earlier and she is pretty sure she took her cefdinir but is not sure. Worsening shortness of breath, wheezing and dyspnea on exertion which are gradually worsening and much worse in the last 24 hours Endorses increased sputum production, no blood. Endorses she has a lot of allergies and sinus congestion which seems to trigger her COPD and make this worse Denies chest pain/chest pressure No lightheadedness/dizziness Medical History: Reviewed Medications: Reviewed Surgical History: Reviewed Family history: Reviewed Allergies: Reviewed Social History: Reviewed Code Status: DNR/DNI Allergies Allergy/AdvReac Type Severity Reaction Status Date / Time Penicillins Allergy Intermediate HIVES Verified 02/01/23 11:41 house dust AdvReac Unknown Verified 02/01/23 11:41 mold AdvReac Unknown Verified 02/01/23 11:41 Home Medications Medication Instructions Recorded Confirmed Type CPAP Supplies #1 ea 08/13/19 02/01/23 Rx nebulizer accessories #1 ea 02/21/20 02/01/23 Rx CPAP Machine #1 ea 06/17/21 02/01/23 Rx ipratropium bromide 21 mcg (0.03 2 spray intranasal DAILY PRN 02/11/22 02/01/23 Rx %) nasal spray allergy symptoms #90 mL olopatadine 0.6 % nasal spray 2 spray intranasal DAILY #91.5 05/31/22 02/01/23 Rx (Patanase) grams azelastine 137 mcg (0.1 %) nasal 2 spray intranasal BID #90 mL 08/10/22 02/01/23 Rx spray aerosol albuterol sulfate 90 mcg/actuation 1 - 2 puff inhalation Q4H PRN 10/08/22 02/01/23 Rx aerosol inhaler shortness of breath #18 grams fluticasone fur. 100 mcg-umeclid 1 inh inhalation DAILY #60 ea 11/02/22 02/01/23 Rx 62.5 mcg-vilant 25 mcg inhalat.powder (Trelegy Ellipta) ipratropium 0.5 mg-albuterol 3 mg 3 ml inhalation Q4 PRN Shortness 11/25/22 02/01/23 Rx (2.5 mg base)/3 mL nebulization Of Breath Or Wheezing #180 mL soln acetaminophen 500 mg tablet 1,000 mg PO Q8H PRN rib pain #60 12/22/22 02/01/23 Rx (Tylenol Extra Strength) tabs oxybutynin chloride 15 mg 15 mg PO QAM #90 tabs 01/05/23 02/01/23 Rx tablet,extended release 24 hr azithromycin 250 mg tablet 250 mg PO 3XWK COPD maintenance 01/10/23 02/01/23 Rx #36 tabs famotidine 20 mg tablet 20 mg PO BID 01/21/23 02/01/23 History fluticasone propionate 50 2 spray intranasal DAILY PRN 01/21/23 02/01/23 History mcg/actuation nasal Congestion spray,suspension (Flonase Allergy Relief) pantoprazole 40 mg tablet,delayed 40 mg PO BID 01/21/23 02/01/23 History release sertraline 25 mg tablet 25 mg PO DAILY 02/01/23 02/01/23 History Past Med/Surg History Medical History Anemia, iron deficiency Anxiety Asthma B12 deficiency Chronic ischemic heart disease Chronic nasal congestion COPD (chronic obstructive pulmonary disease) well controlled w/ inhalers - prn o2 use GERD (gastroesophageal reflux disease) History of ankle fracture Hypercholesterolemia On home oxygen therapy 2-3lpm via n/c PRN Osteoporosis Prediabetes Pulmonary hypertension Sleep apnea cpap Urge and stress incontinence Vitamin D deficiency Surgical History History of colonoscopy History of esophagogastroduodenoscopy (EGD) History of laparoscopic cholecystectomy History of rhinoplasty History of right cataract surgery History of tonsillectomy Hx of excision of mass excision of intra abdominal mass (benign) Hx of left cataract extraction S/P HANNA (total abdominal hysterectomy) Family History Mother Breast cancer Sister Heart disease Pacemaker Other Encounter for pre-operative examination No family history of adverse response to anesthesia No family history of bleeding disorder Denies family history of Ovarian cancer Prostate cancer Colorectal cancer Social History Smoking Status: Former smoker Tobacco Type: Cigarettes Age Started Using Tobacco: 23; Age Quit Using Tobacco: 73; packs per day: 0.5; Cigarettes Per Day: quit 9 years ago; Second Hand Exposure: No; Do You Dip or Chew Tobacco: No; Hx Alcohol Use: No Hx Substance Use: No Preferred Language: Arabic Communication Ability: Effective Visual Impairment: No Limitations Hearing Ability: Normal 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 ) Diet: regular Diet Comment: regular caffeine: Yes (2 cups coffee in morning, 1 with supper) during the past year weight has: remained stable Dental Care, Regularly: Yes Physical Activity Frequency: 1-2 Times per Week Seatbelt Use: always Sunscreen Use: No Assistive Devices: CPAP, Nebulizer and Oxygen - Continuous Review of Systems Review of Systems: All systems reviewed & are unremarkable except as noted in HPI & below Physical Exam Physical Exam: General: A&Ox3. NAD. Cooperative. HEENT: Atraumatic, normocephalic. Vision/hearing intact Pulm: Diffusely coarse, scattered wheezes, scattered rhonchi symmetrical chest rise. No increased work of breathing. No respiratory distress. Cardiac: Regular, tachycardic. Radial pulses intact and symmetrical. Abdominal: Nontender, nondistended, soft. BS present. Extremities: Warm, dry. Results & Data Results & Data Vital Signs (Past 12 Hours) Vital Signs Pulse Pulse Resp BP BP Pulse Ox O2 Del Method 02/01/23 14:09 126 H 24 84/67 L 94 Nasal Cannula 02/01/23 13:03 120 H 18 98 Nasal Cannula 02/01/23 13:03 120 H 22 95/66 L 98 Nasal Cannula 02/01/23 13:03 85 L Nasal Cannula 02/01/23 13:03 115 H 18 95/66 L 98 Nasal Cannula 02/01/23 13:03 Nasal Cannula 02/01/23 13:07 112 H O2 Flow Rate 02/01/23 14:09 6 02/01/23 13:03 6 02/01/23 13:03 6 02/01/23 13:03 2 02/01/23 13:03 6 02/01/23 13:03 6 02/01/23 13:07 PG Care Time/CCT Total # of Minutes Spent Total Time Spent with Patient: Total time spent is greater than 50% in coordination of care (as documented) at patient's floor/unit and/or counseling patient: Coding Level of Care Code 49807 INT INP/OBS CARE 3/75MIN Diagnoses Shortness of breath R06.02 COPD (chronic obstructive pulmonary disease) J44.9 Chronic ischemic heart disease I25.9 GERD (gastroesophageal reflux disease) K21.9 Esophagitis presence: without esophagitis Sleep apnea G47.30 Pulmonary hypertension I27.20 B12 deficiency E53.8 Hypercholesterolemia E78.00 (4) GERD (gastroesophageal reflux disease) Esophagitis presence: without esophagitis Qualified Code(s): K21.9 - Gastro- esophageal reflux disease without esophagitis
[2023-02-01 16:11] LABS: HCO3 VBG 30 mmol/L; Oxygen Saturation VBG < 60.0 %; PCO2 VBG 48 mmHg (38-50); PO2 VBG 36 mmHg
[2023-02-01] MEDS ORDERED: MAGNESIUM SULFATE / D5W 1 GM/100 ML BAG IV ONE (16:13)
[2023-02-01 17:58] LABS: Adenovirus PCR Not Detected (NotDetected); Bordetella parapertussis PCR Not Detected (NotDetected); Bordetella pertussis PCR Not Detected (NotDetected); Chlamydia pneumoniae PCR Not Detected (NotDetected); Coronavirus 229E PCR Not Detected (NotDetected); Coronavirus CoV-2 (COVID19)PCR Not Detected (NotDetected); Coronavirus HKU1 PCR Not Detected (NotDetected); Coronavirus NL63 PCR Not Detected (NotDetected); Coronavirus OC43PCR Not Detected (NotDetected); Human Metapneumovirus PCR Not Detected (NotDetected); Influenza A PCR Not Detected (NotDetected); Influenza B PCR Not Detected (NotDetected); Mycoplasma pneumoniae PCR Not Detected (NotDetected); Parainfluenza Virus 1 PCR Not Detected (NotDetected); Parainfluenza Virus 2 PCR Not Detected (NotDetected); Parainfluenza Virus 3 PCR Not Detected (NotDetected); Parainfluenza Virus 4 PCR Not Detected (NotDetected); Respiratory Syncytial VirusPCR Not Detected (NotDetected); Rhinovirus/Enterovirus PCR Not Detected (NotDetected)
[2023-02-01] MEDS ORDERED: ALBUT/IPRATROP 3MG/0.5MG NEB 3 ML VIAL INH PRN (18:34)
[2023-02-01] MEDS ORDERED: FLUTICASONE PROPIONATE NA SPR 16 GM BTL NAE PRN (18:34)
[2023-02-01] MEDS ORDERED: IPRATROPIUM BROMIDE NASAL SPRAY 0.06% 15ML NAE PRN (18:56)
[2023-02-01] MEDS: PANTOprazole 40 MG TAB PO SCH (22:32)
[2023-02-01] MEDS: FAMOTIDINE 20 MG TAB PO SCH (22:32)
[2023-02-01] MEDS: DOXYCYCLINE HYCLATE 100 MG CAP PO SCH (22:32)
[2023-02-02 06:37] LABS: Basophils # (auto) 0.01 K/uL (0.00-0.20); Basophils % (auto) 0.1 %; Eosinophils # (auto) 0.01 K/uL (0.00-0.50); Eosinophils % (auto) 0.1 %; Hematocrit (blood only) 30.2 % (37.0-47.0); Hemoglobin 9.4 g/dl (12.0-16.0); Immature Granulocytes # (auto) 0.07 K/uL (0.01-0.20); Immature Granulocytes % (auto) 0.5 %; Lymphocytes # (auto) 1.93 K/uL (1.20-3.40); Lymphocytes % (auto) 15.2 %; Mean Corpuscular Hemoglobin 25.9 pg (25.0-34.0); Mean Corpuscular Hgb Conc 31.1 g/dL (32.0-36.0); Mean Corpuscular Volume 83.2 fL (80.0-100.0); Mean Platelet Volume 9.8 fL (9.4-12.4); Monocytes # (auto) 1.23 K/uL (0.11-0.59); Monocytes % (auto) 9.7 %; Neutrophils # (auto) 9.48 K/uL (1.40-6.50); Neutrophils % (auto) 74.4 %; Platelet Count 301 K/uL (130-400); RDW Coefficient of Variation 16.2 % (11.5-14.5); Red Blood Count 3.63 M/uL (4.20-5.40); White Blood Count 12.73 K/ul (4.8-10.8)
[2023-02-02 06:54] LABS: BUN Creatinine Ratio 26.1 (10-20); Calcium 8.5 mg/dl (8.6-10.3); Creatinine Clr Calc Pharmacy 52.1 ml/min; Est GFR (African American) 95.3 ml/min; Est GFR (Non-African American) 82.2 ml/min; Magnesium 2.1 mg/dl (1.7-2.4); Potassium 4.3 mmol/L (3.5-5.1)
[2023-02-02] MEDS: ACETAMINOPHEN 500 MG TAB PO PRN (07:52)
[2023-02-02] MEDS: FAMOTIDINE 20 MG TAB PO SCH ×2 (07:52→20:30)
[2023-02-02] MEDS: SERTRALINE HCL 50 MG TABLET PO SCH (07:53)
[2023-02-02] MEDS: DOXYCYCLINE HYCLATE 100 MG CAP PO SCH ×2 (07:53→20:30)
[2023-02-02] MEDS: PANTOprazole 40 MG TAB PO SCH ×2 (07:53→20:32)
[2023-02-02] MEDS: OXYBUTYNIN CHLORIDE XL 5 MG TABCR PO SCH (07:54)
[2023-02-02] MEDS: FLUTICASONE FUROATE 100MCG 14 PUFFS/INHALER INH SCH (07:55)
[2023-02-02] MEDS: UMECLIDINIUM/VILANTEROL 62.5/25MCG 7 PUFFS/INHALER INH SCH (07:55)
[2023-02-02] MEDS: OLOPATADINE NAE SCH (07:55)
[2023-02-02] MEDS: methylPREDNISolone 40 MG in SYRINGE 0 ML IV SCH ×2 (07:56→15:01)
[2023-02-02] MEDS ORDERED: NON-FORMULARY MEDICATION (Fluticasone-Umeclidin-Vilanter [Trelegy Ellipta] 100-62.5-25 mcg INH SCH (09:00)
[2023-02-02] MEDS ORDERED: OLOPATADINE EXT SCH (09:00)
[2023-02-02] MEDS: HEPARIN SOD 5,000 UNIT/0.5 ML VIAL SQ SCH ×2 (10:48→20:31)
--- NOTE | 2023-02-02 14:52 | Electrocardiogram Report ---
Test Reason : Blood Pressure : / mmHG Vent. Rate : 112 BPM Atrial Rate : 112 BPM P-R Int : 142 ms QRS Dur : 128 ms QT Int : 358 ms P-R-T Axes : 074 250 046 degrees QTc Int : 488 ms Sinus tachycardia Right bundle branch block Inferior infarct , age undetermined Abnormal ECG When compared with ECG of 21-JAN-2023 12:49, Inferior infarct is now Present Confirmed by Cabrera Weaver ([id number]) on 02/02/2023 2:51:38 PM Referred By: REFERRED SELF Confirmed By:Christiano Weaver
[2023-02-02] MEDS: LORATADINE 10 MG TAB PO SCH (16:18)
[2023-02-02] MEDS: FLUTICASONE PROPIONATE NA SPR 16 GM BTL NAE SCH (16:18)
--- NOTE | 2023-02-02 16:19 | Hospitalist Progress Note ---
Date of Service February 02, 2023 Assessment & Plan (1) Shortness of breath: Plan: Acute on chronic respiratory failure with hypoxia. Supplemental oxygen to maintain saturation greater than 90%. Treat underlying COPD exacerbation and suspected acute on chronic bronchitis. (2) COPD (chronic obstructive pulmonary disease): Plan: Acute exacerbation. Continue parenteral steroid therapy and scheduled nebulizers. (3) Chronic ischemic heart disease: Plan: Stable. Continue current medical management. Telemetry (4) GERD (gastroesophageal reflux disease): Plan: Stable. Continue PPI therapy (5) Sleep apnea: Plan: CPAP at bedtime as needed (6) Pulmonary hypertension: Plan: Due to severe COPD. Supportive care (7) B12 deficiency: Plan: Stable. Continue B12 supplementation (8) Hypercholesterolemia: Plan: Stable. Continue statin therapy Plan Anticipate eventual discharge to home within the next 48 to 72 hours Admission and Anticipated Discharge Date Admission Date: February 01, 2023 Subjective Alert and oriented. No distress. Her biggest complaint is her chronic nasal congestion. She uses multiple nasal inhalers at home. Will use Flonase nasal spray while hospitalized here along with loratadine once a day. She remains on parenteral steroid therapy and scheduled nebulizers along with oral doxycycline. She has a nonproductive cough. Chest x-ray on admission negative for infiltrates. She undoubtedly has some element of chronic bronchitis associated with her severe COPD and chronic respiratory failure. Review of Systems Review of Systems: Constitutional-no fever or chills ENT-no blurred vision, no double vision, no epistaxis, no sore throat. Chronic nasal congestion Respiratory-nonproductive cough. No hemoptysis. Chronic shortness of breath. Cardiac-no palpitations, no chest pain, no syncope GI-no nausea, vomiting, diarrhea, melena, hematochezia -no urinary retention, no urinary incontinence, no dysuria, no hematuria Musculoskeletal-no joint pain, no muscle tenderness Skin-no bruising, no rashes, no pruritus Neuro-no isolated weakness, no paresthesia, no weakness Psych-no depression, no anxiety Physical Exam Physical Exam: General-alert and oriented x3, no fevers, no chills HEENT-head atraumatic and normocephalic, pupils equal and reactive to light, extraocular muscles intact Neck-no lymphadenopathy or thyromegaly, trachea midline Chest-diminished breath sounds bilaterally. Midline rhonchi. Faint bilateral end expiratory wheezes. No dullness to percussion Cardiac-regular rate and rhythm, normal S1 and S2 Abdomen-normal bowel sounds, nontender, no hepatosplenomegaly Extremities-no cyanosis, clubbing, or edema Neuro-cranial nerves II through XII intact, motor and sensory function within normal limits, strength symmetrical , no focal deficits Psych-normal affect, normal mood Results & Data Results & Data Vital Signs (Past 12 Hours) Vital Signs Temp Pulse Pulse Pulse Resp BP Pulse Ox 02/02/23 15:59 36.7 C 89 20 106/67 95 02/02/23 15:25 103 H 02/02/23 11:55 36.7 C 85 19 114/72 96 02/02/23 07:45 02/02/23 08:00 78 02/02/23 07:53 36.5 C 82 20 110/68 99 02/02/23 05:38 36.4 C L 81 18 107/69 95 O2 Del Method O2 Flow Rate 02/02/23 15:59 Room Air 02/02/23 15:25 02/02/23 11:55 Nasal Cannula 6 02/02/23 07:45 Nasal Cannula 4 02/02/23 08:00 02/02/23 07:53 Nasal Cannula 6 02/02/23 05:38 Nasal Cannula 6 Laboratory Results 02/02/23 05:46 02/02/23 05:46 PG Care Time/CCT Total # of Minutes Spent Total Time Spent with Patient: Total time spent is greater than 50% in coordination of care (as documented) at patient's floor/unit and/or counseling patient: Coding Level of Care Code 11989 SUB INP/OBS CARE 3/50MIN Diagnoses Shortness of breath R06.02 COPD (chronic obstructive pulmonary disease) J44.9 Chronic ischemic heart disease I25.9 GERD (gastroesophageal reflux disease) K21.9 Esophagitis presence: without esophagitis Sleep apnea G47.30 Pulmonary hypertension I27.20 B12 deficiency E53.8 Hypercholesterolemia E78.00 (4) GERD (gastroesophageal reflux disease) Esophagitis presence: without esophagitis Qualified Code(s): K21.9 - Gastro- esophageal reflux disease without esophagitis
[2023-02-02] MEDS ORDERED: ALBUT/IPRATROP 3MG/0.5MG NEB 3 ML VIAL INH SCH (17:00)
[2023-02-02] MEDS: ALBUT/IPRATROP 3MG/0.5MG NEB 3 ML VIAL INH SCH (19:25)
[2023-02-02] MEDS: methylPREDNISolone 60 MG in SYRINGE 0 ML IV SCH (20:25)
[2023-02-03] MEDS: ALBUT/IPRATROP 3MG/0.5MG NEB 3 ML VIAL INH SCH ×4 (07:15→19:57)
[2023-02-03] MEDS: FLUTICASONE PROPIONATE NA SPR 16 GM BTL NAE SCH (09:18)
[2023-02-03] MEDS: UMECLIDINIUM/VILANTEROL 62.5/25MCG 7 PUFFS/INHALER INH SCH (09:19)
[2023-02-03] MEDS: FLUTICASONE FUROATE 100MCG 14 PUFFS/INHALER INH SCH (09:19)
[2023-02-03] MEDS: FAMOTIDINE 20 MG TAB PO SCH ×2 (09:19→20:56)
[2023-02-03] MEDS: DOXYCYCLINE HYCLATE 100 MG CAP PO SCH ×2 (09:19→20:56)
[2023-02-03] MEDS: PANTOprazole 40 MG TAB PO SCH ×2 (09:20→20:56)
[2023-02-03] MEDS: SERTRALINE HCL 50 MG TABLET PO SCH (09:20)
[2023-02-03] MEDS: LORATADINE 10 MG TAB PO SCH (09:22)
[2023-02-03] MEDS: OXYBUTYNIN CHLORIDE XL 5 MG TABCR PO SCH (09:22)
[2023-02-03] MEDS: OLOPATADINE NAE SCH (09:23)
[2023-02-03] MEDS: HEPARIN SOD 5,000 UNIT/0.5 ML VIAL SQ SCH ×2 (09:24→20:57)
[2023-02-03] MEDS: methylPREDNISolone 60 MG in SYRINGE 0 ML IV SCH (09:27)
[2023-02-03 10:13] LABS: Basophils # (auto) 0.01 K/uL (0.00-0.20); Basophils % (auto) 0.1 %; Hematocrit (blood only) 36.1 % (37.0-47.0); Hemoglobin 11.1 g/dl (12.0-16.0); Immature Granulocytes # (auto) 0.13 K/uL (0.01-0.20); Immature Granulocytes % (auto) 0.9 %; Lymphocytes # (auto) 1.52 K/uL (1.20-3.40); Lymphocytes % (auto) 10.9 %; Mean Corpuscular Hemoglobin 26.3 pg (25.0-34.0); Mean Corpuscular Hgb Conc 30.7 g/dL (32.0-36.0); Mean Corpuscular Volume 85.5 fL (80.0-100.0); Mean Platelet Volume 9.9 fL (9.4-12.4); Monocytes # (auto) 0.81 K/uL (0.11-0.59); Monocytes % (auto) 5.8 %; Neutrophils # (auto) 11.53 K/uL (1.40-6.50); Neutrophils % (auto) 82.3 %; Platelet Count 351 K/uL (130-400); RDW Coefficient of Variation 16.6 % (11.5-14.5); RDW Standard Deviation 50.5 fL (36.4-46.3); Red Blood Count 4.22 M/uL (4.20-5.40)
[2023-02-03 10:31] LABS: BUN Creatinine Ratio 23.5 (10-20); Calcium 9.8 mg/dl (8.6-10.3); Creatinine Clr Calc Pharmacy 45.4 ml/min; Est GFR (African American) 79.5 ml/min; Est GFR (Non-African American) 68.6 ml/min; Potassium 3.8 mmol/L (3.5-5.1)
[2023-02-03] MEDS: ACETAMINOPHEN 500 MG TAB PO PRN (11:49)
[2023-02-03] MEDS ORDERED: CEFEPIME 1,000 MG in SYRINGE 0 ML IV SCH (13:00)
--- NOTE | 2023-02-03 14:29 | Hospitalist Progress Note ---
Date of Service February 03, 2023 Assessment & Plan (1) Shortness of breath: Plan: Acute on chronic respiratory failure with hypoxia. Supplemental oxygen to maintain saturation greater than 90%. Treat underlying COPD exacerbation and suspected acute on chronic bronchitis. (2) COPD (chronic obstructive pulmonary disease): Plan: Acute exacerbation. Continue parenteral steroid therapy and scheduled nebulizers. Solu-Medrol dosage uptitrated today, February 03 (3) Chronic bronchitis with acute exacerbation: Plan: Suspected, based on severity of underlying COPD and recurrent hospitalizations. No sputum produced for culture. Cefepime added to oral doxycycline, day 1 (4) Chronic ischemic heart disease: Plan: Stable. Continue current medical management. Telemetry (5) GERD (gastroesophageal reflux disease): Plan: Stable. Continue PPI therapy (6) Sleep apnea: Plan: CPAP at bedtime as needed (7) Pulmonary hypertension: Plan: Due to severe COPD. Supportive care (8) B12 deficiency: Plan: Stable. Continue B12 supplementation (9) Hypercholesterolemia: Plan: Stable. Continue statin therapy Plan Anticipate eventual discharge to home. Admission and Anticipated Discharge Date Admission Date: February 01, 2023 Subjective Not much improvement. Intravenous cefepime added to oral doxycycline and Solu- Medrol dosage uptitrated. She is not producing any sputum for culture. OT and PT assessments requested Review of Systems Review of Systems: Constitutional-no fever or chills ENT-no blurred vision, no double vision, no epistaxis, no sore throat. Chronic nasal congestion Respiratory-nonproductive cough. No hemoptysis. Chronic shortness of breath. Cardiac-no palpitations, no chest pain, no syncope GI-no nausea, vomiting, diarrhea, melena, hematochezia -no urinary retention, no urinary incontinence, no dysuria, no hematuria Musculoskeletal-no joint pain, no muscle tenderness Skin-no bruising, no rashes, no pruritus Neuro-no isolated weakness, no paresthesia, no weakness Psych-no depression, no anxiety Physical Exam Physical Exam: General-alert and oriented x3, no fevers, no chills HEENT-head atraumatic and normocephalic, pupils equal and reactive to light, extraocular muscles intact Neck-no lymphadenopathy or thyromegaly, trachea midline Chest-diminished breath sounds bilaterally. Midline rhonchi. Faint bilateral end expiratory wheezes. No dullness to percussion Cardiac-regular rate and rhythm, normal S1 and S2 Abdomen-normal bowel sounds, nontender, no hepatosplenomegaly Extremities-no cyanosis, clubbing, or edema Neuro-cranial nerves II through XII intact, motor and sensory function within normal limits, strength symmetrical , no focal deficits Psych-normal affect, normal mood Results & Data Results & Data Vital Signs (Past 12 Hours) Vital Signs Temp Pulse Pulse Resp BP Pulse Ox O2 Del Method 02/03/23 11:30 36.5 C 63 16 100/60 94 Nasal Cannula 02/03/23 09:30 Nasal Cannula 02/03/23 08:00 80 02/03/23 07:53 36.4 C L 76 18 127/75 99 CPAP 02/03/23 07:15 89 20 93 BiPAP 02/03/23 04:38 80 18 120/77 95 BiPAP O2 Flow Rate 02/03/23 11:30 3 02/03/23 09:30 3 02/03/23 08:00 02/03/23 07:53 02/03/23 07:15 3 02/03/23 04:38 Laboratory Results 02/03/23 09:24 02/03/23 09:24 PG Care Time/CCT Total # of Minutes Spent Total Time Spent with Patient: Total time spent is greater than 50% in coordination of care (as documented) at patient's floor/unit and/or counseling patient: Coding Level of Care Code 73017 SUB INP/OBS CARE 3/50MIN Diagnoses Shortness of breath R06.02 COPD (chronic obstructive pulmonary disease) J44.9 Chronic bronchitis with acute exacerbation J20.9; J42 Chronic ischemic heart disease I25.9 GERD (gastroesophageal reflux disease) K21.9 Esophagitis presence: without esophagitis Sleep apnea G47.30 Pulmonary hypertension I27.20 B12 deficiency E53.8 Hypercholesterolemia E78.00 (5) GERD (gastroesophageal reflux disease) Esophagitis presence: without esophagitis Qualified Code(s): K21.9 - Gastro- esophageal reflux disease without esophagitis
[2023-02-03] MEDS: methylPREDNISolone 80 MG in SYRINGE 0 ML IV SCH ×2 (16:06→20:59)
[2023-02-03] MEDS: CEFEPIME 2,000 MG in SYRINGE 0 ML IV SCH (16:06)
[2023-02-04] MEDS: CEFEPIME 2,000 MG in SYRINGE 0 ML IV SCH ×2 (01:15→17:20)
[2023-02-04] MEDS: ALBUT/IPRATROP 3MG/0.5MG NEB 3 ML VIAL INH SCH ×4 (07:06→19:46)
[2023-02-04 07:52] LABS: Basophils # (auto) 0.01 K/uL (0.00-0.20); Basophils % (auto) 0.1 %; Hematocrit (blood only) 30.5 % (37.0-47.0); Hemoglobin 9.7 g/dl (12.0-16.0); Immature Granulocytes # (auto) 0.09 K/uL (0.01-0.20); Immature Granulocytes % (auto) 0.7 %; Lymphocytes # (auto) 1.11 K/uL (1.20-3.40); Lymphocytes % (auto) 8.1 %; Mean Corpuscular Hemoglobin 26.4 pg (25.0-34.0); Mean Corpuscular Hgb Conc 31.8 g/dL (32.0-36.0); Mean Corpuscular Volume 83.1 fL (80.0-100.0); Mean Platelet Volume 9.9 fL (9.4-12.4); Monocytes % (auto) 7.3 %; Neutrophils # (auto) 11.48 K/uL (1.40-6.50); Neutrophils % (auto) 83.8 %; Platelet Count 305 K/uL (130-400); RDW Coefficient of Variation 16.6 % (11.5-14.5); RDW Standard Deviation 49.7 fL (36.4-46.3); Red Blood Count 3.67 M/uL (4.20-5.40); White Blood Count 13.69 K/ul (4.8-10.8)
[2023-02-04 08:21] LABS: BUN Creatinine Ratio 28.2 (10-20); Calcium 9.3 mg/dl (8.6-10.3); Creatinine Clr Calc Pharmacy 51.9 ml/min; Est GFR (African American) 93.2 ml/min; Est GFR (Non-African American) 80.4 ml/min
[2023-02-04] MEDS: methylPREDNISolone 80 MG in SYRINGE 0 ML IV SCH ×3 (09:15→21:47)
[2023-02-04] MEDS: FAMOTIDINE 20 MG TAB PO SCH ×2 (09:16→21:46)
[2023-02-04] MEDS: SERTRALINE HCL 50 MG TABLET PO SCH (09:16)
[2023-02-04] MEDS: PANTOprazole 40 MG TAB PO SCH ×2 (09:16→21:46)
[2023-02-04] MEDS: LORATADINE 10 MG TAB PO SCH (09:16)
[2023-02-04] MEDS: OXYBUTYNIN CHLORIDE XL 5 MG TABCR PO SCH (09:16)
[2023-02-04] MEDS: DOXYCYCLINE HYCLATE 100 MG CAP PO SCH ×2 (09:17→21:46)
[2023-02-04] MEDS: OLOPATADINE NAE SCH (09:17)
[2023-02-04] MEDS: HEPARIN SOD 5,000 UNIT/0.5 ML VIAL SQ SCH ×2 (09:17→21:46)
[2023-02-04] MEDS: FLUTICASONE FUROATE 100MCG 14 PUFFS/INHALER INH SCH (09:18)
[2023-02-04] MEDS: UMECLIDINIUM/VILANTEROL 62.5/25MCG 7 PUFFS/INHALER INH SCH (09:18)
[2023-02-04] MEDS: FLUTICASONE PROPIONATE NA SPR 16 GM BTL NAE SCH (09:18)
[2023-02-04] MEDS: ACETAMINOPHEN 500 MG TAB PO PRN (09:24)
--- NOTE | 2023-02-04 12:59 | Hospitalist Progress Note ---
Date of Service February 04, 2023 Assessment & Plan (1) Shortness of breath: Plan: Acute on chronic respiratory failure with hypoxia. Supplemental oxygen to maintain saturation greater than 90%. Treat underlying COPD exacerbation and suspected acute on chronic bronchitis. (2) COPD (chronic obstructive pulmonary disease): Plan: Acute exacerbation. Continue parenteral steroid therapy and scheduled nebulizers. Solu-Medrol dosage uptitrated on February 03. Seems to have helped (3) Chronic bronchitis with acute exacerbation: Plan: Suspected, based on severity of underlying COPD and recurrent hospitalizations. No sputum produced for culture. Cefepime has been added to oral doxycycline, day 2. Seems to be helping (4) Chronic ischemic heart disease: Plan: Stable. Continue current medical management. Telemetry (5) GERD (gastroesophageal reflux disease): Plan: Stable. Continue PPI therapy (6) Sleep apnea: Plan: CPAP at bedtime as needed (7) Pulmonary hypertension: Plan: Due to severe COPD. Supportive care (8) B12 deficiency: Plan: Stable. Continue B12 supplementation (9) Hypercholesterolemia: Plan: Stable. Continue statin therapy Plan Anticipate eventual discharge to home. Hopefully soon Admission and Anticipated Discharge Date Admission Date: February 01, 2023 Subjective Alert and oriented. The patient is somewhat dramatic and states she does not feel any better but her lung sounds have definitely improved with high-dose steroid therapy and the addition of cefepime. Hopefully she can go home soon Review of Systems Review of Systems: Constitutional-no fever or chills ENT-no blurred vision, no double vision, no epistaxis, no sore throat. Chronic nasal congestion Respiratory-nonproductive cough. No hemoptysis. Chronic shortness of breath. Cardiac-no palpitations, no chest pain, no syncope GI-no nausea, vomiting, diarrhea, melena, hematochezia -no urinary retention, no urinary incontinence, no dysuria, no hematuria Musculoskeletal-no joint pain, no muscle tenderness Skin-no bruising, no rashes, no pruritus Neuro-no isolated weakness, no paresthesia, no weakness Psych-no depression, no anxiety Physical Exam Physical Exam: General-alert and oriented x3, no fevers, no chills HEENT-head atraumatic and normocephalic, pupils equal and reactive to light, extraocular muscles intact Neck-no lymphadenopathy or thyromegaly, trachea midline Chest-diminished breath sounds bilaterally. Midline rhonchi. Faint bilateral end expiratory wheezes. No dullness to percussion Cardiac-regular rate and rhythm, normal S1 and S2 Abdomen-normal bowel sounds, nontender, no hepatosplenomegaly Extremities-no cyanosis, clubbing, or edema Neuro-cranial nerves II through XII intact, motor and sensory function within normal limits, strength symmetrical , no focal deficits Psych-normal affect, normal mood Results & Data Results & Data Vital Signs (Past 12 Hours) Vital Signs Temp Pulse Resp BP Pulse Ox Pulse Ox Pulse Ox 02/04/23 11:58 36.8 C 101 H 18 105/62 95 02/04/23 11:34 71 15 97 02/04/23 10:32 93 81 L 02/04/23 08:04 36.6 C 105 H 18 130/68 91 02/04/23 07:07 92 H 14 89 L 02/04/23 01:54 90 18 112/68 97 O2 Del Method O2 Flow Rate O2 Flow Rate O2 Flow Rate 02/04/23 11:58 Nasal Cannula 3 02/04/23 11:34 Nasal Cannula 3 02/04/23 10:32 3 3 02/04/23 08:04 Nasal Cannula 3 02/04/23 07:07 Nasal Cannula 3 02/04/23 01:54 CPAP Laboratory Results 02/04/23 07:08 02/04/23 07:08 PG Care Time/CCT Total # of Minutes Spent Total Time Spent with Patient: Total time spent is greater than 50% in coordination of care (as documented) at patient's floor/unit and/or counseling patient: Coding Level of Care Code 83858 SUB INP/OBS CARE 2/35MIN Diagnoses Shortness of breath R06.02 COPD (chronic obstructive pulmonary disease) J44.9 Chronic bronchitis with acute exacerbation J20.9; J42 Chronic ischemic heart disease I25.9 GERD (gastroesophageal reflux disease) K21.9 Esophagitis presence: without esophagitis Sleep apnea G47.30 Pulmonary hypertension I27.20 B12 deficiency E53.8 Hypercholesterolemia E78.00 (5) GERD (gastroesophageal reflux disease) Esophagitis presence: without esophagitis Qualified Code(s): K21.9 - Gastro- esophageal reflux disease without esophagitis
[2023-02-05] MEDS: CEFEPIME 2,000 MG in SYRINGE 0 ML IV SCH ×2 (01:20→13:42)
[2023-02-05] MEDS: ALBUT/IPRATROP 3MG/0.5MG NEB 3 ML VIAL INH SCH ×4 (06:55→19:11)
[2023-02-05] MEDS: HEPARIN SOD 5,000 UNIT/0.5 ML VIAL SQ SCH ×2 (09:05→21:13)
[2023-02-05] MEDS: methylPREDNISolone 80 MG in SYRINGE 0 ML IV SCH ×3 (09:05→21:13)
[2023-02-05] MEDS: SERTRALINE HCL 50 MG TABLET PO SCH (09:05)
[2023-02-05] MEDS: DOXYCYCLINE HYCLATE 100 MG CAP PO SCH ×2 (09:06→21:12)
[2023-02-05] MEDS: PANTOprazole 40 MG TAB PO SCH ×2 (09:06→21:12)
[2023-02-05] MEDS: OXYBUTYNIN CHLORIDE XL 5 MG TABCR PO SCH (09:06)
[2023-02-05] MEDS: LORATADINE 10 MG TAB PO SCH (09:06)
[2023-02-05] MEDS: FAMOTIDINE 20 MG TAB PO SCH ×2 (09:06→21:12)
[2023-02-05] MEDS: OLOPATADINE NAE SCH (09:10)
[2023-02-05] MEDS: FLUTICASONE FUROATE 100MCG 14 PUFFS/INHALER INH SCH (09:10)
[2023-02-05] MEDS: UMECLIDINIUM/VILANTEROL 62.5/25MCG 7 PUFFS/INHALER INH SCH (09:10)
[2023-02-05] MEDS: FLUTICASONE PROPIONATE NA SPR 16 GM BTL NAE SCH (09:11)
--- NOTE | 2023-02-05 13:46 | Hospitalist Progress Note ---
Date of Service February 05, 2023 Assessment & Plan (1) Shortness of breath: Plan: Acute on chronic respiratory failure with hypoxia. Supplemental oxygen to maintain saturation greater than 90%. Treat underlying COPD exacerbation and suspected acute on chronic bronchitis. (2) COPD (chronic obstructive pulmonary disease): Plan: Acute exacerbation. Continue parenteral steroid therapy and scheduled nebulizers. Solu-Medrol dosage uptitrated on February 03. Seems to have helped (3) Chronic bronchitis with acute exacerbation: Plan: Suspected, based on severity of underlying COPD and recurrent hospitalizations. No sputum produced for culture. Cefepime has been added to oral doxycycline, day 3. Seems to be helping (4) Chronic ischemic heart disease: Plan: Stable. Continue current medical management. Telemetry (5) GERD (gastroesophageal reflux disease): Plan: Stable. Continue PPI therapy (6) Sleep apnea: Plan: CPAP at bedtime as needed (7) Pulmonary hypertension: Plan: Due to severe COPD. Supportive care (8) B12 deficiency: Plan: Stable. Continue B12 supplementation (9) Hypercholesterolemia: Plan: Stable. Continue statin therapy Plan Hopefully home tomorrow, February 06 Admission and Anticipated Discharge Date Admission Date: February 01, 2023 Subjective Alert and oriented. No significant change. She remains on parenteral steroid therapy and cefepime. Hopefully she can go home tomorrow, February 06 Review of Systems Review of Systems: Constitutional-no fever or chills ENT-no blurred vision, no double vision, no epistaxis, no sore throat. Chronic nasal congestion Respiratory-nonproductive cough. No hemoptysis. Chronic shortness of breath. Cardiac-no palpitations, no chest pain, no syncope GI-no nausea, vomiting, diarrhea, melena, hematochezia -no urinary retention, no urinary incontinence, no dysuria, no hematuria Musculoskeletal-no joint pain, no muscle tenderness Skin-no bruising, no rashes, no pruritus Neuro-no isolated weakness, no paresthesia, no weakness Psych-no depression, no anxiety Physical Exam Physical Exam: General-alert and oriented x3, no fevers, no chills HEENT-head atraumatic and normocephalic, pupils equal and reactive to light, extraocular muscles intact Neck-no lymphadenopathy or thyromegaly, trachea midline Chest-diminished breath sounds bilaterally. Midline rhonchi. Faint bilateral end expiratory wheezes. No dullness to percussion Cardiac-regular rate and rhythm, normal S1 and S2 Abdomen-normal bowel sounds, nontender, no hepatosplenomegaly Extremities-no cyanosis, clubbing, or edema Neuro-cranial nerves II through XII intact, motor and sensory function within normal limits, strength symmetrical , no focal deficits Psych-normal affect, normal mood Results & Data Results & Data Vital Signs (Past 12 Hours) Vital Signs Temp Pulse Pulse Resp BP Pulse Ox O2 Del Method 02/05/23 11:33 36.7 C 95 H 20 107/66 92 Nasal Cannula 02/05/23 11:20 95 H 20 92 Nasal Cannula 02/05/23 07:36 36.6 C 95 H 20 116/71 97 Nasal Cannula 02/05/23 06:56 100 H 18 99 Nasal Cannula 02/05/23 04:17 36.6 C 102 H 20 128/62 94 CPAP 02/05/23 03:09 84 17 94 O2 Flow Rate 02/05/23 11:33 3 02/05/23 11:20 3 02/05/23 07:36 3 02/05/23 06:56 3 02/05/23 04:17 4 02/05/23 03:09 3 Laboratory Results 02/04/23 07:08 02/04/23 07:08 PG Care Time/CCT Total # of Minutes Spent Total Time Spent with Patient: Total time spent is greater than 50% in coordination of care (as documented) at patient's floor/unit and/or counseling patient: Coding Level of Care Code 23758 SUB INP/OBS CARE 2/35MIN Diagnoses Shortness of breath R06.02 COPD (chronic obstructive pulmonary disease) J44.9 Chronic bronchitis with acute exacerbation J20.9; J42 Chronic ischemic heart disease I25.9 GERD (gastroesophageal reflux disease) K21.9 Esophagitis presence: without esophagitis Sleep apnea G47.30 Pulmonary hypertension I27.20 B12 deficiency E53.8 Hypercholesterolemia E78.00 (5) GERD (gastroesophageal reflux disease) Esophagitis presence: without esophagitis Qualified Code(s): K21.9 - Gastro- esophageal reflux disease without esophagitis
[2023-02-06] MEDS: CEFEPIME 2,000 MG in SYRINGE 0 ML IV SCH ×2 (01:00→15:28)
[2023-02-06] MEDS: ALBUT/IPRATROP 3MG/0.5MG NEB 3 ML VIAL INH SCH ×3 (07:28→15:07)
[2023-02-06] MEDS: HEPARIN SOD 5,000 UNIT/0.5 ML VIAL SQ SCH (07:58)
[2023-02-06] MEDS: FAMOTIDINE 20 MG TAB PO SCH (07:59)
[2023-02-06] MEDS: SERTRALINE HCL 50 MG TABLET PO SCH (07:59)
[2023-02-06] MEDS: PANTOprazole 40 MG TAB PO SCH (07:59)
[2023-02-06] MEDS: FLUTICASONE PROPIONATE NA SPR 16 GM BTL NAE SCH (07:59)
[2023-02-06] MEDS: DOXYCYCLINE HYCLATE 100 MG CAP PO SCH (07:59)
[2023-02-06] MEDS: LORATADINE 10 MG TAB PO SCH (07:59)
[2023-02-06] MEDS: OXYBUTYNIN CHLORIDE XL 5 MG TABCR PO SCH (07:59)
[2023-02-06] MEDS: UMECLIDINIUM/VILANTEROL 62.5/25MCG 7 PUFFS/INHALER INH SCH (08:00)
[2023-02-06] MEDS: OLOPATADINE NAE SCH (08:00)
[2023-02-06] MEDS: FLUTICASONE FUROATE 100MCG 14 PUFFS/INHALER INH SCH (08:00)
[2023-02-06] MEDS: methylPREDNISolone 80 MG in SYRINGE 0 ML IV SCH ×2 (08:00→15:28)
--- NOTE | 2023-02-06 11:30 | Discharge Summary ---
Date of Service February 06, 2023 Admission HPI Per Admitting Provider Judie is a 82-year-old female with a past medical history of COPD, GERD, pulmonary hypertension, sleep apnea, chronic respiratory failure with hypoxia and hypercapnia who was recently admitted 01/21/2023 - 01/29/2023 for acute COPD exacerbation with bronchitis who Jaylen presents 3 days following discharge after she was seen at her PCP for follow-up but was having increased oxygen demand, increased work of breathing, and was 85% on her normal 2 L of oxygen. She received Solu-Medrol 125 mg in route with DuoNebs prior to ER evaluation. Breathing continued to worsen 24 hours ago. Took morning meds today. Used nebul izer once this morning, helped a little bit. She feels she just cannot function at home. She is not sure if she took prednisone at home as prescribed, knows this was prescribed earlier and she is pretty sure she took her cefdinir but is not sure. Worsening shortness of breath, wheezing and dyspnea on exertion which are gradually worsening and much worse in the last 24 hours Endorses increased sputum production, no blood. Endorses she has a lot of allergies and sinus congestion which seems to trigger her COPD and make this worse Denies chest pain/chest pressure No lightheadedness/dizziness Medical History: Reviewed Medications: Reviewed Surgical History: Reviewed Family history: Reviewed Allergies: Reviewed Social History: Reviewed Code Status: DNR/DNI Principal Diagnosis Acute exacerbation COPD, acute on chronic respiratory failure, acute on chronic bronchitis Discharge Exam General-alert and oriented x3, no fevers, no chills HEENT-head atraumatic and normocephalic, pupils equal and reactive to light, extraocular muscles intact Neck-no lymphadenopathy or thyromegaly, trachea midline Chest-diminished breath sounds bilaterally. Midline rhonchi. Faint bilateral end expiratory wheezes. No dullness to percussion Cardiac-regular rate and rhythm, normal S1 and S2 Abdomen-normal bowel sounds, nontender, no hepatosplenomegaly Extremities-no cyanosis, clubbing, or edema Neuro-cranial nerves II through XII intact, motor and sensory function within normal limits, strength symmetrical , no focal deficits Psych-normal affect, normal mood Discharge Data Allergies Allergy/AdvReac Type Severity Reaction Status Date / Time Penicillins Allergy Intermediate HIVES Verified 02/01/23 11:41 house dust AdvReac Unknown Verified 02/01/23 11:41 mold AdvReac Unknown Verified 02/01/23 11:41 Consultations 02/01/23 14:05 ED Decision to Admit Stat Hospital Course (1) Shortness of breath: Acute on chronic respiratory failure with hypoxia. Supplemental oxygen to maintain saturation greater than 90%. Treat underlying COPD exacerbation and suspected acute on chronic bronchitis. (2) COPD (chronic obstructive pulmonary disease): Acute exacerbation. Treated with parenteral steroid therapy and scheduled nebulizers. Solu-Medrol dosage uptitrated on February 03. Seems to have helped. Will discharge on a prednisone tapering dose down to 20 mg daily ongoing (3) Chronic bronchitis with acute exacerbation: Suspected, based on severity of underlying COPD and recurrent hospitalizations. No sputum produced for culture. Cefepime has been added to oral doxycycline, day 4. Seems to be helping. She will go home on a course of oral Bactrim therapy. I suggest that she take Bactrim for 1 week, then azithromycin for 1 week, then doxycycline for 1 week, then repeat this alternating sequence indefinitely to hopefully prevent recurrent exacerbations of her chronic bronchitis. If we can decrease her frequency of hospitalizations, this will be of benefit to her (4) Chronic ischemic heart disease: Stable. Continue current medical management. Telemetry (5) GERD (gastroesophageal reflux disease): Stable. Continue PPI therapy (6) Sleep apnea: CPAP at bedtime as needed (7) Pulmonary hypertension: Due to severe COPD. Supportive care (8) B12 deficiency: Stable. Continue B12 supplementation (9) Hypercholesterolemia: Stable. Continue statin therapy Plan Home todayFebruary 06 Total Time Total Time Spent Total Time Spent (In Minutes): 45 minutes Discharge Plan Discharge Items Patient Disposition: Home - Self-Care Reason For Visit: [facility] COPD EXACERBATION Discharge Diagnosis: Acute exacerbation COPD, acute on chronic respiratory failure, acute on chronic bronchitis Activity: Resume your previous activity Non-emergency contact: Primary Care Provider Call non-emergency contact if: you have any medication questions and your symptoms worsen Follow-up/Referrals: Camila Beth DO [Primary Care Provider] - Diet: Regular and Heart Healthy Addtl Attending Provider Instructions: Take prednisone in a tapering dose fashion down to 20 mg daily. Take Bactrim DS twice a day for 1 week. Would recommend that you then take doxycycline 100 mg twice a day for 1 week then azithromycin 250 mg daily for 1 week then repeat the sequence of Bactrim DS, doxycycline, azithromycin weekly ongoing. Obtain humid ification for your oxygen Pending Studies at Discharge: No Stand-Alone Forms: My [facility], Smoking Cessation Medications and DC Order Prescriptions: New prednisone 20 mg tablet See Rx Instructions .ROUTE .COMPLEX Qty: 30 0RF Rx Instructions: 20 mg orally 3 times a day for 2 days, then 20 mg twice a day for 2 days, then 20 mg daily thereafter sulfamethoxazole-trimethoprim [Bactrim DS] 800-160 mg tablet 1 tab PO BID 7 Days Qty: 14 0RF Continued (DME) nebulizer accessories Misc See Rx Instructions .ROUTE .MEDSUPPLY Qty: 1 0RF Rx Instructions: Filters for nebulizer ipratropium bromide 21 mcg (0.03 %) spray,non-aerosol 2 spray intranasal DAILY PRN (Reason: allergy symptoms) Qty: 90 1RF Rx Instructions: administer into each nostril olopatadine [Patanase] 0.6 % spray,non-aerosol 2 spray intranasal DAILY Qty: 91.5 3RF azelastine 137 mcg (0.1 %) aerosol,spray 2 spray intranasal BID Qty: 90 3RF Rx Instructions: administer into each nostril albuterol sulfate 90 mcg/actuation HFA aerosol inhaler 1 - 2 puff inhalation Q4H PRN (Reason: shortness of breath) Qty: 18 5RF ipratropium-albuterol 0.5 mg-3 mg(2.5 mg base)/3 mL solution for nebulization 3 ml inhalation Q4 PRN (Reason: Shortness Of Breath Or Wheezing) Qty: 180 1RF Rx Instructions: 1 VIAL VIA NEB EVERY FOUR HOURS NEEDED FOR WHEEZING. DX. J44.9; J96.11 oxybutynin chloride 15 mg tablet extended release 24hr 15 mg PO QAM Qty: 90 1RF azithromycin 250 mg tablet 250 mg PO 3XWK Qty: 36 0RF Rx Instructions: Take 1 tablet orally every Tuesday, Tuesday, and Tuesday (DME) CPAP Supplies Misc See Rx Instructions .ROUTE .MEDSUPPLY Qty: 1 0RF Rx Instructions: NIV mask fit and teaching regarding use and oxygen; DME=[employer] Trelegy Ellipta 100-62.5-25 mcg blister with device 1 inh inhalation DAILY Qty: 60 3RF (DME) CPAP Machine Misc See Rx Instructions .MEDSUPPLY Qty: 1 0RF Rx Instructions: Please provide a humidifier for her CPAP. Lifetime need. sertraline 25 mg tablet 25 mg PO DAILY acetaminophen [Tylenol Extra Strength] 500 mg Tablet 1,000 mg PO Q8H PRN (Reason: rib pain) Qty: 60 0RF Rx Instructions: Over the counter famotidine 20 mg tablet 20 mg PO BID pantoprazole 40 mg tablet,delayed release (DR/EC) 40 mg PO BID fluticasone propionate [Flonase Allergy Relief] 50 mcg/actuation spray,suspension 2 spray intranasal DAILY PRN (Reason: Congestion) Rx Instructions: administer into each nostril Discharge Orders: Discharge Order (Routine); Ordered 02/06/23 Ordered By: Andres Murphy Admission Data Admit Date/Time: 02/01/23 16:12 Attending Provider: Andres Murphy Admit Provider: Carlos Barraza Primary Care Provider: Camila Beth Other Providers: Carlos Barraza ; [facility] Coding Level of Care Code 08499 INP/OBS DISCH >30 MIN Diagnoses Shortness of breath R06.02 COPD (chronic obstructive pulmonary disease) J44.9 Chronic bronchitis with acute exacerbation J20.9; J42 Chronic ischemic heart disease I25.9 GERD (gastroesophageal reflux disease) K21.9 Esophagitis presence: without esophagitis Sleep apnea G47.30 Pulmonary hypertension I27.20 B12 deficiency E53.8 Hypercholesterolemia E78.00
== END 2023-02-06 16:00 | disposition home health service (06) | DRG 190 ==
LOC: ED 12:51 → EDINP 16:12 → SUATTDRO 16:12 → 2W 18:33